=== PATIENT | male | born 1970 | race Caucasian/White ===

== ENCOUNTER → 2017-02-22 | Outpatient (CLI) | payer OTHER ==
[~2017-02-22] MED LIST: ACET-1311 PO; AFRINWC; AGG PO; ALL300 PO; ARTIOIN OP; ATOR-22 PO; BLACK CHERRY PO; BND25 PO; CALCOIN3 TOP; CLR10 PO; COEN1CAP17 PO; CRDCD180 PO; CYAN500T PO; FAMO40TA6 PO; FLV1 PO; GABA-113 PO; LIRA18IN SQ; LOSA1TAB38 PO; MECL1TAB42 PO; METF-384 PO; METH2.5T PO; METO50TA17 PO; MOME50SP5 NAE; MULT-580 PO; NYSTCRE11 EX; OMEG12006 PO; OMEG340C PO; OXYC7.5T78 PO; POLYSOL4 OPR; PSYL55.43 PO; RANI150T3 PO; SENN8.6T36 PO; VENL37.593 PO
[2017-02-22 15:43] LABS: HEMATOCRIT 43.4 % (42-52); MEAN CELL VOLUME 93.7 fL (80-100); MEAN CORPUSCULAR HEMOGLOBIN 34.1 pg (25-34); MEAN CORPUSCULAR HGB CONC 36.4 g/dl (32-36); PLATELET COUNT 208 K/uL (130-400); RED BLOOD COUNT 4.63 M/uL (4.7-6.1); WHITE BLOOD COUNT 6.28 K/uL (4.8-10.8)
[2017-02-22 15:49] LABS: MANUAL MICROSCOPIC REQUIRED? NO; REVIEW REQ? NO; URINE APPEARANCE CLEAR (CLEAR); URINE COLOR DK YELLOW; URINE EPITHELIAL CELL AUTO 20-30 /lpf (0-5); URINE NITRITE POS (NEG); URINE SPECIFIC GRAVITY 1.032 (1.000-1.030); UROBILINOGEN NEG (NEG)
[2017-02-22 15:51] LABS: URINE BILIRUBIN NEG (NEG)
[2017-02-22 15:56] LABS: ALT/SGPT 64 U/L (12-78); BLOOD UREA NITROGEN 15 mg/dl (7-18); BUN/CREATININE RATIO 15.9 (10-20); CALCIUM 9.7 mg/dl (8.5-10.1); CARBON DIOXIDE 28 mmol/L (21-32); CHLORIDE 103 mmol/L (98-107); CHOLESTEROL 126 mg/dl (0-200); CREATININE 0.96 mg/dl (0.60-1.40); GLUCOSE 135 mg/dl (70-99); POTASSIUM 3.8 mmol/L (3.5-5.1); SODIUM 139 mmol/L (136-145)
[2017-02-22 16:07] LABS: ALB/GLOB RATIO 1.1 (0.9-2); ALKALINE PHOSPHATASE 102 U/L (45-117); AST/SGOT 33 U/L (15-37); CHOLESTEROL/HDL RATIO 4.3; HDL CHOLESTEROL 29 mg/dl; LDL CHOLESTEROL CALCULATED 35 mg/dl; TRIGLYCERIDES 308 mg/dl (0-150); VERY LOW DENSITY LIPOPROT CALC 62 mg/dl
[2017-02-22 16:49] LABS: URINE TOTAL PROTEIN 461.6 mg/dl (0-11.9)
[2017-02-22 16:51] LABS: RATIO 934.7 mcg/mg (0-30.0)
[2017-02-23 06:55] LABS: ESTIMATED AVERAGE GLUCOSE 169 mg/dl; HA1C FLAG Normal (Normal)
== END | disposition home or self-care (01) ==
LOC: C.LAB1850 14:14
PROVIDERS: ATTEND Internal Medicine Nephrology
DX: I10 Essential (primary) hypertension (principal); E78.00 Pure hypercholesterolemia, unspecified; E11.9 Type 2 diabetes mellitus without complications; E66.9 Obesity, unspecified; E55.9 Vitamin D deficiency, unspecified; N18.1 Chronic kidney disease, stage 1

== ENCOUNTER → 2017-06-07 | Outpatient (CLI) | payer OTHER ==
[~2017-06-07] MED LIST changes: -BND25 PO; +DIPH25CA5 PO
[2017-06-07 16:59] LABS: HEMATOCRIT 45.6 % (42-52); MEAN CORPUSCULAR HEMOGLOBIN 32.4 pg (25-34); MEAN CORPUSCULAR HGB CONC 33.8 g/dl (32-36); MEAN PLATELET VOLUME 9.5 fL (7.4-10.4); PLATELET COUNT 206 K/uL (130-400); RED BLOOD COUNT 4.75 M/uL (4.7-6.1); WHITE BLOOD COUNT 6.52 K/uL (4.8-10.8)
[2017-06-07 17:07] LABS: URINE APPEARANCE CLEAR (CLEAR); URINE BILIRUBIN NEG (NEG); URINE COLOR YELLOW; URINE EPITHELIAL CELL AUTO 0-5 /lpf (0-5); URINE NITRITE NEG (NEG); URINE SPECIFIC GRAVITY 1.019 (1.000-1.030); UROBILINOGEN NEG (NEG)
[2017-06-07 17:10] LABS: ALT/SGPT 98 U/L (12-78); AST/SGOT 45 U/L (15-37); BLOOD UREA NITROGEN 15 mg/dl (7-18); BUN/CREATININE RATIO 18.9 (10-20); CALCIUM 9.6 mg/dl (8.5-10.1); CARBON DIOXIDE 31 mmol/L (21-32); CHLORIDE 101 mmol/L (98-107); CREATININE 0.79 mg/dl (0.60-1.40); GLUCOSE 171 mg/dl (70-99); POTASSIUM 3.7 mmol/L (3.5-5.1); SODIUM 136 mmol/L (136-145)
[2017-06-07 17:12] LABS: MANUAL MICROSCOPIC REQUIRED? NO; REVIEW REQ? NO
[2017-06-07 17:15] LABS: ALKALINE PHOSPHATASE 101 U/L (45-117); URIC ACID 4.8 mg/dl (2.6-7.2)
[2017-06-07 17:30] LABS: CREATININE, URINE 51.6 mg/dl; URINE PROTIEN/CREAT RATIO 3.4 (0-0.2); URINE TOTAL PROTEIN 176.1 mg/dl (0-11.9)
[2017-06-08 07:47] LABS: ESTIMATED AVERAGE GLUCOSE 180 mg/dl; HA1C FLAG Normal (Normal)
== END | disposition home or self-care (01) ==
LOC: C.LAB1850 15:23
PROVIDERS: ATTEND Internal Medicine Nephrology
DX: E11.49 Type 2 diabetes mellitus with other diabetic neurological complication (principal); E11.65 Type 2 diabetes mellitus with hyperglycemia; E55.9 Vitamin D deficiency, unspecified; E78.00 Pure hypercholesterolemia, unspecified; E66.9 Obesity, unspecified; I10 Essential (primary) hypertension; R80.9 Proteinuria, unspecified; N18.1 Chronic kidney disease, stage 1

== ENCOUNTER → 2017-08-06 | Outpatient (CLI) | payer OTHER ==
[2017-08-06 14:02] LABS: ALBUMIN 3.7 gm/dl (3.4-5.0); BLOOD UREA NITROGEN 15 mg/dl (7-18); CALCIUM 9.5 mg/dl (8.5-10.1); CARBON DIOXIDE 29 mmol/L (21-32); CREATININE 0.87 mg/dl (0.60-1.40); GLUCOSE 198 mg/dl (70-99); POTASSIUM 3.9 mmol/L (3.5-5.1); SODIUM 137 mmol/L (136-145)
[2017-08-06 14:03] LABS: PHOSPHORUS 2.9 mg/dl (2.5-4.9)
== END | disposition home or self-care (01) ==
LOC: C.LAB1850 12:10
PROVIDERS: ATTEND Internal Medicine Nephrology
DX: N18.1 Chronic kidney disease, stage 1 (principal)

== ENCOUNTER → 2017-10-14 | Outpatient (CLI) | payer OTHER ==
[2017-10-14 13:02] LABS: ALBUMIN 3.7 gm/dl (3.4-5.0); BLOOD UREA NITROGEN 22 mg/dl (7-18); CALCIUM 9.7 mg/dl (8.5-10.1); CARBON DIOXIDE 28 mmol/L (21-32); CREATININE 0.95 mg/dl (0.60-1.40); GLUCOSE 159 mg/dl (70-99); PHOSPHORUS 3.2 mg/dl (2.5-4.9); POTASSIUM 3.5 mmol/L (3.5-5.1); SODIUM 139 mmol/L (136-145)
== END | disposition home or self-care (01) ==
LOC: C.LAB1850 11:35
PROVIDERS: ATTEND Internal Medicine Nephrology
DX: I12.9 Hypertensive chronic kidney disease with stage 1 through stage 4 chronic kidney disease, or unspecified chronic kidney disease (principal); R80.9 Proteinuria, unspecified; N18.1 Chronic kidney disease, stage 1; E55.9 Vitamin D deficiency, unspecified

== ENCOUNTER → 2017-10-26 | Outpatient (CLI) | payer OTHER ==
--- NOTE | 2017-10-26 09:13 | DIAGNOSTIC IMAGING REPORT ---
ABDOMINAL ULTRASOUND, RIGHT UPPER QUADRANT HISTORY: FATTY LIVER. COMPARISON: CT of the abdomen and pelvis October 20, 2012 and right upper quadrant ultrasound August 26, 2012. FINDINGS: Hepatic echogenicity is significantly increased. No hepatic lesions are identified. The appearance is similar to exam of August 26, 2012. There is no biliary ductal dilatation. No gallstones are identified. Pancreas is partially obscured however the body is within normal limits. There is no right hydronephrosis. IMPRESSION: 1. Moderate fatty infiltration of the liver. 2. No gallstones or biliary ductal dilatation. Electronically signed by: Edilson Fall M.D. 10/26/2017 9:12 AM Dictated Date/Time: 10/26/2017 9:10 AM
== END | disposition home or self-care (01) ==
LOC: C.ULTR 08:36
PROVIDERS: ATTEND Internal Medicine Gastroenterology
DX: K76.0 Fatty (change of) liver, not elsewhere classified (principal)

== ENCOUNTER 2020-01-06 16:06 | Inpatient (IN) ==
--- NOTE | 2020-01-06 16:19 | CT Scan Report ---
CT OF THE HEAD WITHOUT CONTRAST CLINICAL HISTORY: Stroke evaluation. Right-sided weakness and numbness. COMPARISON STUDY: MRI of the brain May 02, 2015. Head CT and CTA of the head August 03, 2012 TECHNIQUE: Helical axial images of the head were obtained without IV contrast. Automated exposure con trol was utilized for the study. A dose lowering technique was utilized adhering to the principles o f ALARA. FINDINGS: No acute intracranial hemorrhage, midline shift or mass effect is present. The ventricular system is unremarkable. The basilar cisterns are patent. No extra-axial collections are present. Ther e are no findings to suggest acute dural sinus thrombosis or acute territorial infarct. No significan t calvarial abnormalities are present. IMPRESSION: No acute intracranial findings. ACT 112: Negative or not required by law. Electronically signed by: Edilson Fall M.D. 01/06/2020 4:17 PM
[2020-01-06] MEDS ORDERED: OPTIRAY 320 125ml IV PRN (16:21)
[2020-01-06] MEDS ORDERED: SODIUM CHLORIDE 0.9% 1000ML 1,000 ML IV ONE (16:35)
--- NOTE | 2020-01-06 16:35 | CT Scan Report ---
CTA ANGIOGRAPHY OF THE HEAD CLINICAL HISTORY: Stroke evaluation COMPARISON STUDY: CTA of the head August 03, 2012. TECHNIQUE: Helical axial images of the head were obtained following uneventful intravenous administr ation of Optiray 320. Sagittal and coronal reconstructions were viewed as well as maximal intensity p rojections on an independent 3-D workstation. Automated exposure control was utilized for the study. A dose lowering technique was utilized adhering to the principles of ALARA. CT DOSE: 1373.91 mGy.cm FINDINGS: Please note that the CTA of the neck will be reported separately. No acute intracranial hem orrhage, midline shift or mass effect is present. The ventricular system is normal. The basilar ciste rns are patent. There is extensive atherosclerotic plaque within the intracranial vessels. There is s evere stenosis of the left cavernous carotid and moderate stenosis of the right cavernous carotid. No intraluminal thrombus is identified within the anterior circulation. There is no abrupt vessel cut o ff within the anterior circulation. There is no intracranial aneurysm. Right vertebral artery is dimi nutive. There is occlusion of the proximal intracranial portion of the right vertebral artery with di stal reconstitution. Severe multifocal stenoses versus short segment occlusion of the left vertebral and basilar arteries are noted. This has progressed since CT of August 03, 2012. The bilateral poste rior cerebral arteries are patent. IMPRESSION: 1. Progression of severe atherosclerotic disease within the intracranial vessels since CTA of December, most pronounced within the posterior circulation with severe multifocal stenoses versus occlu ayse of the left vertebral and basilar artery with occlusion and distal reconstitution of the right v ertebral artery. 2. No intraluminal thrombus or abrupt vessel cut off within the anterior circulation. Severe stenosis of the left cavernous carotid and moderate stenosis of the right cavernous carotid. ACT 112: Negative or not required by law. Electronically signed by: Edilson Fall M.D. 01/06/2020 4:33 PM
[2020-01-06] MEDS ORDERED: MAGNESIUM SULFATE / D5W 1 GM/100 ML BAG IV STA (16:36)
[2020-01-06 16:38] LABS: Basophils # (auto) 0.03 K/uL (0-0.2); Basophils % (auto) 0.5 %; Eosinophils # (auto) 0.32 K/uL (0-0.5); Hematocrit (blood only) 37.3 % (42-52); Hemoglobin 12.9 g/dL (14.0-18.0); Immature Granulocytes # (auto) 0.02 K/uL (0.00-0.02); Immature Granulocytes % (auto) 0.3 %; Lymphocytes # (auto) 1.55 K/uL (1.2-3.4); Lymphocytes % (auto) 24.4 %; Mean Corpuscular Hemoglobin 33.3 pg (25-34); Mean Corpuscular Hgb Conc 34.6 g/dL (32-36); Mean Corpuscular Volume 96.4 fL (80-100); Monocytes % (auto) 9.4 %; Neutrophils # (auto) 3.83 K/uL (1.4-6.5); Neutrophils % (auto) 60.4 %; Platelet Count 201 K/uL (130-400); RDW Standard Deviation 49.1 fL (36.4-46.3); Red Blood Count 3.87 M/uL (4.7-6.1); White Blood Count 6.35 K/uL (4.8-10.8)
--- NOTE | 2020-01-06 16:42 | CT Scan Report ---
CT ANGIOGRAPHY OF THE NECK WITH CONTRAST CLINICAL HISTORY: Stroke evaluation COMPARISON STUDY: MRA of the neck May 02, 2015. Technique: CT angiography of the carotid and vertebral arteries was obtained using [employer] 320 IV and 3D reconstruction on an independent workstation. NASCET criteria was utilized. Automated exposure c ontrol was utilized for the study. A dose lowering technique was utilized adhering to the principles of ALARA. 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 Thi s is unchanged since MRA of May 02, 2015. The left vertebral artery within the neck is patent. Se ty multifocal stenoses versus occlusion within the intracranial portion are better depicted on the CTA of the head. There is moderate plaque within the proximal right internal carotid artery with 30% stenosis. Vessel measures 3.7 mm in caliber at site of narrowing and 5 mm distally. There is mild ana nosis of the proximal left internal carotid artery. The vessel measures 4.2 mm at site of narrowing a nd 4.8 mm distally. No aneurysm is identified. IMPRESSION: 1. Moderate atherosclerotic plaque within the bilateral proximal internal carotid arteries. Mild sten osis of the proximal bilateral internal carotid arteries, as described above. 2. 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 ACT 112: Negative or not required by law. Electronically signed by: Edilson Fall M.D. 01/06/2020 4:41 PM
[2020-01-06] MEDS ORDERED: TPA for Stroke IV STA (16:49)
[2020-01-06 16:55] LABS: Partial Thromboplastin Ratio 0.9; Partial Thromboplastin Time 25.2 Seconds (21.0-31.0); Prothrombin Time 10.3 Seconds (9.0-12.0)
[2020-01-06] MEDS ORDERED: Alteplase Bolus 9 MG in SYRINGE 0 ML IV ONE (16:59)
[2020-01-06] MEDS ORDERED: PRIMARY PLUMSET, PE LINED TUBING, 113 IN, NON-DEHP (2260-0500) IV ONE (17:00)
[2020-01-06] MEDS ORDERED: ALTEPLASE, RECOMBINANT 81 MG in EMPTY BAG 0 ML IV ONE (17:00)
[2020-01-06 17:12] LABS: Alanine Aminotransferase 56 U/L (12-78); Albumin Level 3.4 gm/dl (3.4-5.0); Alkaline Phosphatase 103 U/L (45-117); Aspartate Aminotransferase 29 U/L (15-37); BUN Creatinine Ratio 14.1 (10-20); Bilirubin,Total 0.4 mg/dl (0.2-1); Blood Urea Nitrogen 20 mg/dl (7-18); Calcium 9.4 mg/dl (8.5-10.1); Carbon Dioxide 25 mmol/L (21-32); Chloride 102 mmol/L (98-107); Creatinine Clr Calc Pharmacy 77.2 ml/min; Est GFR (African American) 66.2; Est GFR (Non-African American) 57.1; Globulin 3.5 gm/dl (2.5-4.0); Glucose 394 mg/dl (70-99); Magnesium 1.8 mg/dl (1.8-2.4); Potassium 3.7 mmol/L (3.5-5.1); Sodium 135 mmol/L (136-145); Total Protein 6.9 gm/dl (6.4-8.2); Troponin I < 0.015 ng/ml (0-0.045)
--- NOTE | 2020-01-06 17:13 | XRay Report ---
XR chest 1V portable CLINICAL HISTORY: Severe dizziness. COMPARISON STUDY: Chest radiograph June 11, 2014. FINDINGS: Lung volumes are normal. Lungs are clear. There is no pneumothorax or pleural effusion. Enl argement of the cardiac silhouette is unchanged. Mediastinal contours are normal. There is no evidenc e for pulmonary edema. IMPRESSION: No acute cardiopulmonary findings. ACT 112: Negative or not required by law. Electronically signed by: Edilson Fall M.D. 01/06/2020 5:12 PM
--- NOTE | 2020-01-06 17:45 | Emergency Department Note ---
History of Present Illness General Chief complaint: Stroke Alert Source: patient, family (mother), EMS, RN notes reviewed and old records reviewed Mode of arrival: EMS Limitations: no limitations History of Present Illness Provider complaint: Slurred speech, ataxia, dizziness Onset (ago): hour(s) less than 1 Location: head Radiation: non-radiation Severity: moderate Maximum Pain Intensity: 0 Current Pain Intensity: 0 Relieved By: + immobilization Exacerbated By: + movement Associated symptoms: + weakness Treatments prior to arrival: none This is a 49-year-old male who presents emergency department. The patient reports at approximately 11 PM last evening he had a dizzy spell. He describes this dizzy spell as a "stroke vertigo". He reports the symptoms only lasted about 2 minutes and then went away. He went throughout his day today when approximately 1500 he noticed he was extremely ataxic to the point that he could not walk along with dizziness. He describes himself as extremely weak without any coordination. Upon arrival to the emergency department the patient is not able to ambulate. He does have a degree of ataxia due to previous strokes however he reports that this is much worse. Patient was brought in by EMS and was sent immediately to CAT scan. The patient is on aggrenox because of his past medical history Home Medications Home Medications Medication Instructions Recorded Confirmed Type allopurinol 300 mg tablet 300 mg PO QAM tab 02/01/19 01/06/20 History coenzyme Q10 100 mg capsule 100 mg PO QDL cap 02/01/19 01/06/20 History diphenhydramine HCl 25 mg capsule 75 mg PO DAILY PRN cap 02/01/19 01/06/20 History fexofenadine 180 mg tablet 180 mg PO BID #90 tab 02/01/19 01/06/20 History fluticasone propionate 50 2 sprays INTRANASAL QAM #1 gm 02/01/19 01/06/20 History mcg/actuation nasal spray,suspension hydrocortisone 1 % topical cream 1 appln TOPICAL DAILY PRN gm 02/01/19 01/06/20 History losartan 100 mg tablet 100 mg PO QAM tab 02/01/19 01/06/20 History meclizine 25 mg tablet 25 mg PO TID PRN tab 02/01/19 01/06/20 History metformin 1,000 mg tablet 1,000 mg PO BID #180 tab 02/01/19 01/06/20 History metoprolol tartrate 100 mg tablet 100 mg PO Q12H tab 02/01/19 01/06/20 History montelukast 10 mg tablet 10 mg PO QPM #30 tab 02/01/19 01/06/20 History nifedipine 90 mg tablet,extended 90 mg PO QAM tab 02/01/19 01/06/20 History release omega-3 fatty acids 1,000 mg 1,000 mg PO BID cap 02/01/19 01/06/20 History capsule pen needle, diabetic 32 gauge x #10 ea 02/01/19 01/01/20 History 5/32" propylene glycol 0.6 % eye drops 2 drops OP UD PRN ml 02/01/19 01/06/20 History ustekinumab 90 mg/mL subcutaneous 90 mg SQ .COMPLEX ml 02/01/19 01/06/20 History syringe venlafaxine 150 mg 150 mg PO HS 02/01/19 01/06/20 History capsule,extended release 24 hr Tart Zamora Extract 1,200 mg PO QPM 02/02/19 01/06/20 History acetaminophen [Acetaminophen Extra 2,000 mg PO UD PRN 02/02/19 01/06/20 History Strength] atorvastatin 10 mg PO HS 02/02/19 01/06/20 History famotidine [Pepcid AC] 10 mg PO UD PRN 02/02/19 01/06/20 History ketotifen fumarate [Zaditor] 1 drp OPHTHALMIC (EYE) QAM 02/02/19 01/06/20 Hist ory latanoprost [Xalatan] 1 drp OPHTHALMIC (EYE) HS 02/02/19 01/06/20 History multivitamin with minerals 3 tab PO QDL 02/02/19 01/06/20 History [Hair,Skin and Nails] olopatadine [Pataday] 1 drp OPHTHALMIC (EYE) QAM 02/02/19 01/06/20 History polyethylene glycol 3350 [Miralax] 17 g PO BID 02/02/19 01/06/20 History blood sugar diagnostic #180 ea 05/15/19 01/01/20 Rx hydrochlorothiazide 50 mg tablet 50 mg PO QPM #90 tab 10/03/19 01/06/20 Rx aspirin 25 mg-dipyridamole 200 mg 1 cap PO BID #180 cap 10/16/19 01/06/20 Rx capsule,ext.release 12 hr multiphase gabapentin 300 mg capsule 300 mg PO TID #270 cap 10/16/19 01/06/20 Rx glimepiride 2 mg tablet 2 mg PO BID #180 tab 10/16/19 01/06/20 Rx Victoza 3-Kodak 0.6 mg/0.1 mL (18 1.8 mg .ROUTE DAILY #9 ml NS 10/23/19 01/06/20 Rx mg/3 mL) subcutaneous pen injector insulin degludec 100 unit/mL (3 20 units SQ HS ml 01/01/20 01/06/20 History mL) subcutaneous pen Allergies Allergy/AdvReac Type Severity Reaction Status Date / Time cephalexin Allergy Intermediate "GENERAL Verified 01/06/20 17:20 ILLNESS"/rash latex Allergy Intermediate RASH, Verified 01/06/20 17:20 BLEEDING aspirin Allergy Mild GI Verified 01/06/20 17:20 SYMPTOMS-nausea/vomiting clopidogrel [From Plavix] Allergy Mild Rash Verified 01/06/20 17:20 grass pollen-perennial rye, Allergy Mild sneezing, Verified 01/06/20 17:20 standar stuffy nose methotrexate Allergy Mild nausea/vomi Verified 01/06/20 17:20 ting Penicillins Allergy Mild Rash Verified 01/06/20 17:20 ragweed pollen Allergy Mild sneezing, Verified 01/06/20 17:20 stuffy nose adalimumab [From Humira] Allergy "made my Verified 01/06/20 17:20 psorasis worse" Sulfa (Sulfonamide AdvReac Mild general Verified 01/06/20 17:20 Antibiotics) malaise, upset stomach Past Med/Surg History Medical History Chronic back pain Chronic kidney disease, stage I Depression Diabetes mellitus, type 2 Fatty liver disease, nonalcoholic GERD (gastroesophageal reflux disease) Glaucoma bilt Gout Hyperlipidemia Hypertension Kidney stones Migraine Psoriasis Sleep apnea cpap Stroke --walks with a cane, ataxia--follows with Dr. Siu, reason for Aggrenox Vitamin D deficiency Surgical History History of appendectomy History of esophagogastroduodenoscopy (EGD) History of lumbar spinal fusion History of removal of cyst at umbilicus History of tonsillectomy and adenoidectomy x2 History of tooth extraction History of wisdom tooth extraction Status post myringotomy with tube placement of both ears Family History Mother Family history of reaction to anesthesia during heart valve replacement became combative and forgetful Family history of diabetes mellitus Hypertension Stroke Grandmother (Maternal) Family history of diabetes mellitus Grandfather (Maternal) Family hx of colon cancer Social History Preferred Language: Azeri Communication Ability: Effective Floor Covering Layer Required: No Beliefs That Will Affect Care: None Current Living Situation: Parent Current Living Situation Comment: lives with mom Other Information That Helps Us Care for You: No Feels Safe at Home: Yes Safety Concerns: Feels Safe At This Time Smoking Status: Never smoker Second Hand Exposure: Yes (stepfather smoked) ; Hx Alcohol Use: Yes Alcohol type: beer, wine and hard liquor Hx Substance Use: No Review of Systems A total of 10 systems reviewed and were otherwise negative Physical Exam Vital Signs Vital Signs - 24 hr 01/06/20 17:53 Pulse Rate [Left Finger] 78 Respiratory Rate 16 Respiratory Effort / Characteristics Non-Labored Respiratory Depth Normal Blood Pressure [Left Arm] 151/86 H Blood Pressure Mean [Left Arm] 107 Pulse Oximetry 95 Oxygen Delivery Method Room Air VITAL SIGNS - Vital signs and nursing notes were reviewed. GENERAL - 49-year-old male appearing stated age who is in no acute distress, until he stands up. + Rombergs, Communicates well with provider and answers questions appropriately though difficult to understand due to slurred speach. Pt unable to ambulate when standing (new change) SKIN - Without rashes. HEAD - NC/AT. EYES - PERRL with EOMI bilaterally. Sclera anicteric. Palpebral conjunctiva pink and moist with no injection noted. EARS - No deformities of external structures noted on gross examination bilaterally. No pain elicited with palpation of the tragus bilaterally. External auditory canals without discharge or otorrhea. Tympanic membranes pearly dolan without retraction or bulging. No fluid or purulent material visualized behind the TM. Handle of malleus, umbo, cone of light, pars tensa/flaccid all easily visualized. NOSE - Midline and without cyanosis. No epistaxis or purulent drainage noted. Septum midline without deviation or septal hematoma noted. MOUTH/OROPHARYNX - Without perioral cyanosis. Buccal mucosa pink and moist and without leukoplakia. Tongue midline with equal elevation of palate bilaterally. No tonsillar hypertrophy, erythema, or exudates noted. dentition noted. NECK - Neck with FROM. Supple to palpation. lymphadenopathy noted. No nuchal rigidity. LUNGS - Chest wall symmetric without accessory muscle use, intercostals retractions, or central cyanosis. Normal vesicular breath sounds CTA B/L. No wheezes, rales, or rhonchi appreciated. CARDIAC - RRR with S1/S2. No murmur, rubs, or gallops appreciated. ABDOMEN - Abdominal contour without pulsations or visible masses. BS normoactive all four quadrants. No tenderness, palpable masses, hepatosple nomegaly, or ascites noted. EXTREMITIES - No clubbing or peripheral cyanosis. No pretibial edema present. +3/5 radial, posterior tibial, and dorsalis pedis pulses palpated throughout. +5/5 strength noted in UE/LE bilaterally. NEUROLOGIC - Cranial nerves II through XII grossly intact. Sensory intact to light touch throughout. Patellar reflexes +2/4. PSYCH - A&Ox3 and cooperates fully with examiner. Pt is very pleasant and interacts well with examiner. Course Administered Medications Acetaminophen (Tylenol) 650 mg PO Q4H PRN PRN Reason: Pain or Fever Stop: 02/05/20 19:30 Last Admin: 01/07/20 07:24 Dose: 650 mg Documented by: [id number] Allopurinol (Zyloprim) 300 mg PO QAM [facility] Stop: 02/06/20 08:59 Last Admin: 01/07/20 08:28 Dose: 300 mg Documented by: [id number] Atorvastatin Calcium (Lipitor) 40 mg PO HS [facility] Stop: 02/05/20 20:59 Last Admin: 01/06/20 22:30 Dose: 40 mg Documented by: [id number] Fluticasone Propionate (Flonase) 2 sprays NA QAM [facility] Stop: 02/06/20 08:59 Last Admin: 01/07/20 08:29 Dose: 2 sprays Documented by: [id number] Gabapentin (Neurontin) 300 mg PO TID [facility] Stop: 02/05/20 20:59 Last Admin: 01/07/20 14:54 Dose: 300 mg Documented by: [id number] Admin: 01/07/20 08:27 Dose: 300 mg Documented by: [id number] Admin: 01/06/20 22:31 Dose: 300 mg Documented by: [id number] Hydralazine HCl (Apresoline) 25 mg PO TID [facility] Stop: 02/06/20 13:59 Last Admin: 01/07/20 14:54 Dose: Not Given Documented by: [id number] Admin: 01/07/20 11:28 Dose: 25 mg Documented by: [id number] Hydralazine HCl (Hydralazine Hcl) 10 mg IV Q4 PRN PRN Reason: Hypertension Stop: 02/06/20 11:39 Last Admin: 01/07/20 12:02 Dose: 10 mg Documented by: [id number] Sodium Chloride (Nss 1000ml) 1,000 mls @ 100 mls/hr IV .Q10H [facility] Stop: 02/05/20 19:30 Last Admin: 01/07/20 14:55 Dose: 100 mls/hr Documented by: [id number] Infusion: 01/07/20 14:55 Dose: 100 mls/hr Documented by: [id number] Admin: 01/07/20 07:10 Dose: 100 mls/hr Documented by: [id number] Infusion: 01/07/20 07:10 Dose: 100 mls/hr Documented by: [id number] Admin: 01/06/20 21:25 Dose: 100 mls/hr Documented by: [id number] Insulin Aspart (Novolog Flexpen) 0 units SC ACHS [facility] Stop: 02/05/20 21:44 Last Admin: 01/07/20 17:05 Dose: 12 units Documented by: [id number] Cosigned by: [id number] Admin: 01/07/20 12:03 Dose: 4 units Documented by: [id number] Cosigned by: [id number] Admin: 01/07/20 08:52 Dose: 7 units Documented by: [id number] Cosigned by: [id number] Admin: 01/06/20 22:40 Dose: Not Given Documented by: [id number] Cosigned by: [id number] Insulin Glargine (Lantus Solostar Pen) 10 units SC BID [facility] Stop: 02/06/20 11:59 Last Admin: 01/07/20 12:02 Dose: 10 units Documented by: [id number] Cosigned by: [id number] Ioversol (Optiray 320 125ml) 119 ml IV ONCE PRN PRN Reason: Interaction Checking Stop: 01/10/20 16:20 Last Admin: 01/06/20 16:21 Dose: 119 ml Documented by: [id number] Labetalol HCl (Normodyne) 10 mg IV Q2H PRN PRN Reason: Hypertension Stop: 02/06/20 03:02 Last Admin: 01/07/20 10:59 Dose: 10 mg Documented by: [id number] Cosigned by: [id number] Admin: 01/07/20 08:36 Dose: 5 mg Documented by: [id number] Cosigned by: [id number] Admin: 01/07/20 04:01 Dose: 10 mg Documented by: [id number] Cosigned by: [id number] Latanoprost (Xalatan Oph) 1 drops OP HS [facility] Stop: 02/05/20 20:59 Last Admin: 01/06/20 22:32 Dose: 1 drops Documented by: [id number] Metoprolol Tartrate (Lopressor) 100 mg PO Q12 [facility] Stop: 02/05/20 19:30 Last Admin: 01/07/20 08:28 Dose: 100 mg Documented by: [id number] Admin: 01/06/20 22:30 Dose: 100 mg Documented by: [id number] Miscellaneous (Order Awaiting Action) 1 ea N/A QS [facility] Stop: 02/06/20 00:00 Last Admin: 01/07/20 14:55 Dose: Not Given Documented by: [id number] Admin: 01/07/20 11:32 Dose: Not Given Documented by: [id number] Admin: 01/07/20 00:23 Dose: Not Given Documented by: [id number] Miscellaneous (Order Awaiting Action) 1 ea N/A QS [facility] Stop: 02/06/20 00:00 Last Admin: 01/07/20 14:55 Dose: Not Given Documented by: [id number] Admin: 01/07/20 11:31 Dose: Not Given Documented by: [id number] Admin: 01/07/20 00:23 Dose: Not Given Documented by: [id number] Montelukast Sodium (Singulair) 10 mg PO QPM [facility] Stop: 02/05/20 20:59 Last Admin: 01/06/20 22:31 Dose: 10 mg Documented by: [id number] Nifedipine (Procardia Xl) 90 mg PO QAM [facility] Stop: 02/06/20 08:59 Last Admin: 01/07/20 08:27 Dose: 90 mg Documented by: [id number] Polyethylene Glycol (Miralax Powder Packet) 17 gm PO BID [facility] Stop: 02/05/20 20:59 Last Admin: 01/07/20 08:29 Dose: 17 gm Documented by: [id number] Admin: 01/06/20 22:30 Dose: Not Given Documented by: [id number] Venlafaxine HCl (Effexor Extended Release) 150 mg PO HS [facility] Stop: 02/05/20 20:59 Last Admin: 01/06/20 22:31 Dose: 150 mg Documented by: [id number] Discontinued Medications Alteplase, Recombinant (Activase For Stroke) 1 ea IV NOW STA; Protocol Stop: 01/06/20 16:50 Last Admin: 01/06/20 19:18 Dose: Not Given Documented by: [id number] Hydralazine HCl (Hydralazine Hcl) 5 mg IV NOW ONE Stop: 01/06/20 23:28 Last Admin: 01/06/20 23:38 Dose: 5 mg Documented by: [id number] Sodium Chloride (Nss 1000ml) 1,000 mls @ 999 mls/hr IV .Q1H1M ONE Stop: 01/06/20 17:35 Last Infusion: 01/06/20 17:20 Dose: 0 mls/hr Documented by: [id number] Admin: 01/06/20 16:41 Dose: 999 mls/hr Documented by: [id number] Magnesium Sulfate/Dextrose (Magnesium Sulfate / D5w) 1 gm in 100 mls @ 100 mls/hr IV NOW STA Stop: 01/06/20 17:35 Last Infusion: 01/06/20 17:51 Dose: 0 mls/hr Documented by: [id number] Admin: 01/06/20 16:41 Dose: 100 mls/hr Documented by: [id number] Alteplase, Recombinant 9 mg/ (Syringe) 9 mls @ 9 mls/min IV ONCE ONE Stop: 01/06/20 17:00 Last Admin: 01/06/20 16:50 Dose: 9 mls/min Documented by: [id number] Cosigned by: [id number] Alteplase, Recombinant 81 mg/ (EMPTY BAG) 81 mls @ 81 mls/hr IV ONCE ONE Stop: 01/06/20 17:01 Last Infusion: 01/06/20 18:01 Dose: 0 mls/hr Documented by: [id number] Cosigned by: [id number] Admin: 01/06/20 16:55 Dose: 81 mls/hr Documented by: [id number] Cosigned by: [id number] Potassium Chloride (K Anil / Wtr) 10 meq in 100 mls @ 100 mls/hr IV Q1H [facility] Stop: 01/07/20 10:44 Last Infusion: 01/07/20 11:43 Dose: 0 mls/hr Documented by: [id number] Admin: 01/07/20 10:23 Dose: 100 mls/hr Documented by: [id number] Infusion: 01/07/20 10:23 Dose: 100 mls/hr Documented by: [id number] Admin: 01/07/20 09:28 Dose: 100 mls/hr Documented by: [id number] Infusion: 01/07/20 09:24 Dose: 100 mls/hr Documented by: [id number] Admin: 01/07/20 08:24 Dose: 100 mls/hr Documented by: [id number] Infusion: 01/07/20 08:11 Dose: 100 mls/hr Documented by: [id number] Admin: 01/07/20 07:11 Dose: 100 mls/hr Documented by: [id number] Magnesium Sulfate/Dextrose (Magnesium Sulfate / D5w) 1 gm in 100 mls @ 50 mls/hr IV Q2H [facility] Stop: 01/07/20 10:44 Last Infusion: 01/07/20 09:29 Dose: 0 mls/hr Documented by: [id number] Admin: 01/07/20 08:24 Dose: 50 mls/hr Documented by: [id number] Infusion: 01/07/20 08:24 Dose: 50 mls/hr Documented by: [id number] Admin: 01/07/20 07:11 Dose: 50 mls/hr Documented by: [id number] Insulin Aspart (Novolog Flexpen) 0 units SC 0000,0400 [facility] Stop: 01/07/20 04:01 Last Admin: 01/07/20 04:31 Dose: Not Given Documented by: [id number] Cosigned by: [id number] Admin: 01/07/20 00:17 Dose: Not Given Documented by: [id number] Cosigned by: [id number] Insulin Glargine (Lantus Solostar Pen) 20 units SC HS [facility] Stop: 02/05/20 21:44 Last Admin: 01/06/20 22:39 Dose: 20 units Documented by: [id number] Cosigned by: [id number] Labetalol HCl (Normodyne) 10 mg IV NOW STA Stop: 01/06/20 23:58 Last Admin: 01/07/20 00:13 Dose: 10 mg Documented by: [id number] Cosigned by: [id number] Miscellaneous Information (Dc All Previously Ordered Diabetes Meds) 1 ea N/A ONE ONE Stop: 01/06/20 19:32 Last Admin: 01/06/20 22:29 Dose: 1 ea Documented by: [id number] Potassium Chloride (Klor-Con M20) 40 meq PO NOW STA Stop: 01/07/20 06:46 Last Admin: 01/07/20 07:25 Dose: 40 meq Documented by: [id number] Critical Care Time I have personally spent greater than 90 minutes of critical care time in the direct management of this patient. This includes bedside care, interpretation of diagnostic studies, and testing, discussion with consultants, patient, and family members, and other required patient management activities. This 90 minutes is in excess of all separately billable procedures. Medical Decision Making Differential Diagnosis Infection, dehydration, metabolic abnormality, hypo/hyperglycemia, electrolyte disturbance, anemia, hypoxia, cardiac sources, intracerebral event, toxicologic, neurologic, as well as other pathologies. Medical Records Attestation: I reviewed the patient's medical records. Home Medications Current Medication List: was personally reviewed by me Laboratory Data Attestation: I reviewed the patient's lab results. Result diagrams: 01/07/20 05:44 01/07/20 05:44 Lab Results 01/06/20 01/06/20 01/06/20 Range/Units 16:28 16:28 16:28 WBC 6.35 (4.8-10.8) K/uL RBC 3.87 L (4.7-6.1) M/uL Hgb 12.9 L (14.0-18.0) g/dL Hct 37.3 L (42-52) % MCV 96.4 (80-100) fL MCH 33.3 (25-34) pg MCHC 34.6 (32-36) g/dL RDW Std Deviation 49.1 H (36.4-46.3) fL RDW Coeff of Clay 14.0 (11.5-14.5) % Plt Count 201 (130-400) K/uL MPV 9.0 (7.4-10.4) fL Immature Gran % (Auto) 0.3 % Neut % (Auto) 60.4 % Lymph % (Auto) 24.4 % Frio % (Auto) 9.4 % Eos % (Auto) 5.0 % Baso % (Auto) 0.5 % Neut # (Auto) 3.83 (1.4-6.5) K/uL Lymph # (Auto) 1.55 (1.2-3.4) K/uL Frio # (Auto) 0.60 H (0.11-0.59) K/uL Eos # (Auto) 0.32 (0-0.5) K/uL Baso # (Auto) 0.03 (0-0.2) K/uL Immature Gran # (Auto) 0.02 (0.00-0.02) K/uL PT 10.3 (9.0-12.0) Seconds INR 1.0 (0.9-1.1) APTT 25.2 (21.0-31.0) Seconds PTT Ratio 0.9 Sodium 135 L (136-145) mmol/L Potassium 3.7 (3.5-5.1) mmol/L Chloride 102 (98-107) mmol/L Carbon Dioxide 25 (21-32) mmol/L Anion Gap 8.0 (3-11) BUN 20 H (7-18) mg/dl Creatinine 1.43 H (0.6-1.4) mg/dl Est Cr Clr Drug Dosing 77.2 ml/min Est GFR ( Amer) 66.2 Est GFR (Non-Af Amer) 57.1 BUN/Creatinine Ratio 14.1 (10-20) Glucose 394 H* (70-99) mg/dl POC Glucose (70-99) mg/dl Calcium 9.4 (8.5-10.1) mg/dl Magnesium 1.8 (1.8-2.4) mg/dl Total Bilirubin 0.4 (0.2-1) mg/dl AST 29 (15-37) U/L ALT 56 (12-78) U/L Alkaline Phosphatase 103 (45-117) U/L Troponin I < 0.015 (0-0.045) ng/ml Total Protein 6.9 (6.4-8.2) gm/dl Albumin 3.4 (3.4-5.0) gm/dl Globulin 3.5 (2.5-4.0) gm/dl Albumin/Globulin Ratio 1.0 (0.9-2) Beta-Hydroxybutyric Acd (0.2-2.81) mg/dl Specimen Hemolysis 01/06/20 Range/Units 16:59 WBC (4.8-10.8) K/uL RBC (4.7-6.1) M/uL Hgb (14.0-18.0) g/dL Hct (42-52) % MCV (80-100) fL MCH (25-34) pg MCHC (32-36) g/dL RDW Std Deviation (36.4-46.3) fL RDW Coeff of Clay (11.5-14.5) % Plt Count (130-400) K/uL MPV (7.4-10.4) fL Immature Gran % (Auto) % Neut % (Auto) % Lymph % (Auto) % Frio % (Auto) % Eos % (Auto) % Baso % (Auto) % Neut # (Auto) (1.4-6.5) K/uL Lymph # (Auto) (1.2-3.4) K/uL Frio # (Auto) (0.11-0.59) K/uL Eos # (Auto) (0-0.5) K/uL Baso # (Auto) (0-0.2) K/uL Immature Gran # (Auto) (0.00-0.02) K/uL PT (9.0-12.0) Seconds INR (0.9-1.1) APTT (21.0-31.0) Seconds PTT Ratio Sodium (136-145) mmol/L Potassium (3.5-5.1) mmol/L Chloride (98-107) mmol/L Carbon Dioxide (21-32) mmol/L Anion Gap (3-11) BUN (7-18) mg/dl Creatinine (0.6-1.4) mg/dl Est Cr Clr Drug Dosing ml/min Est GFR ( Amer) Est GFR (Non-Af Amer) BUN/Creatinine Ratio (10-20) Glucose (70-99) mg/dl POC Glucose 334 H* (70-99) mg/dl Calcium (8.5-10.1) mg/dl Magnesium (1.8-2.4) mg/dl Total Bilirubin (0.2-1) mg/dl AST (15-37) U/L ALT (12-78) U/L Alkaline Phosphatase (45-117) U/L Troponin I (0-0.045) ng/ml Total Protein (6.4-8.2) gm/dl Albumin (3.4-5.0) gm/dl Globulin (2.5-4.0) gm/dl Albumin/Globulin Ratio (0.9-2) Beta-Hydroxybutyric Acd (0.2-2.81) mg/dl Specimen Hemolysis Imaging Data Radiologist's Impression: [place] [phone] XRay Report Patient: JEROD ELI AAdmit Date: 01/06/20 MR#: [id number]: [address] [facility] Acct ID:[id number]: Date: 1970[facility] Zip: [place] [address] Age: 49Location: ED Sex: M Room/Bed: Att Phy:Diagnosis: STROKE ALERT Ester Phy: Mik Lala MDService Date: 01/06/20 Fam Phy:Interpreting Phy: Edilson Fall MD Admit Phy: Ordering Phy: Milo Conti MD cc: ~ XR chest 1V portable CLINICAL HISTORY: Severe dizziness. COMPARISON STUDY: Chest radiograph June 11, 2014. FINDINGS: Lung volumes are normal. Lungs are clear. There is no pneumothorax or pleural effusion. Enlargement of the cardiac silhouette is unchanged. Mediastinal contours are normal. There is no evidence for pulmonary edema. IMPRESSION: No acute cardiopulmonary findings. ACT 112: Negative or not required by law. Electronically signed by: Edilson Fall M.D. 01/06/2020 5:12 PM Dictated: 01/06/20 1711 Transcribed: 01/06/20 1711 [facility], [place] [phone] CT Scan Report Patient: JEROD ELI AAdmit Date: 01/06/20 MR#: [id number]: [address] Acct ID:[id number]: Date: 1970[facility] Zip: [place] [address] Age: 49Location: ED Sex: M Room/Bed: Att Phy:Diagnosis: STROKE ALERT Ester Phy: Mik Lala MDService Date: 01/06/20 Fam Phy:Interpreting Phy: Edilson Fall MD Admit Phy: Ordering Phy: Milo Conti MD cc: ~ CT OF THE HEAD WITHOUT CONTRAST CLINICAL HISTORY: Stroke evaluation. Right-sided weakness and numbness. COMPARISON STUDY: MRI of the brain May 02, 2015. Head CT and CTA of the head August 03, 2012 TECHNIQUE: Helical axial images of the head were obtained without IV contrast. Automated exposure control was utilized for the study. A dose lowering techniq ue was utilized adhering to the principles of ALARA. FINDINGS: No acute intracranial hemorrhage, midline shift or mass effect is present. The ventricular system is unremarkable. The basilar cisterns are patent. No extra-axial collections are present. There are no findings to suggest acute dural sinus thrombosis or acute territorial infarct. No significant calvarial abnormalities are present. IMPRESSION: No acute intracranial findings. ACT 112: Negative or not required by law. Electronically signed by: Edilson Fall M.D. 01/06/2020 4:17 PM Dictated: 01/06/20 1615 Transcribed: 01/06/20 1615 [facility], [place] [phone] CT Scan Report Patient: JEROD ELI AAdmit Date: 01/06/20 MR#: [id number]: [address] Acct ID:[id number]: Date: 1970[facility] Zip: [place] [address] Age: 49Location: ED Sex: M Room/Bed: Att Phy:Diagnosis: STROKE ALERT Ester Phy: Mik Lala MDService Date: 01/06/20 Fam Phy:Interpreting Phy: Edilson Fall MD Admit Phy: Ordering Phy: Milo Conti MD cc: ~ CTA ANGIOGRAPHY OF THE HEAD CLINICAL HISTORY: Stroke evaluation COMPARISON STUDY: CTA of the head August 03, 2012. TECHNIQUE: Helical axial images of the head were obtained following uneventful intravenous administration of Optiray 320. Sagittal and coronal reconstructions were viewed as well as maximal intensity projections on an independent 3-D workstation. Automated exposure control was utilized for the study. A dose lowering technique was utilized adhering to the principles of ALARA. CT DOSE: 1373.91 mGy.cm FINDINGS: Please note that the CTA of the neck will be reported separately. No acute intracranial hemorrhage, midline shift or mass effect is present. The ventricular system is normal. The basilar cisterns are patent. There is extensive atherosclerotic plaque within the intracranial vessels. 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 No intraluminal thrombus is identified within the anterior circulation. There is no abrupt vessel cut off within the anterior circulation. There is no intracranial aneurysm. Right vertebral artery is diminutive. 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 Severe multifocal stenoses versus short segment occlusion of the left vertebral and basilar arteries are noted. This has progressed since CT of August 03, 2012. The bilateral posterior cerebral arteries are patent. IMPRESSION: 1. Progression of severe atherosclerotic disease within the intracranial vessels since CTA of January 01, 2013, most pronounced within the posterior circulation with severe multifocal stenoses versus occlusion of the left vertebral and basilar artery with occlusion and distal reconstitution of the right vertebral artery. 2. No intraluminal thrombus or abrupt vessel cut off within the anterior circulation. Severe stenosis of the left cavernous carotid and moderate stenosis of the right cavernous carotid. ACT 112: Negative or not required by law. Electronically signed by: Edilson Fall M.D. 01/06/2020 4:33 PM Dictated: 01/06/20 1623 Transcribed: 01/06/20 162 [facility], [place] [phone] CT Scan Report Patient: JEROD ELI AAdmit Date: 01/06/20 MR#: [id number]: [address] Acct ID:[id number]: Date: [address] Zip: [place] [address] Age: 49Location: ED Sex: M Room/Bed: Att Phy:Diagnosis: STROKE ALERT Ester Phy: Mik Lala MDService Date: 01/06/20 Fam Phy:Interpreting Phy: Edilson Fall MD Admit Phy: Ordering Phy: Milo Conti MD cc: ~ CT ANGIOGRAPHY OF THE NECK WITH CONTRAST CLINICAL HISTORY: Stroke evaluation COMPARISON STUDY: MRA of the neck May 02, 2015. Technique: CT angiography of the carotid and vertebral arteries was obtained using [employer] 320 IV and 3D reconstruction on an independent workstation. NASCET criteria was utilized. Automated exposure control was utilized for the study. A dose lowering technique was utilized adhering to the principles of ALARA. 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 This is unchanged since MRA of May 02, 2015. The left vertebral artery within the neck is patent. Severe multifocal stenoses versus occlusion within the intracranial portion are better depicted on the CTA of the head. There is moderate plaque within the proximal right internal carotid artery with 30% stenosis. Vessel measures 3.7 mm in caliber at site of narrowing and 5 mm distally. There is mild stenosis of the proximal left internal carotid artery. The vessel measures 4.2 mm at site of narrowing and 4.8 mm distally. No aneurysm is identified. IMPRESSION: 1. Moderate atherosclerotic plaque within the bilateral proximal internal carotid arteries. Mild stenosis of the proximal bilateral internal carotid arteries, as described above. 2. 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 ACT 112: Negative or not required by law. Electronically signed by: Edilson Fall M.D. 01/06/2020 4:41 PM Dictated: 01/06/20 1633 Transcribed: 01/06/20 1633 ECG Data Attestation: I personally reviewed and interpreted this ECG as follows: Indication: + altered mental status Rate (beats per minute): 76 Rhythm: + normal sinus ECG Intervals/blocks: + Normal QT-c ECG [place]: + Left axis deviation ECG ST segments: no ST depression and no ST elevation Comparison ECG Date: from (06/11/2014) Change: no significant change Blood Pressure Blood Pressure Findings: Elevated blood pressure Blood Pressure Disposition: elevated BP felt to be situational MDM Narrative Patient was seen and evaluated as above in room B1. Review was performed of nursing notes and vital signs. I did review pertinent previous visits and patient history. After obtaining a thorough history and physical examination the above work up was performed. This is a 49-year-old male who presents the emergency department completely ataxic along with nausea and vomiting. The patient was immediately sent for CAT scan of the head as well as CTA of the head and neck and a stroke alert was initiated. Due to the patient's abrupt onset of symptoms as well as a CTA the decision was made with the family to give the patient TPA. His blood pressure is under control TPA consent was signed and placed on the chart. He was then evaluated by the neurologist who also recommended TPA. 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 I then discussed the case with the [place] neurologist who would not accept the patient. The patient actually feels improved after the TPA and based on this I then again discussed the case with the hospitalist who did agree to admit the patient. An order was placed for continuous cardiac monitoring. The monitor shows a rate of 76 with Normal Sinus rhythm. The patient was evaluated during the global COVID-19 pandemic, and that diagnosis was suspected/considered upon their initial presentation. Their evaluation, treatment and testing was consistent with current guidelines for patients who present with complaints or symptoms that may be related to COVID- 19. Impression & Plan Ataxia, Slurred speech Discharge Plan Visit Data *Final* Discharge Date/Time: 01/06/20 19:53 Chief Complaint: Stroke Alert ED Provider: Milo Conti Discharge Problem: Ataxia, Slurred speech Patient Disposition: Admitted As Inpatient Discharge Instructions Interventions: ED Discharge Assessment Last Done: 01/06/20 19:53
--- NOTE | 2020-01-06 17:53 | History & Physical Report ---
Date of Service January 06, 2020 Assessment & Plan (1) Stroke: Stroke alert alert was called thrombolytics were given patient be admitted with thrombolytic stroke protocol neurology consultation will be undertaken, will control hyperglycemia and augment magnesium for neuro protective affects CT head 01/06/2020no acute intracranial findings CT angiogram brain 01/06/2020 progression of severe atherosclerotic disease within the intracranial vessels since January 01, 2013. Most pronounced within the posterior circulation with severe multifocal stenosis versus occlusion of the left vertebral and basilar arteries with occlusion and distal reconstitution of the right vertebral artery. No intraluminal thrombus or breast vessel cutoff within the anterior circulation. Severe stenosis of the left cavernous carotid and moderate stenosis of the right cavernous carotid CT angiogram neck 01/06/2020 moderate atherosclerotic plaque within the bilateral proximal internal carotid arteries mild stenosis of the proximal bilateral internal carotid arteries. Right internal carotid artery 30% stenosis and only mild stenosis of the proximal left internal carotid artery. Hypoplastic right vertebral artery unchanged since 2014 (2) Bleeding gums: Upon evaluation of oropharynx the patient has dark black blood within his oropharynx which is not initially noticed as he was wearing a mask because of COVID restrictions. There is no active bleeding at the time of my evaluation he is gag reflex was present the patient says he does have a tooth that is been bothering him in his postop dental procedure upon it. Subsequently we will watch this cautiously as we proceed in the 24 hours post thrombolytic ministration (3) Diabetes: His diabetes is markedly out of control typically taking glimepiride metformin insulin and and Victoza will initiate insulin gtt with lantus bid and will cut am dose if goes low over night (4) Hypercholesterolemia: Patient typically takes atorvastatin 10 this will be increased atorvastatin 40 with further recommendations from neurology (5) Lower back pain: Patient continue on gabapentin. (6) Obesity (BMI 35.0-39.9 without comorbidity): (7) Hypertension: Patient for history of hypertension and heart disease remain on metoprolol tartrate 100 every 12 losartan 100 every morning, nifedipine extended release 90 a day. However we may hold dosing if the patient needs to have permissive hypertension for evaluation of stroke (8) DVT prophylaxis: Lovenox will be started at the appropriate time interval after thrombolytic therapy (9) Psoriasis: Patient typically is on ustekinumab injections for plaque psoriasis (10) Depression: Patient is on Effexor 150 for depression History of Present Illness Primary Care Provider: Nirajharoldo Spike Patient presented with ataxia with concern for stroke. Stroke alert was called. Patient was given thrombolytic therapy. This patient suffers from chronic vertigo chronic back pain and diabetes. His diabetes has however been in good control until recently over the last week or so the patient is a poor control of his diabetes and his vertigo is been acting up for him for which he takes meclizine and Benadryl. Subsequently got to the point where he had difficulty walking and moving fluidly he developed a numbness down the center of his face and on his right arm with some increased sensation of his right leg. He presented for evaluation within appropriate time span was given thrombolytic therapy for stroke. Postthrombolytic therapy he has some dark crusted blood in his mouth which he feels may be from a dental procedure. He still has significant ataxia difficulty with word forming and 4.5/5 strength of the right arm and leg compared to 5.5 on the right. His finger-nose is still markedly abnormal. No defined stroke was seen but there are cut off of vessels in the posterior circulation seen on CT angiogram and MRI scan is pending. Patient be continued on aspirin therapy he will be in thrombolytic protocol for day 1. His glucose is markedly out of alignment he will be on an insulin drip with Lantus backup. Allergies Allergy/AdvReac Type Severity Reaction Status Date / Time cephalexin Allergy Intermediate "GENERAL Verified 01/06/20 17:20 ILLNESS"/rash latex Allergy Intermediate RASH, Verified 01/06/20 17:20 BLEEDING aspirin Allergy Mild GI Verified 01/06/20 17:20 SYMPTOMS-nausea/vomiting clopidogrel [From Plavix] Allergy Mild Rash Verified 01/06/20 17:20 grass pollen-perennial rye, Allergy Mild sneezing, Verified 01/06/20 17:20 standar stuffy nose methotrexate Allergy Mild nausea/vomi Verified 01/06/20 17:20 ting Penicillins Allergy Mild Rash Verified 01/06/20 17:20 ragweed pollen Allergy Mild sneezing, Verified 01/06/20 17:20 stuffy nose adalimumab [From Humira] Allergy "made my Verified 01/06/20 17:20 psorasis worse" Sulfa (Sulfonamide AdvReac Mild general Verified 01/06/20 17:20 Antibiotics) malaise, upset stomach Home Medications Home Medications Medication Instructions Recorded Confirmed Type allopurinol 300 mg tablet 300 mg PO QAM tab 02/01/19 01/06/20 History coenzyme Q10 100 mg capsule 100 mg PO QDL cap 02/01/19 01/06/20 History diphenhydramine HCl 25 mg capsule 75 mg PO DAILY PRN cap 02/01/19 01/06/20 History fexofenadine 180 mg tablet 180 mg PO BID #90 tab 02/01/19 01/06/20 History fluticasone propionate 50 2 sprays INTRANASAL QAM #1 gm 02/01/19 01/06/20 History mcg/actuation nasal spray,suspension hydrocortisone 1 % topical cream 1 appln TOPICAL DAILY PRN gm 02/01/19 01/06/20 History losartan 100 mg tablet 100 mg PO QAM tab 02/01/19 01/06/20 History meclizine 25 mg tablet 25 mg PO TID PRN tab 02/01/19 01/06/20 History metformin 1,000 mg tablet 1,000 mg PO BID #180 tab 02/01/19 01/06/20 History metoprolol tartrate 100 mg tablet 100 mg PO Q12H tab 02/01/19 01/06/20 History montelukast 10 mg tablet 10 mg PO QPM #30 tab 02/01/19 01/06/20 History nifedipine 90 mg tablet,extended 90 mg PO QAM tab 02/01/19 01/06/20 History release omega-3 fatty acids 1,000 mg 1,000 mg PO BID cap 02/01/19 01/06/20 History capsule pen needle, diabetic 32 gauge x #10 ea 02/01/19 01/01/20 History 5/32" propylene glycol 0.6 % eye drops 2 drops OP UD PRN ml 02/01/19 01/06/20 History ustekinumab 90 mg/mL subcutaneous 90 mg SQ .COMPLEX ml 02/01/19 01/06/20 History syringe venlafaxine 150 mg 150 mg PO HS 02/01/19 01/06/20 History capsule,extended release 24 hr Tart Zamora Extract 1,200 mg PO QPM 02/02/19 01/06/20 History acetaminophen [Acetaminophen Extra 2,000 mg PO UD PRN 02/02/19 01/06/20 History Strength] atorvastatin 10 mg PO HS 02/02/19 01/06/20 History famotidine [Pepcid AC] 10 mg PO UD PRN 02/02/19 01/06/20 History ketotifen fumarate [Zaditor] 1 drp OPHTHALMIC (EYE) QAM 02/02/19 01/06/20 History latanoprost [Xalatan] 1 drp OPHTHALMIC (EYE) HS 02/02/19 01/06/20 History multivitamin with minerals 3 tab PO QDL 02/02/19 01/06/20 History [Hair,Skin and Nails] olopatadine [Pataday] 1 drp OPHTHALMIC (EYE) QAM 02/02/19 01/06/20 History polyethylene glycol 3350 [Miralax] 17 g PO BID 02/02/19 01/06/20 History blood sugar diagnostic #180 ea 05/15/19 01/01/20 Rx hydrochlorothiazide 50 mg tablet 50 mg PO QPM #90 tab 10/03/19 01/06/20 Rx aspirin 25 mg-dipyridamole 200 mg 1 cap PO BID #180 cap 10/16/19 01/06/20 Rx capsule,ext.release 12 hr multiphase gabapentin 300 mg capsule 300 mg PO TID #270 cap 10/16/19 01/06/20 Rx glimepiride 2 mg tablet 2 mg PO BID #180 tab 10/16/19 01/06/20 Rx Victoza 3-[employer] 0.6 mg/0.1 mL (18 1.8 mg .ROUTE DAILY #9 ml NS 10/23/19 01/06/20 Rx mg/3 mL) subcutaneous pen injector insulin degludec 100 unit/mL (3 20 units SQ HS ml 01/01/20 01/06/20 History mL) subcutaneous pen Past Med/Surg History Medical History Chronic back pain Chronic kidney disease, stage I Depression Diabetes mellitus, type 2 Fatty liver disease, nonalcoholic GERD (gastroesophageal reflux disease) Glaucoma bilt Gout Hyperlipidemia Hypertension Kidney stones Migraine Psoriasis Sleep apnea cpap Stroke --walks with a cane, ataxia--follows with Dr. Siu, reason for Aggrenox Vitamin D deficiency Surgical History History of appendectomy History of esophagogastroduodenoscopy (EGD) History of lumbar spinal fusion History of removal of cyst at umbilicus History of tonsillectomy and adenoidectomy x2 History of tooth extraction History of wisdom tooth extraction Status post myringotomy with tube placement of both ears Family History Mother Family history of reaction to anesthesia during heart valve replacement became combative and forgetful Family history of diabetes mellitus Hypertension Stroke Grandmother (Maternal) Family history of diabetes mellitus Grandfather (Maternal) Family hx of colon cancer Social History Preferred Language: Sami Communication Ability: Effective 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 Beliefs That Will Affect Care: None Current Living Situation: Parent Current Living Situation Comment: lives with mom Other Information That Helps Us Care for You: No Feels Safe at Home: Yes Safety Concerns: Feels Safe At This Time Smoking Status: Never smoker Second Hand Exposure: Yes (stepfather smoked) ; Hx Alcohol Use: Yes Alcohol type: beer, wine and hard liquor Hx Substance Use: No Review of Systems Review of Systems: Moderate distress and fatigue no headache, blurry or double vision Difficulty forming words and the sensation of difficulty swallowing although gag reflex is present on exam no chest pain, pressure or palpitations no shortness of breath, cough or wheezes no abdominal pain, nausea or vomiting, diarrhea or constipation no dysuria, hematuria or frequency no focal joint pain or swelling Chronic daily back pain but no change in back pain, CVA tenderness or radicular pain no bruising, bleeding or rashes Patient states he feels numbness to his right arm and right leg his facial numbness has resolved he feels increased sensation to his right leg Patient is anxious and distressed with regard to possibility of a stroke at such a young age Physical Exam Physical Exam: The patient appeared well nourished and normally developed. Vital signs as documented. Head exam is normocephalic atraumatic no scleral icterus he does have injected sclera Oropharynx is with dried black crusted blood within his mouth gag reflex is present upon my examination no active fresh bleeding was seen Neck is without JVD, thyromegaly, or carotid bruits. Lungs are clear to auscultation, no focal loss of breath sounds Cardiac exam, Rhythm is regular.. No murmurs, rubs or gallops. Abdominal exam reveals normal bowel sounds, soft non tender, no masses Extremities are nonedematous and both pedal pulses are normal. Neurologic exam is alert and oriented he has muffled garbled speech he has decreased strength of his right arm and leg 4.5 out of 5 compared to 5/5 to the left he has dysmetria and difficulty coordination but both his speech and with his arms and legs. Skin is without bruises or rashes Psychologically is anxious and emotional Results & Data Results & Data ([facility]) Vital Signs (Past 12 Hours) Vital Signs Pulse Pulse Resp BP BP Pulse Ox 01/06/20 17:38 78 16 145/86 H 94 01/06/20 17:23 80 16 153/87 H 93 01/06/20 17:08 78 20 138/79 94 01/06/20 17:00 78 20 134/75 95 01/06/20 16:47 78 21 140/86 97 01/06/20 16:05 76 24 126/72 96 PG Care Time/CCT Total # of Minutes Spent Total Time Spent with Patient: Total time spent is greater than 50% in coordination of care (as documented) at patient's floor/unit and/or counseling patient: Coding Level of Care Code 36134 Initial Inpt Care Lvl 3 Diagnoses Stroke I63.9 Bleeding gums K06.8 Diabetes E11.9 Hypercholesterolemia E78.00 Lower back pain M54.5 Obesity (BMI 35.0-39.9 without comorbidity) E66.9 Hypertension I10 DVT prophylaxis Z29.9 Psoriasis L40.9 Depression F32.9
[2020-01-06] MEDS ORDERED: LORazepam 0.5 MG/1 ML VIAL IV PRN (19:31)
[2020-01-06] MEDS ORDERED: DC ALL PREVIOUSLY ORDERED DIABETES MEDS ONE (19:31)
[2020-01-06] MEDS ORDERED: ALUMINUM/MAGNESIUM SUSP 30 ML UDC PO PRN (19:31)
[2020-01-06] MEDS ORDERED: ICU PROTOCOL FOR HYPERGLYCEMIA PRN (19:31)
[2020-01-06] MEDS ORDERED: MODERATE STRESS LEVEL ONE (19:31)
[2020-01-06] MEDS ORDERED: ONDANSETRON INJ 2 MG/ML 2 ML VIAL IV PRN (19:31)
[2020-01-06] MEDS ORDERED: PHARMACIST DISCHARGE MED REC CONSULT PRN (19:31)
[2020-01-06] MEDS ORDERED: ACETAMINOPHEN 325 MG TAB PO PRN (19:31)
[2020-01-06] MEDS ORDERED: INSULIN PROTOCOL GOAL RANGE ONE (19:31)
[2020-01-06] MEDS ORDERED: INSULIN REGULAR 250 UNITS in SODIUM CHLORIDE 0.9% 247.5 ML IV SCH (20:30)
[2020-01-06] MEDS ORDERED: INSULIN ASPART 100 UNITS/ML 3 ML PEN SC SCH (21:00)
--- NOTE | 2020-01-06 21:16 | Critical Care Consultation ---
Date of Consultation January 06, 2020 Assessment & Plan (1) Admitted to intensive care unit: Reason Critically Ill: 49-year-old male presents to the ICU following CVA with right-sided weakness/numbness and dysarthria and TPA administration Neuro - Acute CVApatient presented with symptoms of worsening ataxia, right-sided numbness and weakness and right-sided facial numbness, and dysarthria which started at 1500; TPA administered at 1653 -Symptoms have begun to improve following TPA administration with last NIH score of 2 -CT head Noncon negative -CTA of the head: 1. Progression of severe atherosclerotic disease within the intracranial vessels since CTA of January 01, 2013, most pronounced within the posterior circulation with severe multifocal stenoses versus occlusion of the left vertebral and basilar artery with occlusion and distal reconstitution of the right vertebral artery. 2. No intraluminal thrombus or abrupt vessel cut off within the anterior circulation. Severe stenosis of the left cavernous carotid and moderate stenosis of the right cavernous carotid. -CTA neck: 1. Moderate atherosclerotic plaque within the bilateral proximal internal carotid arteries. Mild stenosis of the proximal bilateral internal carotid arteries, as described above. 2. 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 -MRI head negative for evidence of focal ischemia on preliminary report -Has history of prior CVA x3 with residual ataxia and requires cane at baseline, on Aggrenox -Continue first 24-hour TPA protocol -Continue frequent neurological exams -We will obtain repeat CT head Noncon at 24 hours of TPA administration -Echo pending in a.m. -Neurology consulted, will follow up recommendations -Speech, OT, PT consulted -Admitted to ICU for first 24-hour TPA, patient likely to be downgraded pending negative CT head after 24 hours Cardiac - HTNcontinue MTP and nifedipine -Holding losartan and HCTZ for VITOR -We will allow permissive hypertension for reperfusion within goals of TPA protocol HLDcontinue statin Respiratory - Currently maintaining sats on room air, monitor with continuous pulse ox Chest x-ray clear GI - N.p.o. for now, will advance diet pending swallow study RENAL/LYTES - VITOR on CKDcreatinine 1.43 on admission with baseline of 1.1 -Patient did receive CT with contrast, would hold on further contrast studies if possible for risk for contrast nephropathy -We will continue IV fluid resuscitation -Trend with routine BMPs, monitoring electrolytes and replete them as indicated -Avoid nephrotoxins - Strict I's and O's ENDO - DM type IIinitially presented with hyperglycemia, now mildly hyperglycemic without intervention -We will proceed with treatment with long-acting and sliding scale insulin -ICU hyperglycemic protocol -Hemoglobin A1c pending No history of thyroid disease Psoriasispatient treated with Ustekumab subcu injections HEME - Bleeding of gumspatient did exhibit bleeding in his oropharynx, patient appears to have poor dental hygiene and has had tooth pain for the past few weeks -Appears to no longer be bleeding on examination, will monitor closely -H&H stable on admission, will monitor with routine CBCs and transfuse if indicated -No evidence of active bleeding at this time, will continue to monitor closely as patient is high risk due to TPA administration ID - No indication for infectious process at this time LINES/IV ACCESS - Peripheral IVs DVT PROPHYLAXIS - SCDs, holding anticoagulation 24 hours following TPA administration I have personally spent 40 minutes of critical care time in the direct management of this patient. This is a life/limb threatening event. This includes time spent evaluating patient, direct bedside care, chart review, placing orders, interpretation of diagnostic studies, discussion with consultants, patient, and family members, as well as other required patient management activities. This time is exclusive of all separately billable procedures, and teaching time and separate from and in addition to any other critical care service time. Thank you for allowing us to participate in the care of this patient. Please refer to my attending physician's documentation for any further recommendations. (2) Bleeding gums: (3) Depression: (4) Psoriasis: (5) Diabetes: (6) Carotid stenosis: (7) History of stroke with residual deficit: (8) Asthma: (9) Acute CVA (cerebrovascular accident): (10) Received tissue plasminogen activator (t-PA) less than 24 hours prior to arrival: (11) VITOR (acute kidney injury): Supervising Physician Co-Signing Physician Notes Seen and examined. see my note from 01/06. Discussed with CC QUITA and agree with A/P as noted History of Present Illness Attending Physician: Salomón Howe MD History of Present Illness Mr. Barcenas is a 49-year-old male with PMH of prior CVA x3 (uses cane for ataxia), CKD stage I, DM type II, GERD, HLD, gout, migraines, and fatty liver disease (nonalcoholic) who presents to the emergency department with complaints of slurred speech, weakness, worsened ataxia and dizziness that started at approximately 1500 earlier today. He has a history of prior strokes and does have ataxia as residual but claims this is much worse, he is on Aggrenox. Str aneta alert was initiated and patient was taken for CT the head which was negative for acute intracranial findings. Decision was made to administer TPA which was given at 1653 this afternoon. Patient was taken for CTA of the head and neck which did reveal progression of severe arthrosclerotic disease within the intracranial vessels compared with prior study on January 01, 2013, and severe multifocal stenosis versus occlusion of the left vertebral and basilar arteries with occlusion and distal reconstitution of the right vertebral artery. Patient was also noted to have severe stenosis of the left cavernous carotid and moderate stenosis of the right cavernous carotid. He did develop some bleeding in his oropharynx following TPA bolus, but is no longer having active bleeding on examination. Patient was taken for an MRI in route to the ICU which was negative for foci of acute ischemia on preliminary read. On exam, patient states that numbness in the right arm is still present but significantly improved following TPA administration and his neurological exam has also improved as his dysarthria is very mild and right arm weakness is very faint. Most recent NIH score of 2. Patient to be admitted to ICU for 24 hours following TPA administration protocol, with repeat CT the head at 24-hour heather from TPA administration. Currently patient denies headache, dizziness or syncope, lightheadedness, sore throat, recent cough or fevers, shortness of breath, chest pain, palpitations, abdominal pain, nausea or vomiting, or diarrhea. He does report very mild weakness and numbness in his right arm which is significantly improved from earlier today. He reports tooth pain that is been ongoing for the past few weeks, and suspected source for bleeding during TPA bolus, no longer appears to be actively bleeding. Allergies Allergy/AdvReac Type Severity Reaction Status Date / Time cephalexin Allergy Intermediate "GENERAL Verified 01/06/20 17:20 ILLNESS"/rash latex Allergy Intermediate RASH, Verified 01/06/20 17:20 BLEEDING aspirin Allergy Mild GI Verified 01/06/20 17:20 SYMPTOMS-nausea/vomiting clopidogrel [From Plavix] Allergy Mild Rash Verified 01/06/20 17:20 grass pollen-perennial rye, Allergy Mild sneezing, Verified 01/06/20 17:20 standar stuffy nose methotrexate Allergy Mild nausea/vomi Verified 01/06/20 17:20 ting Penicillins Allergy Mild Rash Verified 01/06/20 17:20 ragweed pollen Allergy Mild sneezing, Verified 01/06/20 17:20 stuffy nose adalimumab [From Humira] Allergy "made my Verified 01/06/20 17:20 psorasis worse" Sulfa (Sulfonamide AdvReac Mild general Verified 01/06/20 17:20 Antibiotics) malaise, upset stomach Home Medications Home Medications Medication Instructions Recorded Confirmed Type allopurinol 300 mg tablet 300 mg PO QAM tab 02/01/19 01/06/20 History coenzyme Q10 100 mg capsule 100 mg PO QDL cap 02/01/19 01/06/20 History diphenhydramine HCl 25 mg capsule 75 mg PO DAILY PRN cap 02/01/19 01/06/20 History fexofenadine 180 mg tablet 180 mg PO BID #90 tab 02/01/19 01/06/20 History fluticasone propionate 50 2 sprays INTRANASAL QAM #1 gm 02/01/19 01/06/20 History mcg/actuation nasal spray,suspension hydrocortisone 1 % topical cream 1 appln TOPICAL DAILY PRN gm 02/01/19 01/06/20 History losartan 100 mg tablet 100 mg PO QAM tab 02/01/19 01/06/20 History meclizine 25 mg tablet 25 mg PO TID PRN tab 02/01/19 01/06/20 History metformin 1,000 mg tablet 1,000 mg PO BID #180 tab 02/01/19 01/06/20 History metoprolol tartrate 100 mg tablet 100 mg PO Q12H tab 02/01/19 01/06/20 History montelukast 10 mg tablet 10 mg PO QPM #30 tab 02/01/19 01/06/20 History nifedipine 90 mg tablet,extended 90 mg PO QAM tab 02/01/19 01/06/20 History release omega-3 fatty acids 1,000 mg 1,000 mg PO BID cap 02/01/19 01/06/20 History capsule pen needle, diabetic 32 gauge x #10 ea 02/01/19 01/01/20 History 5/32" propylene glycol 0.6 % eye drops 2 drops OP UD PRN ml 07/31/19 07/04/20 History ustekinumab 90 mg/mL subcutaneous 90 mg SQ .COMPLEX ml 02/01/19 01/06/20 History syringe venlafaxine 150 mg 150 mg PO HS 02/01/19 01/06/20 History capsule,extended release 24 hr Tart Zamora Extract 1,200 mg PO QPM 02/02/19 01/06/20 History acetaminophen [Acetaminophen Extra 2,000 mg PO UD PRN 02/02/19 01/06/20 History Strength] atorvastatin 10 mg PO HS 02/02/19 01/06/20 History famotidine [Pepcid AC] 10 mg PO UD PRN 02/02/19 01/06/20 History ketotifen fumarate [Zaditor] 1 drp OPHTHALMIC (EYE) QAM 02/02/19 01/06/20 History latanoprost [Xalatan] 1 drp OPHTHALMIC (EYE) HS 02/02/19 01/06/20 History multivitamin with minerals 3 tab PO QDL 02/02/19 01/06/20 History [Hair,Skin and Nails] olopatadine [Pataday] 1 drp OPHTHALMIC (EYE) QAM 02/02/19 01/06/20 History polyethylene glycol 3350 [Miralax] 17 g PO BID 02/02/19 01/06/20 History blood sugar diagnostic #180 ea 05/15/19 01/01/20 Rx hydrochlorothiazide 50 mg tablet 50 mg PO QPM #90 tab 10/03/19 01/06/20 Rx aspirin 25 mg-dipyridamole 200 mg 1 cap PO BID #180 cap 10/16/19 01/06/20 Rx capsule,ext.release 12 hr multiphase gabapentin 300 mg capsule 300 mg PO TID #270 cap 10/16/19 01/06/20 Rx glimepiride 2 mg tablet 2 mg PO BID #180 tab 10/16/19 01/06/20 Rx Victoza 3-Kodak 0.6 mg/0.1 mL (18 1.8 mg .ROUTE DAILY #9 ml NS 10/23/19 01/06/20 Rx mg/3 mL) subcutaneous pen injector insulin degludec 100 unit/mL (3 20 units SQ HS ml 01/01/20 01/06/20 History mL) subcutaneous pen Patient History Medical History Chronic back pain Chronic kidney disease, stage I Depression Diabetes mellitus, type 2 Fatty liver disease, nonalcoholic GERD (gastroesophageal reflux disease) Glaucoma bilt Gout Hyperlipidemia Hypertension Kidney stones Migraine Psoriasis Sleep apnea cpap Stroke --walks with a cane, ataxia--follows with Dr. Siu, reason for Aggrenox Vitamin D deficiency Surgical History History of appendectomy History of esophagogastroduodenoscopy (EGD) History of lumbar spinal fusion History of removal of cyst at umbilicus History of tonsillectomy and adenoidectomy x2 History of tooth extraction History of wisdom tooth extraction Status post myringotomy with tube placement of both ears Family History Mother Family history of reaction to anesthesia during heart valve replacement became combative and forgetful Family history of diabetes mellitus Hypertension Stroke Grandmother (Maternal) Family history of diabetes mellitus Grandfather (Maternal) Family hx of colon cancer Social History Preferred Language: Polish Communication Ability: Effective Service Learning Coordinator Required: No Beliefs That Will Affect Care: None Current Living Situation: Parent Current Living Situation Comment: lives with mom Other Information That Helps Us Care for You: No Feels Safe at Home: Yes Safety Concerns: Feels Safe At This Time Smoking Status: Never smoker Second Hand Exposure: Yes (stepfather smoked) ; Hx Alcohol Use: Yes Alcohol type: beer, wine and hard liquor Hx Substance Use: No Review of Systems Review of Systems: All systems reviewed & are unremarkable except as noted in HPI & below Physical Exam Constitutional: cooperative, comfortable and + overweight Eyes: PERRL, conjunctivae normal, anicteric sclerae ENMT: external ear and nose normal, oropharynx normal Neck: trachea midline, no thyromegaly Respiratory: normal respiratory effort, lungs clear to auscultation Cardiovascular: RRR, no murmur, no edema Heart Sounds: normal S1 and normal S2 Vessels: no JVD Extremities: + abnormal capillary refill and no edema Gastrointestinal (Abdomen): normal bowel sounds, soft, nontender, no hepatosplenomegaly Skin: no rashes, warm and dry Neurologic: normal sensation to monofilament, moves all extremities and awake; not confused Speech / Cognition: + abnormal speech; no expressive aphasia, no receptive aphasia and normal cognition Motor/Sensory: no tremor and no pronator drift Cranial Nerves: sense of smell intact, PERRL, normal accommodation, EOM intact bilaterally, normal facial strength, tongue midline, normal gag reflex, normal hearing, able to rotate head bilaterally, able to elevate shoulders bilaterally, no nystagmus and symmetric palate elevation Coordination: + abnormal [id number] test Mild dysarthria, mild weakness in the right upper extremity and right lower extremity, mild numbness in the right upper extremity Psychiatric: A+Ox3, euthymic affect Results & Data Results & [facility] ([facility]) Vital Signs (Past 12 Hours) Vital Signs Pulse Pulse Resp BP BP Pulse Ox 01/06/20 20:23 78 18 143/83 H 94 01/06/20 19:53 81 16 165/93 H 94 01/06/20 19:48 80 14 158/95 H 95 01/06/20 19:27 81 13 169/103 H 95 01/06/20 19:15 80 15 157/94 H 94 01/06/20 19:00 79 20 159/91 H 94 01/06/20 18:53 82 24 167/98 H 96 01/06/20 18:38 78 18 158/94 H 94 01/06/20 18:23 78 24 158/90 H 93 01/06/20 18:08 76 18 148/88 H 95 01/06/20 17:53 78 16 151/86 H 95 01/06/20 17:38 78 16 145/86 H 94 01/06/20 17:23 80 16 153/87 H 93 01/06/20 17:08 78 20 138/79 94 01/06/20 17:00 78 20 134/75 95 01/06/20 16:47 78 21 140/86 97 01/06/20 16:05 76 24 126/72 96 Coding Level of Care Code Critical Care 1st 30-74 mins Diagnoses Admitted to intensive care unit Z78.9 Bleeding gums K06.8 Depression F32.9 Psoriasis L40.9 Diabetes E11.9 Carotid stenosis I65.29 History of stroke with residual deficit I69.30 Asthma J45.909 Acute CVA (cerebrovascular accident) I63.9 Received tissue plasminogen activator (t-PA) less than 24 hours prior to arrival Z92.82 VITOR (acute kidney injury) N17.9
[2020-01-06] MEDS: SODIUM CHLORIDE 0.9% 1000ML 1,000 ML IV SCH (21:25)
[2020-01-06] MEDS ORDERED: PHARMACY GLYCEMIC MGMT CONSULT PRN (21:28)
[2020-01-06] MEDS ORDERED: INSULIN GLARGINE SOLOSTAR 100 UNITS/ML 3 ML PEN SC SCH (21:45)
[2020-01-06] MEDS: ATORVASTATIN 40 MG TAB PO SCH (22:30)
[2020-01-06] MEDS: METOPROLOL TARTRATE 100 MG TAB PO SCH (22:30)
[2020-01-06] MEDS: POLYETHYLENE (MIRALAX) 17 GM PACK PO SCH (22:30)
[2020-01-06] MEDS: VENLAFAXINE HCL XR 150 MG CAPXR PO SCH (22:31)
[2020-01-06] MEDS: GABAPENTIN 300 MG CAP PO SCH (22:31)
[2020-01-06] MEDS: MONTELUKAST SODIUM 10 MG TABLET PO SCH (22:31)
[2020-01-06] MEDS: LATANOPROST 0.005% OP SOLN 2.5 ML BTL OP SCH (22:32)
[2020-01-06] MEDS: INSULIN ASPART 100 UNITS/ML 3 ML PEN SC SCH (22:40)
[2020-01-06] MEDS ORDERED: HydrALAZINE HCL 20 MG/ML VIAL IV ONE (23:27)
[2020-01-06] MEDS ORDERED: LABETALOL HCL IV 5 MG/ML 20ML IV STA (23:57)
[2020-01-07] MEDS: INSULIN ASPART 100 UNITS/ML 3 ML PEN SC SCH ×6 (00:17→20:49)
[2020-01-07] MEDS: LABETALOL HCL IV 5 MG/ML 20ML IV PRN ×3 (04:01→10:59)
[2020-01-07 05:18] LABS: BUN Creatinine Ratio 15.2 (10-20); Creatinine Clr Calc Pharmacy 132.8 ml/min; Est GFR (African American) 119.2; Est GFR (Non-African American) 102.8; Phosphorus 3.2 mg/dl (2.5-4.9)
[2020-01-07 06:08] LABS: Basophils # (auto) 0.02 K/uL (0-0.2); Basophils % (auto) 0.3 %; Eosinophils # (auto) 0.33 K/uL (0-0.5); Eosinophils % (auto) 5.6 %; Hematocrit (blood only) 37.6 % (42-52); Hemoglobin 13.1 g/dL (14.0-18.0); Immature Granulocytes # (auto) 0.01 K/uL (0.00-0.02); Immature Granulocytes % (auto) 0.2 %; Lymphocytes # (auto) 2.21 K/uL (1.2-3.4); Lymphocytes % (auto) 37.5 %; Mean Corpuscular Hemoglobin 33.4 pg (25-34); Mean Corpuscular Hgb Conc 34.8 g/dL (32-36); Mean Corpuscular Volume 95.9 fL (80-100); Mean Platelet Volume 9.2 fL (7.4-10.4); Monocytes # (auto) 0.55 K/uL (0.11-0.59); Monocytes % (auto) 9.3 %; Neutrophils # (auto) 2.77 K/uL (1.4-6.5); Neutrophils % (auto) 47.1 %; Platelet Count 184 K/uL (130-400); RDW Coefficient of Variation 14.1 % (11.5-14.5); RDW Standard Deviation 48.7 fL (36.4-46.3); Red Blood Count 3.92 M/uL (4.7-6.1); White Blood Count 5.89 K/uL (4.8-10.8)
[2020-01-07 06:36] LABS: Magnesium 1.7 mg/dl (1.8-2.4); Potassium 2.8 mmol/L (3.5-5.1)
[2020-01-07] MEDS ORDERED: POTASSIUM CHLORIDE 20 MEQ TABCR PO STA (06:45)
[2020-01-07] MEDS: SODIUM CHLORIDE 0.9% 1000ML 1,000 ML IV SCH ×2 (07:10→14:55)
[2020-01-07] MEDS: POTASSIUM CHLORIDE / WTR 10 MEQ/100 ML PLCT IV SCH ×4 (07:11→10:23)
[2020-01-07] MEDS: MAGNESIUM SULFATE / D5W 1 GM/100 ML BAG IV SCH ×2 (07:11→08:24)
--- NOTE | 2020-01-07 07:49 | Critical Care Progress Note ---
Date of Service January 07, 2020 Assessment & Plan (1) Received tissue plasminogen activator (t-PA) less than 24 hours prior to arrival: Impression: 49-year-old male with poorly controlled diabetes and prior history of strokes presenting with ataxia. Tele-stroke consultation recommended TPA administration. CT angiogram of the head demonstrated severe diffuse intracranial atherosclerotic disease with some probable chronic occlusions given collateral flow. He is neurologically improved post TPA administration with no evidence of bleeding complication. Recommendations: 1. Probable stroke: Continue to observe in ICU post TPA administration per protocol. Fortunately MRI imaging demonstrated no infarct on preliminary read, formal read currently pending. Patient passed bedside swallow. Will need physical therapy and Occupational Therapy consultations. Given the atherosclerotic disease, the patient may benefit from a slightly higher cerebral perfusion pressure and therefore will allow blood pressure to run higher but given recent TPA administration will try and keep systolics less than 170. Review of his imaging does not not reveal specific targets which would be amenable to angioplasty or surgical intervention. Formal neurology consultation pending. He was previously on Aggrenox and unclear if we will would constitute this as an Aggrenox failure or not. Brilinta may be an alternative option. Await formal neurology recommendations. Follow-up CT scan to be performed 24 hours post TPA administration (1630). If no bleeding complication identified, the patient is eligible to transfer out of the ICU and will sign off at that time. 2. Hyperglycemia/diabetes: Blood sugar much better controlled now. Continue aggressive glycemic control given possibility of neurological insult. 3. Hypokalemia: Electrolytes being replaced. Will recheck per protocol. 4. Poor dentition: No evidence of bleeding in the mouth but the patient will require close follow-up with his dental provider. 5. Elevated triglycerides: Should respond to insulin. Long-term management for primary care provider. Anticipate the patient should be able to transfer out of the ICU Discussed with patient at bedside as well as ICU nurse. Questions were answered to the best of my ability as they were both updated on the plan. (2) Acute CVA (cerebrovascular accident): (3) Bleeding gums: (4) VITOR (acute kidney injury): Admission and Anticipated Discharge Date Admission Date: January 06, 2020 Subjective Patient seen and examined. EMR reviewed. Discussed with critical care QUITA overnight as well as admitting hospitalist. The patient states that neurologically he feels back to baseline. Speech is slightly slurred but again patient states this is his baseline. His NIH is h overed between 1 and 2. He is not had any evidence of bleeding associated with TPA administration. He is currently undergoing a transthoracic echocardiogram. No chest pain or palpitations. Review of Systems Review of Systems: All systems reviewed & are unremarkable except as noted in HPI & below Physical Exam Constitutional: WD/WN, vitals as above ENMT: Mouth: + dentition abnormality and + dental caries Neck: trachea midline, no thyromegaly Respiratory: normal respiratory effort, lungs clear to auscultation Cardiovascular: RRR, no murmur, no edema Gastrointestinal (Abdomen): normal bowel sounds, soft, nontender, no hepatosplenomegaly Musculoskeletal: Extremities: extremities normal to inspection Skin: no rashes, warm and dry Neurologic: Cranial nerves appear intact. No pronator drift. He is able to do [id number] testing with a very small amount of intention ataxia which she states is at his baseline. Has some slight decrease sensation on the right side but again feels that this is at his baseline. Could not test gait currently due to patient undergoing echo Lymphatic: no cervical lymphadenopathy Results & Data Results & Data ([facility]) Vital Signs (Past 12 Hours) Vital Signs Temp Pulse Pulse Pulse Resp BP BP 01/07/20 07:23 70 18 01/07/20 06:53 69 12 01/07/20 05:53 69 12 01/07/20 04:53 71 14 01/07/20 03:53 36.8 C 68 12 01/07/20 03:42 68 16 01/07/20 02:53 72 14 01/07/20 01:53 71 12 01/07/20 01:32 71 12 01/07/20 00:53 73 12 176/108 H 01/07/20 00:23 75 16 160/98 H 01/06/20 23:53 36.9 C 71 12 200/128 H 01/06/20 23:35 76 16 01/06/20 23:23 72 14 185/118 H 01/06/20 22:53 77 17 176/113 H 01/06/20 22:23 78 16 174/104 H 01/06/20 21:53 78 16 185/108 H 01/06/20 21:23 75 15 164/107 H 01/06/20 20:53 37 C 80 20 176/100 H 01/06/20 20:23 78 18 143/83 H 01/06/20 19:53 81 16 165/93 H 01/06/20 19:48 80 14 158/95 H BP Pulse Ox Pulse Ox 01/07/20 07:23 97 01/07/20 06:53 158/102 H 97 01/07/20 05:53 162/102 H 95 01/07/20 04:53 171/108 H 95 01/07/20 03:53 168/112 H 94 01/07/20 03:42 94 01/07/20 02:53 170/108 H 96 01/07/20 01:53 167/103 H 96 01/07/20 01:32 97 01/07/20 00:53 95 01/07/20 00:23 94 01/06/20 23:53 96 01/06/20 23:35 94 01/06/20 23:23 93 01/06/20 22:53 93 01/06/20 22:23 94 01/06/20 21:53 94 01/06/20 21:23 96 01/06/20 20:53 96 96 01/06/20 20:23 94 01/06/20 19:53 94 01/06/20 19:48 95 Laboratory Results 01/07/20 05:44 01/07/20 05:44 Diagnostic Findings Imaging studies independently reviewed. Please refer to admission H&P for reports. In short the patient has severe intracranial atherosclerotic disease. Coding Level of Care Code 55885 Subseq Hosp Care Lvl 3 Diagnoses Received tissue plasminogen activator (t-PA) less than 24 hours prior to arrival Z92.82 Acute CVA (cerebrovascular accident) I63.9 Bleeding gums K06.8 VITOR (acute kidney injury) N17.9
[2020-01-07] MEDS: NIFEdipine EXTENDED REL 30 MG TABCR PO SCH (08:27)
[2020-01-07] MEDS: GABAPENTIN 300 MG CAP PO SCH ×3 (08:27→20:12)
[2020-01-07] MEDS: METOPROLOL TARTRATE 100 MG TAB PO SCH ×2 (08:28→20:13)
[2020-01-07] MEDS: allopurinoL 300 MG TAB PO SCH (08:28)
[2020-01-07] MEDS: POLYETHYLENE (MIRALAX) 17 GM PACK PO SCH ×2 (08:29→20:17)
[2020-01-07] MEDS: FLUTICASONE PROPIONATE NA SPR 16 GM BTL SCH (08:29)
[2020-01-07] MEDS ORDERED: LOSARTAN POTASSIUM 50 MG TAB PO SCH (09:00)
[2020-01-07] MEDS ORDERED: KETOTIFEN FUMARATE OP SCH (09:00)
[2020-01-07] MEDS ORDERED: ASPIRIN 325 MG ECTAB PO SCH (09:00)
[2020-01-07] MEDS ORDERED: OLOPATADINE OP SCH (09:00)
--- NOTE | 2020-01-07 09:42 | Neurology Consultation ---
Date of Consultation January 07, 2020 Assessment & Plan (1) Left pontine stroke: Acute left anterior pontine stroke in the setting of severe progressive vertebrobasilar atherosclerotic disease. Patient clinically improved status post administration of TPA yesterday. He is clinically stable this morning. He complains of slight heaviness of the right leg although the limb does not seem grossly weak on examination this morning. He does not have any residual dysarthria or vertigo. Patient should have a repeat head CT completed this afternoon to ensure no interval hemorrhage in the post TPA timeframe. Continue medical management of blood pressure. He was on a relatively low dose of pamela rvastatin. I agree with increasing the dosage of this medication. His diabetes will need ongoing medical management. Antiplatelet therapy should be restarted 24 hours after administration of TPA. He has been taking his Aggrenox consistently. He has an allergy to clopidogrel. I would recommend adding daily low-dose aspirin to patient's Aggrenox for secondary stroke risk reduction going forward. His transthoracic echocardiogram was completed this morning, follow-up with results. I would also recommend an outpatient referral to a neurovascular/stroke specialist at [facility] for a second opinion regarding his long-term management, especially in light of his progressive, severe posterior circulation disease. History of Present Illness Reason for Consultation: Stroke, status post TPA Requesting Physician: Salomón Howe MD Attending Physician: Aria Cornell MD History of Present Illness The patient is a 49-year-old male who presented to the emergency department yesterday with a chief complaint of persistent vertigo, poor balance, and slurred speech that began 1 hour prior to his initial assessment. He was unable to walk. He did report experiencing an episode of vertigo that persisted for about 2 minutes at 11 PM, prior to going to bed. 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 I last saw this patient in neurology clinic on October 16, 2019 in the context of the stroke. He is prescribed Aggrenox for secondary stroke risk reduction. History also notable for poorly controlled diabetes mellitus for which he has been following with the [facility] physician group endocrinology practice. A CT of the head was negative for hemorrhage or acute process. CT angiography of the head and neck revealed progressive atherosclerosis, especially within the posterior circulation. A brain MRI reveals a probable acute ischemic infarct within the left anterior diaz per my review of the images. (Radiology interpretation pending.) Imaging described in further detail below. The patient did have a tele-stroke consultation during his initial assessment in the emergency department. tPA was administered. This morning, the patient reports near complete resolution of his symptoms although he remains aware of a mild feeling of heaviness or weakness affecting the right lower limb. Allergies Allergy/AdvReac Type Severity Reaction Status Date / Time cephalexin Allergy Intermediate "GENERAL Verified 01/06/20 17:20 ILLNESS"/rash latex Allergy Intermediate RASH, Verified 01/06/20 17:20 BLEEDING aspirin Allergy Mild GI Verified 01/06/20 17:20 SYMPTOMS-nausea/vomiting clopidogrel [From Plavix] Allergy Mild Rash Verified 01/06/20 17:20 grass pollen-perennial rye, Allergy Mild sneezing, Verified 01/06/20 17:20 standar stuffy nose methotrexate Allergy Mild nausea/vomi Verified 01/06/20 17:20 ting Penicillins Allergy Mild Rash Verified 01/06/20 17:20 ragweed pollen Allergy Mild sneezing, Verified 01/06/20 17:20 stuffy nose adalimumab [From Humira] Allergy "made my Verified 01/06/20 17:20 psorasis worse" Sulfa (Sulfonamide AdvReac Mild general Verified 01/06/20 17:20 Antibiotics) malaise, upset stomach Home Medications Home Medications Medication Instructions Recorded Confirmed Type allopurinol 300 mg tablet 300 mg PO QAM tab 02/01/19 01/06/20 History coenzyme Q10 100 mg capsule 100 mg PO QDL cap 02/01/19 01/06/20 History diphenhydramine HCl 25 mg capsule 75 mg PO DAILY PRN cap 02/01/19 01/06/20 History fexofenadine 180 mg tablet 180 mg PO BID #90 tab 02/01/19 01/06/20 History fluticasone propionate 50 2 sprays INTRANASAL QAM #1 gm 02/01/19 01/06/20 History mcg/actuation nasal spray,suspension hydrocortisone 1 % topical cream 1 appln TOPICAL DAILY PRN gm 02/01/19 01/06/20 History losartan 100 mg tablet 100 mg PO QAM tab 02/01/19 01/06/20 History meclizine 25 mg tablet 25 mg PO TID PRN tab 02/01/19 01/06/20 History metformin 1,000 mg tablet 1,000 mg PO BID #180 tab 02/01/19 01/06/20 History metoprolol tartrate 100 mg tablet 100 mg PO Q12H tab 02/01/19 01/06/20 History montelukast 10 mg tablet 10 mg PO QPM #30 tab 02/01/19 01/06/20 History nifedipine 90 mg tablet,extended 90 mg PO QAM tab 02/01/19 01/06/20 History release omega-3 fatty acids 1,000 mg 1,000 mg PO BID cap 02/01/19 01/06/20 History capsule pen needle, diabetic 32 gauge x #10 ea 02/01/19 01/01/20 History 532" propylene glycol 0.6 % eye drops 2 drops OP UD PRN ml 02/01/19 01/06/20 History ustekinumab 90 mg/mL subcutaneous 90 mg SQ .COMPLEX ml 02/01/19 01/06/20 History syringe venlafaxine 150 mg 150 mg PO HS 02/01/19 01/06/20 History capsule,extended release 24 hr Tart Zamora Extract 1,200 mg PO QPM 02/02/19 01/06/20 History acetaminophen [Acetaminophen Extra 2,000 mg PO UD PRN 02/02/19 01/06/20 History Strength] atorvastatin 10 mg PO HS 02/02/19 01/06/20 History famotidine [Pepcid AC] 10 mg PO UD PRN 02/02/19 01/06/20 History ketotifen fumarate [Zaditor] 1 drp OPHTHALMIC (EYE) QAM 02/02/19 01/06/20 H istory latanoprost [Xalatan] 1 drp OPHTHALMIC (EYE) HS 02/02/19 01/06/20 History multivitamin with minerals 3 tab PO QDL 02/02/19 01/06/20 History [Hair,Skin and Nails] olopatadine [Pataday] 1 drp OPHTHALMIC (EYE) QAM 02/02/19 01/06/20 History polyethylene glycol 3350 [Miralax] 17 g PO BID 02/02/19 01/06/20 History blood sugar diagnostic #180 ea 05/15/19 01/01/20 Rx hydrochlorothiazide 50 mg tablet 50 mg PO QPM #90 tab 10/03/19 01/06/20 Rx aspirin 25 mg-dipyridamole 200 mg 1 cap PO BID #180 cap 10/16/19 01/06/20 Rx capsule,ext.release 12 hr multiphase gabapentin 300 mg capsule 300 mg PO TID #270 cap 10/16/19 01/06/20 Rx glimepiride 2 mg tablet 2 mg PO BID #180 tab 10/16/19 01/06/20 Rx Victoza 3-Kodak 0.6 mg/0.1 mL (18 1.8 mg .ROUTE DAILY #9 ml NS 10/23/19 01/06/20 Rx mg/3 mL) subcutaneous pen injector insulin degludec 100 unit/mL (3 20 units SQ HS ml 01/01/20 01/06/20 History mL) subcutaneous pen Patient History Medical History Chronic back pain Chronic kidney disease, stage I Depression Diabetes mellitus, type 2 Fatty liver disease, nonalcoholic GERD (gastroesophageal reflux disease) Glaucoma bilt Gout Hyperlipidemia Hypertension Kidney stones Migraine Psoriasis Sleep apnea cpap Stroke --walks with a cane, ataxia--follows with Dr. Siu, reason for Aggrenox Vitamin D deficiency Surgical History History of appendectomy History of esophagogastroduodenoscopy (EGD) History of lumbar spinal fusion History of removal of cyst at umbilicus History of tonsillectomy and adenoidectomy x2 History of tooth extraction History of wisdom tooth extraction Status post myringotomy with tube placement of both ears Family History Mother Family history of reaction to anesthesia during heart valve replacement became combative and forgetful Family history of diabetes mellitus Hypertension Stroke Grandmother (Maternal) Family history of diabetes mellitus Grandfather (Maternal) Family hx of colon cancer Social History Preferred Language: Italian Communication Ability: Effective Hemmer Chainstitch Required: No Beliefs That Will Affect Care: None Current Living Situation: Parent Current Living Situation Comment: lives with mom Other Information That Helps Us Care for You: No Feels Safe at Home: Yes Safety Concerns: Feels Safe At This Time Smoking Status: Never smoker Second Hand Exposure: Yes (stepfather smoked) ; Hx Alcohol Use: Yes Alcohol type: beer, wine and hard liquor Hx Substance Use: No Review of Systems Constitutional: no fever and no chills Eyes: no blind spots and no diplopia Ear, Nose, Mouth, Throat: no tinnitus and no hearing loss Respiratory: no cough and no dyspnea Cardiovascular: no chest pain and no palpitations Gastrointestinal: no nausea and no vomiting Genitourinary: no urinary incontinence Musculoskeletal: no neck pain and no myalgia Integumentary: no rash and no lesions Neurologic: as per Subjective / HPI, + unsteadiness and + lack of coordination; no syncope, no headache(s), no confusion and no memory loss Psychiatric: no depression and no anxiety Hematologic / Lymphatic: no easy bleeding and no easy bruising Exam (Neuro) Constitutional: well developed and well nourished; no acute distress Eyes: normal visual hendricks by confrontation, PERRL, normal accommodation and EOM intact bilaterally; no fundoscopic abnormality, no nystagmus and no papilledema Cardiovascular: Vessels: normal carotid upstroke; no carotid bruit Neurologic: Oriented to:: Person, Place and Time Memory: Short Term Intact and Remote Intact Attention: Span Intact and Concentration Intact Language: Naming Objects and Repeating Phrases Speech Fluency: negative Dysarthria Speech Aphasia: negative Aphasia Fund of Knowledge: Current Events, Past History and Vocabulary Cranial Nerves: Normal II (Visual hendricks full to confrontation, visual acuity normal), V (There is diminished sensation f or the right side of the face.), VII (There is no facial droop or weakness), VIII (Hearing intact), IX, X (Palate elevates to midline), XI (Shoulder shrug intact) and XII (Tongue protrudes to midline); Abnorm III, IV, (Right pupil measures 2 mm, round and reactive, left pupil 3 mm, round and reactive. There is a mild right upper lid ptosis.) Motor Strength: Normal Lower Extremities and Normal Upper Extremities; negative Pronator Drift Motor Tone: Normal Lower Extremities and Normal Upper Extremities Muscle Bulk/Involuntary Movements: No Involuntary Movements; negative Muscle Atrophy Sensation: Light Touch Intact, Pain/Temperature Intact, Vibration Intact and Proprioception Intact Coordination: Normal; negative Limited Balance, Dysdiadochokinesia, Finger-Nose Abnormal and Heel-Stephens Abnormal Deep Tendon Reflexes: Rt Triceps: 2+, Lt Triceps: 2+, Rt Biceps: 2+, Lt Biceps: 2+, Rt Brachioradialis: 2+, Lt Brachioradialis: 2+, Rt Patellar: 2+, Lt Patellar: 2+, Rt Ankle: 1+ and Lt Ankle: 1+ Special Tests: negative Babinski Present Details: Patient has a mild right Kranthi's syndrome, chronic. Gait not tested in the context of patient's current medical/neurologic condition, safety concerns. Results & Data ([facility]) Vital Signs (Past 12 Hours) Vital Signs Temp Pulse Pulse Resp BP BP Pulse Ox 01/07/20 07:57 70 01/07/20 07:53 36.8 C 88 19 158/103 H 95 01/07/20 07:23 70 18 97 01/07/20 06:53 69 12 158/102 H 97 01/07/20 05:53 69 12 162/102 H 95 01/07/20 04:53 71 14 171/108 H 95 01/07/20 03:53 36.8 C 68 12 168/112 H 94 01/07/20 03:42 68 16 94 01/07/20 02:53 72 14 170/108 H 96 01/07/20 01:53 71 12 167/103 H 96 01/07/20 01:32 71 12 97 01/07/20 00:53 73 12 176/108 H 95 01/07/20 00:23 75 16 160/98 H 94 01/06/20 23:53 36.9 C 71 12 200/128 H 96 01/06/20 23:35 76 16 94 01/06/20 23:23 72 14 185/118 H 93 01/06/20 22:53 77 17 176/113 H 93 01/06/20 22:23 78 16 174/104 H 94 01/06/20 21:53 78 16 185/108 H 94 01/06/20 21:23 75 15 164/107 H 96 Laboratory Results WBC 5.89, hemoglobin 13.1, hematocrit 37.6, platelet count 184, sodium 143, potassium 2.8, BUN 13, creatinine 0.84, glucose 122, magnesium 1.7, triglycerides 403, cholesterol 111, HDL [address] of the head negative for hemorrhage or acute process. CT angiography of the head reveals progression of the previously identified severe atherosclerotic disease within the intracranial vessels compared with the prior CTA done in 2013, most pronounced within the posterior circulation with multifocal stenosis of the left vertebral and basilar artery with occlusion and distal reconstitution of the right vertebral artery. 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 CT angiography of the neck reveals moderate atherosclerotic plaque within the bilateral proximal internal carotid arteries. Mild stenosis of the proximal bilateral internal carotid arteries and a hypoplastic right vertebral artery which is unchanged compared with the prior MRA done in 2014. Per my review of the brain MRI images there is an area of restricted diffusion within the anterior left branden-diaz consistent with an acute infarct. There is corresponding low signal on ADC map. There is a chronic right lateral medullary infarct appreciated on image 4 of 23 of axial T2 sequences. There is mild supratentorial chronic cerebrovascular disease. Radiology report pending at this time. A carotid ultrasound completed December 06, 2019 was negative for hemodynamically significant stenosis within the carotid arteries. Moderate plaque noted at the carotid bifurcations bilaterally. An electrocardiogram completed yesterday revealed a normal sinus rhythm, 76 bpm. Coding Level of Care Code 26992 Initial Inpt Care Lvl 3 Diagnoses Left pontine stroke I63.50
--- NOTE | 2020-01-07 10:08 | Magnetic Resonance Report ---
MR brain wo con HISTORY: 49 years-old Male stroke eval did have tpa acute strokelike symptoms COMPARISON: Head CT 01/06/2020, brain MRI 05/02/2015 TECHNIQUE: Multiplanar multisequence MRI of the brain was obtained without the use of IV contrast FINDINGS: Dough Machine Operator localizer images demonstrate no gross extracranial abnormality. There is no restricted diffusio n to suggest acute or subacute infarct. Midline structures including the corpus callosum, brainstem, optic chiasm, infundibulum, pituitary and pineal glands appear unremarkable on the sagittal T1 series . No cerebellar tonsillar herniation. Imaged cervical spine appears unremarkable. No acute intracranial hemorrhage, midline shift, abnormal extra axial collection, hydrocephalus or in tracranial mass. No pathologic blooming artifact on the T2 star series. Unchanged 3 mm focus of T2 pr olongation involves the right lateral aspect of the medullary brainstem, image 4 series 5 which may r eflect an area of gliosis from chronic insult. Mild scattered T2/FLAIR hyperintensities are again not ed within the subcortical and to lesser extent periventricular white matter which have not significan tly changed from the 2015 exam. Loss of normal flow void within the V4 segment right vertebral artery is unchanged from comparison. The remaining flow voids appear unremarkable. Polypoid mucosal thicken ing of the right maxillary sinus. Trace left mastoid effusion. Mild mucosal thickening of the ethmoid air cells. The orbits, skull and soft tissues are unremarkable. IMPRESSION: 1. No acute intracranial abnormality, specifically there is no evidence of acute or subacute infarct. 2. Mild scattered T2/FLAIR hyperintensities throughout the white matter appear generally stable from the 2014 comparison study and again are nonspecific. Differential considerations include gliosis from chronic migraines, early chronic microvascular ischemic disease or less likely demyelinating process . 3. 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 ACT 112: Negative or not required by law. The above report was generated using voice recognition software. It may contain grammatical, syntax o r spelling errors. Electronically signed by: Gonzalo Ferreira M.D. 01/07/2020 10:07 AM
--- NOTE | 2020-01-07 10:27 | Pharmacy Report ---
Glycemic Control Consultation - Date of Service January 07, 2020 - Scope Scope: Glycemic Pharmacist consulted for glycemic control and to write orders per [facility] inpatient glycemic control protocol. - Objective Weight: 110.9 kg Accmary annecks BSG (last 24hrs): 01/06/20 01/06/20 01/06/20 16:28 16:59 19:16 Glucose 394 H* POC Glucose 334 H* 195 H 01/06/20 01/07/20 01/07/20 20:59 00:16 04:27 Glucose POC Glucose 158 H 100 H 126 H 01/07/20 01/07/20 04:28 07:45 Glucose 122 H POC Glucose 163 H Laboratory Data (last 24hrs): 01/06/20 01/07/20 01/07/20 16:28 04:28 05:44 Potassium 3.7 2.8 L D Carbon Dioxide 25 29 Anion Gap 8.0 5.0 Creatinine 1.43 H 0.84 D Est Cr Clr Drug Dosing 77.2 132.8 Beta-Hydroxybutyric Acd - Recent Pertinent Medications Outpatient Anti-diabetic Regimen: * Tresiba 20 units SC HS * Glimepiride 2 mg PO BID * Metformin 1 g PO BIDM * Victoza 1.8 mg SC daily * A1c = 7.7 % (05/15/19) * Follow-up A1c pending - Assessment & Plan Assessment & Plan: ASSESSMENT: * SD is a 49 year old male with left pontine stroke - TPA administered on 01/05 * BSGs elevated upon admission - 334 mg/dL * Since that time BSGs have been much better controlled * Patient received 20 units of Lantus last evening PLAN FOR INPATIENT GLYCEMIC CONTROL: * Holding outpatient oral diabetes medications * Basal insulin - continue home daily dose * Lantus 10 units SC BID * Bolus insulin * NovoLog per scale ACHS or Q6hrs while NPO * Goal Range: Low 140 mg/dL - High 180 mg/dL * Correction Factor: 20 mg/dL/unit * Nutritional / Prandial insulin per carb ratio of 1 unit per 7 grams CHO consumed * Please note that the plan above was derived based on current level of insulin resistance and hospital stress. These recommendations are appropriate for inpatient admission only. Plan of care upon discharge will need to be reassessed to avoid potential outpatient hypo/hyperglycemia. Thank you.
--- NOTE | 2020-01-07 11:03 | Hospitalist Progress Note ---
Date of Service January 07, 2020 Assessment & Plan (1) Left pontine stroke: Mr. Barcenas is a 49 yo M with a PMHx of three prior CVAs with residual deficit of ataxia who presented to the ED on 01/05 with an acute worsening of his chronic ataxia, dysarthria and R lower extremity numbness. A stroke alert was called and patient was administered tPA, after which he reported an improvement in his symptoms. Head imaging showed progressive vertebrobasilar atherosclerotic damage suspicious of a left anterior pontine infarct, although no definitive acute or subacute infarct on brain MRI per official radiology read. Patient was sent to the ICU for 24 hour monitoring after tPA administration. Suspicious Left pontine infarct CVA - patient still complaining of some numbness/weakness on R LE - repeat non-contrast head CT after 24 hours of tPA administration; if negative, patient will be downgraded from ICU - TTE ordered to assess for embolic source - initiate dual antiplatelet therapy: add daily baby ASA to home dose Aggrenox - consider outpatient referral to neurovascular/stroke specialist at [facility] for recommendations on long-term management in light of progressive cerebrovascular disease - patient passed speech eval; PT/OT ordered - neurology consulted, appreciate recs Diabetes, uncontrolled - blood sugar was 394 on admission; A1c from 12/29/19 8.8 (per powerchart) - patient admits to deviating from his usual diet during COVID epidemic - he reports A1c was previously < 7 - home medication regimen consists of glimepiride, metformin, Victoza and insulin - hold oral antiglycemics while in hospital; pharmacy managing insulin - patient already plugged in with extension educator dave miles - upcoming visit with fish warden scheduled for 01/08 Hypercholesteremia - lipid panel showing total chol of 111, HDL of 25, ratio 4 - LDL unable to be calculated as TG > 400 - increased home dose of atorvastatin from 10mg to 40mg Hypertension - home dose losartan and HCTZ held, allowing for permissive HTN Hypokalemia - replacement per ICU protocol - trend BMP Depression - continue home dose venlafaxine Diet: Heart Healthy, DM2 Dispo: ICU, anticipate downgrade to medical floor DVT ppx: contraindicated since tPA was given < 24 hours Code: Full (2) Diabetes: (3) Hypercholesterolemia: (4) Hypertension: Admission and Anticipated Discharge Date Admission Date: January 06, 2020 Supervising Physician Co-Signing Physician Notes Resident Physician Supervision Note: I independently interviewed and examined the patient and verified the soto history and physical, reviewed labs and image studies, discussed the case with the resident Dr. Fregoso and agree with the findings and care plan. Subjective Patient reports feeling well. The numbness in his R LE still present, although less intense than on admission. Still feels as though R upper and lower extremities are weaker than L. Review of Systems Constitutional: + weakness Neurologic: + numbness Physical Exam Constitutional: WD/WN, vitals as above + obese and + combative Eyes: + anicteric sclerae Neck: normal visual inspection and trachea midline Respiratory: normal respiratory effort Cardiovascular: RRR, no murmur, no edema Gastrointestinal (Abdomen): Inspection/Auscultation: abdomen normal to insp ection Musculoskeletal: Head/Neck/Chest: neck supple Skin: no rashes, warm and dry Neurologic: CN's II-XI intact bilaterally and moves all extremities Speech / Cognition: normal speech Motor/Sensory: + sensory deficit (sensation less pronouned on R upper and lower extremities) Cranial Nerves: tongue midline, normal hearing and able to elevate shoulders bilaterally strength: bilateral upper extremities 5/5. R lower extremity 4+/5, L 5/5 Psychiatric: A+Ox3, euthymic affect Results & Data Results & Data ([facility]) Vital Signs (Past 12 Hours) Vital Signs Temp Pulse Pulse Resp BP BP Pulse Ox 01/07/20 08:53 36.7 C 77 19 179/111 H 95 01/07/20 07:57 70 01/07/20 07:53 36.8 C 88 19 158/103 H 95 01/07/20 07:23 70 18 97 01/07/20 06:53 69 12 158/102 H 97 01/07/20 05:53 69 12 162/102 H 95 01/07/20 04:53 71 14 171/108 H 95 01/07/20 03:53 36.8 C 68 12 168/112 H 94 01/07/20 03:42 68 16 94 01/07/20 02:53 72 14 170/108 H 96 01/07/20 01:53 71 12 167/103 H 96 01/07/20 01:32 71 12 97 01/07/20 00:53 73 12 176/108 H 95 07/05/20 00:23 75 16 160/98 H 94 01/06/20 23:53 36.9 C 71 12 200/128 H 96 01/06/20 23:35 76 16 94 01/06/20 23:23 72 14 185/118 H 93 Resident Activity Tracking Resident Involvement: Resident Care Provided Care Provided: Adult Hospital Medicine
[2020-01-07] MEDS ORDERED: HydrALAZINE HCL 20 MG/ML VIAL IV PRN (11:40)
[2020-01-07] MEDS: INSULIN GLARGINE SOLOSTAR 100 UNITS/ML 3 ML PEN SC SCH ×2 (12:02→20:49)
--- NOTE | 2020-01-07 12:08 | XCELERA ---
[id number]
--- NOTE | 2020-01-07 12:15 | Electrocardiogram Report ---
Test Reason : Blood Pressure : / mmHG Vent. Rate : 076 BPM Atrial Rate : 076 BPM P-R Int : 182 ms QRS Dur : 102 ms QT Int : 412 ms P-R-T Axes : 034 -43 124 degrees QTc Int : 463 ms Poor data quality, interpretation may be adversely affected Normal sinus rhythm Left axis deviation Left ventricular hypertrophy with repolarization abnormality Abnormal ECG When compared with ECG of 11-JUN-2014 01:41, Inverted T waves have replaced nonspecific T wave abnormality in Lateral leads Confirmed by Aime Pizano ([id number]) on 01/07/2020 12:15:32 PM Referred By: REFERRED SELF Confirmed By:Aime Pizano
[2020-01-07] MEDS ORDERED: TPN/PPN CONSULT PHARMACY PRN (16:00)
--- NOTE | 2020-01-07 17:27 | CT Scan Report ---
CT head/brain wo con CLINICAL HISTORY: 49 years-old Male with Post tpa . Acute strokelike symptoms. Follow-up study statu s post administration of TPA. TECHNIQUE: Multiple axial CT images of the head were obtained without contrast. A dose lowering tech nique was utilized adhering to the principles of ALARA. CT DOSE: 537.48 mGy.cm COMPARISON: Head CT 01/06/2020 FINDINGS: No acute intracranial hemorrhage, midline shift, intracranial mass, hydrocephalus, territorial ischem ia or abnormal extra-axial collection. Cerebral vascular calcifications. Minimal nonspecific patchy w liang matter hypodensities, possibly reflective of chronic microvascular ischemic disease. The calvarium is intact. Mild polypoid mucosal thickening of the right maxillary sinus, partially im aged. Mastoid air cells are clear. Hypoplastic left frontal sinus. Soft tissues and orbits are unrema rkable. IMPRESSION: No acute intracranial abnormality. ACT 112: Negative or not required by law. The above report was generated using voice recognition software. It may contain grammatical, syntax o r spelling errors. Electronically signed by: Gonzalo Ferreira M.D. 01/07/2020 5:25 PM
[2020-01-07] MEDS: MONTELUKAST SODIUM 10 MG TABLET PO SCH (20:12)
[2020-01-07] MEDS: VENLAFAXINE HCL XR 150 MG CAPXR PO SCH (20:13)
[2020-01-07] MEDS: ATORVASTATIN 40 MG TAB PO SCH (20:13)
[2020-01-07] MEDS: LATANOPROST 0.005% OP SOLN 2.5 ML BTL OP SCH (20:14)
[2020-01-07] MEDS: HEPARIN SOD 5,000 UNIT/0.5 ML VIAL SQ SCH (20:48)
[2020-01-07] MEDS: DIPYRIDAMOLE/ASPIRIN CAP PO SCH (21:09)
[2020-01-08] MEDS: SODIUM CHLORIDE 0.9% 1000ML 1,000 ML IV SCH ×2 (03:53→12:29)
[2020-01-08 06:03] LABS: Basophils # (auto) 0.02 K/uL (0-0.2); Basophils % (auto) 0.3 %; Eosinophils # (auto) 0.41 K/uL (0-0.5); Eosinophils % (auto) 6.6 %; Hemoglobin 13.9 g/dL (14.0-18.0); Immature Granulocytes # (auto) 0.02 K/uL (0.00-0.02); Immature Granulocytes % (auto) 0.3 %; Lymphocytes # (auto) 2.27 K/uL (1.2-3.4); Lymphocytes % (auto) 36.5 %; Mean Corpuscular Hemoglobin 33.4 pg (25-34); Mean Corpuscular Hgb Conc 33.9 g/dL (32-36); Mean Corpuscular Volume 98.6 fL (80-100); Mean Platelet Volume 8.9 fL (7.4-10.4); Monocytes # (auto) 0.58 K/uL (0.11-0.59); Monocytes % (auto) 9.3 %; Neutrophils # (auto) 2.92 K/uL (1.4-6.5); Platelet Count 202 K/uL (130-400); RDW Standard Deviation 49.9 fL (36.4-46.3); Red Blood Count 4.16 M/uL (4.7-6.1); White Blood Count 6.22 K/uL (4.8-10.8)
[2020-01-08 06:16] LABS: Estimated Average Glucose 194 mg/dl; Hemoglobin A1C 8.4 % (4.5-5.6)
[2020-01-08 06:53] LABS: BUN Creatinine Ratio 13.6 (10-20); Calcium 9.4 mg/dl (8.5-10.1); Est GFR (African American) 124.2; Est GFR (Non-African American) 107.1; Potassium 3.4 mmol/L (3.5-5.1)
[2020-01-08] MEDS: INSULIN ASPART 100 UNITS/ML 3 ML PEN SC SCH ×4 (08:38→21:50)
[2020-01-08] MEDS: INSULIN GLARGINE SOLOSTAR 100 UNITS/ML 3 ML PEN SC SCH ×2 (08:39→21:51)
[2020-01-08] MEDS: DIPYRIDAMOLE/ASPIRIN CAP PO SCH ×2 (08:40→21:49)
[2020-01-08] MEDS: HEPARIN SOD 5,000 UNIT/0.5 ML VIAL SQ SCH ×2 (08:41→21:49)
[2020-01-08] MEDS: METOPROLOL TARTRATE 100 MG TAB PO SCH ×2 (08:41→21:49)
[2020-01-08] MEDS: FLUTICASONE PROPIONATE NA SPR 16 GM BTL SCH (08:41)
[2020-01-08] MEDS: POLYETHYLENE (MIRALAX) 17 GM PACK PO SCH ×2 (08:42→21:50)
[2020-01-08] MEDS: GABAPENTIN 300 MG CAP PO SCH ×3 (08:42→21:50)
[2020-01-08] MEDS: NIFEdipine EXTENDED REL 30 MG TABCR PO SCH (08:43)
[2020-01-08] MEDS: allopurinoL 300 MG TAB PO SCH (08:43)
--- NOTE | 2020-01-08 11:51 | Neurology Progress Note ---
Date of Service January 08, 2020 Assessment & Plan (1) Left pontine stroke: (2) Acute CVA (cerebrovascular accident): (3) Acute right hemiparesis: (4) Dysarthria: (5) Diabetes: (6) Hypertension: Patient has suffered an acute stroke likely left anterior diaz. He has severe progressive diffuse atherosclerotic cerebral vascular disease in the head and neck. He has right branden paresis and dysarthria which is improving. He is post tPA. He has diabetes, hypertension, and dyslipidemia as risk factors. Echocardiogram was unremarkable. Recommendations: 1. Control blood pressure a meeting for a mean arterial pressure of 95-100. 2. Control glucose aiming to lower the hemoglobin A1c closer to 7.5 (now 8.4) 3. Patient with technically be a high dose statin candidate. 4. Continue physical, occupational, and speech therapy consults. 5. Continue Aggrenox 6. After discharge, consider a stroke consult at [facility] regarding his severe atherosclerosis of the head and neck (particularly the vertebral basilar system). He is at very high risk for future stroke. Overall, I spent a total 35 minutes with this case including review of records, review of MRI films, direct evaluation patient bedside, and discussion of the case with the patient and RN at bedside, and Dr. Prescott including differential diagnosis and treatment options. Admission and Anticipated Discharge Date Admission Date: January 06, 2020 Subjective Patient feels that his right side is a little bit better with better movement on his right side. He has some dysarthria still as well. Blood pressure is 161/95. He is afebrile. Triglycerides were 403 and total cholesterol 111. CBC showed mild anemia and Chem profile showed a glucose of 181. When I was in the room, a fingerstick g lucose was 215. I reviewed the MRI of the brain and considering the diffusion-weighted imaging and his clinical course I do suspect (along with Dr. Siu) of a small left pontine infarct. I reviewed CT angiography of the head neck and he has severe, diffuse multifocal areas of stenosis in multiple vessels particularly vertebral/basilar. Results & Data ([facility]) Vital Signs (Past 12 Hours) Vital Signs Temp Pulse Pulse Pulse Resp BP BP 01/08/20 07:53 36.5 C 65 18 161/95 H 01/08/20 07:15 60 01/08/20 03:20 63 18 01/08/20 03:10 36.5 C 64 22 155/89 H Pulse Ox 01/08/20 07:53 94 01/08/20 07:15 01/08/20 03:20 93 01/08/20 03:10 94 Exam (Neuro) Physical Exam: He is awake and alert. He has dysarthria. He is pleasant and cooperative and his mood and affect are normal appropriate. He has minimal facial droop on the right. Tongue is midline. Extraocular eye muscles are intact without nystagmus. He has a drift of the right arm and right leg. Strength is 4/5 diffusely in these limbs and he is more clumsy with these limbs that he has actually weak. Left side has 5/5 strength diffusely. He has no obvious sensory deficits. PG Care Time/CCT Total # of Minutes Spent Total Time Spent with Patient: Total time spent is greater than 50% in coordination of care (as documented) at patient's floor/unit and/or counseling patient: Coding Level of Care Code 16002 Subseq Hosp Care Lvl 3 Diagnoses Left pontine stroke I63.50 Acute CVA (cerebrovascular accident) I63.9 Acute right hemiparesis G81.91 Dysarthria R47.1 Diabetes E11.9 Hypertension I10 Time Spent (min) 35
--- NOTE | 2020-01-08 12:35 | Hospitalist Progress Note ---
Date of Service January 08, 2020 Assessment & Plan (1) Left pontine stroke: 49 yo M with PMHx CVA x3 prior to this admission, HTN, HLD, DM2 not well controlled on insulin and oral therapies admitted for left pontine stroke with R sided hemiparesis and dysarthria. Acute L pontine CVA with R sided hemiparesis and dysarthria: - Patient is >24 hours s/p tPA. - Echo this admission with no valvular abnormalities, LVEF 55-60%. Cardiac monitoring this admission without arrhythmia. - Head CT without acute intracranial findings. - Head/Neck CTA with moderate atherosclerotic plaque within the bilateral proximal internal carotid arteries. Mild stenosis of the proximal bilateral internal carotid arteries. 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 - Brain MRI per Radiology without signs of acute/subacute infarct, however on review by Drs. Siu and Martin -> likely Left pontine infarct with recommendations as below: - Control blood pressure a meeting for a mean arterial pressure of 95-100. - Control glucose aiming to lower the hemoglobin A1c closer to 7.5 (now 8.4). - Patient with technically be a high dose statin candidate. - Continue physical, occupational, and speech therapy consults. - Continue Aggrenox. - After discharge, consider a stroke consult at [facility] regarding his severe atherosclerosis of the head and neck (particularly the vertebral basilar system). He is at very high risk for future stroke. - Microvascular changes on multiple modalities of imaging suggest chronic small vessel ischemic disease, likely multifactorial in the setting of uncontrolled HTN, DM2, and HLD not on high intensity statin despite history of multiple CVA in the past. Changes in medications to mitigate risk factors as below. DM2: - Hgb A1c on admission 8.4%, currently holding outpatient medications. - Insulin per pharmacy: Basal insulin - continue home daily dose Lantus 10 units SC BID Bolus insulin NovoLog per scale ACHS or Q6hrs while NPO Goal Range: Low 140 mg/dL - High 180 mg/dL Correction Factor: 20 mg/dL/unit Nutritional / Prandial insulin per carb ratio of 1 unit per 7 grams CHO consumed - Already has appointment scheduled next week with DM2 educator regarding dietary changes for success moving forward. Patient admits over the last several months has "slipped" with regard to his dietary goals 2/2 COVID 19 homebound status. - Had extensive discussion on the ramifications of elevated sugars on vessels over time. HTN: - Currently on home regimen of losartan 100mg daily, metoprolol tartrate 100mg BID, nifedipine 90mg daily. - Holding HCTZ as patient is normotensive at this time with hypokalemia. HLD: - On admission Total cholesterol 111, HDL 25, LDL unable to be collected due to TG, TG 403. - Given multiple CVAs patient qualifies for high intensity statin, Lipitor 10mg daily increased to 80mg daily. Hypokalemia: - Patient with hypokalemia to 2.8 while in ICU; this was in the setting of IV fluids given while NPO. - Patient's potassium 3.4 today after repletion with 10meq KCL Riders, 40meq KCl tablets. - Have further repleted with 20 meq KCl PO today, repeat BMP AM. - Fluids d/c'ed, encouraged PO intake. Depression: - continue home venlafaxine. Code Status: FULL CODE DVT ppx: Heparin 5000u SQ q12 FEN/GI: Heart Healthy, DM2 diet Dispo: Med/Surg with Telemetry (2) Acute CVA (cerebrovascular accident): (3) Acute right hemiparesis: (4) Dysarthria: (5) VITOR (acute kidney injury): (6) Received tissue plasminogen activator (t-PA) less than 24 hours prior to arrival: (7) Diabetes: (8) Obstructive sleep apnea: (9) Hypertension: (10) Hypercholesterolemia: (11) Depression: Admission and Anticipated Discharge Date Admission Date: January 06, 2020 Supervising Physician Co-Signing Physician Notes Attending Attestation and Resident Supervision Note: Pt seen/examined, chart reviewed, care plan d/w PGY2 Dr Devika Kohli. I agree w/ the soto components of her documentation. 49yo male w/ severe cerebrovascular disease - this is now his 4th CVA event since the age of mid 30s. Denies family h/o VTE. Both mom/dad however had strokes. Dysarthria modestly improving. Right arm weakness improving. Tele stable. exam - gen - obese, NAD, dysarthric neck - no JVD heart - RRR, s1 s2 lungs - CTA b/l abd - soft NT ext - no edema neuro - right lower facial droop; strength RUE/RLE 4/5; dysarthric, no aphasia A/P: 1. left pontine CVA s/p TPA with no complicating hemorrhage; had stroke despite aggrenox usage pre-hospital 2. h/o 3 prior stroke events 3. T2DM - uncontrolled chronically but control here improved 4. HTN - control improving add asa 81mg daily to aggrenox BID for secondary stroke prevention consider hypercoagulable work-up given 4 stroke events since his 30s?? consider repeat 30-day event monitor OR loop recorder to r/o PAF PT, OT, speech great candidate for [facility] updated Kg Prescott MD Subjective With continued improvement in his dysarthria and sensation of the face, however about the same as yesterday with regard to his decreased sensation of his RUE and RLE. No other concerns or complaints this AM. Is amenable to acute rehab. Review of Systems Review of Systems: All systems reviewed & are unremarkable except as noted in HPI & below Constitutional: no fever and no chills Respiratory: no cough and no dyspnea Cardiovascular: no chest pain, no palpitations and no edema Gastrointestinal: no abdominal pain, no constipation and no diarrhea/loose stools Neurologic: + loss of sensation and + abnormal speech see Subjective Physical Exam Constitutional: WD/WN, vitals as above Eyes: PERRL, conjunctivae normal, anicteric sclerae ENMT: external ear and nose normal, oropharynx normal Neck: normal visual inspection Respiratory: normal respiratory effort, lungs clear to auscultation Cardiovascular: RRR, no murmur, no edema Gastrointestinal (Abdomen): normal bowel sounds, soft, nontender, no hepatosplenomegaly Musculoskeletal: strength 4/5 RUE, RLE. strength 5/5 LUE, LLE. Skin: no rashes, warm and dry Neurologic: AAOx3, slurred speech. PERRLA, EOMI, no nystagmus. Normal visual acuity bilaterally. Bilateral face without sensory deficits. RLE and RUE with subjectively decreased sensation. DTRs normal. II-XII intact bilaterally. No pronator drift. No tremor. Psychiatric: A+Ox3, euthymic affect Results & Data Results & Data ([facility]) Vital Signs (Past 12 Hours) Vital Signs Temp Pulse Pulse Pulse Resp BP BP 01/08/20 12:05 37.1 C 75 19 156/92 H 01/08/20 07:53 36.5 C 65 18 161/95 H 01/08/20 07:15 60 01/08/20 03:20 63 18 01/08/20 03:10 36.5 C 64 22 155/89 H Pulse Ox 01/08/20 12:05 91 01/08/20 07:53 94 01/08/20 07:15 01/08/20 03:20 93 01/08/20 03:10 94 Resident Activity Tracking Resident Involvement: Resident Care Provided Care Provided: Adult Hospital Medicine
[2020-01-08] MEDS ORDERED: POTASSIUM CHLORIDE 20 MEQ TABCR PO STA (16:21)
[2020-01-08] MEDS ORDERED: ATORVASTATIN 40 MG TAB PO SCH (21:00)
[2020-01-08] MEDS: MONTELUKAST SODIUM 10 MG TABLET PO SCH (21:49)
[2020-01-08] MEDS: VENLAFAXINE HCL XR 150 MG CAPXR PO SCH (21:49)
[2020-01-08] MEDS: LATANOPROST 0.005% OP SOLN 2.5 ML BTL OP SCH (21:52)
[2020-01-09 06:51] LABS: Basophils # (auto) 0.02 K/uL (0-0.2); Basophils % (auto) 0.4 %; Eosinophils # (auto) 0.39 K/uL (0-0.5); Hematocrit (blood only) 41.7 % (42-52); Hemoglobin 14.1 g/dL (14.0-18.0); Immature Granulocytes # (auto) 0.01 K/uL (0.00-0.02); Immature Granulocytes % (auto) 0.2 %; Lymphocytes % (auto) 35.8 %; Mean Corpuscular Hemoglobin 33.1 pg (25-34); Mean Corpuscular Hgb Conc 33.8 g/dL (32-36); Mean Corpuscular Volume 97.9 fL (80-100); Mean Platelet Volume 8.9 fL (7.4-10.4); Monocytes # (auto) 0.65 K/uL (0.11-0.59); Monocytes % (auto) 11.6 %; Neutrophils # (auto) 2.52 K/uL (1.4-6.5); Platelet Count 197 K/uL (130-400); RDW Coefficient of Variation 14.2 % (11.5-14.5); RDW Standard Deviation 50.4 fL (36.4-46.3); Red Blood Count 4.26 M/uL (4.7-6.1); White Blood Count 5.59 K/uL (4.8-10.8)
[2020-01-09 07:15] LABS: BUN Creatinine Ratio 14.5 (10-20); Calcium 9.3 mg/dl (8.5-10.1); Creatinine Clr Calc Pharmacy 132.2 ml/min; Est GFR (African American) 119.7; Est GFR (Non-African American) 103.3; Potassium 3.5 mmol/L (3.5-5.1)
--- NOTE | 2020-01-09 07:41 | Billing Data ---
Date of Service January 08, 2020 Coding Level of Care Code 33180 Subseq Hosp Care Lvl 3
[2020-01-09] MEDS: FLUTICASONE PROPIONATE NA SPR 16 GM BTL SCH (08:45)
[2020-01-09] MEDS: METOPROLOL TARTRATE 100 MG TAB PO SCH (08:46)
[2020-01-09] MEDS: HEPARIN SOD 5,000 UNIT/0.5 ML VIAL SQ SCH (08:46)
[2020-01-09] MEDS: NIFEdipine EXTENDED REL 30 MG TABCR PO SCH (08:47)
[2020-01-09] MEDS: allopurinoL 300 MG TAB PO SCH (08:47)
[2020-01-09] MEDS: GABAPENTIN 300 MG CAP PO SCH ×2 (08:47→14:09)
[2020-01-09] MEDS: DIPYRIDAMOLE/ASPIRIN CAP PO SCH (08:47)
[2020-01-09] MEDS: INSULIN ASPART 100 UNITS/ML 3 ML PEN SC SCH ×2 (08:48→12:12)
[2020-01-09] MEDS: POLYETHYLENE (MIRALAX) 17 GM PACK PO SCH (08:52)
[2020-01-09] MEDS ORDERED: ASPIRIN 81 MG ECTAB PO SCH (09:00)
[2020-01-09] MEDS ORDERED: INSULIN GLARGINE SOLOSTAR 100 UNITS/ML 3 ML PEN SC SCH (09:00)
[2020-01-09] MEDS ORDERED: FENOFIBRATE NANOCRYSTALLIZED 145 MG TABLET PO SCH (10:45)
--- NOTE | 2020-01-09 10:45 | Neurology Progress Note ---
Date of Service January 09, 2020 Assessment & Plan (1) Left pontine stroke: (2) Acute CVA (cerebrovascular accident): (3) Acute right hemiparesis: (4) Dysarthria: (5) Diabetes: (6) Hypertension: Patient has suffered an acute stroke likely left anterior diaz. This is very small and questionable as seen on MRI (discussed with Dr. Flal). He has severe, progressive, diffuse, atherosclerotic cerebral vascular disease in the head and neck, particularly in the vertebral basilar system. He has right branden paresis and dysarthria which is improving. He is post tPA. He has diabetes, hypertension, and dyslipidemia as risk factors. Echocardiogram was unremarkable. Recommendations: 1. Control blood pressure as you are doing, aiming for a mean arterial pressure of 95-100. 2. Control glucose aiming to lower the hemoglobin A1c closer to 7.5 (now 8.4) 3. Patient is technically a high dose statin candidate. 4. Continue physical, occupational, and speech therapy consults. 5. Continue Aggrenox 6. After discharge, consider a stroke consult at [facility] regarding his severe atherosclerosis of the head and neck (particularly the vertebral basilar system). He is at very high risk for future stroke. Otherwise, I am not sure what I can not medically do for him to prevent strokes. Overall, I spent a total 35 minutes with this case including review of records, review of CT angiography and MRI films with Dr. Fall in Radiology, direct evaluation of the patient at bedside, and discussion of the case with the patient and RN at bedside, and Dr. Joya, including differential diagnosis and treatment options. Admission and Anticipated Discharge Date Admission Date: January 06, 2020 Subjective Patient has a little bit of pain around his right eye this morning but no headache. He believes he could move his right leg a little bit better than he did yesterday. Nursing reports no new issues. Blood pressure is 145/85. CBC and Chem profile were largely unremarkable and his glucose was 174. I reviewed the patient's CT angiography with Dr. Fall in Radiology today. Results & Data ([facility]) Vital Signs (Past 12 Hours) Vital Signs Temp Pulse Pulse Pulse Resp BP Pulse Ox 01/09/20 08:10 66 01/09/20 07:17 36.5 C 62 18 145/85 H 95 01/09/20 02:37 36.8 C 67 20 160/85 H 99 07/07/20 00:00 80 01/08/20 23:08 68 16 95 Exam (Neuro) Physical Exam: He is awake and alert. He has no expressive or receptive aphasia but does have dysarthria. This is about the same as yesterday. Mood and affect are normal appropriate. He can lift his right arm and leg off the bed and has 4/5 strength diffusely. He has clumsiness of the hand and foot on the right. The left side is 5/5. Extraocular eye muscles are intact without nystagmus. He has a weakness at the corner of the mouth on the right. Tongue is midline. PG Care Time/CCT Total # of Minutes Spent Total Time Spent with Patient: Total time spent is greater than 50% in coordination of care (as documented) at patient's floor/unit and/or counseling patient: Coding Level of Care Code 45909 Subseq Hosp Care Lvl 3 Diagnoses Left pontine stroke I63.50 Acute CVA (cerebrovascular accident) I63.9 Acute right hemiparesis G81.91 Dysarthria R47.1 Diabetes E11.9 Hypertension I10 Time Spent (min) 35
--- NOTE | 2020-01-09 12:45 | Pharmacy Report ---
Pharmacy Glycemic Short Note 2 - Date of Service January 09, 2020 - Glycemic Short BSG Results (Last 24 hours): 01/08/20 01/08/20 01/09/20 16:45 20:19 06:27 Glucose 174 H POC Glucose 185 H 184 H 01/09/20 01/09/20 07:30 11:34 Glucose POC Glucose 185 H 195 H OUTPATIENT ANTIDIABETIC REGIMEN: * Tresiba 20 units HS, Victoza 1.8 mg/day, metformin 1 gm BID, Glimepiride 2 mg BID * A1c 8.4% 01/07/20 ASSESSMENT: * Mr. Barcenas received 40 units of insulin yesterday, 28 units of basal * BSGs ranged from 184-218 yesterday * Fasting improved today although still above goal, 185, will continue titrating basal dose * Prandial BSGs improving as well will continue current novolog orders, but will tighten if continue to be above goal
[2020-01-09] MEDS ORDERED: STROKE PATIENT DISCHARGE SCH (13:15)
--- NOTE | 2020-01-09 13:26 | Discharge Summary ---
Date of Service January 09, 2020 Admission HPI Per Admitting Provider Patient presented with ataxia with concern for stroke. Stroke alert was called. Patient was given thrombolytic therapy. This patient suffers from chronic vertigo chronic back pain and diabetes. His diabetes has however been in good control until recently over the last week or so the patient is a poor control of his diabetes and his vertigo is been acting up for him for which he takes meclizine and Benadryl. Subsequently got to the point where he had difficulty walking and moving fluidly he developed a numbness down the center of his face and on his right arm with some increased sensation of his right leg. He presented for evaluation within appropriate time span was given thrombolytic therapy for stroke. Postthrombolytic therapy he has some dark crusted blood in his mouth which he feels may be from a dental procedure. He still has significant ataxia difficulty with word forming and 4.5/5 strength of the right arm and leg compared to 5.5 on the right. His finger-nose is still markedly abnormal. No defined stroke was seen but there are cut off of vessels in the posterior circulation seen on CT angiogram and MRI scan is pending. Patient be continued on aspirin therapy he will be in thrombolytic protocol for day 1. His glucose is markedly out of alignment he will be on an insulin drip with Lantus backup. Admission Exam Per Admitting Provider The patient appeared well nourished and normally developed. Vital signs as documented. Head exam is normocephalic atraumatic no scleral icterus he does have injected sclera Oropharynx is with dried black crusted blood within his mouth gag reflex is present upon my examination no active fresh bleeding was seen Neck is without JVD, thyromegaly, or carotid bruits. Lungs are clear to auscultation, no focal loss of breath sounds Cardiac exam, Rhythm is regular.. No murmurs, rubs or gallops. Abdominal exam reveals normal bowel sounds, soft non tender, no masses Extremities are nonedematous and both pedal pulses are normal. Neurologic exam is alert and oriented he has muffled garbled speech he has decreased strength of his right arm and leg 4.5 out of 5 compared to 5/5 to the left he has dysmetria and difficulty coordination but both his speech and with his arms and legs. 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 strength 5/5 LUE, LLE. Skin: no rashes, warm and dry Neurologic: AAOx3, slurred speech. PERRLA, EOMI, no nystagmus. Normal visual acuity bilaterally. Bilateral face without sensory deficits. RLE and RUE with subjectively decreased sensation. DTRs normal. II-XII intact bilaterally. No pronator drift. No tremor. Psychiatric: A+Ox3, euthymic affect Discharge Data Allergies Allergy/AdvReac Type Severity Reaction Status Date / Time cephalexin Allergy Intermediate "GENERAL Verified 01/06/20 17:20 ILLNESS"/rash latex Allergy Intermediate RASH, Verified 01/06/20 17:20 BLEEDING aspirin Allergy Mild GI Verified 01/06/20 17:20 SYMPTOMS-nausea/vomiting clopidogrel [From Plavix] Allergy Mild Rash Verified 01/06/20 17:20 grass pollen-perennial rye, Allergy Mild sneezing, Verified 01/06/20 17:20 standar stuffy nose methotrexate Allergy Mild nausea/vomi Verified 01/06/20 17:20 ting Penicillins Allergy Mild Rash Verified 01/06/20 17:20 ragweed pollen Allergy Mild sneezing, Verified 01/06/20 17:20 stuffy nose adalimumab [From Humira] Allergy "made my Verified 01/06/20 17:20 psorasis worse" Sulfa (Sulfonamide AdvReac Mild general Verified 01/06/20 17:20 Antibiotics) malaise, upset stomach Consultations 01/06/20 17:03 ED Decision to Admit Stat 01/06/20 19:31 Consult Case Management - Discharge Planning Routine Consult Case Management - Discharge Planning Routine Consult Wholesale Manager Routine Consult Neurology Routine Ordered Studies 01/06/20 15:58 CT angio head w con Stat CT angio neck with con Stat CT head/brain wo con Stat 01/06/20 19:31 MR brain wo con Routine 01/07/20 16:53 CT head/brain wo con Urgent Hospital Course (1) Left pontine stroke: 49 yo M with PMHx CVA x3 prior to this admission, HTN, HLD, DM2 not well controlled on insulin and oral therapies admitted for left pontine stroke with R sided hemiparesis and dysarthria. Acute L pontine CVA with R sided hemiparesis and dysarthria: - Patient is >24 hours s/p tPA. - Echo this admission with no valvular abnormalities, LVEF 55-60%. Cardiac monitoring this admission without arrhythmia. - Head CT without acute intracranial findings. - Head/Neck CTA with moderate atherosclerotic plaque within the bilateral proximal internal carotid arteries. Mild stenosis of the proximal bilateral internal carotid arteries. 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 - Brain MRI per Radiology without signs of acute/subacute infarct, however on review by Drs. Siu and Martin -> likely Left pontine infarct with recommendations as below: - Control blood pressure a meeting for a mean arterial pressure of 95-100. - Control glucose aiming to lower the hemoglobin A1c closer to 7.5 (now 8.4). - Patient with technically be a high dose statin candidate. - Continue physical, occupational, and speech therapy consults. - Continue Aggrenox. Add aspirin 81mg daily. - After discharge, consider a stroke consult at [facility] regarding his severe atherosclerosis of the head and neck (particularly the vertebral basilar system). He is at very high risk for future stroke. - Microvascular changes on multiple modalities of imaging suggest chronic small vessel ischemic disease, likely multifactorial in the setting of uncontrolled HTN, DM2, and HLD not on high intensity statin despite history of multiple CVA in the past. Changes in medications to mitigate risk factors as below. DM2: - Hgb A1c on admission 8.4%, currently holding outpatient medications. - Insulin per pharmacy during admission: Basal insulin - continue home daily dose Lantus 10 units SC BID Bolus insulin NovoLog per scale ACHS or Q6hrs while NPO Goal Range: Low 140 mg/dL - High 180 mg/dL Correction Factor: 20 mg/dL/unit Nutritional / Prandial insulin per carb ratio of 1 unit per 7 grams CHO consumed - Already has appointment scheduled next week with DM2 educator regarding dietary changes for success moving forward. Patient admits over the last several months has "slipped" with regard to his dietary goals 2/2 COVID 19 homebound status. - Had extensive discussion on the ramifications of elevated sugars on vessels over time. Patient will return to home regimen on discharge, make less high sugar food choices, and follow with Dr. Lala. - Resume home Tresiba, glimepiride, Lantus, metformin. HTN: - Currently on home regimen of losartan 100mg daily, metoprolol tartrate 100mg BID, nifedipine 90mg daily. - Holding HCTZ as patient is normotensive at this time with hypokalemia. - Consider resuming on discharge. HLD: - On admission Total cholesterol 111, HDL 25, LDL unable to be collected due to TG, TG 403. - Given multiple CVAs patient qualifies for high intensity statin, Lipitor 10mg daily increased to 80mg daily. Hypertriglyceridemia: - TG 403 on admission. - Have added Tricor one tablet once daily for hypertriglyceridemia. Hypokalemia: - Patient with hypokalemia to 2.8 while in ICU; this was in the setting of IV fluids given while NPO. - Patient's potassium 3.5 today after repletion with a total of 10meq KCL Riders, 60meq KCl tablets. - Fluids d/c'ed, encouraged PO intake. Depression: - Continue home venlafaxine. Code Status: FULL CODE DVT ppx: Heparin 5000u SQ q12 FEN/GI: Heart Healthy, DM2 diet, soft bite sized at this time. All new prescriptions sent to [facility] on [address]. Total Time Total Time Spent Total Time Spent (In Minutes): <30 Discharge Plan Discharge Items Patient Disposition: Transfer Inpatient Rehab Fac Reason For Visit: STROKE S/P TPA Discharge Diagnosis: left pontine CVA Activity: Per Instructions section Bathing: No limitations Exercise/Sports: Gradually increase as tolerated Weightbearing: Full weightbearing Weightbearing Comment: some sensation of weakness R side but fairly good strength Non-emergency contact: Primary Care Provider Call non-emergency contact if: you have any medication questions and your symptoms worsen Follow-up/Referrals: Mik Lala [Primary Care Provider] - (Schedule for follow up within one week of discharge.) Diet: Carb Consistent or DM2 and Heart Healthy Diet Texture: Easy to Chew Addtl Attending Provider Instructions: 49 yo M with PMHx CVA x3 prior to this admission, HTN, HLD, DM2 not well controlled on insulin and oral therapies admitted for left pontine stroke with R sided hemiparesis and dysarthria. Acute L pontine CVA with R sided hemiparesis and dysarthria: - Patient is >24 hours s/p tPA. - Echo this admission with no valvular abnormalities, LVEF 55-60%. Cardiac monitoring this admission without arrhythmia. - Head CT without acute intracranial findings. - Head/Neck CTA with moderate atherosclerotic plaque within the bilateral proximal internal carotid arteries. Mild stenosis of the proximal bilateral internal carotid arteries. 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 - Brain MRI per Radiology without signs of acute/subacute infarct, however on review by Drs. Siu and Martin -> likely Left pontine infarct with recommendations as below: - Control blood pressure a meeting for a mean arterial pressure of 95-100. - Control glucose aiming to lower the hemoglobin A1c closer to 7.5 (now 8.4). - Patient with technically be a high dose statin candidate. - Continue physical, occupational, and speech therapy consults. - Continue Aggrenox. Add aspirin 81mg daily. - After discharge, consider a stroke consult at [facility] regarding his severe atherosclerosis of the head and neck (particularly the vertebral basilar system). He is at very high risk for future stroke. - Microvascular changes on multiple modalities of imaging suggest chronic small vessel ischemic disease, likely multifactorial in the setting of uncontrolled HTN, DM2, and HLD not on high intensity statin despite history of multiple CVA in the past. Changes in medications to mitigate risk factors as below. DM2: - Hgb A1c on admission 8.4%, currently holding outpatient medications. - Insulin per pharmacy during admission: Basal insulin - continue home daily dose Lantus 10 units SC BID Bolus insulin NovoLog per scale ACHS or Q6hrs while NPO Goal Range: Low 140 mg/dL - High 180 mg/dL Correction Factor: 20 mg/dL/unit Nutritional / Prandial insulin per carb ratio of 1 unit per 7 grams CHO consumed - Already has appointment scheduled next week with DM2 educator regarding dietary changes for success moving forward. Patient admits over the last several months has "slipped" with regard to his dietary goals 2/2 COVID 19 homebound status. - Had extensive discussion on the ramifications of elevated sugars on vessels over time. Patient will return to home regimen on discharge, make less high sugar food choices, and follow with Dr. Lala. - Resume home Tresiba, glimepiride, Lantus, metformin. HTN: - Currently on home regimen of losartan 100mg daily, metoprolol tartrate 100mg BID, nifedipine 90mg daily. - Holding HCTZ as patient is normotensive at this time with hypokalemia. - Consider resuming on discharge. HLD: - On admission Total cholesterol 111, HDL 25, LDL unable to be collected due to TG, TG 403. - Given multiple CVAs patient qualifies for high intensity statin, Lipitor 10mg daily increased to 80mg daily. Hypertriglyceridemia: - TG 403 on admission. - Have added Tricor one tablet once daily for hypertriglyceridemia. Hypokalemia: - Patient with hypokalemia to 2.8 while in ICU; this was in the setting of IV fluids given while NPO. - Patient's potassium 3.5 today after repletion with a total of 10meq KCL Ride rs, 60meq KCl tablets. - Fluids d/c'ed, encouraged PO intake. Depression: - Continue home venlafaxine. Code Status: FULL CODE DVT ppx: Heparin 5000u SQ q12 FEN/GI: Heart Healthy, DM2 diet, soft bite sized at this time. All new prescriptions sent to [facility] on [address]. Pending Studies at Discharge: No Stand-Alone Forms: My [facility] Skilled Items Patient informed of condition?: Yes DNR: No Discharge Level of Care: Acute rehab Communicable Disease: No Discharge Prognosis: Improving Lines: None Urinary Catheter: No Medications and DC Order Prescriptions: New atorvastatin 40 mg Tablet 80 mg PO HS Qty: 30 RF: 0 fenofibrate nanocrystallized 145 mg Tablet 145 mg PO QAM 30 Days Qty: 30 RF: 0 Pharmacist Discharge Consult [Pharmacist Discharge Med Rec Consult] 1 ea N/A UD PRN (Reason: CVA discharge) Qty: 1 RF: 0 aspirin 81 mg tablet,delayed release (DR/EC) 81 mg PO DAILY Qty: 30 RF: 0 Continued hydrochlorothiazide 50 mg tablet 50 mg PO QPM Qty: 90 RF: 3 glimepiride 2 mg tablet 2 mg PO BID Qty: 180 RF: 3 Victoza 3-Kodak 0.6 mg/0.1 mL (18 mg/3 mL) pen injector 1.8 mg .ROUTE DAILY Qty: 9 RF: 5 Tresiba FlexTouch U-100 100 unit/mL (3 mL) insulin pen 20 units SQ HS RF: 0 gabapentin 300 mg capsule 300 mg PO TID Qty: 270 RF: 3 aspirin-dipyridamole [Aggrenox] 25-200 mg capsule, ER multiphase 12 hr 1 cap PO BID Qty: 180 RF: 3 (DME) OneTouch Verio test strips strip See Dose Instructions .ROUTE .MEDSUPPLY Qty: 180 RF: 3 allopurinol 300 mg tablet 300 mg PO QAM RF: 0 (DME) pen needle, diabetic [BD Ultra-Fine [place] Pen Needle] 32 gauge x 5/32" needle See Dose Instructions .ROUTE .MEDSUPPLY Qty: 10 RF: 0 diphenhydramine HCl [Benadryl] 25 mg capsule 75 mg PO DAILY PRN (Reason: Vertigo) RF: 0 coenzyme Q10 100 mg capsule 100 mg PO QDL RF: 0 venlafaxine [Effexor XR] 150 mg capsule,extended release 24hr 150 mg PO HS RF: 0 fexofenadine 180 mg tablet 180 mg PO BID Qty: 90 RF: 0 omega-3 fatty acids [Fish Oil Concentrate] 1,000 mg capsule 1,000 mg PO BID RF: 0 fluticasone propionate 50 mcg/actuation spray,suspension 2 sprays intranasal QAM Qty: 1 RF: 0 hydrocortisone 1 % cream 1 appln topical DAILY PRN (Reason: Rash) RF: 0 losartan 100 mg tablet 100 mg PO QAM RF: 0 meclizine 25 mg tablet 25 mg PO TID PRN (Reason: Vertigo) RF: 0 metformin 1,000 mg tablet 1,000 mg PO BID Qty: 180 RF: 0 metoprolol tartrate 100 mg tablet 100 mg PO Q12H RF: 0 montelukast 10 mg tablet 10 mg PO QPM Qty: 30 RF: 0 nifedipine 90 mg tablet extended release 90 mg PO QAM RF: 0 Stelara 90 mg/mL syringe 90 mg SQ .COMPLEX RF: 0 Systane Balance 0.6 % drops 2 drops OP UD PRN (Reason: Dry Eye(S)) RF: 0 latanoprost [Xalatan] 0.005 % Drops 1 drp OPHTHALMIC (EYE) HS RF: 0 famotidine [Pepcid AC] 10 mg Tablet 10 mg PO UD PRN (Reason: Acid Reflux) RF: 0 ketotifen fumarate [Zaditor] 0.025 % (0.035 %) Drops 1 drp OPHTHALMIC (EYE) QAM RF: 0 acetaminophen [Acetaminophen Extra Strength] 500 mg Tablet 2,000 mg PO UD PRN (Reason: Pain) RF: 0 multivitamin with minerals [Hair,Skin and Nails] Tablet 3 tab PO QDL RF: 0 polyethylene glycol 3350 [Miralax] 17 gram/dose Powder 17 g PO BID RF: 0 olopatadine [Pataday] 0.2 % Drops 1 drp OPHTHALMIC (EYE) QAM RF: 0 Tart Zamora Extract 1,000 mg Capsule 1,200 mg PO QPM RF: 0 Discontinued atorvastatin 20 mg Tablet 10 mg PO HS RF: 0 Discharge Orders: Discharge Order (Routine); Ordered 01/09/20 Ordered By: Devika Kohli Admission Data Admit Date/Time: 01/06/20 18:07 Attending Provider: Ildefonso Joya Admit Provider: Salomón Howe Primary Care Provider: Mik Lala Other Providers: Salomón Howe ; Bossman Blackwood ; Guillermo Siu ; [facility] ; Aria Cornell Other Interventions: Discharge Summary Assessment (RN) Last Done: 01/09/20 14:12 DC Date/Time DO NOT enter until pt leaves facility: 01/09/20 14:47 Supervising Physician Co-Signing Physician Notes I personally examined the patient and verified all soto points of history and exam, discussed case, and agree with decision making with Dr Salomon. feeling ok - ready for rehab. discussed adding fibrate, risks/benefits and data - he expresses understanding and willingness to give trial vitals noted nad heent nc at mmm breathing unlabored no accessory muscles good effort recurrent CVA, severe cerebrovascular disease -stable for rehab -secondary risk reduction - aggrenox, statin, trial of fibrate, better DM control -antiphospholipids and MTHFR sent -tertiary stroke w/u, ?benefit of anticoagulation Resident Activity Tracking Resident Involvement: Resident Care Provided Care Provided: Adult Hospital Medicine
--- NOTE | 2020-01-09 20:04 | Billing Data ---
Date of Service January 09, 2020 Coding Level of Care Code D/C Day Management <30 mins
[2020-01-14 16:24] LABS: Anti Nuclear Antibody Screen NEGATIVE (NEGATIVE); B2 Glycoprotein IgA <9 SAU (<=20); B2 Glycoprotein IgG <9 SGU (<=20); B2 Glycoprotein IgM <9 SMU (<=20); Phosphatidylserine IgG <10 U/mL (<10); Phosphatidylserine IgM <25 U/mL (<25)
== END 2020-01-09 14:47 | DRG 62 ==
LOC: ED 16:06 → 1E 18:07 → SUATTDRO 18:07 → 1E 19:53 → 2S 01-07 21:44 → 2W 01-08 13:01

== ENCOUNTER 2024-03-17 15:20 | Inpatient (IN) ==
--- NOTE | 2024-03-17 15:36 | Emergency Department Note ---
Impression & Plan Acute hypotension ADMIT ED Provider Note HPI: History obtained from patient. The patient is a 53-year-old gentleman with history of previous CVA with right- sided residual deficits, presents the emergency department with chief complaint of right-sided abdominal pain and low blood pressure in the outpatient setting today. Patient states he developed the abdominal pain yesterday at some point in the afternoon. Patient states the pain was relatively persistent throughout the evening into the morning. Patient states he went to his physician's office today and did not appear well in the office, his blood pressure was checked and was noted to be in the 70s systolic and therefore EMS was contacted and the patient was transported to the ED. In addition to this, per EMS report the patient was hypoxic in the mid 80s and placed on nasal cannula oxygen with good improvement. Patient however denies any chest pain or shortness of breath. On arrival here to the ED the patient is noted to be hypotensive at 73/50 on arrival, heart rate is within normal limits, patient is afebrile and he is saturating 93% on my initial assessment on nasal cannula oxygen. Patient states the pain is in the area of his right lower quadrant and right groin. ROS: - Per HPI Differential Diagnosis: Incarcerated inguinal hernia, acute appendicitis, intra-abdominal abscess, perforated viscus, sepsis/shock, urinary tract infection, pyelonephritis, pulmonary embolism, pneumonia, COVID-19 infection, acute coronary syndrome, myocarditis, amongst other potential pathologies. *Outpatient medications and allergy history reviewed. PE: General: Alert, no acute distress HEENT: Normocephalic, trachea midline Eyes: Extraocular eye movement is intact, no scleral erythema Pulmonary: Clear to auscultation bilaterally, no wheezing Cardio: Regular rate and rhythm GI: Abdomen is soft to palpation, moderate tenderness in the right lower quadrant without any guarding or rigidity : No suprapubic tenderness MSK: No evidence of trauma or malformation of the extremities, no edema Skin: No evidence of rash Neuro: Alert, no focal deficits Psychiatric: Cooperative INDEPENDENT INTERPRETATIONS: nuclear monitoring technician: (As interpreted by myself): - An order was placed for continuous cardiac monitoring - Patient was noted to be in sinus rhythm with a rate of 89 EKG: (As interpreted by myself): Rate: 83 Rhythm: Normal sinus rhythm Intervals: AK interval 202 ms, otherwise within normal limits ST changes: No ST elevation Time: 1538 Interventions provided in ED: -IV fluid bolus, IV Zosyn, IV Levophed Medical Decision Making: IV was established and lab work obtained, patient was placed on manager cardiac cath. Lab work shows no leukocytosis, hemoglobin is 10.7 which is slightly lower than the patient's baseline which appears to be around 13.0, platelet count is normal, venous blood gas was obtained that shows pH of 7.46, pCO2 is slightly low at 37, CMP shows acute kidney injury with creatinine of 2.36 (baseline appears to be around 1.5) BUN is mildly elevated at 38, potassium 3.3, total bilirubin is 1.6, there is no transaminitis, troponin is negative. Procalcitonin is noted to be elevated at 13.0. Urinalysis shows 2+ protein, 3+ glucose, 3+ blood, there is 2+ leukocyte esterase and significant pyuria. Given this, blood culture was drawn and the patient was treated with IV Zosyn. CT imaging of the abdomen and pelvis with angiography as well as CT angiography of the chest was obtained, there is no evidence of aortic dissection, PE, or critical findings within the abdomen/pelvis. Patient was given aggressive IV fluid resuscitation at 30 cc/kg however he remained hypotensive following 2 L therefore he was initiated on peripheral vasopressor support with Levophed. This did result in good response in his blood pressure. COVID-19 testing was obtained and the patient did return positive for COVID-19. He was reportedly hypoxic in the field and he has remained stable on nasal cannula oxygen here in the ED at 5 L. Unclear source for the patient's hypotension at this time, would consider sepsis although he has not been tachycardic, urinary tract infection would be a potential source. Patient likely also had an element of volume depletion with acute kidney injury. I discussed the patient's presentation with the on-call hospitalist, Dr. Adan, and he is in agreement to admit the patient for further care. Of note, patient denies any recent prolonged steroid use, states he has not been on a prolonged steroid course since 2021 therefore I have low suspicion for adrenal insufficiency. Patient is in agreement for admission and he was placed for admission in stable condition. Consultants/Discussions held with other healthcare providers: -Hospitalist, Dr. Adan Disposition discussion held by myself with: -Patient * CRITICAL CARE TIME: ( 55 ) minutes -Management of patient with acute hypotension requiring 30 cc/kg of IV fluid resuscitation in addition to vasopressor support for improvement in blood pressure, time spent at the bedside, interpretation of diagnostic studies, discussion with other physicians and arrangement of admission. Diagnosis: 1. Hypotension, acute 2. Urinary tract infection, acute 3. COVID-19 infection, acute 4. Acute on chronic kidney injury 5. Elevated procalcitonin Disposition: Admission Blaine Zaldivar DO Emergency Medicine Past Med/Surg History Problem List (Updated 03/17/24 @ 20:41 by Blaine Zaldivar DO) Acute hypotension (Acute) Shock UTI (urinary tract infection) Sepsis Hypoxia COVID History of CVA (cerebrovascular accident) History of lumbar fusion Urinary incontinence Anemia VITOR (acute kidney injury) Traumatic open wound of left lower leg (Acute) Hypotension (Acute) Complex sleep apnea syndrome Traumatic open wound of right lower leg (Acute) Hypertension (Chronic) Diabetes mellitus, type 2 Kidney stones TMJ syndrome (Acute) Sinus bradycardia (Acute) Obstructive sleep apnea (Acute) Obesity (BMI 35.0-39.9 without comorbidity) (Acute) Lumbar radiculopathy (Acute) Lower back pain (Acute) Joint pain, knee (Acute) Dysesthesia (Acute) Asthma (Acute) History of stroke with residual deficit Psoriasis Depression Vertebral artery stenosis Chronic right occlusion Vertigo Diabetic peripheral neuropathy associated with type 2 diabetes mellitus Dyslipidemia Hypercalciuria Orbital pseudotumor Chronic venous insufficiency (Chronic) Nocturnal hypoxemia Erectile dysfunction Type 2 diabetes mellitus with neurologic complication, with long-term current use of insulin Chronic kidney disease, stage III (moderate) Seizure-like activity Encounter for pre-operative examination Vitamin D deficiency (Acute) Medical History History of kidney stones Diabetes mellitus, type 2 free style maria in use Hyperparathyroidism "possibly" Depression Sarcoidosis dx left eye Hx of transient ischemic attack (TIA) ? November 2022 possibly>follows with Dr. Siu and [facility] neurologist Stroke x 3>last one 2019 (still has vertigo from event, generalized weakness and balance problems) Hyperlipidemia Cardiac murmur follows with Dr. Blankenship Hx of gout Sleep apnea asv machine>bipap Environmental allergies Serum calcium elevated Acquired buried penis Dysarthria Allergic rhinitis Arthralgia of multiple sites Constipation Chronic back pain Fatty liver disease, nonalcoholic GERD (gastroesophageal reflux disease) Psoriasis Glaucoma bilt Hypertension Surgical History History of colonoscopy History of tooth extraction H/O eye surgery left eye biopsy History of lumbar spinal fusion History of removal of cyst at umbilicus History of appendectomy History of esophagogastroduodenoscopy (EGD) History of wisdom tooth extraction History of tonsillectomy and adenoidectomy x2 Status post myringotomy with tube placement of both ears Family History Mother Family history of reaction to anesthesia during heart valve replacement became combative and forgetful Family history of diabetes mellitus Hypertension Stroke, Onset Age: 62 Grandmother (Maternal) Family history of diabetes mellitus Grandfather (Maternal) Family hx of colon cancer Father Stroke, Onset Age: 53 Atherosclerotic cerebrovascular disease patient reported posterior large vessel disease Social History Smoking Status: Never smoker Second Hand Exposure: Yes (stepfather smoked); Do You Dip or Chew Tobacco: No; Hx Alcohol Use: Yes Alcohol type: beer, wine and hard liquor Alcohol Intake Frequency Comment: STATED DRINKS ONCE WEEKLY Preferred Language: Macedonian Communication Ability: Effective Visual Impairment: No Limitations Hearing Ability: Normal 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 Truck 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 Required: No Beliefs That Will Affect Care: None marital status: Single Current Living Situation: Parent Current Living Situation Comment: lives with mom, MOTHER ABLE TO ASSIST WITH CARE NEEDED 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al status: employed and disabled 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, 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 Feels Safe at Home: Yes Diet: diabetic, low carbohydrate and low salt Diet Comment: CARB COUNTING during the past year weight has: decreased > 10 lbs Assistive Devices: BiPap, Contacts and Walker Allergies Allergies Allergy/AdvReac Type Severity Reaction Status Date / Time cephalexin Allergy Intermediate "GENERAL Verified 02/24/24 11:23 ILLNESS"/rash latex Allergy Intermediate Rash Verified 02/24/24 11:23 adalimumab [From Humira] Allergy Mild "made my Verified 02/24/24 11:23 psorasis worse" aspirin Allergy Mild GI Verified 02/24/24 11:23 SYMPTOMS-nausea/vomiting methotrexate Allergy Mild nausea/vomi Verified 02/24/24 11:23 ting Sulfa (Sulfonamide AdvReac Mild general Verified 02/24/24 11:23 Antibiotics) malaise, upset stomach Adhesives AdvReac Mild Skin Uncoded 02/24/24 11:23 irritation Home Meds Home Medications Medication Instructions Recorded Confirmed allopurinol 300 mg tablet 300 mg PO QAM 02/01/19 03/17/24 coenzyme Q10 100 mg capsule 100 mg PO QDL 02/01/19 03/17/24 fexofenadine 180 mg tablet 180 mg PO BID #90 tabs 02/01/19 03/17/24 hydrocortisone 1 % topical cream 1 appln topical DAILY PRN Rash 02/01/19 03/17/24 montelukast 10 mg tablet 10 mg PO QPM #30 tabs 02/01/19 03/17/24 propylene glycol 0.6 % eye drops 2 drops ophthalmic (eye) UD PRN 02/01/19 03/17/24 (Systane Balance) Dry Eye(S) ustekinumab 90 mg/mL subcutaneous 90 mg subcut UD 02/01/19 03/17/24 syringe (Stelara) ketotifen fumarate 0.025 % (0.035 1 drp ophthalmic (eye) BID 02/02/19 03/17/24 %) eye drops (Zaditor) multivitamin with minerals 3 tab PO QDL 02/02/19 03/17/24 (Hair,Skin and Nails tablet) olopatadine 0.2 % eye drops 1 drp ophthalmic (eye) QAM 02/02/19 03/17/24 (Pataday) fenofibrate nanocrystallized 145 145 mg PO QAM 02/21/20 03/17/24 mg tablet telmisartan 80 mg tablet 80 mg PO QPM 06/06/20 03/17/24 blood sugar diagnostic (Accu-Chek #10 ea 09/24/20 02/24/24 Guide test strips) flash glucose sensor (FreeStyle #1 ea 09/24/20 02/24/24 Maria 2 Sensor kit) nifedipine 60 mg tablet,extended 60 mg PO QAM 10/29/20 03/17/24 release folic acid 1 mg tablet 1 mg PO QDL 04/17/21 03/17/24 spironolactone 25 mg tablet 12.5 mg PO QAM 04/17/21 03/17/24 methotrexate (PF) 30 mg/0.6 mL 30 mg subcut .weekly 06/24/21 03/17/24 subcutaneous auto-injector meclizine 25 mg tablet 25 mg PO TID Vertigo 09/25/21 03/17/24 fluticasone propionate 50 2 spray intranasal QAM #1 g 10/22/21 03/17/24 mcg/actuation nasal spray,suspension metformin 500 mg tablet,extended 2,000 mg PO QPM 01/27/22 03/17/24 release 24 hr clonidine HCl 0.3 mg tablet 0.3 mg PO BID 09/14/22 03/17/24 metoprolol tartrate 100 mg tablet 100 mg PO UD 09/14/22 03/17/24 venlafaxine 225 mg tablet,extended 225 mg PO HS 09/14/22 03/17/24 release 24 hr rosuvastatin 10 mg tablet 10 mg PO HS 12/28/22 03/17/24 aspirin 81 mg tablet,delayed 81 mg PO QAM 03/23/23 03/17/24 release diazepam 5 mg tablet (Valium) 5 mg PO BID PRN Anxiety 03/23/23 03/17/24 icosapent ethyl 1 gram capsule 1 g PO BID 03/23/23 03/17/24 timolol 0.5 % eye drops 1 drp ophthalmic (eye) BID 03/23/23 03/17/24 linaclotide 145 mcg capsule 145 mcg PO QAM 06/16/23 03/17/24 (Linzess) pantoprazole 40 mg tablet,delayed 40 mg PO DAILY 07/28/23 03/17/24 release acetaminophen 500 mg tablet 1,300 mg PO UD PRN Pain 08/04/23 03/17/24 (Acetaminophen Extra Strength) budesonide 32 mcg/actuation nasal 2 spray intranasal HS 12/21/23 03/17/24 spray chlorthalidone 25 mg tablet 25 mg PO DAILY 03/17/24 03/17/24 famotidine 20 mg tablet 20 mg PO BID 03/17/24 03/17/24 Previous Rx's Medication Instructions Recorded insulin aspart U-100 100 unit/mL 30 unit (0.3 mL) subcut TID PRN 09/30/23 (3 mL) subcutaneous pen (Novolog diabetes #30 mL FlexPen U-100 Insulin aspart) insulin degludec 100 unit/mL (3 50 unit (0.5 mL) subcut QAM #15 mL 09/30/23 mL) subcutaneous pen (Tresiba FlexTouch U-100 insulin) pen needle, diabetic 32 gauge x #500 ea 09/30/23 5/32" (BD Ultra-Fine [place] Pen Needle) empagliflozin 25 mg tablet 25 mg PO QAM #30 tabs 12/02/23 (Jardiance) gabapentin 300 mg capsule 300 mg PO QID 30 days #120 caps 02/03/24 aspirin 25 mg-dipyridamole 200 mg 1 cap PO BID #180 caps 02/24/24 capsule,ext.release 12 hr multiphase Results & Data (ED) Vital Signs Vital Signs - 24 hr 03/17/24 15:25 03/17/24 15:26 03/17/24 15:33 Temperature 37.5 C Temperature Source Oral Pulse Rate 86 Pulse Rate [Apical] Pulse Rate from SpO2 Sensor Respiratory Rate 18 Respiratory Effort / Characteristics Non-Labored Spontaneous Respiratory Depth Normal Respiratory Pattern Blood Pressure 73/50 L Blood Pressure [Right Arm] Blood Pressure Mean 57 Blood Pressure Mean [Right Arm] Blood Pressure Position Lying Blood Pressure Position [Right Arm] Pulse Oximetry 90 92 Oxygen Delivery Method Nasal Cannula Nasal Cannula Nasal Cannula Oxygen Flow Rate 4 Sepsis Recent Fever Within 48 Hours No Sepsis New/Unexplained Change in Mental Status No Sepsis Action Taken by Nursing No Action Required 03/17/24 15:36 03/17/24 15:40 03/17/24 15:40 Temperature Temperature Source Pulse Rate Pulse Rate [Apical] 83 Pulse Rate from SpO2 Sensor Respiratory Rate 16 Respiratory Effort / Characteristics Non-Labored Spontaneous Respiratory Depth Normal Respiratory Pattern Regular Blood Pressure 72/52 L 71/47 L Blood Pressure [Right Arm] 71/47 L Blood Pressure Mean 58 60 Blood Pressure Mean [Right Arm] 55 Blood Pressure Position Blood Pressure Position [Right Arm] Pulse Oximetry 96 Oxygen Delivery Method Nasal Cannula Oxygen Flow Rate 4 Sepsis Recent Fever Within 48 Hours Sepsis New/Unexplained Change in Mental Status Sepsis Action Taken by Nursing 03/17/24 15:40 03/17/24 15:44 03/17/24 15:50 Temperature Temperature Source Pulse Rate Pulse Rate [Apical] Pulse Rate from SpO2 Sensor Respiratory Rate Respiratory Effort / Characteristics Respiratory Depth Respiratory Pattern Blood Pressure 71/47 L 82/48 L 77/51 L Blood Pressure [Right Arm] Blood Pressure Mean 60 58 61 Blood Pressure Mean [Right Arm] Blood Pressure Position Blood Pressure Position [Right Arm] Pulse Oximetry Oxygen Delivery Method Oxygen Flow Rate Sepsis Recent Fever Within 48 Hours Sepsis New/Unexplained Change in Mental Status Sepsis Action Taken by Nursing 03/17/24 15:50 03/17/24 15:51 03/17/24 15:54 Temperature Temperature Source Pulse Rate 81 83 Pulse Rate [Apical] Pulse Rate from SpO2 Sensor 81 Respiratory Rate 18 Respiratory Effort / Characteristics Respiratory Depth Respiratory Pattern Blood Pressure 77/51 L Blood Pressure [Right Arm] Blood Pressure Mean 61 Blood Pressure Mean [Right Arm] Blood Pressure Position Blood Pressure Position [Right Arm] Pulse Oximetry 98 Oxygen Delivery Method Oxygen Flow Rate Sepsis Recent Fever Within 48 Hours Sepsis New/Unexplained Change in Mental Status Sepsis Action Taken by Nursing 03/17/24 15:55 03/17/24 15:57 03/17/24 16:14 Temperature Temperature Source Pulse Rate 82 Pulse Rate [Apical] Pulse Rate from SpO2 Sensor 83 Respiratory Rate 19 Respiratory Effort / Characteristics Respiratory Depth Respiratory Pattern Blood Pressure 74/53 L 71/50 L Blood Pressure [Right Arm] Blood Pressure Mean 58 55 Blood Pressure Mean [Right Arm] Blood Pressure Position Blood Pressure Position [Right Arm] Pulse Oximetry 98 Oxygen Delivery Method Oxygen Flow Rate Sepsis Recent Fever Within 48 Hours Sepsis New/Unexplained Change in Mental Status Sepsis Action Taken by Nursing 03/17/24 16:18 03/17/24 16:19 03/17/24 16:19 Temperature Temperature Source Pulse Rate 75 Pulse Rate [Apical] Pulse Rate from SpO2 Sensor 75 Respiratory Rate 15 Respiratory Effort / Characteristics Respiratory Depth Respiratory Pattern Blood Pressure 73/48 L 73/48 L Blood Pressure [Right Arm] Blood Pressure Mean 56 56 Blood Pressure Mean [Right Arm] Blood Pressure Position Blood Pressure Position [Right Arm] Pulse Oximetry 93 Oxygen Delivery Method Oxygen Flow Rate Sepsis Recent Fever Within 48 Hours Sepsis New/Unexplained Change in Mental Status Sepsis Action Taken by Nursing 03/17/24 16:19 03/17/24 16:21 03/17/24 16:30 Temperature Temperature Source Pulse Rate 74 Pulse Rate [Apical] Pulse Rate from SpO2 Sensor 75 Respiratory Rate 11 L Respiratory Effort / Characteristics Respiratory Depth Respiratory Pattern Blood Pressure 73/48 L 66/50 L Blood Pressure [Right Arm] Blood Pressure Mean 56 53 Blood Pressure Mean [Right Arm] Blood Pressure Position Blood Pressure Position [Right Arm] Pulse Oximetry 92 Oxygen Delivery Method Oxygen Flow Rate Sepsis Recent Fever Within 48 Hours Sepsis New/Unexplained Change in Mental Status Sepsis Action Taken by Nursing 03/17/24 16:31 03/17/24 16:39 03/17/24 16:39 Temperature Temperature Source Pulse Rate 77 Pulse Rate [Apical] 77 Pulse Rate from SpO2 Sensor 77 Respiratory Rate 23 14 Respiratory Effort / Characteristics Non-Labored Spontaneous Respiratory Depth Normal Respiratory Pattern Blood Pressure 71/47 L Blood Pressure [Right Arm] 66/50 L Blood Pressure Mean 54 Blood Pressure Mean [Right Arm] 55 Blood Pressure Position Blood Pressure Position [Right Arm] Lying Pulse Oximetry 95 99 Oxygen Delivery Method Nasal Cannula Oxygen Flow Rate 4 Sepsis Recent Fever Within 48 Hours Sepsis New/Unexplained Change in Mental Status Sepsis Action Taken by Nursing 03/17/24 16:50 03/17/24 16:50 03/17/24 16:51 Temperature Temperature Source Pulse Rate 80 Pulse Rate [Apical] Pulse Rate from SpO2 Sensor 80 Respiratory Rate 29 H Respiratory Effort / Characteristics Respiratory Depth Respiratory Pattern Blood Pressure 91/63 L 91/63 L Blood Pressure [Right Arm] Blood Pressure Mean 72 72 Blood Pressure Mean [Right Arm] Blood Pressure Position Blood Pressure Position [Right Arm] Pulse Oximetry 96 Oxygen Delivery Method Nasal Cannula Oxygen Flow Rate 4 Sepsis Recent Fever Within 48 Hours Sepsis New/Unexplained Change in Mental Status Sepsis Action Taken by Nursing 03/17/24 16:55 03/17/24 16:55 03/17/24 16:55 Temperature Temperature Source Pulse Rate Pulse Rate [Apical] Pulse Rate from SpO2 Sensor Respiratory Rate Respiratory Effort / Characteristics Respiratory Depth Respiratory Pattern Blood Pressure 102/67 102/67 102/67 Blood Pressure [Right Arm] Blood Pressure Mean 84 84 84 Blood Pressure Mean [Right Arm] Blood Pressure Position Blood Pressure Position [Right Arm] Pulse Oximetry Oxygen Delivery Method Oxygen Flow Rate Sepsis Recent Fever Within 48 Hours Sepsis New/Unexplained Change in Mental Status Sepsis Action Taken by Nursing 03/17/24 17:05 03/17/24 17:05 03/17/24 17:05 Temperature Temperature Source Pulse Rate Pulse Rate [Apical] Pulse Rate from SpO2 Sensor Respiratory Rate Respiratory Effort / Characteristics Respiratory Depth Respiratory Pattern Blood Pressure 92/64 L 92/64 L 92/64 L Blood Pressure [Right Arm] Blood Pressure Mean 73 73 73 Blood Pressure Mean [Right Arm] Blood Pressure Position Blood Pressure Position [Right Arm] Pulse Oximetry Oxygen Delivery Method Oxygen Flow Rate Sepsis Recent Fever Within 48 Hours Sepsis New/Unexplained Change in Mental Status Sepsis Action Taken by Nursing 03/17/24 17:06 03/17/24 17:15 03/17/24 17:15 Temperature Temperature Source Pulse Rate 79 Pulse Rate [Apical] Pulse Rate from SpO2 Sensor 80 Respiratory Rate 20 Respiratory Effort / Characteristics Respiratory Depth Respiratory Pattern Blood Pressure 105/67 105/67 Blood Pressure [Right Arm] Blood Pressure Mean 76 76 Blood Pressure Mean [Right Arm] Blood Pressure Position Blood Pressure Position [Right Arm] Pulse Oximetry 98 Oxygen Delivery Method Nasal Cannula Oxygen Flow Rate 4 Sepsis Recent Fever Within 48 Hours Sepsis New/Unexplained Change in Mental Status Sepsis Action Taken by Nursing 03/17/24 17:18 03/17/24 17:20 03/17/24 17:20 Temperature Temperature Source Pulse Rate 80 Pulse Rate [Apical] Pulse Rate from SpO2 Sensor 81 Respiratory Rate 17 Respiratory Effort / Characteristics Respiratory Depth Respiratory Pattern Blood Pressure 104/71 104/71 Blood Pressure [Right Arm] Blood Pressure Mean 76 76 Blood Pressure Mean [Right Arm] Blood Pressure Position Blood Pressure Position [Right Arm] Pulse Oximetry 93 Oxygen Delivery Method Oxygen Flow Rate Sepsis Recent Fever Within 48 Hours Sepsis New/Unexplained Change in Mental Status Sepsis Action Taken by Nursing 03/17/24 17:21 03/17/24 17:30 03/17/24 17:30 Temperature Temperature Source Pulse Rate 81 79 Pulse Rate [Apical] Pulse Rate from SpO2 Sensor 80 79 Respiratory Rate 18 16 Respiratory Effort / Characteristics Respiratory Depth Respiratory Pattern Blood Pressure 104/71 Blood Pressure [Right Arm] Blood Pressure Mean 78 Blood Pressure Mean [Right Arm] Blood Pressure Position Blood Pressure Position [Right Arm] Pulse Oximetry 94 96 Oxygen Delivery Method Oxygen Flow Rate Sepsis Recent Fever Within 48 Hours Sepsis New/Unexplained Change in Mental Status Sepsis Action Taken by Nursing 03/17/24 17:30 03/17/24 17:35 03/17/24 17:35 Temperature Temperature Source Pulse Rate Pulse Rate [Apical] Pulse Rate from SpO2 Sensor Respiratory Rate Respiratory Effort / Characteristics Respiratory Depth Respiratory Pattern Blood Pressure 104/71 105/69 105/69 Blood Pressure [Right Arm] Blood Pressure Mean 78 85 85 Blood Pressure Mean [Right Arm] Blood Pressure Position Blood Pressure Position [Right Arm] Pulse Oximetry Oxygen Delivery Method Oxygen Flow Rate Sepsis Recent Fever Within 48 Hours Sepsis New/Unexplained Change in Mental Status Sepsis Action Taken by Nursing 03/17/24 17:36 03/17/24 17:45 03/17/24 17:46 Temperature Temperature Source Pulse Rate 80 Pulse Rate [Apical] Pulse Rate from SpO2 Sensor 81 Respiratory Rate 21 Respiratory Effort / Characteristics Respiratory Depth Respiratory Pattern Blood Pressure 89/56 L 115/63 Blood Pressure [Right Arm] Blood Pressure Mean 60 80 Blood Pressure Mean [Right Arm] Blood Pressure Position Blood Pressure Position [Right Arm] Pulse Oximetry Oxygen Delivery Method Oxygen Flow Rate Sepsis Recent Fever Within 48 Hours Sepsis New/Unexplained Change in Mental Status Sepsis Action Taken by Nursing 03/17/24 17:50 03/17/24 17:54 03/17/24 17:55 Temperature Temperature Source Pulse Rate 80 Pulse Rate [Apical] Pulse Rate from SpO2 Sensor 80 Respiratory Rate 24 Respiratory Effort / Characteristics Respiratory Depth Respiratory Pattern Blood Pressure 98/74 L 112/70 Blood Pressure [Right Arm] Blood Pressure Mean 79 96 Blood Pressure Mean [Right Arm] Blood Pressure Position Blood Pressure Position [Right Arm] Pulse Oximetry 97 Oxygen Delivery Method Oxygen Flow Rate Sepsis Recent Fever Within 48 Hours Sepsis New/Unexplained Change in Mental Status Sepsis Action Taken by Nursing 03/17/24 17:55 03/17/24 17:55 03/17/24 17:57 Temperature Temperature Source Pulse Rate 77 Pulse Rate [Apical] Pulse Rate from SpO2 Sensor 78 Respiratory Rate 20 Respiratory Effort / Characteristics Respiratory Depth Respiratory Pattern Blood Pressure 112/70 112/70 Blood Pressure [Right Arm] Blood Pressure Mean 96 96 Blood Pressure Mean [Right Arm] Blood Pressure Position Blood Pressure Position [Right Arm] Pulse Oximetry 95 Oxygen Delivery Method Oxygen Flow Rate Sepsis Recent Fever Within 48 Hours Sepsis New/Unexplained Change in Mental Status Sepsis Action Taken by Nursing 03/17/24 18:00 03/17/24 18:00 03/17/24 18:00 Temperature 36.6 C Temperature Source Oral Pulse Rate 81 Pulse Rate [Apical] Pulse Rate from SpO2 Sensor 82 Respiratory Rate 17 Respiratory Effort / Characteristics Respiratory Depth Respiratory Pattern Blood Pressure 115/72 Blood Pressure [Right Arm] Blood Pressure Mean 85 Blood Pressure Mean [Right Arm] Blood Pressure Position Blood Pressure Position [Right Arm] Pulse Oximetry 91 Oxygen Delivery Method Oxygen Flow Rate Sepsis Recent Fever Within 48 Hours Sepsis New/Unexplained Change in Mental Status Sepsis Action Taken by Nursing 03/17/24 18:05 03/17/24 18:05 03/17/24 18:06 Temperature Temperature Source Pulse Rate 82 Pulse Rate [Apical] Pulse Rate from SpO2 Sensor 81 Respiratory Rate 19 Respiratory Effort / Characteristics Respiratory Depth Respiratory Pattern Blood Pressure 112/72 112/72 Blood Pressure [Right Arm] Blood Pressure Mean 81 81 Blood Pressure Mean [Right Arm] Blood Pressure Position Blood Pressure Position [Right Arm] Pulse Oximetry 95 Oxygen Delivery Method Oxygen Flow Rate Sepsis Recent Fever Within 48 Hours Sepsis New/Unexplained Change in Mental Status Sepsis Action Taken by Nursing 03/17/24 18:10 03/17/24 18:15 03/17/24 18:20 Temperature Temperature Source Pulse Rate Pulse Rate [Apical] Pulse Rate from SpO2 Sensor Respiratory Rate Respiratory Effort / Characteristics Respiratory Depth Respiratory Pattern Blood Pressure 108/75 114/75 113/75 Blood Pressure [Right Arm] Blood Pressure Mean 90 83 85 Blood Pressure Mean [Right Arm] Blood Pressure Position Blood Pressure Position [Right Arm] Pulse Oximetry Oxygen Delivery Method Oxygen Flow Rate Sepsis Recent Fever Within 48 Hours Sepsis New/Unexplained Change in Mental Status Sepsis Action Taken by Nursing 03/17/24 18:20 03/17/24 18:25 03/17/24 18:36 Temperature Temperature Source Pulse Rate Pulse Rate [Apical] Pulse Rate from SpO2 Sensor Respiratory Rate Respiratory Effort / Characteristics Respiratory Depth Respiratory Pattern Blood Pressure 113/75 107/75 113/67 Blood Pressure [Right Arm] Blood Pressure Mean 85 86 79 Blood Pressure Mean [Right Arm] Blood Pressure Position Blood Pressure Position [Right Arm] Pulse Oximetry Oxygen Delivery Method Oxygen Flow Rate Sepsis Recent Fever Within 48 Hours Sepsis New/Unexplained Change in Mental Status Sepsis Action Taken by Nursing 03/17/24 18:36 03/17/24 18:39 03/17/24 18:40 Temperature Temperature Source Pulse Rate 81 Pulse Rate [Apical] Pulse Rate from SpO2 Sensor 82 Respiratory Rate 18 Respiratory Effort / Characteristics Respiratory Depth Respiratory Pattern Blood Pressure 113/67 119/70 Blood Pressure [Right Arm] Blood Pressure Mean 79 77 Blood Pressure Mean [Right Arm] Blood Pressure Position Blood Pressure Position [Right Arm] Pulse Oximetry 91 Oxygen Delivery Method Oxygen Flow Rate Sepsis Recent Fever Within 48 Hours Sepsis New/Unexplained Change in Mental Status Sepsis Action Taken by Nursing 03/17/24 18:40 03/17/24 18:42 03/17/24 18:45 Temperature Temperature Source Pulse Rate 82 84 Pulse Rate [Apical] Pulse Rate from SpO2 Sensor 83 84 Respiratory Rate 21 17 Respiratory Effort / Characteristics Respiratory Depth Respiratory Pattern Blood Pressure 119/70 Blood Pressure [Right Arm] Blood Pressure Mean 77 Blood Pressure Mean [Right Arm] Blood Pressure Position Blood Pressure Position [Right Arm] Pulse Oximetry 94 95 Oxygen Delivery Method Oxygen Flow Rate Sepsis Recent Fever Within 48 Hours Sepsis New/Unexplained Change in Mental Status Sepsis Action Taken by Nursing 03/17/24 18:45 03/17/24 18:45 03/17/24 18:45 Temperature Temperature Source Pulse Rate Pulse Rate [Apical] Pulse Rate from SpO2 Sensor Respiratory Rate Respiratory Effort / Characteristics Respiratory Depth Respiratory Pattern Blood Pressure 114/77 114/77 114/77 Blood Pressure [Right Arm] Blood Pressure Mean 88 88 88 Blood Pressure Mean [Right Arm] Blood Pressure Position Blood Pressure Position [Right Arm] Pulse Oximetry Oxygen Delivery Method Oxygen Flow Rate Sepsis Recent Fever Within 48 Hours Sepsis New/Unexplained Change in Mental Status Sepsis Action Taken by Nursing 03/17/24 18:45 Temperature Temperature Source Pulse Rate Pulse Rate [Apical] Pulse Rate from SpO2 Sensor Respiratory Rate Respiratory Effort / Characteristics Respiratory Depth Respiratory Pattern Blood Pressure 114/77 Blood Pressure [Right Arm] Blood Pressure Mean 88 Blood Pressure Mean [Right Arm] Blood Pressure Position Blood Pressure Position [Right Arm] Pulse Oximetry Oxygen Delivery Method Oxygen Flow Rate Sepsis Recent Fever Within 48 Hours Sepsis New/Unexplained Change in Mental Status Sepsis Action Taken by Nursing Laboratory Data 03/17/24 15:34 03/17/24 15:34 Lab Results 03/17/24 03/17/24 03/17/24 Range/Units 12:07 15:24 15:34 WBC 9.88 (4.8-10.8) K/ul RBC 3.50 L (4.70-6.10) M/uL Hgb 10.7 L (14.0-18.0) g/dl POC Hgb (14.0-18.0) g/dl Hct 32.9 L (42.0-52.0) % POC Hct (42-52) % MCV 94.0 (80.0-100.0) fL MCH 30.6 (25.0-34.0) pg MCHC 32.5 (32.0-36.0) g/dL RDW Std Deviation 64.6 H (36.4-46.3) fL RDW Coeff of Clay 19.5 H (11.5-14.5) % Plt Count 192 (130-400) K/uL MPV 9.3 L (9.4-12.4) fL Immature Gran % (Auto) 0.6 % Neut % (Auto) 75.6 % Lymph % (Auto) 10.1 % Phillips % (Auto) 13.4 % Eos % (Auto) 0.2 % Baso % (Auto) 0.1 % Neut # (Auto) 7.47 H (1.40-6.50) K/uL Lymph # (Auto) 1.00 L (1.20-3.40) K/uL Phillips # (Auto) 1.32 H (0.11-0.59) K/uL Eos # (Auto) 0.02 (0.00-0.50) K/uL Baso # (Auto) 0.01 (0.00-0.20) K/uL Immature Gran # (Auto) 0.06 (0.01-0.20) K/uL PT 12.3 H (9.0-12.0) Seconds INR 1.1 (0.9-1.1) VBG pH (7.36-7.41) VBG pCO2 (38-50) mmHg VBG pO2 mmHg VBG HCO3 mmol/L VBG O2 Saturation % VBG Base Excess mEq/L POC Sodium (135-144) mmol/L Sodium 134 L (136-145) mmol/L POC Potassium (3.3-5.0) mmol/L Potassium 3.3 L (3.5-5.1) mmol/L POC Chloride (101-112) mmol/L Chloride 99 (98-107) mmol/L Carbon Dioxide 25 (21-32) mmol/L POC Total CO2 (24-31) mmol/L Anion Gap 10 (3-11) POC Anion Gap (16-25) mmol/L POC BUN (7-18) mg/dl BUN 38 H (6-23) mg/dl Creatinine 2.36 H (0.6-1.4) mg/dl POC Creatinine (0.6-1.3) mg/dl Est Cr Clr Drug Dosing 43.6 ml/min Est GFR ( Amer) 35.1 ml/min Est GFR (Non-Af Amer) 30.3 ml/min BUN/Creatinine Ratio 16.1 (10-20) Glucose 270 H (70-99(Fasting)) mg/dl POC Glucose (other) (70-99) mg/dl Lactate (0.4-2.0) mmol/L Calcium 9.7 (8.6-10.3) mg/dl POC Ioniz Calcium Tulio (1.12-1.32) mmol/l Total Bilirubin 1.6 H (0.2-1.0) mg/dl AST 12 L (13-39) U/L ALT 11 (7-52) U/L Alkaline Phosphatase 56 (34-104) U/L Troponin I High Sens 17.1 (0-20) pg/ml Total Protein 6.9 (6.0-8.3) gm/dl Albumin 4.0 (3.4-5.0) gm/dl Globulin 2.9 (2.5-4.0) gm/dl Albumin/Globulin Ratio 1.4 (0.9-2) Lipase 20 (11-82) U/L Procalcitonin 13.00 H (0-0.5) ng/ml Random Cortisol 13.42 mcg/dl Urine Color Yellow Urine Appearance Turbid A (Clear) Urine pH 6.5 (4.5-7.5) Ur Specific [place] 1.037 H (1.000-1.030) Urine Protein 2+ H (Negative) Urine Glucose (UA) 3+ H (Negative) Urine Ketones Negative (Negative) Urine Blood 3+ H (Negative) Urine Nitrite Negative (Negative) Urine Bilirubin Negative (Negative) Urine Urobilinogen Negative (Negative) Ur Leukocyte Esterase 2+ H (Negative) Urine WBC (Auto) >50 H (0-5) /hpf Urine RBC (Auto) 3-5 H (0-2) /hpf U Hyaline Cast (Auto) 0-2 (0-2) /lpf U Epithel Cells (Auto) 3-5 H (0-2) /hpf Urine Bacteria (Auto) 2+ H (None Seen) Adenovirus (PCR) (NotDetected) B. pertussis DNA (PCR) (NotDetected) B.parapertussis DNA PCR (NotDetected) C. pneumoniae DNA (PCR) (NotDetected) Coronavirus OC43 (PCR) (NotDetected) Coronavirus HKU1 (PCR) (NotDetected) Coronavirus 229E (PCR) (NotDetected) SARS-CoV-2 (PCR) (NotDetected) Coronavirus NL63 (PCR) (NotDetected) Human Metapneumovir PCR (NotDetected) Influenza Type A (PCR) (NotDetected) Influenza Type B (PCR) (NotDetected) M. pneumoniae (PCR) (NotDetected) Parainfluenza 1 (PCR) (NotDetected) Parainfluenza 2 (PCR) (NotDetected) Parainfluenza 3 (PCR) (NotDetected) Parainfluenza 4 (PCR) (NotDetected) RSV (PCR) (NotDetected) Entero/Rhino (PCR) (NotDetected) 03/17/24 03/17/24 Range/Units 15:40 15:44 WBC (4.8-10.8) K/ul RBC (4.70-6.10) M/uL Hgb (14.0-18.0) g/dl POC Hgb 10.9 L (14.0-18.0) g/dl Hct (42.0-52.0) % POC Hct 32 L (42-52) % MCV (80.0-100.0) fL MCH (25.0-34.0) pg MCHC (32.0-36.0) g/dL RDW Std Deviation (36.4-46.3) fL RDW Coeff of Clay (11.5-14.5) % Plt Count (130-400) K/uL MPV (9.4-12.4) fL Immature Gran % (Auto) % Neut % (Auto) % Lymph % (Auto) % Phillips % (Auto) % Eos % (Auto) % Baso % (Auto) % Neut # (Auto) (1.40-6.50) K/uL Lymph # (Auto) (1.20-3.40) K/uL Phillips # (Auto) (0.11-0.59) K/uL Eos # (Auto) (0.00-0.50) K/uL Baso # (Auto) (0.00-0.20) K/uL Immature Gran # (Auto) (0.01-0.20) K/uL PT (9.0-12.0) Seconds INR (0.9-1.1) VBG pH 7.46 H (7.36-7.41) VBG pCO2 37 L (38-50) mmHg VBG pO2 45 mmHg VBG HCO3 26 mmol/L VBG O2 Saturation 76.1 % VBG Base Excess 2.5 mEq/L POC Sodium 136 (135-144) mmol/L Sodium (136-145) mmol/L POC Potassium 3.4 (3.3-5.0) mmol/L Potassium (3.5-5.1) mmol/L POC Chloride 99 L (101-112) mmol/L Chloride (98-107) mmol/L Carbon Dioxide (21-32) mmol/L POC Total CO2 23 L (24-31) mmol/L Anion Gap (3-11) POC Anion Gap 19.0 (16-25) mmol/L POC BUN 34 H (7-18) mg/dl BUN (6-23) mg/dl Creatinine (0.6-1.4) mg/dl POC Creatinine 2.6 H (0.6-1.3) mg/dl Est Cr Clr Drug Dosing ml/min Est GFR ( Amer) ml/min Est GFR (Non-Af Amer) ml/min BUN/Creatinine Ratio (10-20) Glucose (70-99(Fasting)) mg/dl POC Glucose (other) 269 H (70-99) mg/dl Lactate 1.9 (0.4-2.0) mmol/L Calcium (8.6-10.3) mg/dl POC Ioniz Calcium Tulio 1.23 (1.12-1.32) mmol/l Total Bilirubin (0.2-1.0) mg/dl AST (13-39) U/L ALT (7-52) U/L Alkaline Phosphatase (34-104) U/L Troponin I High Sens (0-20) pg/ml Total Protein (6.0-8.3) gm/dl Albumin (3.4-5.0) gm/dl Globulin (2.5-4.0) gm/dl Albumin/Globulin Ratio (0.9-2) Lipase (11-82) U/L Procalcitonin (0-0.5) ng/ml Random Cortisol mcg/dl Urine Color Urine Appearance (Clear) Urine pH (4.5-7.5) Ur Specific [place] (1.000-1.030) Urine Protein (Negative) Urine Glucose (UA) (Negative) Urine Ketones (Negative) Urine Blood (Negative) Urine Nitrite (Negative) Urine Bilirubin (Negative) Urine Urobilinogen (Negative) Ur Leukocyte Esterase (Negative) Urine WBC (Auto) (0-5) /hpf Urine RBC (Auto) (0-2) /hpf U Hyaline Cast (Auto) (0-2) /lpf U Epithel Cells (Auto) (0-2) /hpf Urine Bacteria (Auto) (None Seen) Adenovirus (PCR) Not Detected (NotDetected) B. pertussis DNA (PCR) Not Detected (NotDetected) B.parapertussis DNA PCR Not Detected (NotDetected) C. pneumoniae DNA (PCR) Not Detected (NotDetected) Coronavirus OC43 (PCR) Not Detected (NotDetected) Coronavirus HKU1 (PCR) Not Detected (NotDetected) Coronavirus 229E (PCR) Not Detected (NotDetected) SARS-CoV-2 (PCR) DETECTED A (NotDetected) Coronavirus NL63 (PCR) Not Detected (NotDetected) Human Metapneumovir PCR Not Detected (NotDetected) Influenza Type A (PCR) Not Detected (NotDetected) Influenza Type B (PCR) Not Detected (NotDetected) M. pneumoniae (PCR) Not Detected (NotDetected) Parainfluenza 1 (PCR) Not Detected (NotDetected) Parainfluenza 2 (PCR) Not Detected (NotDetected) Parainfluenza 3 (PCR) Not Detected (NotDetected) Parainfluenza 4 (PCR) Not Detected (NotDetected) RSV (PCR) Not Detected (NotDetected) Entero/Rhino (PCR) Not Detected (NotDetected) Administered Medications Norepinephrine Bitartrate (Levophed/D5w) 4 mg in 250 mls @ 27.116 mls/hr IV .Q9H14M [facility]; Protocol Stop: 04/16/24 16:44 Last Titration: 03/17/24 17:25 Dose: 0.07 mcg/kg/min, 27.1 mls/hr Documented By: Admin: 03/17/24 16:38 Dose: 0.05 mcg/kg/min, 19.4 mls/hr Documented By: MEGHAN Co-signed By: MR Discontinued Medications Hydrocortisone Sodium Succinate (Hydrocortisone Sod Succinate 100 Mg/2 Ml Vial) 100 mg IV NOW STA Stop: 03/17/24 18:34 Last Admin: 03/17/24 19:01 Dose: 100 mg Documented By: GALA Sodium Chloride (Nss) 1,000 mls @ 999 mls/hr IV .Q1H1M ONE Stop: 03/17/24 16:34 Last Infusion: 03/17/24 15:57 Dose: Infused Documented By: Admin: 03/17/24 15:42 Dose: 999 mls/hr Documented By: BRADY Sodium Chloride (Nss) 1,000 mls @ 999 mls/hr IV .Q1H1M ONE Stop: 03/17/24 16:54 Last Infusion: 03/17/24 16:55 Dose: Infused Documented By: Admin: 03/17/24 15:58 Dose: 999 mls/hr Documented By: BRADY Sodium Chloride (Nss) 1,000 mls @ 999 mls/hr IV .Q1H1M ONE Stop: 03/17/24 17:55 Last Infusion: 03/17/24 18:18 Dose: Infused Documented By: Admin: 03/17/24 17:17 Dose: 999 mls/hr Documented By: MEGHAN Sodium Chloride (Nss) 250 mls @ 999 mls/hr IV .Q16M ONE Stop: 03/17/24 17:10 Last Infusion: 03/17/24 17:33 Dose: Infused Documented By: Admin: 03/17/24 17:17 Dose: 999 mls/hr Documented By: MEGHAN Piperacillin Sod/Tazobactam Sod (Zosyn) 4.5 gm in 100 mls @ 200 mls/hr IV NOW ONE Stop: 03/17/24 17:28 Last Infusion: 03/17/24 17:53 Dose: Infused Documented By: Admin: 03/17/24 17:17 Dose: 200 mls/hr Documented By: MEGHAN Albumin Human (Albumin 5%) 250 mls @ 500 mls/hr IV ONE ONE Stop: 03/17/24 19:10 Last Admin: 03/17/24 19:01 Dose: 500 mls/hr Documented By: GAAL Ioversol (Optiray 320 125ml) 119 ml IV ONCE ONE Stop: 03/17/24 16:03 Last Admin: 03/17/24 16:02 Dose: 119 ml Documented By: ANGELIKA Miscellaneous (Stat Iv Infusion Titration Per Protocol) 1 each N/A NOW STA Stop: 03/17/24 16:34 Last Admin: 03/17/24 19:09 Dose: Not Given Documented By: GALA Potassium Chloride (Potassium Chloride Crtab 20 Meq Tabcr) 40 meq PO NOW STA Stop: 03/17/24 18:39 Last Admin: 03/17/24 19:01 Dose: 40 meq Documented By: GALA Imaging Data Radiologist's Impression: Abdomen/Pelvis CTA 03/17/24 15:33 CT angio abdomen pelvis w con CLINICAL HISTORY: Lower abdominal pain, hypotension TECHNIQUE: Multidetector row helical CT of the abdomen and pelvis was performed, following intravenous administration of iodinated contrast. No oral contrast was administered. Automated dose lowering techniques and/or adjustment according to patient size were utilized for this exam. Coronal and sagittal reformations were obtained. MIP and 3D volume rendered reconstructions were obtained. CT DOSE: 2479.61 mGy.cm Comparison: Comparison is made to CT chest 03/17/2024 FINDINGS: Lower chest: Bibasilar atelectasis versus scarring is seen. Liver: Hepatic steatosis is noted. Gallbladder and biliary tree: No calcified gallstones. Normal caliber wall. No intra- or extrahepatic biliary ductal dilation. Pancreas: Unremarkable, no focal lesions. Spleen: A tiny left adrenal nodule measures 8 mm. Adrenals: Unremarkable. Kidneys and ureters: Unremarkable. Bladder: Diffuse homogeneous wall thickening is seen. Reproductive organs: Unremarkable. Bowel: Diverticulosis is seen without evidence of diverticulitis. Lymph nodes Retroperitoneal: Unremarkable. Pelvic: Unremarkable. Mesenteric: Unremarkable. Peritoneum: Normal. Abdominal wall: Unremarkable. Bones: Unremarkable. CT angiogram: The abdominal aortic contours appear intact without evidence of aneurysmal dilatation and/or dissection. There is evidence of scattered atherosclerotic calcifications of the abdominal aorta and its major branches. The origins of the celiac axis, superior mesenteric, inferior mesenteric and bilateral renal arteries are patent. IMPRESSION: No acute abnormalities and in particular no evidence of retroperitoneal hemorrhage. ACT 112: Negative or not required by law. Electronically signed by: Celio Montesinos M.D. 03/17/2024 4:28 PM Chest CTA 03/17/24 15:54 CT angio chest dissec wo/w con HISTORY: 53 years-old Male abd pain, hypotension acute generalized chest and abdominal pain COMPARISON: CTA abdomen and pelvis of same day TECHNIQUE: CTA of the chest was obtained with and without IV contrast. All measurements were obtained according to NASCET criteria. 3-D coronal and sagittal maps were obtained and transmitted for review. A dose lowering technique was used consistent with the principals of DREW. FINDINGS: Mild cardiomegaly. No pericardial effusion. Extensive coronary artery calcifications. No thoracic aortic aneurysm or dissection. There is mild atherosclerosis of the thoracic aorta. No intramural or mediastinal hematoma. No pulmonary emboli identified. No definite thyroid nodule or lymphadenopathy. No pneumothorax, pleural effusion, airspace consolidation or pulmonary edema. No suspicious pulmonary nodules or masses. Central airways are patent. Hepatosplenomegaly with hepatic steatosis. Tiny hiatal hernia. Bones appear intact. IMPRESSION: 1. Unremarkable CTA of the chest. 2. Extensive coronary artery calcifications. ACT 112: Negative or not required by law. The above report was generated using voice recognition software. It may contain grammatical, syntax or spelling errors. Electronically signed by: Fredrick Ferreira M.D. 03/17/2024 4:42 PM Discharge Plan Visit Data Chief Complaint: Hypotension Stated Complaint: AB PAIN, FLANK PAIN, UTI SYMTOMS ED Provider: Blaine Zaldivar Discharge Problem: Acute hypotension Patient Disposition: Admitted As Inpatient
[2024-03-17] MEDS: SODIUM CHLORIDE 0.9% 1,000 ML IV ONE ×3 (15:42→17:17)
[2024-03-17 15:53] LABS: iSTAT Creatinine 2.6 mg/dl (0.6-1.3); iSTAT Hemoglobin 10.9 g/dl (14.0-18.0); iSTAT Ionized Calcium 1.23 mmol/l (1.12-1.32); iSTAT Potassium 3.4 mmol/L (3.3-5.0)
[2024-03-17 15:59] LABS: Basophils # (auto) 0.01 K/uL (0.00-0.20); Basophils % (auto) 0.1 %; Eosinophils # (auto) 0.02 K/uL (0.00-0.50); Eosinophils % (auto) 0.2 %; Hematocrit (blood only) 32.9 % (42.0-52.0); Hemoglobin 10.7 g/dl (14.0-18.0); Immature Granulocytes # (auto) 0.06 K/uL (0.01-0.20); Immature Granulocytes % (auto) 0.6 %; Lymphocytes % (auto) 10.1 %; Mean Corpuscular Hemoglobin 30.6 pg (25.0-34.0); Mean Corpuscular Hgb Conc 32.5 g/dL (32.0-36.0); Mean Platelet Volume 9.3 fL (9.4-12.4); Monocytes # (auto) 1.32 K/uL (0.11-0.59); Monocytes % (auto) 13.4 %; Neutrophils # (auto) 7.47 K/uL (1.40-6.50); Neutrophils % (auto) 75.6 %; Platelet Count 192 K/uL (130-400); RDW Coefficient of Variation 19.5 % (11.5-14.5); RDW Standard Deviation 64.6 fL (36.4-46.3); White Blood Count 9.88 K/ul (4.8-10.8)
[2024-03-17] MEDS: OPTIRAY 320 125ml IV ONE (16:02)
[2024-03-17 16:06] LABS: Albumin Globulin Ratio 1.4 (0.9-2); BUN Creatinine Ratio 16.1 (10-20); Bilirubin,Total 1.6 mg/dl (0.2-1.0); Calcium 9.7 mg/dl (8.6-10.3); Creatinine Clr Calc Pharmacy 43.6 ml/min; Est GFR (African American) 35.1 ml/min; Est GFR (Non-African American) 30.3 ml/min; Globulin 2.9 gm/dl (2.5-4.0); Potassium 3.3 mmol/L (3.5-5.1); Total Protein 6.9 gm/dl (6.0-8.3)
[2024-03-17 16:08] LABS: Base Excess VBG 2.5 mEq/L; HCO3 VBG 26 mmol/L; Oxygen Saturation VBG 76.1 %; PCO2 VBG 37 mmHg (38-50); PO2 VBG 45 mmHg; pH VBG 7.46 (7.36-7.41)
[2024-03-17 16:12] LABS: Troponin I High Sensitivity 17.1 pg/ml (0-20)
[2024-03-17 16:16] LABS: INR 1.1 (0.9-1.1); Prothrombin Time 12.3 Seconds (9.0-12.0)
--- NOTE | 2024-03-17 16:29 | CT Scan Report ---
CT angio abdomen pelvis w con CLINICAL HISTORY: Lower abdominal pain, hypotension TECHNIQUE: Multidetector row helical CT of the abdomen and pelvis was performed, following intravenou s administration of iodinated contrast. No oral contrast was administered. Automated dose lowering te chniques and/or adjustment according to patient size were utilized for this exam. Coronal and sagitta l reformations were obtained. MIP and 3D volume rendered reconstructions were obtained. CT DOSE: 2479.61 mGy.cm Comparison: Comparison is made to CT chest 03/17/2024 FINDINGS: Lower chest: Bibasilar atelectasis versus scarring is seen. Liver: Hepatic steatosis is noted. Gallbladder and biliary tree: No calcified gallstones. Normal caliber wall. No intra- or extrahepatic biliary ductal dilation. Pancreas: Unremarkable, no focal lesions. Spleen: A tiny left adrenal nodule measures 8 mm. Adrenals: Unremarkable. Kidneys and ureters: Unremarkable. Bladder: Diffuse homogeneous wall thickening is seen. Reproductive organs: Unremarkable. Bowel: Diverticulosis is seen without evidence of diverticulitis. Lymph nodes Retroperitoneal: Unremarkable. Pelvic: Unremarkable. Mesenteric: Unremarkable. Peritoneum: Normal. Abdominal wall: Unremarkable. Bones: Unremarkable. CT angiogram: The abdominal aortic contours appear intact without evidence of aneurysmal dilatation a nd/or dissection. There is evidence of scattered atherosclerotic calcifications of the abdominal aor ta and its major branches. The origins of the celiac axis, superior mesenteric, inferior mesenteric and bilateral renal arteries are patent. IMPRESSION: No acute abnormalities and in particular no evidence of retroperitoneal hemorrhage. ACT 112: Negative or not required by law. Electronically signed by: Celio Montesinos M.D. 03/17/2024 4:28 PM
[2024-03-17] MEDS: NOREPINEPHRINE/D5W 4 MG/250 ML PLCT IV SCH (16:38)
[2024-03-17 16:41] LABS: Adenovirus PCR Not Detected (NotDetected); Bordetella parapertussis PCR Not Detected (NotDetected); Bordetella pertussis PCR Not Detected (NotDetected); Chlamydia pneumoniae PCR Not Detected (NotDetected); Coronavirus 229E PCR Not Detected (NotDetected); Coronavirus CoV-2 (COVID19)PCR DETECTED (NotDetected); Coronavirus HKU1 PCR Not Detected (NotDetected); Coronavirus NL63 PCR Not Detected (NotDetected); Coronavirus OC43PCR Not Detected (NotDetected); Human Metapneumovirus PCR Not Detected (NotDetected); Influenza A PCR Not Detected (NotDetected); Influenza B PCR Not Detected (NotDetected); Mycoplasma pneumoniae PCR Not Detected (NotDetected); Parainfluenza Virus 1 PCR Not Detected (NotDetected); Parainfluenza Virus 2 PCR Not Detected (NotDetected); Parainfluenza Virus 3 PCR Not Detected (NotDetected); Parainfluenza Virus 4 PCR Not Detected (NotDetected); Respiratory Syncytial VirusPCR Not Detected (NotDetected); Rhinovirus/Enterovirus PCR Not Detected (NotDetected)
--- NOTE | 2024-03-17 16:43 | CT Scan Report ---
CT angio chest dissec wo/w con HISTORY: 53 years-old Male abd pain, hypotension acute generalized chest and abdominal pain COMPARISON: CTA abdomen and pelvis of same day TECHNIQUE: CTA of the chest was obtained with and without IV contrast. All measurements were obtained according to NASCET criteria. 3-D coronal and sagittal maps were obtained and transmitted for review . A dose lowering technique was used consistent with the principals of DREW. FINDINGS: Mild cardiomegaly. No pericardial effusion. Extensive coronary artery calcifications. No thoracic aor tic aneurysm or dissection. There is mild atherosclerosis of the thoracic aorta. No intramural or med iastinal hematoma. No pulmonary emboli identified. No definite thyroid nodule or lymphadenopathy. No pneumothorax, pleural effusion, airspace consolidat ion or pulmonary edema. No suspicious pulmonary nodules or masses. Central airways are patent. Hepato splenomegaly with hepatic steatosis. Tiny hiatal hernia. Bones appear intact. IMPRESSION: 1. Unremarkable CTA of the chest. 2. Extensive coronary artery calcifications. ACT 112: Negative or not required by law. The above report was generated using voice recognition software. It may contain grammatical, syntax o r spelling errors. Electronically signed by: Fredrick Ferreira M.D. 03/17/2024 4:42 PM
--- NOTE | 2024-03-17 17:14 | History & Physical Report ---
Date of Service March 17, 2024 Assessment & Plan (1) UTI (urinary tract infection): Plan: UA positive on arrival Hypotensive at 73/50 on arrival Lactate 1.9 on arrival Procalcitonin 13.00 on arrival NSS 3250 mL IV fluid bolus given for hypotension However, patient did not respond to fluid boluses and was started on Levophed in the ED; ICU status Zosyn 4.5 g IV q8h MRSA swab ordered, pending Blood cultures drawn Follow current UCx; none prior on record A.m. CBC, BMP, Procalcitonin, Mag (2) Sepsis: Plan: Urinary source; tachypneic at 29 RPM, and reported fever at home; temperature 37.5 C on arrival Treatment (as above) MRSA swab ordered, pending Patient reports he did have a recent dental abscess and recently completed a course of clindamycin at the end of February Will obtain echocardiogram to rule out endocarditis/MRSA bacteremia Stress dose steroids with hydrocortisone (3) Hypotension: Plan: Titrate Levophed Hold antihypertensive agents (nifedipine, metoprolol, clonidine) Once patient's blood pressure normalizes, will need to monitor for clonidine rebound ICU status (4) VITOR (acute kidney injury): Plan: BUN 38, creatinine 2.36 (baseline 1.46), EGFR 30.3 Avoid nephrotoxic agents where possible Hold telmisartan, spironolactone, chlorthalidone Dose reduce gabapentin 600-->300mg QID Macedo catheter inserted in the ED Daily catheter care IVF resuscitation (as above) Trend BMP (5) Anemia: Plan: Hemoglobin 10.7 on arrival (most recently 13.3 on 12/15/2023) No retroperitoneal bleed on imaging No signs of active bleeding on clinical exam Trend H&H (6) Diabetes mellitus, type 2: Plan: Last A1c at 8.2% on 12/15/2023 Glucose 270 on admission Hold metformin, empagliflozin Patient normally takes Lantus 50u QAM Will dose reduced to Lantus 12u BID in the setting of VITOR SSI; with target BSG range 110-140mg/dL, CF 20, carb ratio 8 NPO, then advance to T2DM diet BSG q4h while NPO, then BSG ACHS Adjust regimen as needed Pharmacy glycemic consult (7) Urinary incontinence: Plan: New onset Patient does have a history of L4-L5 fusion in 1993, and does report that he fell this week onto his butt However, no saddle anesthesia on clinical exam A/P CT did not show retroperitoneal hemorrhage or signs of cord compression Patient's symptoms do not improve with above treatment, low threshold to obtain MRI of the lumbar spine to r/o cauda equina (8) COVID: Plan: COVID (+) on arrival Isolation precautions Hypoxia at 86% on RA on arrival Dexamethasone 6 mg IV QAM Will defer remdesivir in the setting of VITOR Hydrocortisone (as above) (9) Hypoxia: Plan: Patient is not on supplemental oxygen at baseline Supplemental oxygen as needed to maintain SpO2 >94% Suspect this is secondary to both COVID; ?Anemia contributing Continuous pulse oximetry (10) History of CVA (cerebrovascular accident): Plan: CVA X 4; last in 2019 Residual right-sided upper and lower extremity deficits Continue Aggrenox Plan Disposition: Admit to ICU Full code N.p.o. for now, then advance to T2DM diet VTE PPx: Will defer to ICU History of Present Illness Chief Complaint: Hypotension Primary Care Provider: Nirajharoldo Spike Sykes is a 53-year-old male with PMH of CKD stage III, T2DM, dyslipidemia, seizure-like activity, vertigo, vertebral artery stenosis, stroke with residual deficits, asthma, CLAY, TMJ syndrome, and kidney stones. He presented on 03/17 via EMS for complaints of groin, abdominal, and penile pain. Patient was diaphoretic, hypotensive at 71/50, and hypoxic on room air at 86% on arrival. He reports that the pain started yesterday on 03/16 and has been constant since. The worst of the pain is in his groin region; he rates his pain 8/10 at present describes as a "throbbing" pain. He has had kidney stones in the past, and feels like this might be similar. Additionally, he has pain on his left flank and lower back. Patient has had urinary incontinence over the past 24 hours, which is new for him. He is also been unable to produce urine on his own. No sick contacts. He took his regular morning medications today; only recent change medications is that he was on an antibiotic for a dental abscess 3 weeks ago. He endorses SOB both at rest and with exertion. No prior history of DVT/PE. No history of asthma or COPD. He reports that he recently had a fall and hit his rear end hard; he was then "worked hard" at physical therapy yesterday. He also has a history of a L4-L5 fusion with Dr. Gordo Bedolla in [place] back in 1993. Patient is hypotensive at 92/64 at time of admission; SpO2 98% on 4L NC. ED course: Levophed/D5W Zosyn 4.5 g IV NSS 3250 mL IV ROS: Patient endorses fever, chills, night sweats, headache, diaphoresis, SOB at rest and with exertion, pleuritic CP, nausea, lower abdominal pain, left-sided flank pain, groin/penile pain, lower back pain, hematuria, decreased urinary frequency, and new onset urinary incontinence. Patient denies slurred speech, facial droop, dizziness, lightheadedness, chest pain, cough, hemoptysis, vomiting, diarrhea, fecal incontinence, or saddle anesthesia. Allergies Allergy/AdvReac Type Severity Reaction Status Date / Time cephalexin Allergy Intermediate "GENERAL Verified 02/24/24 11:23 ILLNESS"/rash latex Allergy Intermediate Rash Verified 02/24/24 11:23 adalimumab [From Humira] Allergy Mild "made my Verified 02/24/24 11:23 psorasis worse" aspirin Allergy Mild GI Verified 02/24/24 11:23 SYMPTOMS-nausea/vomiting methotrexate Allergy Mild nausea/vomi Verified 02/24/24 11:23 ting Sulfa (Sulfonamide AdvReac Mild general Verified 02/24/24 11:23 Antibiotics) malaise, upset stomach Adhesives AdvReac Mild Skin Uncoded 02/24/24 11:23 irritation Home Medications Medication Instructions Recorded Confirmed Type allopurinol 300 mg tablet 300 mg PO QAM 02/01/19 03/17/24 History coenzyme Q10 100 mg capsule 100 mg PO QDL 02/01/19 03/17/24 History fexofenadine 180 mg tablet 180 mg PO BID #90 tabs 02/01/19 03/17/24 History hydrocortisone 1 % topical cream 1 appln topical DAILY PRN Rash 02/01/19 03/17/24 History montelukast 10 mg tablet 10 mg PO QPM #30 tabs 02/01/19 03/17/24 History propylene glycol 0.6 % eye drops 2 drops ophthalmic (eye) UD PRN 02/01/19 03/17/24 History (Systane Balance) Dry Eye(S) ustekinumab 90 mg/mL subcutaneous 90 mg subcut UD 02/01/19 03/17/24 History syringe (Stelara) ketotifen fumarate 0.025 % (0.035 1 drp ophthalmic (eye) BID 02/02/19 03/17/24 History %) eye drops (Zaditor) multivitamin with minerals 3 tab PO QDL 02/02/19 03/17/24 History (Hair,Skin and Nails tablet) olopatadine 0.2 % eye drops 1 drp ophthalmic (eye) QAM 02/02/19 03/17/24 History (Pataday) fenofibrate nanocrystallized 145 145 mg PO QAM 02/21/20 03/17/24 History mg tablet telmisartan 80 mg tablet 80 mg PO QPM 06/06/20 03/17/24 History blood sugar diagnostic (Accu-Chek #10 ea 09/24/20 02/24/24 History Guide test strips) flash glucose sensor (FreeStyle #1 ea 09/24/20 02/24/24 History Maria 2 Sensor kit) nifedipine 60 mg tablet,extended 60 mg PO QAM 10/29/20 03/17/24 History release folic acid 1 mg tablet 1 mg PO QDL 04/17/21 03/17/24 History spironolactone 25 mg tablet 12.5 mg PO QAM 04/17/21 03/17/24 History methotrexate (PF) 30 mg/0.6 mL 30 mg subcut .weekly 06/24/21 03/17/24 History subcutaneous auto-injector meclizine 25 mg tablet 25 mg PO TID Vertigo 09/25/21 03/17/24 History fluticasone propionate 50 2 spray intranasal QAM #1 g 10/22/21 03/17/24 History mcg/actuation nasal spray,suspension metformin 500 mg tablet,extended 2,000 mg PO QPM 01/27/22 03/17/24 History release 24 hr clonidine HCl 0.3 mg tablet 0.3 mg PO BID 09/14/22 03/17/24 History metoprolol tartrate 100 mg tablet 100 mg PO UD 09/14/22 03/17/24 History venlafaxine 225 mg tablet,extended 225 mg PO HS 09/14/22 03/17/24 History release 24 hr rosuvastatin 10 mg tablet 10 mg PO HS 12/28/22 03/17/24 History aspirin 81 mg tablet,delayed 81 mg PO QAM 03/23/23 03/17/24 History release diazepam 5 mg tablet (Valium) 5 mg PO BID PRN Anxiety 03/23/23 03/17/24 History icosapent ethyl 1 gram capsule 1 g PO BID 03/23/23 03/17/24 History timolol 0.5 % eye drops 1 drp ophthalmic (eye) BID 03/23/23 03/17/24 History linaclotide 145 mcg capsule 145 mcg PO QAM 06/16/23 03/17/24 History (Linzess) pantoprazole 40 mg tablet,delayed 40 mg PO DAILY 07/28/23 03/17/24 History release acetaminophen 500 mg tablet 1,300 mg PO UD PRN Pain 08/04/23 03/17/24 History (Acetaminophen Extra Strength) insulin aspart U-100 100 unit/mL 30 unit (0.3 mL) subcut TID PRN 09/30/23 03/17/24 Rx (3 mL) subcutaneous pen (Novolog diabetes #30 mL FlexPen U-100 Insulin aspart) insulin degludec 100 unit/mL (3 50 unit (0.5 mL) subcut QAM #15 mL 09/30/23 03/17/24 Rx mL) subcutaneous pen (Tresiba FlexTouch U-100 insulin) pen needle, diabetic 32 gauge x #500 ea 09/30/23 02/24/24 Rx 5/32" (BD Ultra-Fine [place] Pen Needle) empagliflozin 25 mg tablet 25 mg PO QAM #30 tabs 12/02/23 03/17/24 Rx (Jardiance) budesonide 32 mcg/actuation nasal 2 spray intranasal HS 12/21/23 03/17/24 History spray gabapentin 300 mg capsule 300 mg PO QID 30 days #120 caps 02/03/24 03/17/24 Rx aspirin 25 mg-dipyridamole 200 mg 1 cap PO BID #180 caps 02/24/24 03/17/24 Rx capsule,ext.release 12 hr multiphase chlorthalidone 25 mg tablet 25 mg PO DAILY 03/17/24 03/17/24 History famotidine 20 mg tablet 20 mg PO BID 03/17/24 03/17/24 History Past Med/Surg History Problem List (Updated 03/17/24 @ 18:03 by Behzad Fu PA-C) UTI (urinary tract infection) Sepsis Hypoxia COVID History of CVA (cerebrovascular accident) History of lumbar fusion Urinary incontinence Anemia VITOR (acute kidney injury) Traumatic open wound of left lower leg (Acute) Hypotension (Acute) Complex sleep apnea syndrome Traumatic open wound of right lower leg (Acute) Hypertension (Chronic) Diabetes mellitus, type 2 Kidney stones TMJ syndrome (Acute) Sinus bradycardia (Acute) Obstructive sleep apnea (Acute) Obesity (BMI 35.0-39.9 without comorbidity) (Acute) Lumbar radiculopathy (Acute) Lower back pain (Acute) Joint pain, knee (Acute) Dysesthesia (Acute) Asthma (Acute) History of stroke with residual deficit Psoriasis Depression Vertebral artery stenosis Chronic right occlusion Vertigo Diabetic peripheral neuropathy associated with type 2 diabetes mellitus Dyslipidemia Hypercalciuria Orbital pseudotumor Chronic venous insufficiency (Chronic) Nocturnal hypoxemia Erectile dysfunction Type 2 diabetes mellitus with neurologic complication, with long-term current use of insulin Chronic kidney disease, stage III (moderate) Seizure-like activity Encounter for pre-operative examination Vitamin D deficiency (Acute) Medical History (Updated 03/17/24 @ 18:03 by Behzad Fu PA-C) History of kidney stones Diabetes mellitus, type 2 free style maria in use Hyperparathyroidism "possibly" Depression Sarcoidosis dx left eye Hx of transient ischemic attack (TIA) ? November 2022 possibly>follows with Dr. Siu and [facility] neurologist Stroke x 3>last one 2019 (still has vertigo from event, generalized weakness and balance problems) Hyperlipidemia Cardiac murmur follows with Dr. Blankenship Hx of gout Sleep apnea asv machine>bipap Environmental allergies Serum calcium elevated Acquired buried penis Dysarthria Allergic rhinitis Arthralgia of multiple sites Constipation Chronic back pain Fatty liver disease, nonalcoholic GERD (gastroesophageal reflux disease) Psoriasis Glaucoma bilt Hypertension Surgical History (Updated 03/17/24 @ 17:53 by Behzad Fu PA-C) History of colonoscopy History of tooth extraction H/O eye surgery left eye biopsy History of lumbar spinal fusion History of removal of cyst at umbilicus History of appendectomy History of esophagogastroduodenoscopy (EGD) History of wisdom tooth extraction History of tonsillectomy and adenoidectomy x2 Status post myringotomy with tube placement of both ears Family History Mother Family history of reaction to anesthesia during heart valve replacement became combative and forgetful Family history of diabetes mellitus Hypertension Stroke, Onset Age: 62 Grandmother (Maternal) Family history of diabetes mellitus Grandfather (Maternal) Family hx of colon cancer Father Stroke, Onset Age: 53 Atherosclerotic cerebrovascular disease patient reported posterior large vessel disease Social History Smoking Status: Never smoker Second Hand Exposure: Yes (stepfather smoked); Do You Dip or Chew Tobacco: No; Hx Alcohol Use: Yes Alcohol type: beer, wine and hard liquor Alcohol Intake Frequency Comment: STATED DRINKS ONCE WEEKLY Preferred Language: Spanish Communication Ability: Effective Visual Impairment: No Limitations Hearing Ability: Normal Pull Through Hooker Required: No Beliefs That Will Affect Care: None marital status: Single Current Living Situation: Parent Current Living Situation Comment: lives with mom, MOTHER ABLE TO ASSIST WITH CARE NEEDED 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al status: employed and disabled 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[employer], 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 Feels Safe at Home: Yes Diet: diabetic, low carbohydrate and low salt Diet Comment: CARB COUNTING during the past year weight has: decreased > 10 lbs Assistive Devices: BiPap, Contacts and Walker Review of Systems Review of Systems: See HPI above Physical Exam Physical Exam: General: Toxic appearing; diaphoretic; lethargic; cooperative; SpO2 97% on 3L NC HEENT: normocephalic, atraumatic; no scleral icterus; PERRLA w/ EOMs intact; vision and hearing grossly intact; patient reports that he has diminished sensation in the right side of his face assessed at 3 dermatomes via light touch; patient is able to smile, frown, and raise eyebrows without unilateral deficits Neck: supple; no lymphadenopathy; trachea midline Skin: warm, moist without signs of tenting; no cyanosis; no rashes, bruising, lesions, or erythema noted CV: chest wall NTP; RRR; S1/S2 normal; no murmurs/rubs/gallops; pulses intact and symmetric at radial, DP, and PT Lungs: no acute respiratory distress; symmetrical chest wall expansion; clear breath sounds across all lung hendricks w/o adventitious sounds; no wheezing ABD: Soft, patient reports that he is tender to palpation in all 4 quadrants; BS present; no rebound/guarding; no distention Back: Upper spine NTP; lower spine TTP; positive CVA tenderness bilaterally; no notable rashes or bruising on the abdomen, flanks, or back; no signs of retroperitoneal bleeding MSK: no tics or fasciculations; no edema noted in the LEs b/l, nonerythematous; 4/5 content specialist strength in the right hand when compared to 5/5 in the left Neuro: A&Ox3; normal mood and affect; fluent speech; no slurred speech; no facial droop; no focal deficits; patient reports that sensation is intact bilaterally around the groin region assessed via light touch Results & Data Results & Data Vital Signs (Past 12 Hours) Vital Signs Temp Pulse Pulse Resp BP BP Pulse Ox 03/17/24 17:06 79 20 98 03/17/24 17:05 92/64 L 03/17/24 17:05 92/64 L 03/17/24 17:05 92/64 L 03/17/24 16:55 102/67 03/17/24 16:55 102/67 03/17/24 16:55 102/67 03/17/24 16:51 80 29 H 96 03/17/24 16:50 91/63 L 03/17/24 16:50 91/63 L 03/17/24 16:39 77 14 99 03/17/24 16:39 71/47 L 03/17/24 16:31 77 23 66/50 L 95 03/17/24 16:30 66/50 L 03/17/24 16:21 74 11 L 92 03/17/24 16:19 73/48 L 03/17/24 16:19 73/48 L 03/17/24 16:19 73/48 L 03/17/24 16:18 75 15 93 03/17/24 16:14 71/50 L 03/17/24 15:57 82 19 98 03/17/24 15:55 74/53 L 03/17/24 15:54 83 03/17/24 15:51 81 18 98 03/17/24 15:50 77/51 L 03/17/24 15:50 77/51 L 03/17/24 15:44 82/48 L 03/17/24 15:40 71/47 L 03/17/24 15:40 71/47 L 03/17/24 15:40 83 16 71/47 L 96 03/17/24 15:36 72/52 L 03/17/24 15:33 03/17/24 15:26 92 03/17/24 15:25 37.5 C 86 18 73/50 L 90 O2 Del Method O2 Flow Rate 03/17/24 17:06 Nasal Cannula 4 03/17/24 17:05 03/17/24 17:05 03/17/24 17:05 03/17/24 16:55 03/17/24 16:55 03/17/24 16:55 03/17/24 16:51 Nasal Cannula 4 03/17/24 16:50 03/17/24 16:50 03/17/24 16:39 03/17/24 16:39 03/17/24 16:31 Nasal Cannula 4 03/17/24 16:30 03/17/24 16:21 03/17/24 16:19 03/17/24 16:19 03/17/24 16:19 03/17/24 16:18 03/17/24 16:14 03/17/24 15:57 03/17/24 15:55 03/17/24 15:54 03/17/24 15:51 03/17/24 15:50 03/17/24 15:50 03/17/24 15:44 03/17/24 15:40 03/17/24 15:40 03/17/24 15:40 Nasal Cannula 4 03/17/24 15:36 03/17/24 15:33 Nasal Cannula 03/17/24 15:26 Nasal Cannula 03/17/24 15:25 Nasal Cannula 4 Laboratory Results Abnormal lab results 03/17/24 03/17/24 03/17/24 Range/Units 15:34 15:40 15:44 RBC 3.50 L (4.70-6.10) M/uL Hgb 10.7 L (14.0-18.0) g/dl POC Hgb 10.9 L (14.0-18.0) g/dl Hct 32.9 L (42.0-52.0) % POC Hct 32 L (42-52) % RDW Std Deviation 64.6 H (36.4-46.3) fL RDW Coeff of Clay 19.5 H (11.5-14.5) % MPV 9.3 L (9.4-12.4) fL Neut # (Auto) 7.47 H (1.40-6.50) K/uL Lymph # (Auto) 1.00 L (1.20-3.40) K/uL Lyman # (Auto) 1.32 H (0.11-0.59) K/uL PT 12.3 H (9.0-12.0) Seconds VBG pH 7.46 H (7.36-7.41) VBG pCO2 37 L (38-50) mmHg Sodium 134 L (136-145) mmol/L Potassium 3.3 L (3.5-5.1) mmol/L POC Chloride 99 L (101-112) mmol/L POC Total CO2 23 L (24-31) mmol/L POC BUN 34 H (7-18) mg/dl BUN 38 H (6-23) mg/dl Creatinine 2.36 H (0.6-1.4) mg/dl POC Creatinine 2.6 H (0.6-1.3) mg/dl Glucose 270 H (70-99(Fasting)) mg/dl POC Glucose (other) 269 H (70-99) mg/dl Total Bilirubin 1.6 H (0.2-1.0) mg/dl AST 12 L (13-39) U/L SARS-CoV-2 (PCR) DETECTED A (NotDetected) Diagnostic Findings Abdomen/Pelvis CTA 03/17/24 15:33 CT angio abdomen pelvis w con CLINICAL HISTORY: Lower abdominal pain, hypotension TECHNIQUE: Multidetector row helical CT of the abdomen and pelvis was performed, following intravenous administration of iodinated contrast. No oral contrast was administered. Automated dose lowering techniques and/or adjustment according to patient size were utilized for this exam. Coronal and sagittal reformations were obtained. MIP and 3D volume rendered reconstructions were obtained. CT DOSE: 2479.61 mGy.cm Comparison: Comparison is made to CT chest 03/17/2024 FINDINGS: Lower chest: Bibasilar atelectasis versus scarring is seen. Liver: Hepatic steatosis is noted. Gallbladder and biliary tree: No calcified gallstones. Normal caliber wall. No intra- or extrahepatic biliary ductal dilation. Pancreas: Unremarkable, no focal lesions. Spleen: A tiny left adrenal nodule measures 8 mm. Adrenals: Unremarkable. Kidneys and ureters: Unremarkable. Bladder: Diffuse homogeneous wall thickening is seen. Reproductive organs: Unremarkable. Bowel: Diverticulosis is seen without evidence of diverticulitis. Lymph nodes Retroperitoneal: Unremarkable. Pelvic: Unremarkable. Mesenteric: Unremarkable. Peritoneum: Normal. Abdominal wall: Unremarkable. Bones: Unremarkable. CT angiogram: The abdominal aortic contours appear intact without evidence of aneurysmal dilatation and/or dissection. There is evidence of scattered atherosclerotic calcifications of the abdominal aorta and its major branches. The origins of the celiac axis, superior mesenteric, inferior mesenteric and bilateral renal arteries are patent. IMPRESSION: No acute abnormalities and in particular no evidence of retroperitoneal hemorrhage. ACT 112: Negative or not required by law. Electronically signed by: Celio Montesinos M.D. 03/17/2024 4:28 PM Chest CTA 03/17/24 15:54 CT angio chest dissec wo/w con HISTORY: 53 years-old Male abd pain, hypotension acute generalized chest and abdominal pain COMPARISON: CTA abdomen and pelvis of same day TECHNIQUE: CTA of the chest was obtained with and without IV contrast. All measurements were obtained according to NASCET criteria. 3-D coronal and sagittal maps were obtained and transmitted for review. A dose lowering technique was used consistent with the principals of LUXRA. FINDINGS: Mild cardiomegaly. No pericardial effusion. Extensive coronary artery calcifications. No thoracic aortic aneurysm or dissection. There is mild atherosclerosis of the thoracic aorta. No intramural or mediastinal hematoma. No pulmonary emboli identified. No definite thyroid nodule or lymphadenopathy. No pneumothorax, pleural effusion, airspace consolidation or pulmonary edema. No suspicious pulmonary nodules or masses. Central airways are patent. Hepatosplenomegaly with hepatic steatosis. Tiny hiatal hernia. Bones appear intact. IMPRESSION: 1. Unremarkable CTA of the chest. 2. Extensive coronary artery calcifications. ACT 112: Negative or not required by law. The above report was generated using voice recognition software. It may contain grammatical, syntax or spelling errors. Electronically signed by: Fredrick Ferreira M.D. 03/17/2024 4:42 PM ECG Additional Comments: ECG revealed NSR at 83 bpm; QTc 486 Code Status & VTE Plan Code Status Full code VTE Prophylaxis Plan VTE Prophylaxis will be ordered: Yes Supervising Physician Co-Signing Physician Notes Patient seen and examined, chart reviewed, case discussed with Behzad Fu PA-C and I agree with the assessment and plan as above except as otherwise noted Labs and images reviewed Patient seen at bedside in conjunction with SANDEEP. Patient was referred from his PCPs office for hypotension and severely ill appearance, SBP in office 70s with intermittent diaphoresis. Pt endorses fever in the last 2 days. Patient with groin pain 02/11. Has had new urinary retention and incontinence, notes he is not able to pee when he wants to and has had random dribbling of urine. Was straight cathed in the ER on arrival, reportedly with around 200 cc of urine at that time. No saddle anesthesia. Does have chronic right-sided sensory and s trength deficits due to a prior CVA in 2019, 4x prior strokes. No new sensory/strength deficits per pt. he reports he had a fall and he landed on his butt and has had low back pain since that time. Has also felt feverish and with some chills. Has had an intermittent dry cough, no shortness of breath. UA is contaminated versus infected appearing. Procalcitonin is 13 He has no saddle anesthesia. There is no venous pooling to suggest a loss of neurogenic tone to the lower extremities. DDx for his hypotension includes neurogenic in the setting of his fall however retention may also be from acute UTI. Hypotension, suspect sepsis DDx includes UTI Sepsis AB W recommendations 3099, patient has been ordered 3500 cc of crystalloid resuscitation Remained hypotensive, Levophed started in the ER to maintain MAP greater than 65 Patient is not tachycardic SpO2 4 L no home oxygen requirement CTA does not show any evidence of pneumonia or PE Past history of MSSA and GBS wound cultures, no history of resistant cultures No history of MRSA Patient received Zosyn in the ER. This is continued pending urine cultures results No history of recent steroid use. Random cortisol is 13.42, this is not suppressed for/not particularly elevated given his degree of stress/hypotension. +hydocortisone - Hx Dental Abscess 3 weeks ago treated with abx. Echo is pending. No dental pain or sinus pain, no clincial signs o OMFS disease on admitting exam Blood cultures pending Hold antihypertensives including spironolactone, telmisartan, clonidine Dental disease Recently treated with clindamycin. Patient reports no dental pain, no oral pain, no facial pain and symptoms are improved at time of admission COVID COVID precautions Hypoxic. On hydrocortisone as noted SpO2 titrate to greater than 90% VITOR Creatinine 2.36, elevated from normal. Clinically volume contracted. Patient endorses urinary retention; no signs of hydro on abdominal CT. DDx includes obstructive. Macedo placed Fluids as noted Trend daily, renally adjust medications as needed Back pain Patient with fall 2 days ago subsequently with subsequent back pain approximately L1-L4. Endorses past history of lumbar fusion at a hospital in [facility] He does not have saddle anesthesia on exam. Has had some retention and incontinence with urgency clinically, suspect due to UTI. He has chronic right sided strength and sensory deficits compared to the left due to his CVA, last 2019 however does not feel that these have changed in any way. CT: Reviewed CT with radiology. Severe L3-L4 and L4-L5 facet arthrosis, chronic bilateral L4 pars defect without spondylolisthesis. Moderate central canal stenosis at L3-L4 and mild central canal stenosis L4-L5. No severe cord stenosis is seen No evidence of lower extremity vascular tone loss/pooling on exam to suggest neurogenic shock CLAY CPAP at bedtime HTN Took antidepressive medications this morning, later in the morning than usual. These were held for hypotension. PG Care Time/CCT Total # of Minutes Spent Total Time Spent with Patient: Total time spent is greater than 50% in coordination of care (as documented) at patient's floor/unit and/or counseling patient: Coding [place] [address] INT INP/OBS CARE 3/75MIN Patient Type Established History Comprehensive Exam Comprehensive Medical Decision Making High Complexity Diagnoses UTI (urinary tract infection) N39.0 Sepsis A41.9 Hypotension, unspecified hypotension type I95.9 Hypotension type: unspecified hypotension type VITOR (acute kidney injury) N17.9 Anemia D64.9 Diabetes mellitus, type 2 E11.9 Urinary incontinence R32 COVID U07.1 Hypoxia R09.02 History of CVA (cerebrovascular accident) Z86.73 (3) Hypotension Hypotension type: unspecified hypotension type Qualified Code(s): I95.9 - Hypotension, unspecified
[2024-03-17] MEDS: SODIUM CHLORIDE 0.9% 250 ML IV ONE (17:17)
[2024-03-17] MEDS: PIPERACILLIN/TAZOBACTAM 4.5 GM/100 ML BAG IV ONE (17:17)
[2024-03-17 17:38] LABS: Appearance Urine Turbid (Clear); Bacteria Urine Automated 2+ (None Seen); Bilirubin Urine Negative (Negative); Blood Urine 3+ (Negative); Cast Urine Automated 0-2 /lpf (0-2); Color Urine Yellow; Glucose Urine UA 3+ (Negative); Ketones Urine Negative (Negative); Leukocyte Esterase Urine 2+ (Negative); Nitrite Urine Negative (Negative); Protein Urine 2+ (Negative); Specific Gravity Urine 1.037 (1.000-1.030); Urobilinogen Urine Negative (Negative); WBC Urine Automated >50 /hpf (0-5); pH Urine 6.5 (4.5-7.5)
[2024-03-17] MEDS: POTASSIUM CHLORIDE CRTAB 20 MEQ TABCR PO STA (19:01)
[2024-03-17] MEDS: ALBUMIN 5% 250 ML IV ONE (19:01)
[2024-03-17] MEDS: HYDROCORTISONE SOD SUCCINATE 100 MG/2 ML VIAL IV STA (19:01)
[2024-03-17] MEDS: STAT IV Infusion **Titration per Protocol STA (19:09)
--- NOTE | 2024-03-17 19:38 | Critical Care Consultation ---
Date of Consultation March 17, 2024 Assessment & Plan (1) Shock: (2) Sepsis: (3) UTI (urinary tract infection): (4) COVID: (5) VITOR (acute kidney injury): (6) Diabetes mellitus, type 2: (7) Obstructive sleep apnea: (8) History of CVA (cerebrovascular accident): (9) History of lumbar fusion: (10) Chronic kidney disease, stage III (moderate): Plan Reason Critically Ill: 53 YOM presents to the EMD with refractory hypotension requiring vasopressor support in setting of UTI, LYNSEY II on CKD, and COVID 19. Neuro - Hx CVA with residual right sided weakness, hx of lumbar fusion CAM ICU: Negative - Neurological exam is at baseline per patient with no acute changes and no specific pain along the spinal column with palpation and no step offs- making this less likely neurogenic in nature - if exam changes could consider MRI with hardware in place with infection and with reported fall - Continue his stroke prevention with asa and Aggrenox as per recent neurology note. Cardiac - Shock- multifactorial, sepsis, - Shock at this time multifactorial to include- sepsis vs. medication induced in setting of hypovolemia and VITOR II on CKD, vs. hypovolemia or combination of the above - Received 3.5 L crystalloid- with resolution in dry mucous membranes, urine production now occurring, and patient reporting improvement and feeling less thirsty - Will obtain POCUS when he arrives to ICU evaluate fluid volume status- IVC collapsable but function is not hyperdyanmic- will provide 1 L plasmalyte and allow patient to drink - Cortisol was at 13- would expect this to be higher in shock state- will provide hydrocortisone 100 mg now and then 50mg q6 - Wean Vasopressor support as able - It is possible that his medications peaked in the setting of hypovolemia and VITOR resulting in further reduction of blood pressure as well as blunting of tachycardic response- will hold antihypertensives - iCA and Magnesium levels normal- consider providing 2GM calcium gluconate - ECG negative for STEMI, no CP, HsCTNI negative - CTA of chest also negative for PE Respiratory - COVID 19, CLAY - No documented saturations less than 90%, will obtain room air saturations on arrival to ICU - VBG with CO2 37 and HCo3 26 PH 7.46- no acute intervention - chronic allergic rhinitis- continue inhalers - KAYLEE prn - Hydrocortisone as above - CLAY - on asv at home with EPAP min/max 10/15 min PS min/max 3/15- BiPAP 12/7 adjust as needed for optimization GI - NO acute needs - Diet advance as tolerated if vasopressor requirements remain low - Consider PPI as clinical course progresses RENAL/LYTES - LYNSEY II on CKD III, UTI complicated - As above- maintain euvolemia, wean vasopressors as able - Hold ARB as above - electrolyte per ICU electrolyte protocol - UTI complicated- see below ID section - Currently voiding via male purewick - straight cath with bladder scans if needed ENDO - DMII - Hold oral agents while in house - ICU hyperglycemic protocol- basal/bolus insulin - gtt if needed in setting of steroids HEME - No acute needs ID - UTI, COVID - urine likely source no obstructive stone reported on imaging - Elevated NLR, elevated PCT, + UA, await blood cx and urine cx data - Continue Zosyn - oral cavity examined, no abscess or tender area and no murmur on exam- however he is with multiple carries and states he is pending appointment for extraction - Completed course of clindamycin- Zosyn will cover currently- asymptomatic no facial pain or swelling- await blood culture - peridex oral rinse TID - Hold methotrexate - COVID- supportive care LINES/IV ACCESS - PIV, Continue use of these lines DVT PROPHYLAXIS - SCDS, Heparin subq 5000 units TID DISPO: ICU while on vasopressor support I have personally spent 50 minutes of critical care time in the direct management of this patient. This is a life/limb threatening event. This includes time spent evaluating patient, direct bedside care, chart review, placing orders, interpretation of diagnostic studies, discussion with consultants, patient, and family members, as well as other required patient management activities. This time is exclusive of all separately billable procedures, and teaching time and separate from and in addition to any other critical care service time. Thank you for allowing us to participate in the care of this patient. Please refer to my attending physician's documentation for any further recommendations. 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 Patient reported to the ER today as referral from PCP secondary to hypotension. He went to his PCP for evaluation for groin pain and fevers that have been ongoing for the past 2 days with worsening today to the point that he felt he couldn't void. He noticed some left sided back/flank pain yesterday that was associated with some difficulty voiding. He induces that he has lost of appetite for food and water over the past 48 hours but was able to keep down meatloaf dinner yesterday. He did note difficulty with balance this morning that progressed as the day went on and he did report fall on to his buttocks. He denies any respiratory or sinus congestion, but did note that he was on anbitotic for dental abscess approx. 3 weeks ago. Reportedly the patient was normotensive and normo-cardic on arrival to his PCP office and then had precipitous drop in his blood pressure, he reports that his appointment was at 1400. He arrived to the EMD with BP in the 70s/50s, non-tachycardic, without tachypnea, did have mild hypoxia for which he was placed on 2-4LNC although O2 saturations were 90-98%. In the EMD he had routine labs performed to include PCT, blood culture x1, and straight cath for urine. He had CTA of the chest and abdomen obtained- which were interpreted with no acute process, no PE and no retroperitoneal hemorrhage. He was noted with VITOR on CKD with INFORMATION RECEPTIONIST up to 2.3, PCT of 13, and UA with + blood, LE, WBC >50 and 2+ bacteria. He was given 3.4 L crystalloid and remained hypotensive, for which he was started on LEVOphed. He will be admitted to ICU for evaluation of shock and continued support. Patient reports that he did take all of his medications today, which include Metoprolol tartrate 100mg, Nifedipine ER 60mg, Spironolactone 12.5, Telmisartan 80mg, and Clonidine 0.3 mg all at the same time this morning at around 11-1200 secondary to him waking up late this morning. Allergies Allergy/AdvReac Type Severity Reaction Status Date / Time cephalexin Allergy Intermediate "GENERAL Verified 02/24/24 11:23 ILLNESS"/rash latex Allergy Intermediate Rash Verified 02/24/24 11:23 adalimumab [From Humira] Allergy Mild "made my Verified 02/24/24 11:23 psorasis worse" aspirin Allergy Mild GI Verified 02/24/24 11:23 SYMPTOMS-nausea/vomiting methotrexate Allergy Mild nausea/vomi Verified 02/24/24 11:23 ting Sulfa (Sulfonamide AdvReac Mild general Verified 02/24/24 11:23 Antibiotics) malaise, upset stomach Adhesives AdvReac Mild Skin Uncoded 02/24/24 11:23 irritation Home Medications Medication Instructions Recorded Confirmed Type allopurinol 300 mg tablet 300 mg PO QAM 02/01/19 03/17/24 History coenzyme Q10 100 mg capsule 100 mg PO QDL 02/01/19 03/17/24 History fexofenadine 180 mg tablet 180 mg PO BID #90 tabs 02/01/19 03/17/24 History hydrocortisone 1 % topical cream 1 appln topical DAILY PRN Rash 02/01/19 03/17/24 History montelukast 10 mg tablet 10 mg PO QPM #30 tabs 02/01/19 03/17/24 History propylene glycol 0.6 % eye drops 2 drops ophthalmic (eye) UD PRN 02/01/19 03/17/24 History (Systane Balance) Dry Eye(S) ustekinumab 90 mg/mL subcutaneous 90 mg subcut UD 02/01/19 03/17/24 History syringe (Stelara) ketotifen fumarate 0.025 % (0.035 1 drp ophthalmic (eye) BID 02/02/19 03/17/24 History %) eye drops (Zaditor) multivitamin with minerals 3 tab PO QDL 02/02/19 03/17/24 History (Hair,Skin and Nails tablet) olopatadine 0.2 % eye drops 1 drp ophthalmic (eye) QAM 02/02/19 03/17/24 History (Pataday) fenofibrate nanocrystallized 145 145 mg PO QAM 02/21/20 03/17/24 History mg tablet telmisartan 80 mg tablet 80 mg PO QPM 06/06/20 03/17/24 History blood sugar diagnostic (Accu-Chek #10 ea 09/24/20 02/24/24 History Guide test strips) flash glucose sensor (FreeStyle #1 ea 09/24/20 02/24/24 History Maria 2 Sensor kit) nifedipine 60 mg tablet,extended 60 mg PO QAM 10/29/20 03/17/24 History release folic acid 1 mg tablet 1 mg PO QDL 04/17/21 03/17/24 History spironolactone 25 mg tablet 12.5 mg PO QAM 04/17/21 03/17/24 History methotrexate (PF) 30 mg/0.6 mL 30 mg subcut .weekly 06/24/21 03/17/24 History subcutaneous auto-injector meclizine 25 mg tablet 25 mg PO TID Vertigo 09/25/21 03/17/24 History fluticasone propionate 50 2 spray intranasal QAM #1 g 10/22/21 03/17/24 History mcg/actuation nasal spray,suspension metformin 500 mg tablet,extended 2,000 mg PO QPM 01/27/22 03/17/24 History release 24 hr clonidine HCl 0.3 mg tablet 0.3 mg PO BID 09/14/22 03/17/24 History metoprolol tartrate 100 mg tablet 100 mg PO UD 09/14/22 03/17/24 History venlafaxine 225 mg tablet,extended 225 mg PO HS 09/14/22 03/17/24 History release 24 hr rosuvastatin 10 mg tablet 10 mg PO HS 12/28/22 03/17/24 History aspirin 81 mg tablet,delayed 81 mg PO QAM 03/23/23 03/17/24 History release diazepam 5 mg tablet (Valium) 5 mg PO BID PRN Anxiety 03/23/23 03/17/24 History icosapent ethyl 1 gram capsule 1 g PO BID 03/23/23 03/17/24 History timolol 0.5 % eye drops 1 drp ophthalmic (eye) BID 03/23/23 03/17/24 History linaclotide 145 mcg capsule 145 mcg PO QAM 06/16/23 03/17/24 History (Linzess) pantoprazole 40 mg tablet,delayed 40 mg PO DAILY 07/28/23 03/17/24 History release acetaminophen 500 mg tablet 1,300 mg PO UD PRN Pain 08/04/23 03/17/24 History (Acetaminophen Extra Strength) insulin aspart U-100 100 unit/mL 30 unit (0.3 mL) subcut TID PRN 03/28/24 09/13/24 Rx (3 mL) subcutaneous pen (Novolog diabetes #30 mL FlexPen U-100 Insulin aspart) insulin degludec 100 unit/mL (3 50 unit (0.5 mL) subcut QAM #15 mL 09/30/23 03/17/24 Rx mL) subcutaneous pen (Tresiba FlexTouch U-100 insulin) pen needle, diabetic 32 gauge x #500 ea 09/30/23 02/24/24 Rx 5/32" (BD Ultra-Fine [place] Pen Needle) empagliflozin 25 mg tablet 25 mg PO QAM #30 tabs 12/02/23 03/17/24 Rx (Jardiance) budesonide 32 mcg/actuation nasal 2 spray intranasal HS 12/21/23 03/17/24 History spray gabapentin 300 mg capsule 300 mg PO QID 30 days #120 caps 02/03/24 03/17/24 Rx aspirin 25 mg-dipyridamole 200 mg 1 cap PO BID #180 caps 02/24/24 03/17/24 Rx capsule,ext.release 12 hr multiphase chlorthalidone 25 mg tablet 25 mg PO DAILY 03/17/24 03/17/24 History famotidine 20 mg tablet 20 mg PO BID 03/17/24 03/17/24 History Patient History Medical History History of kidney stones Diabetes mellitus, type 2 free style maria in use Hyperparathyroidism "possibly" Depression Sarcoidosis dx left eye Hx of transient ischemic attack (TIA) ? November 2022 possibly>follows with Dr. Siu and [facility] neurologist Stroke x 3>last one 2019 (still has vertigo from event, generalized weakness and balance problems) Hyperlipidemia Cardiac murmur follows with Dr. Blankenship Hx of gout Sleep apnea asv machine>bipap Environmental allergies Serum calcium elevated Acquired buried penis Dysarthria Allergic rhinitis Arthralgia of multiple sites Constipation Chronic back pain Fatty liver disease, nonalcoholic GERD (gastroesophageal reflux disease) Psoriasis Glaucoma bilt Hypertension Surgical History History of colonoscopy History of tooth extraction H/O eye surgery left eye biopsy History of lumbar spinal fusion History of removal of cyst at umbilicus History of appendectomy History of esophagogastroduodenoscopy (EGD) History of wisdom tooth extraction History of tonsillectomy and adenoidectomy x2 Status post myringotomy with tube placement of both ears Family History Mother Family history of reaction to anesthesia during heart valve replacement became combative and forgetful Family history of diabetes mellitus Hypertension Stroke, Onset Age: 62 Grandmother (Maternal) Family history of diabetes mellitus Grandfather (Maternal) Family hx of colon cancer Father Stroke, Onset Age: 53 Atherosclerotic cerebrovascular disease patient reported posterior large vessel disease Social History Smoking Status: Never smoker Second Hand Exposure: Yes (stepfather smoked); Do You Dip or Chew Tobacco: No; Hx Alcohol Use: Yes Alcohol type: beer, wine and hard liquor Alcohol Intake Frequency Comment: STATED DRINKS ONCE WEEKLY Preferred Language: [place] Citizen Communication Ability: Effective Visual Impairment: No Limitations Hearing Ability: Normal Adolescent Counselor Required: No Beliefs That Will Affect Care: None marital status: Single Current Living Situation: Parent Current Living Situation Comment: lives with mom, MOTHER ABLE TO ASSIST WITH CARE NEEDED 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al status: employed and disabled 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[place], 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 Feels Safe at Home: Yes Diet: diabetic, low carbohydrate and low salt Diet Comment: CARB COUNTING during the past year weight has: decreased > 10 lbs Assistive Devices: BiPap, Contacts and Walker Review of Systems Review of Systems: REVIEW OF SYSTEMS: Constitutional: (+) fever, sweats or chills Eyes: No diplopia, no worsening or blurred vision ENT: (+) normal hearing, no trouble swallowing Respiratory: (+) dyspnea with exertion, No cough, sputum, Cardiovascular: (+) dizziness, No chest pain, tightness or palpitations Abdomen: (+) suprapubic lower abdominal pain, nausea, NO vomiting, diarrhea or constipation Neurologic: (+) balance issues, No change in baseline weakness, No numbness/tingling, or balance problems Psychiatric: (+) anxiety or depression Skin: (+) chronic venous insufficiency Physical Exam Physical Exam: PHYSICAL EXAM: General: awake, alert, no apparent distress Head: Normocephalic, atraumatic ENT: PERRLA, EOMI, poor dentition with multiple carries, was treated, no pain o r purulence, mucous membranes moist Neuro: AAO x 3, speech clear and appropriate, strength intact bilaterally 5/5 Left upper/lower, 4/5 right upper and lower, sensation intact and equal all extremities and dermatomes, no pronator drift Chest: equal rise and fall of the chest, no accessory muscle use, no heaves or thrills, diminished in bases likely secondary to body habitus on 2LNC Cardiac: Regular rate and rhythm, telemetry reviewed- NSR, skin warm dry, cap refill <3 seconds, peripheral pulses +2 no JVD, S1S2 diminished secondary to body habitus, no edema GI: NABS x 4 quadrants, soft, nontender to palpation, no rebound, guarding or tenderness : Spontaneously voiding, suprapubic tenderness with palpation, no blood in urine Psych: Normal mood and affect Results & Data Results & Data Vital Signs (Past 12 Hours) Vital Signs Temp Pulse Pulse Resp BP BP Pulse Ox 03/17/24 19:00 100/76 03/17/24 19:00 84 20 03/17/24 18:55 108/77 03/17/24 18:54 84 21 03/17/24 18:50 117/74 03/17/24 18:50 117/74 03/17/24 18:50 117/74 03/17/24 18:50 117/74 03/17/24 18:48 84 17 03/17/24 18:45 114/77 03/17/24 18:45 114/77 03/17/24 18:45 114/77 03/17/24 18:45 114/77 03/17/24 18:45 84 17 95 03/17/24 18:42 82 21 94 03/17/24 18:40 119/70 03/17/24 18:40 119/70 03/17/24 18:39 81 18 91 03/17/24 18:36 113/67 03/17/24 18:36 113/67 03/17/24 18:25 107/75 03/17/24 18:20 113/75 03/17/24 18:20 113/75 03/17/24 18:15 114/75 03/17/24 18:10 108/75 03/17/24 18:06 82 19 95 03/17/24 18:05 112/72 03/17/24 18:05 112/72 03/17/24 18:00 115/72 03/17/24 18:00 81 17 91 03/17/24 18:00 36.6 C 03/17/24 17:57 77 20 95 03/17/24 17:55 112/70 03/17/24 17:55 112/70 03/17/24 17:55 112/70 03/17/24 17:54 80 24 97 03/17/24 17:50 98/74 L 03/17/24 17:46 115/63 03/17/24 17:45 89/56 L 03/17/24 17:36 80 21 03/17/24 17:35 105/69 03/17/24 17:35 105/69 03/17/24 17:30 104/71 03/17/24 17:30 104/71 03/17/24 17:30 79 16 96 03/17/24 17:21 81 18 94 03/17/24 17:20 104/71 03/17/24 17:20 104/71 03/17/24 17:18 80 17 93 03/17/24 17:15 105/67 03/17/24 17:15 105/67 03/17/24 17:06 79 20 98 03/17/24 17:05 92/64 L 03/17/24 17:05 92/64 L 03/17/24 17:05 92/64 L 03/17/24 16:55 102/67 03/17/24 16:55 102/67 03/17/24 16:55 102/67 03/17/24 16:51 80 29 H 96 03/17/24 16:50 91/63 L 03/17/24 16:50 91/63 L 03/17/24 16:39 77 14 99 03/17/24 16:39 71/47 L 03/17/24 16:31 77 23 66/50 L 95 03/17/24 16:30 66/50 L 03/17/24 16:21 74 11 L 92 03/17/24 16:19 73/48 L 03/17/24 16:19 73/48 L 03/17/24 16:19 73/48 L 03/17/24 16:18 75 15 93 03/17/24 16:14 71/50 L 03/17/24 15:57 82 19 98 03/17/24 15:55 74/53 L 03/17/24 15:54 83 03/17/24 15:51 81 18 98 03/17/24 15:50 77/51 L 03/17/24 15:50 77/51 L 03/17/24 15:44 82/48 L 03/17/24 15:40 71/47 L 03/17/24 15:40 71/47 L 03/17/24 15:40 83 16 71/47 L 96 03/17/24 15:36 72/52 L 03/17/24 15:33 03/17/24 15:26 92 03/17/24 15:25 37.5 C 86 18 73/50 L 90 O2 Del Method O2 Flow Rate 03/17/24 19:00 03/17/24 19:00 03/17/24 18:55 03/17/24 18:54 03/17/24 18:50 03/17/24 18:50 03/17/24 18:50 03/17/24 18:50 03/17/24 18:48 03/17/24 18:45 03/17/24 18:45 03/17/24 18:45 03/17/24 18:45 03/17/24 18:45 03/17/24 18:42 03/17/24 18:40 03/17/24 18:40 03/17/24 18:39 03/17/24 18:36 03/17/24 18:36 03/17/24 18:25 03/17/24 18:20 03/17/24 18:20 03/17/24 18:15 03/17/24 18:10 03/17/24 18:06 03/17/24 18:05 03/17/24 18:05 03/17/24 18:00 03/17/24 18:00 03/17/24 18:00 03/17/24 17:57 03/17/24 17:55 03/17/24 17:55 03/17/24 17:55 03/17/24 17:54 03/17/24 17:50 03/17/24 17:46 03/17/24 17:45 03/17/24 17:36 03/17/24 17:35 03/17/24 17:35 03/17/24 17:30 03/17/24 17:30 03/17/24 17:30 03/17/24 17:21 03/17/24 17:20 03/17/24 17:20 03/17/24 17:18 03/17/24 17:15 03/17/24 17:15 03/17/24 17:06 Nasal Cannula 4 03/17/24 17:05 03/17/24 17:05 03/17/24 17:05 03/17/24 16:55 03/17/24 16:55 03/17/24 16:55 03/17/24 16:51 Nasal Cannula 4 03/17/24 16:50 03/17/24 16:50 03/17/24 16:39 03/17/24 16:39 03/17/24 16:31 Nasal Cannula 4 03/17/24 16:30 03/17/24 16:21 03/17/24 16:19 03/17/24 16:19 03/17/24 16:19 03/17/24 16:18 03/17/24 16:14 03/17/24 15:57 03/17/24 15:55 03/17/24 15:54 03/17/24 15:51 03/17/24 15:50 03/17/24 15:50 03/17/24 15:44 03/17/24 15:40 03/17/24 15:40 03/17/24 15:40 Nasal Cannula 4 03/17/24 15:36 03/17/24 15:33 Nasal Cannula 03/17/24 15:26 Nasal Cannula 03/17/24 15:25 Nasal Cannula 4 Laboratory Results Abnormal lab results 03/17/24 03/17/24 03/17/24 Range/Units 12:07 15:24 15:34 RBC 3.50 L (4.70-6.10) M/uL Hgb 10.7 L (14.0-18.0) g/dl POC Hgb (14.0-18.0) g/dl Hct 32.9 L (42.0-52.0) % POC Hct (42-52) % RDW Std Deviation 64.6 H (36.4-46.3) fL RDW Coeff of [place] 19.5 H (11.5-14.5) % MPV 9.3 L (9.4-12.4) fL Neut # (Auto) 7.47 H (1.40-6.50) K/uL Lymph # (Auto) 1.00 L (1.20-3.40) K/uL [place] # (Auto) 1.32 H (0.11-0.59) K/uL PT 12.3 H (9.0-12.0) Seconds VBG pH (7.36-7.41) VBG pCO2 (38-50) mmHg Sodium 134 L (136-145) mmol/L Potassium 3.3 L (3.5-5.1) mmol/L POC Chloride (101-112) mmol/L POC Total CO2 (24-31) mmol/L POC BUN (7-18) mg/dl BUN 38 H (6-23) mg/dl Creatinine 2.36 H (0.6-1.4) mg/dl POC Creatinine (0.6-1.3) mg/dl Glucose 270 H (70-99(Fasting)) mg/dl POC Glucose (other) (70-99) mg/dl Total Bilirubin 1.6 H (0.2-1.0) mg/dl AST 12 L (13-39) U/L Procalcitonin 13.00 H (0-0.5) ng/ml Urine Appearance Turbid A (Clear) Ur Specific [place] 1.037 H (1.000-1.030) Urine Protein 2+ H (Negative) Urine Glucose (UA) 3+ H (Negative) Urine Blood 3+ H (Negative) Ur Leukocyte Esterase 2+ H (Negative) Urine WBC (Auto) >50 H (0-5) /hpf Urine RBC (Auto) 3-5 H (0-2) /hpf U Epithel Cells (Auto) 3-5 H (0-2) /hpf Urine Bacteria (Auto) 2+ H (None Seen) SARS-CoV-2 (PCR) (NotDetected) 03/17/24 03/17/24 Range/Units 15:40 15:44 RBC (4.70-6.10) M/uL Hgb (14.0-18.0) g/dl POC Hgb 10.9 L (14.0-18.0) g/dl Hct (42.0-52.0) % POC Hct 32 L (42-52) % RDW Std Deviation (36.4-46.3) fL RDW Coeff of [place] (11.5-14.5) % MPV (9.4-12.4) fL Neut # (Auto) (1.40-6.50) K/uL Lymph # (Auto) (1.20-3.40) K/uL [place] # (Auto) (0.11-0.59) K/uL PT (9.0-12.0) Seconds VBG pH 7.46 H (7.36-7.41) VBG pCO2 37 L (38-50) mmHg Sodium (136-145) mmol/L Potassium (3.5-5.1) mmol/L POC Chloride 99 L (101-112) mmol/L POC Total CO2 23 L (24-31) mmol/L POC BUN 34 H (7-18) mg/dl BUN (6-23) mg/dl Creatinine (0.6-1.4) mg/dl POC Creatinine 2.6 H (0.6-1.3) mg/dl Glucose (70-99(Fasting)) mg/dl POC Glucose (other) 269 H (70-99) mg/dl Total Bilirubin (0.2-1.0) mg/dl AST (13-39) U/L Procalcitonin (0-0.5) ng/ml Urine Appearance (Clear) Ur Specific [place] (1.000-1.030) Urine Protein (Negative) Urine Glucose (UA) (Negative) Urine Blood (Negative) Ur Leukocyte Esterase (Negative) Urine WBC (Auto) (0-5) /hpf Urine RBC (Auto) (0-2) /hpf U Epithel Cells (Auto) (0-2) /hpf Urine Bacteria (Auto) (None Seen) SARS-CoV-2 (PCR) DETECTED A (NotDetected) Diagnostic Findings Abdomen/Pelvis CTA 03/17/24 15:33 CT angio abdomen pelvis w con CLINICAL HISTORY: Lower abdominal pain, hypotension TECHNIQUE: Multidetector row helical CT of the abdomen and pelvis was performed, following intravenous administration of iodinated contrast. No oral contrast was administered. Automated dose lowering techniques and/or adjustment according to patient size were utilized for this exam. Coronal and sagittal reformations were obtained. MIP and 3D volume rendered reconstructions were obtained. CT DOSE: 2479.61 mGy.cm Comparison: Comparison is made to CT chest 03/17/2024 FINDINGS: Lower chest: Bibasilar atelectasis versus scarring is seen. Liver: Hepatic steatosis is noted. Gallbladder and biliary tree: No calcified gallstones. Normal caliber wall. No intra- or extrahepatic biliary ductal dilation. Pancreas: Unremarkable, no focal lesions. Spleen: A tiny left adrenal nodule measures 8 mm. Adrenals: Unremarkable. Kidneys and ureters: Unremarkable. Bladder: Diffuse homogeneous wall thickening is seen. Reproductive organs: Unremarkable. Bowel: Diverticulosis is seen without evidence of diverticulitis. Lymph nodes Retroperitoneal: Unremarkable. Pelvic: Unremarkable. Mesenteric: Unremarkable. Peritoneum: Normal. Abdominal wall: Unremarkable. Bones: Unremarkable. CT angiogram: The abdominal aortic contours appear intact without evidence of aneurysmal dilatation and/or dissection. There is evidence of scattered atherosclerotic calcifications of the abdominal aorta and its major branches. The origins of the celiac axis, superior mesenteric, inferior mesenteric and bilateral renal arteries are patent. IMPRESSION: No acute abnormalities and in particular no evidence of retroperitoneal hemorrhage. ACT 112: Negative or not required by law. Electronically signed by: Celio Montesinos M.D. 03/17/2024 4:28 PM Chest CTA 03/17/24 15:54 CT angio chest dissec wo/w con HISTORY: 53 years-old Male abd pain, hypotension acute generalized chest and abdominal pain COMPARISON: CTA abdomen and pelvis of same day TECHNIQUE: CTA of the chest was obtained with and without IV contrast. All measurements were obtained according to NASCET criteria. 3-D coronal and sagittal maps were obtained and transmitted for review. A dose lowering technique was used consistent with the principals of DREW. FINDINGS: Mild cardiomegaly. No pericardial effusion. Extensive coronary artery calcifications. No thoracic aortic aneurysm or dissection. There is mild atherosclerosis of the thoracic aorta. No intramural or mediastinal hematoma. No pulmonary emboli identified. No definite thyroid nodule or lymphadenopathy. No pneumothorax, pleural effusion, airspace consolidation or pulmonary edema. No suspicious pulmonary nodules or masses. Central airways are patent. Hepatosplenomegaly with hepatic steatosis. Tiny hiatal hernia. Bones appear intact. IMPRESSION: 1. Unremarkable CTA of the chest. 2. Extensive coronary artery calcifications. ACT 112: Negative or not required by law. The above report was generated using voice recognition software. It may contain grammatical, syntax or spelling errors. Electronically signed by: Fredrick Ferreira M.D. 03/17/2024 4:42 PM Medications Administered Home Medications allopurinol 300 mg tablet 300 mg PO QAM 02/01/19 [History Confirmed 03/17/24] coenzyme Q10 100 mg capsule 100 mg PO QDL 02/01/19 [History Confirmed 03/17/24] fexofenadine 180 mg tablet 180 mg PO BID #90 tabs 02/01/19 [History Confirmed 03/17/24] hydrocortisone 1 % topical cream 1 appln topical DAILY PRN Rash 02/01/19 [History Confirmed 03/17/24] montelukast 10 mg tablet 10 mg PO QPM #30 tabs 02/01/19 [History Confirmed 0 03/17/24] propylene glycol 0.6 % eye drops (Systane Balance) 2 drops ophthalmic (eye) UD PRN Dry Eye(S) 02/01/19 [History Confirmed 03/17/24] ustekinumab 90 mg/mL subcutaneous syringe (Stelara) 90 mg subcut UD 02/01/19 [History Confirmed 03/17/24] ketotifen fumarate 0.025 % (0.035 %) eye drops (Zaditor) 1 drp ophthalmic (eye) BID 02/02/19 [History Confirmed 03/17/24] multivitamin with minerals (Hair,Skin and Nails tablet) 3 tab PO QDL 02/02/19 [History Confirmed 03/17/24] olopatadine 0.2 % eye drops (Pataday) 1 drp ophthalmic (eye) QAM 02/02/19 [History Confirmed 03/17/24] fenofibrate nanocrystallized 145 mg tablet 145 mg PO QAM 02/21/20 [History Confirmed 03/17/24] telmisartan 80 mg tablet 80 mg PO QPM 06/06/20 [History Confirmed 03/17/24] blood sugar diagnostic (Accu-Chek Guide test strips) #10 ea 09/24/20 [History Confirmed 02/24/24] flash glucose sensor (FreeStyle Maria 2 Sensor kit) #1 ea 09/24/20 [History Confirmed 02/24/24] nifedipine 60 mg tablet,extended release 60 mg PO QAM 10/29/20 [History Confirmed 03/17/24] folic acid 1 mg tablet 1 mg PO QDL 04/17/21 [History Confirmed 03/17/24] spironolactone 25 mg tablet 12.5 mg PO QAM 04/17/21 [History Confirmed 03/17/24] methotrexate (PF) 30 mg/0.6 mL subcutaneous auto-injector 30 mg subcut .weekly 06/24/21 [History Confirmed 03/17/24] meclizine 25 mg tablet 25 mg PO TID Vertigo 09/25/21 [History Confirmed 03/17/24] fluticasone propionate 50 mcg/actuation nasal spray,suspension 2 spray intranasal QAM #1 g 10/22/21 [History Confirmed 03/17/24] metformin 500 mg tablet,extended release 24 hr 2,000 mg PO QPM 01/27/22 [History Confirmed 03/17/24] clonidine HCl 0.3 mg tablet 0.3 mg PO BID 09/14/22 [History Confirmed 03/17/24] metoprolol tartrate 100 mg tablet 100 mg PO UD 09/14/22 [History Confirmed 03/17/24] venlafaxine 225 mg tablet,extended release 24 hr 225 mg PO HS 09/14/22 [History Confirmed 03/17/24] rosuvastatin 10 mg tablet 10 mg PO HS 12/28/22 [History Confirmed 03/17/24] aspirin 81 mg tablet,delayed release 81 mg PO QAM 03/23/23 [History Confirmed 03/17/24] diazepam 5 mg tablet (Valium) 5 mg PO BID PRN Anxiety 03/23/23 [History Confirmed 03/17/24] icosapent ethyl 1 gram capsule 1 g PO BID 03/23/23 [History Confirmed 03/17/24] timolol 0.5 % eye drops 1 drp ophthalmic (eye) BID 03/23/23 [History Confirmed 03/17/24] linaclotide 145 mcg capsule (Linzess) 145 mcg PO QAM 06/16/23 [History Confirmed 03/17/24] pantoprazole 40 mg tablet,delayed release 40 mg PO DAILY 07/28/23 [History Confirmed 03/17/24] acetaminophen 500 mg tablet (Acetaminophen Extra Strength) 1,300 mg PO UD PRN Pain 08/04/23 [History Confirmed 03/17/24] insulin aspart U-100 100 unit/mL (3 mL) subcutaneous pen (Novolog FlexPen U-100 Insulin aspart) 30 unit (0.3 mL) subcut TID PRN diabetes #30 mL 09/30/23 [Rx Confirmed 03/17/24] insulin degludec 100 unit/mL (3 mL) subcutaneous pen (Tresiba FlexTouch U-100 insulin) 50 unit (0.5 mL) subcut QAM #15 mL 09/30/23 [Rx Confirmed 03/17/24] pen needle, diabetic 32 gauge x 5/32" (BD Ultra-Fine [place] Pen Needle) #500 ea 09/30/23 [Rx Confirmed 02/24/24] empagliflozin 25 mg tablet (Jardiance) 25 mg PO QAM #30 tabs 12/02/23 [Rx Confirmed 03/17/24] budesonide 32 mcg/actuation nasal spray 2 spray intranasal HS 12/21/23 [History Confirmed 03/17/24] gabapentin 300 mg capsule 300 mg PO QID 30 days #120 caps 02/03/24 [Rx Confirmed 03/17/24] aspirin 25 mg-dipyridamole 200 mg capsule,ext.release 12 hr multiphase 1 cap PO BID #180 caps 02/24/24 [Rx Confirmed 03/17/24] chlorthalidone 25 mg tablet 25 mg PO DAILY 03/17/24 [History Confirmed 03/17/24] famotidine 20 mg tablet 20 mg PO BID 03/17/24 [History Confirmed 03/17/24] Active Medications Hydrocortisone Sodium Succinate (Hydrocortisone Sod Succinate 100 Mg/2 Ml Vial) 50 mg IV Q6H [facility] Stop: 04/17/24 00:00 Norepinephrine Bitartrate (Levophed/D5w) 4 mg in 250 mls @ 27.116 mls/hr IV .Q9H14M SONI; Protocol Stop: 04/16/24 16:44 Last Titration: 03/17/24 17:25 Dose: 0.07 mcg/kg/min, 27.1 mls/hr ECG Additional Comments: Normal sinus rhythm Left axis deviation Moderate voltage criteria for LVH, may be normal variant(R in aVL,[place] product) Nonspecific ST and T wave abnormality Prolonged QT Abnormal ECG When compared with ECG 16:36, T wave inversion less evident inLateral leads Coding Level of Care Code 49237 CRITICAL CARE 1ST 30-74M Diagnoses Shock R57.9 Sepsis A41.9 UTI (urinary tract infection) N39.0 COVID U07.1 VITOR (acute kidney injury) N17.9 Diabetes mellitus, type 2 E11.9 Obstructive sleep apnea G47.33 History of CVA (cerebrovascular accident) Z86.73 History of lumbar fusion Z98.1 Chronic kidney disease, stage III (moderate) N18.30
[2024-03-17] MEDS ORDERED: PHARMACY GLYCEMIC MGMT CONSULT PRN (20:53)
[2024-03-17] MEDS ORDERED: GLUCOSE 40% GEL 15 GM TUBE PO PRN (20:53)
[2024-03-17] MEDS ORDERED: CARBOHYDRATES FOR HYPOGLYCEMIA PO PRN (20:53)
[2024-03-17] MEDS ORDERED: diazePAM 5 MG TABLET PO PRN (20:53)
[2024-03-17] MEDS ORDERED: GLUCOSE 10 TAB/TUBE PO PRN (20:53)
[2024-03-17] MEDS ORDERED: DEXTROSE 50% 50 ML SYRINGE IV PRN (20:53)
[2024-03-17] MEDS ORDERED: GLUCAGON FOR INJ 1 MG VIAL SQ PRN (20:53)
[2024-03-17] MEDS ORDERED: ICU Protocol for HYPERglycemia SCH (21:00)
[2024-03-17] MEDS ORDERED: ARTIFICIAL TEARS OP PRN (21:17)
[2024-03-17] MEDS: PLASMA-LYTE A 1,000 ML IV ONE (21:17)
[2024-03-17] MEDS ORDERED: ALBUTEROL 0.083% NEBU SOLN 3 ML VIAL NEB PRN (21:20)
[2024-03-17] MEDS: CHLORHEXIDINE GLUCONATE 0.12% 480 ML MT SCH (22:05)
[2024-03-17] MEDS: FEXOFENADINE HCL 180 MG TAB PO SCH (22:06)
[2024-03-17] MEDS: PIPERACILLIN/TAZOBACTAM 4.5 GM/100 ML BAG IV SCH (22:06)
[2024-03-17] MEDS: FAMOTIDINE 20 MG TAB PO SCH (22:06)
[2024-03-17] MEDS: MONTELUKAST SODIUM 10 MG TABLET PO SCH (22:07)
[2024-03-17] MEDS: ROSUVASTATIN CALCIUM 10 MG TAB PO SCH (22:07)
[2024-03-17] MEDS: MECLIZINE HCL 25 MG TAB PO SCH (22:07)
[2024-03-17] MEDS: INSULIN ASPART PER UNIT CHARGE SC SCH (22:26)
[2024-03-17] MEDS: HEPARIN SOD 5,000 UNIT/0.5 ML VIAL SQ SCH (22:26)
[2024-03-17] MEDS: DIPYRIDAMOLE/ASPIRIN CAP PO SCH (23:11)
[2024-03-17] MEDS: LANTUS PER UNIT CHARGE SQ SCH (23:11)
[2024-03-17] MEDS: HYDROCORTISONE SOD 50 MG in SYRINGE 0 ML IV SCH (23:12)
[2024-03-18] MEDS ORDERED: HYDROCORTISONE SOD SUCCINATE 100 MG/2 ML VIAL IV SCH
[2024-03-18] MEDS: INSULIN ASPART PER UNIT CHARGE SC ONE (01:48)
[2024-03-18 04:27] LABS: Eosinophils # (auto) 0.01 K/uL (0.00-0.50); Eosinophils % (auto) 0.1 %; Hematocrit (blood only) 31.8 % (42.0-52.0); Hemoglobin 10.2 g/dl (14.0-18.0); Immature Granulocytes # (auto) 0.04 K/uL (0.01-0.20); Immature Granulocytes % (auto) 0.6 %; Lymphocytes # (auto) 0.39 K/uL (1.20-3.40); Lymphocytes % (auto) 5.8 %; Mean Corpuscular Hemoglobin 30.6 pg (25.0-34.0); Mean Corpuscular Hgb Conc 32.1 g/dL (32.0-36.0); Mean Corpuscular Volume 95.5 fL (80.0-100.0); Mean Platelet Volume 8.8 fL (9.4-12.4); Monocytes % (auto) 7.5 %; Neutrophils # (auto) 5.76 K/uL (1.40-6.50); Platelet Count 162 K/uL (130-400); RDW Standard Deviation 65.3 fL (36.4-46.3); Red Blood Count 3.33 M/uL (4.70-6.10)
[2024-03-18 04:42] LABS: BUN Creatinine Ratio 21.4 (10-20); Calcium 9.3 mg/dl (8.6-10.3); Creatinine Clr Calc Pharmacy 58.3 ml/min; Est GFR (African American) 51.1 ml/min; Est GFR (Non-African American) 44.1 ml/min; Magnesium 2.2 mg/dl (1.7-2.4); Potassium 3.7 mmol/L (3.5-5.1)
[2024-03-18] MEDS ORDERED: LANTUS PER UNIT CHARGE SQ ONE (07:15)
--- NOTE | 2024-03-18 07:34 | Critical Care Progress Note ---
Date of Service March 18, 2024 Assessment & Plan Admission and Anticipated Discharge Date Admission Date: March 17, 2024 Supervising Physician Co-Signing Physician Notes Reason Critically Ill: 53 YOM presents to the EMD with refractory hypotension requiring vasopressor support in setting of UTI, LYNSEY II on CKD, and COVID 19. Neuro - Hx CVA with residual right sided weakness, hx of lumbar fusion CAM ICU: Negative - Neurological exam is at baseline per patient with no acute changes and no specific pain along the spinal column - Continue his stroke prevention with asa and Aggrenox as per recent neurology note. Cardiac - Shock- multifactorial, sepsis -S/p shock Multifactorial to include- sepsis vs. medication vs hypovolemia - Cortisol was at 13- would expect this to be higher in shock state- will provide hydrocortisone 100 mg now and then 50mg q6 - ECG negative for STEMI, no CP, HsCTNI negative - CTA of chest also negative for PE Respiratory - COVID 19, CLAY CTA chest 03/17/2024 personally reviewed Motion degraded study Interfaced none appreciated bilateral lower lobes No pulmonary infiltrate appreciated No mediastinal lymphadenopathy -- Covid-19 No pulmonary infiltrate on the CTA chest - chronic allergic rhinitis- continue inhalers - KAYLEE prn - Hydrocortisone as above - CLAY on ASV at home with EPAP min/max 10/15 min PS min/max 3/15- BiPAP 14/10 while in the hospital GI - NO acute needs -Continue with pantoprazole RENAL/LYTES - -- VITOR on CKD III --> improving -Monitor BUNs/creatinine - electrolyte per ICU electrolyte protocol - UTI complicated- see below ID section - straight cath with bladder scans if needed ENDO - DMII - Hold oral agents while in house - ICU hyperglycemic protocol- basal/bolus insulin HEME - No acute needs ID - UTI, COVID --Complicated UTI UTI Follow-up urine culture Continue with antibiotic - oral cavity no abscess or tender area and no murmur on exam- however he is with multiple carries and states he is pending appointment for extraction - Completed course of clindamycin- Zosyn will cover currently- asymptomatic no facial pain or swelling - peridex oral rinse TID -On Stelara at home - COVID positive No signs of active infection in the lungs Would recommend against giving remdesivir --Prophylaxis VTE: Heparin GI: Pantoprazole Lines: Peripheral Diet: Cardiac Plan: In/out: +2.1 L, urine output 2300 mL Patient's creatinine is improving. Potassium being replaced Decrease hydrocortisone to 50 mg twice daily and gradually taper it off over the next 3 days. Hemodynamically stable to be downgrade to medical floor Please note the above document was generated using voice recognition software. It may contain grammatical, syntax or spelling errors.Any formal questions or concerns about the content, text or information contained within the body of this dictation should be directly addressed to the provider for clarification. Subjective Patient seen and examined. No acute distress Overnight patient needed oxygen when he was sleeping. He did not use his BiPAP at night Overall doing better. Systolic blood pressure in the high 110s. He has been off of vasopressors since 11 PM No nausea vomiting Review of Systems 2 Review of Systems: All systems reviewed & are unremarkable except as noted in Subjective Physical Exam 2 Physical Exam: Constitutional: No acute distress HEENT: EOMI, PERRLA Respiratory system: Decreased air entry bilaterally, no wheeze, no rhonchi, positive crackles bilateral lower lobes CVS: S1-S2 positive, no murmurs or gallops Abdomen: Soft, nontender, nondistended, positive bowel sounds x4, obese Extremities: +2 pulses bilaterally radialis/ dorsalis pedis, no cyanosis, +1 edema bilateral lower extremity, right-sided weakness Neuro: Awake alert oriented to self Psych: Normal mood and affect G/U: No [place] Skin: no rashes, warm and dry Lymphatic: no cervical or axillary lymphadenopathy Results & Data Results & Data Vital Signs (Past 12 Hours) Vital Signs Temp Pulse Resp BP Pulse Ox Pulse Ox O2 Del Method 03/18/24 06:00 79 13 98 03/18/24 06:00 120/70 03/18/24 06:00 120/70 03/18/24 05:33 81 15 97 03/18/24 05:30 116/71 03/18/24 05:30 116/71 03/18/24 05:30 116/71 03/18/24 05:27 80 14 96 03/18/24 05:21 82 13 97 03/18/24 05:00 108/70 03/18/24 05:00 108/70 03/18/24 04:48 77 12 98 03/18/24 04:30 77 12 98 03/18/24 04:00 107/67 03/18/24 04:00 107/67 03/18/24 04:00 107/67 03/18/24 04:00 78 15 100 03/18/24 04:00 37.1 C 03/18/24 04:00 95 03/18/24 03:42 78 19 100 03/18/24 03:30 102/64 03/18/24 03:21 72 14 100 03/18/24 03:18 73 11 L 100 03/18/24 03:00 106/63 03/18/24 03:00 73 13 100 03/18/24 02:30 74 8 L 98 03/18/24 02:03 75 15 98 03/18/24 02:00 105/65 03/18/24 02:00 105/65 03/18/24 01:51 82 15 98 03/18/24 01:30 75 18 97 03/18/24 01:09 77 18 96 03/18/24 00:36 77 25 H 96 03/18/24 00:15 80 16 95 03/18/24 00:00 37.3 C 03/18/24 00:00 99 03/18/24 00:00 79 03/18/24 00:00 94/62 L 03/18/24 00:00 94/62 L 03/17/24 23:54 78 21 100 03/17/24 23:36 Nasal Cannula 03/17/24 23:30 99/59 L 03/17/24 23:30 99/59 L 03/17/24 23:30 99/59 L 03/17/24 23:30 99/59 L 03/17/24 23:30 82 19 96 03/17/24 23:00 101/60 03/17/24 23:00 81 12 97 03/17/24 22:48 83 17 98 03/17/24 22:33 84 19 99 03/17/24 22:31 112/70 03/17/24 22:31 112/70 03/17/24 22:21 83 14 94 03/17/24 22:12 84 19 94 03/17/24 21:39 83 18 95 03/17/24 21:30 94/60 L 03/17/24 21:27 84 22 94 03/17/24 21:03 84 19 96 03/17/24 21:00 113/64 03/17/24 20:57 83 21 93 03/17/24 20:53 37.3 C 03/17/24 20:53 94 03/17/24 20:53 83 03/17/24 20:34 68 18 95/62 L 93 Nasal Cannula 03/17/24 20:32 84 23 97 03/17/24 20:30 119/70 03/17/24 20:30 119/70 03/17/24 20:27 118/69 03/17/24 20:26 83 20 95 03/17/24 19:56 95/69 L 03/17/24 19:54 83 20 03/17/24 19:50 106/69 03/17/24 19:45 104/65 03/17/24 19:42 83 18 92 03/17/24 19:40 106/69 03/17/24 19:40 106/69 03/17/24 19:40 106/69 03/17/24 19:40 106/69 03/17/24 19:39 84 22 03/17/24 19:35 111/70 03/17/24 19:35 111/70 03/17/24 19:35 111/70 03/17/24 19:35 111/70 03/17/24 19:33 84 18 93 03/17/24 19:30 113/73 03/17/24 19:30 113/73 03/17/24 19:30 113/73 03/17/24 19:30 84 17 91 O2 Del Method O2 Flow Rate O2 Flow Rate 03/18/24 06:00 03/18/24 06:00 03/18/24 06:00 03/18/24 05:33 03/18/24 05:30 03/18/24 05:30 03/18/24 05:30 03/18/24 05:27 03/18/24 05:21 03/18/24 05:00 03/18/24 05:00 03/18/24 04:48 03/18/24 04:30 03/18/24 04:00 03/18/24 04:00 03/18/24 04:00 03/18/24 04:00 03/18/24 04:00 03/18/24 04:00 Nasal Cannula 5 03/18/24 03:42 03/18/24 03:30 03/18/24 03:21 4 03/18/24 03:18 03/18/24 03:00 03/18/24 03:00 03/18/24 02:30 03/18/24 02:03 03/18/24 02:00 03/18/24 02:00 03/18/24 01:51 03/18/24 01:30 03/18/24 01:09 03/18/24 00:36 03/18/24 00:15 03/18/24 00:00 03/18/24 00:00 BiPAP 03/18/24 00:00 03/18/24 00:00 03/18/24 00:00 03/17/24 23:54 03/17/24 23:36 5 03/17/24 23:30 03/17/24 23:30 03/17/24 23:30 03/17/24 23:30 03/17/24 23:30 03/17/24 23:00 03/17/24 23:00 03/17/24 22:48 4 03/17/24 22:33 03/17/24 22:31 03/17/24 22:31 03/17/24 22:21 03/17/24 22:12 03/17/24 21:39 03/17/24 21:30 03/17/24 21:27 03/17/24 21:03 03/17/24 21:00 03/17/24 20:57 03/17/24 20:53 03/17/24 20:53 Nasal Cannula 5 03/17/24 20:53 03/17/24 20:34 5 03/17/24 20:32 03/17/24 20:30 03/17/24 20:30 03/17/24 20:27 03/17/24 20:26 03/17/24 19:56 03/17/24 19:54 03/17/24 19:50 03/17/24 19:45 03/17/24 19:42 03/17/24 19:40 03/17/24 19:40 03/17/24 19:40 03/17/24 19:40 03/17/24 19:39 03/17/24 19:35 03/17/24 19:35 03/17/24 19:35 03/17/24 19:35 03/17/24 19:33 03/17/24 19:30 03/17/24 19:30 03/17/24 19:30 03/17/24 19:30 Laboratory Results 03/18/24 04:13 03/18/24 04:13 Coding Level of Care Code 01842 SUB INP/OBS CARE MIN
[2024-03-18] MEDS: POTASSIUM CHLORIDE CRTAB 20 MEQ TABCR PO STA (08:04)
[2024-03-18] MEDS: PANTOprazole 40 MG TAB PO SCH (08:04)
[2024-03-18] MEDS: FLUTICASONE PROPIONATE NA SPR 16 GM BTL SCH (08:04)
[2024-03-18] MEDS: ASPIRIN 81 MG ECTAB PO SCH (08:04)
[2024-03-18] MEDS: FENOFIBRATE NANOCRYSTALLIZED 145 MG TABLET PO SCH (08:04)
[2024-03-18] MEDS: LINACLOTIDE 145 MCG CAPSULE PO SCH (08:04)
[2024-03-18] MEDS: allopurinoL 300 MG TAB PO SCH (08:05)
[2024-03-18] MEDS: LANTUS PER UNIT CHARGE SQ ONE (08:08)
--- NOTE | 2024-03-18 08:24 | Hospitalist Progress Note ---
Date of Service March 18, 2024 Assessment & Plan (1) Sepsis: Plan: Urinary source; tachypneic at 29 RPM, and reported fever at home; temperature 37.5 C on arrival Pt is also Covid + on arrival with no pneumonia seen on CT chest, however is hypoxic, started on dexamethasone, samirley capillary leak from sepsis Hypotension did require pressors, hold antihypertensives meds (nifedipine, metoprolol, clonidine) Zosyn iv Patient reports he did have a recent dental abscess, mssa leg cellulitis in the past, and recently completed a course of clindamycin at the end of February Will obtain echocardiogram to rule out endocarditis/MRSA bacteremia Stress dose steroids with hydrocortisone (2) VITOR (acute kidney injury): Plan: BUN 38, creatinine 2.36 (baseline 1.46), EGFR 30.3 Avoid nephrotoxic agents where possible Hold telmisartan, spironolactone, chlorthalidone Dose reduce gabapentin 600-->300mg QID [place] catheter inserted in the ED (3) Anemia: Plan: Hemoglobin 10.7 on arrival (most recently 13.3 on 12/15/2023) No retroperitoneal bleed on imaging No signs of active bleeding on clinical exam (4) Diabetes mellitus, type 2: Plan: Last A1c at 8.2% on 12/15/2023 Glucose 270 on admission - Hold metformin, empagliflozin Patient normally takes Lantus 50u QAM Will dose reduced to Lantus 12u BID in the setting of VITOR SSI; with target BSG range 110-140mg/dL, CF 20, carb ratio 8 (5) Urinary incontinence: Plan: New onset Patient does have a history of L4-L5 fusion in 1993, and does report that he fell this week onto his butt However, no saddle anesthesia on clinical exam A/P CT did not show retroperitoneal hemorrhage or signs of cord compression Patient's symptoms do not improve with above treatment, low threshold to obtain MRI of the lumbar spine to r/o cauda equina (6) History of CVA (cerebrovascular accident): Plan: CVA X 4; last in 2019 Residual right-sided upper and lower extremity deficits Continue Aggrenox Plan Full code heparin for dvt prevention Admission and Anticipated Discharge Date Admission Date: March 17, 2024 Subjective pt seen, now off oxygen, walking in room with walker feels improved eating no distress Physical Exam Physical Exam: awake alert and oriented cardiac is regular lungs are with some cough but clear abd is soft and no cva tenderness Results & Data Results & Data Vital Signs (Past 12 Hours) Vital Signs Temp Pulse Resp BP Pulse Ox Pulse Ox O2 Del Method 03/18/24 06:00 79 13 98 03/18/24 06:00 120/70 03/18/24 06:00 120/70 03/18/24 05:33 81 15 97 03/18/24 05:30 116/71 03/18/24 05:30 116/71 03/18/24 05:30 116/71 03/18/24 05:27 80 14 96 03/18/24 05:21 82 13 97 03/18/24 05:00 108/70 03/18/24 05:00 108/70 03/18/24 04:48 77 12 98 03/18/24 04:30 77 12 98 03/18/24 04:00 107/67 03/18/24 04:00 107/67 03/18/24 04:00 107/67 03/18/24 04:00 78 15 100 03/18/24 04:00 98.8 F 03/18/24 04:00 95 03/18/24 03:42 78 19 100 03/18/24 03:30 102/64 03/18/24 03:21 72 14 100 03/18/24 03:18 73 11 L 100 03/18/24 03:00 106/63 03/18/24 03:00 73 13 100 03/18/24 02:30 74 8 L 98 03/18/24 02:03 75 15 98 03/18/24 02:00 105/65 03/18/24 02:00 105/65 03/18/24 01:51 82 15 98 03/18/24 01:30 75 18 97 03/18/24 01:09 77 18 96 03/18/24 00:36 77 25 H 96 03/18/24 00:15 80 16 95 03/18/24 00:00 99.1 F 03/18/24 00:00 99 03/18/24 00:00 79 03/18/24 00:00 94/62 L 03/18/24 00:00 94/62 L 03/17/24 23:54 78 21 100 03/17/24 23:36 Nasal Cannula 03/17/24 23:30 99/59 L 03/17/24 23:30 99/59 L 03/17/24 23:30 99/59 L 03/17/24 23:30 99/59 L 03/17/24 23:30 82 19 96 03/17/24 23:00 101/60 03/17/24 23:00 81 12 97 03/17/24 22:48 83 17 98 03/17/24 22:33 84 19 99 03/17/24 22:31 112/70 03/17/24 22:31 112/70 03/17/24 22:21 83 14 94 03/17/24 22:12 84 19 94 03/17/24 21:39 83 18 95 03/17/24 21:30 94/60 L 03/17/24 21:27 84 22 94 03/17/24 21:03 84 19 96 03/17/24 21:00 113/64 03/17/24 20:57 83 21 93 03/17/24 20:53 99.1 F 03/17/24 20:53 94 03/17/24 20:53 83 03/17/24 20:34 68 18 95/62 L 93 Nasal Cannula 03/17/24 20:32 84 23 97 03/17/24 20:30 119/70 03/17/24 20:30 119/70 03/17/24 20:27 118/69 03/17/24 20:26 83 20 95 O2 Del Method O2 Flow Rate O2 Flow Rate 03/18/24 06:00 03/18/24 06:00 03/18/24 06:00 03/18/24 05:33 03/18/24 05:30 03/18/24 05:30 03/18/24 05:30 03/18/24 05:27 03/18/24 05:21 03/18/24 05:00 03/18/24 05:00 03/18/24 04:48 03/18/24 04:30 03/18/24 04:00 03/18/24 04:00 03/18/24 04:00 03/18/24 04:00 03/18/24 04:00 03/18/24 04:00 Nasal Cannula 5 03/18/24 03:42 03/18/24 03:30 03/18/24 03:21 4 03/18/24 03:18 03/18/24 03:00 03/18/24 03:00 03/18/24 02:30 03/18/24 02:03 03/18/24 02:00 03/18/24 02:00 03/18/24 01:51 03/18/24 01:30 03/18/24 01:09 03/18/24 00:36 03/18/24 00:15 03/18/24 00:00 03/18/24 00:00 BiPAP 03/18/24 00:00 03/18/24 00:00 03/18/24 00:00 03/17/24 23:54 03/17/24 23:36 5 03/17/24 23:30 03/17/24 23:30 03/17/24 23:30 03/17/24 23:30 03/17/24 23:30 03/17/24 23:00 03/17/24 23:00 03/17/24 22:48 4 03/17/24 22:33 03/17/24 22:31 03/17/24 22:31 03/17/24 22:21 03/17/24 22:12 03/17/24 21:39 03/17/24 21:30 03/17/24 21:27 03/17/24 21:03 03/17/24 21:00 03/17/24 20:57 03/17/24 20:53 03/17/24 20:53 Nasal Cannula 5 03/17/24 20:53 03/17/24 20:34 5 03/17/24 20:32 03/17/24 20:30 03/17/24 20:30 03/17/24 20:27 03/17/24 20:26 Laboratory Results review cbc review chemsitry PG Care Time/CCT Total # of Minutes Spent Total Time Spent with Patient: Total time spent is greater than 50% in coordination of care (as documented) at patient's floor/unit and/or counseling patient: Coding Level of Care Code 14650 SUB INP/OBS CARE 3/50MIN Diagnoses Sepsis A41.9 VITOR (acute kidney injury) N17.9 Anemia D64.9 Diabetes mellitus, type 2 E11.9 Urinary incontinence R32 History of CVA (cerebrovascular accident) Z86.73
[2024-03-18] MEDS: FOLIC ACID 1 MG TAB PO SCH (12:21)
--- NOTE | 2024-03-18 13:20 | Pharmacy Report ---
Pharmacy Glycemic Short Note 2 - Date of Service March 18, 2024 - Glycemic Short BSG Results (Last 24 hours): 03/17/24 03/17/24 03/17/24 15:34 15:40 22:15 Glucose 270 H POC Glucose 214 H POC Glucose (other) 269 H 03/18/24 03/18/24 03/18/24 01:43 04:13 07:47 Glucose 189 H POC Glucose 237 H 218 H POC Glucose (other) 03/18/24 10:54 Glucose POC Glucose 184 H POC Glucose (other) OUTPATIENT ANTIDIABETIC REGIMEN: * Tresiba 50 units SC qAM * Novolog 30 units SC TID + SSI * Jardiance 25 mg PO daily * Metformin 2 g PO qPM HbA1c: 8.2% (12/15/23) ASSESSMENT: * SD is a 53 year old male w/ urosepsis and COVID-19 previously requiring vasopressor support (norepinephrine now titrated off) * Ordered hydrocortisone 50 mg IV q12h and Zosyn (mixed in dextrose) * Hyperglycemic on presentation (BSG > 250 mg/dL), received 12 units of basal and ordered weight-based Novolog parameters * Will increase basal and tighten carb ratio today * Ordered clear liquid diet at this time * VITOR on CKD, SCr improving 2.36 -> 1.73 mg/dL (baseline ~1.3-1.4 mg/dL) PLAN FOR INPATIENT GLYCEMIC CONTROL: * Hold outpatient oral diabetes medications * Basal insulin * Lantus 18 units SC x 1 this morning * Lantus 6-12-18 units SQ HS * Reassess in AM * Bolus insulin * NovoLog per scale ACHS or Q6hrs while NPO * Goal Range: Low 110 mg/dL - High 140 mg/dL * Correction Factor: 20 mg/dL/unit * Nutritional / Prandial insulin per carb ratio of 1 unit per 7 grams CHO consumed
--- NOTE | 2024-03-18 18:30 | XCELERA ---
[id number] \\[id number]
[2024-03-18] MEDS ORDERED: LANTUS PER UNIT CHARGE SQ SCH (21:00)
[2024-03-18] MEDS: LANTUS PER UNIT CHARGE SQ SCH (21:41)
[2024-03-18] MEDS: HYDROCORTISONE SOD 50 MG in SYRINGE 0 ML IV SCH (21:43)
[2024-03-19 04:38] LABS: Eosinophils # (auto) 0.03 K/uL (0.00-0.50); Eosinophils % (auto) 0.8 %; Hematocrit (blood only) 33.4 % (42.0-52.0); Hemoglobin 10.8 g/dl (14.0-18.0); Immature Granulocytes # (auto) 0.01 K/uL (0.01-0.20); Immature Granulocytes % (auto) 0.3 %; Lymphocytes % (auto) 10.6 %; Mean Corpuscular Hemoglobin 30.3 pg (25.0-34.0); Mean Corpuscular Hgb Conc 32.3 g/dL (32.0-36.0); Mean Corpuscular Volume 93.6 fL (80.0-100.0); Mean Platelet Volume 8.9 fL (9.4-12.4); Monocytes # (auto) 0.58 K/uL (0.11-0.59); Monocytes % (auto) 15.4 %; Neutrophils # (auto) 2.74 K/uL (1.40-6.50); Neutrophils % (auto) 72.9 %; Platelet Count 204 K/uL (130-400); RDW Coefficient of Variation 18.6 % (11.5-14.5); RDW Standard Deviation 63.1 fL (36.4-46.3); Red Blood Count 3.57 M/uL (4.70-6.10); White Blood Count 3.76 K/ul (4.8-10.8)
[2024-03-19 04:58] LABS: BUN Creatinine Ratio 19.3 (10-20); Calcium 9.3 mg/dl (8.6-10.3); Creatinine Clr Calc Pharmacy 62.9 ml/min; Est GFR (African American) 55.8 ml/min; Est GFR (Non-African American) 48.1 ml/min; Potassium 3.5 mmol/L (3.5-5.1)
[2024-03-19] MEDS: LANTUS PER UNIT CHARGE SQ SCH (08:27)
[2024-03-19] MEDS: ERTAPENEM SODIUM 1,000 MG in SYRINGE 0 ML IV SCH (09:13)
--- NOTE | 2024-03-19 13:03 | Electrocardiogram Report ---
Test Reason : Blood Pressure : */* mmHG Vent. Rate : 83 BPM Atrial Rate : 83 BPM P-R Int : 202 ms QRS Dur : 112 ms QT Int : 400 ms P-R-T Axes : 28 -36 48 degrees QTcB Int : 470 ms Normal sinus rhythm Left axis deviation Moderate voltage criteria for LVH, may be normal variant ( R in aVL , [place] product ) Nonspecific ST and T wave abnormality Prolonged QT Abnormal ECG When compared with ECG of 06-Jan-2020 16:36, No significant change Confirmed by Roberto Chris ([id number]) on 03/19/2024 1:02:46 PM Referred By: REFERRED SELF Confirmed By: Roberto Chris
--- NOTE | 2024-03-19 17:51 | Hospitalist Progress Note ---
Date of Service March 19, 2024 Assessment & Plan (1) Sepsis: Plan: Urinary source; tachypneic at 29 RPM, and reported fever at home; temperature 37.5 C on arrival Pt is also Covid + on arrival with no pneumonia seen on CT chest, however is hypoxic, started on dexamethasone, fitz capillary leak from sepsis Hypotension did require pressors, now will resume antihypertensives meds (nifedipine, metoprolol, clonidine, temlisartan) * starting metoprolol at lower dose Zosyn iv switched to Ertapenem due to ESBL E coli Stress dose steroids with hydrocortisone now stopped (2) VITOR (acute kidney injury): Plan: resolving Avoid nephrotoxic agents where possible resume telmisartan, spironolactone, chlorthalidone Dose reduce gabapentin 600-->300mg QID [place] catheter inserted in the ED (3) Anemia: Plan: Hemoglobin 10.7 on arrival (most recently 13.3 on 12/15/2023) No retroperitoneal bleed on imaging No signs of active bleeding on clinical exam (4) Diabetes mellitus, type 2: Plan: Last A1c at 8.2% on 12/15/2023 Glucose 270 on admission - Hold metformin, empagliflozin Patient normally takes Lantus 50u QAM basal bolus insulin (5) Urinary incontinence: Plan: New onset, since resolved Patient does have a history of L4-L5 fusion in 1993, and does report that he fell this week onto his butt However, no saddle anesthesia on clinical exam A/P CT did not show retroperitoneal hemorrhage or signs of cord compression (6) History of CVA (cerebrovascular accident): Plan: CVA X 4; last in 2019 Residual right-sided upper and lower extremity deficits Continue Aggrenox Plan Full code heparin for dvt prevention Admission and Anticipated Discharge Date Admission Date: March 17, 2024 Subjective pt seen, now off oxygen, walking in room with walker feels improved, eating, no distress pt wants to try to make it home Physical Exam Physical Exam: awake alert and oriented cardiac is regular lungs are with some cough but clear abd is soft and no cva tenderness Results & Data Results & Data Vital Signs (Past 12 Hours) Vital Signs Temp Pulse Resp BP Pulse Ox Pulse Ox O2 Del Method 03/19/24 17:00 102 H 22 97 03/19/24 16:03 90 23 96 Nasal Cannula 03/19/24 16:00 171/100 H 09/15/24 16:00 89 03/19/24 15:36 91 H 24 97 03/19/24 14:00 82 22 97 03/19/24 14:00 156/105 H 03/19/24 13:56 168/95 H 03/19/24 13:54 86 17 96 03/19/24 12:06 75 20 95 03/19/24 12:00 174/107 H 03/19/24 11:54 67 19 95 Nasal Cannula 03/19/24 10:09 70 20 98 03/19/24 10:05 176/105 H 03/19/24 09:45 80 15 98 03/19/24 09:00 88 18 97 03/19/24 08:00 167/107 H 03/19/24 08:00 99 H 25 H 98 03/19/24 08:00 98.4 F 03/19/24 07:39 Nasal Cannula 03/19/24 07:29 Nasal Cannula 03/19/24 07:28 83 03/19/24 07:26 99 03/19/24 07:00 85 12 99 03/19/24 06:18 83 17 150/97 H 96 O2 Del Method O2 Flow Rate O2 Flow Rate FiO2 03/19/24 17:00 100 03/19/24 16:03 1 03/19/24 16:00 03/19/24 16:00 03/19/24 15:36 03/19/24 14:00 03/19/24 14:00 03/19/24 13:56 03/19/24 13:54 03/19/24 12:06 03/19/24 12:00 03/19/24 11:54 1 03/19/24 10:09 03/19/24 10:05 03/19/24 09:45 03/19/24 09:00 03/19/24 08:00 03/19/24 08:00 03/19/24 08:00 03/19/24 07:39 03/19/24 07:29 1 03/19/24 07:28 03/19/24 07:26 Nasal Cannula 1 03/19/24 07:00 03/19/24 06:18 PG Care Time/CCT Total # of Minutes Spent Total Time Spent with Patient: Total time spent is greater than 50% in coordination of care (as documented) at patient's floor/unit and/or counseling patient: Coding Level of Care Code 80699 SUB INP/OBS CARE MIN Diagnoses Sepsis A41.9 VITOR (acute kidney injury) N17.9 Anemia D64.9 Diabetes mellitus, type 2 E11.9 Urinary incontinence R32 History of CVA (cerebrovascular accident) Z86.73
[2024-03-19] MEDS: METOPROLOL TARTRATE 25 MG TAB PO ONE (21:03)
[2024-03-19] MEDS: cloNIDine HCL 0.3 MG TAB PO SCH (22:17)
[2024-03-19] MEDS: LOSARTAN POTASSIUM 50 MG TAB PO SCH (22:18)
[2024-03-19] MEDS: METOPROLOL TARTRATE 25 MG TAB PO SCH (22:28)
[2024-03-20 03:46] LABS: Basophils # (auto) 0.03 K/uL (0.00-0.20); Basophils % (auto) 0.9 %; Eosinophils # (auto) 0.06 K/uL (0.00-0.50); Eosinophils % (auto) 1.7 %; Hematocrit (blood only) 35.6 % (42.0-52.0); Hemoglobin 11.7 g/dl (14.0-18.0); Immature Granulocytes # (auto) 0.05 K/uL (0.01-0.20); Immature Granulocytes % (auto) 1.5 %; Lymphocytes # (auto) 0.87 K/uL (1.20-3.40); Lymphocytes % (auto) 25.3 %; Mean Corpuscular Hemoglobin 30.2 pg (25.0-34.0); Mean Corpuscular Hgb Conc 32.9 g/dL (32.0-36.0); Mean Platelet Volume 8.6 fL (9.4-12.4); Monocytes # (auto) 0.87 K/uL (0.11-0.59); Monocytes % (auto) 25.3 %; Neutrophils # (auto) 1.56 K/uL (1.40-6.50); Neutrophils % (auto) 45.3 %; Nucleated RBC # (auto) 0.02 K/uL (0.00-0.12); Nucleated RBC % (auto) 0.6 %; Platelet Count 206 K/uL (130-400); RDW Coefficient of Variation 18.5 % (11.5-14.5); RDW Standard Deviation 61.5 fL (36.4-46.3); Red Blood Count 3.87 M/uL (4.70-6.10); White Blood Count 3.44 K/ul (4.8-10.8)
[2024-03-20 04:03] LABS: BUN Creatinine Ratio 17.1 (10-20); Calcium 9.6 mg/dl (8.6-10.3); Creatinine Clr Calc Pharmacy 68.8 ml/min; Est GFR (African American) 62.7 ml/min; Est GFR (Non-African American) 54.1 ml/min; Potassium 2.8 mmol/L (3.5-5.1)
[2024-03-20 07:42] LABS: Magnesium 1.7 mg/dl (1.7-2.4)
[2024-03-20] MEDS: MAGNESIUM SULFATE / D5W 1 GM/100 ML BAG IV ONE (08:00)
[2024-03-20] MEDS: POTASSIUM CHLORIDE / WTR 10 MEQ/100 ML PLCT IV SCH (08:02)
[2024-03-20] MEDS: EMPAGLIFLOZIN 25 MG TAB PO SCH (08:16)
[2024-03-20] MEDS: NIFEdipine EXTENDED REL 30 MG TABCR PO SCH (08:17)
[2024-03-20] MEDS: CHLORTHALIDONE 25 MG TAB PO SCH (08:17)
[2024-03-20] MEDS: POTASSIUM CHLORIDE CRTAB 20 MEQ TABCR PO SCH (08:27)
--- NOTE | 2024-03-20 10:33 | Hospitalist Consultation ---
Date of Consultation March 20, 2024 Assessment & Plan (1) Shock: (2) COVID: (3) History of CVA (cerebrovascular accident): History of Present Illness Reason for Consultation: Select "EDIT" on the right side of screen > create a "Trigger" > enter a "Description" > enter body of "Text". Users can add [] brackets to a quick text. Then use the "F4 function soto" to advance to each []. Users can add [] with text [male] [female] , then advance to each bracket and [keep] by advancing to he next bracket, or [delete]. "To insert quick text" , users can simply chose one from their Dictionary of Quick text, then select Apply. or Users can type in the "Trigger" .phrase, then hit the "Space Bar" to insert text. Select "EDIT" on the right side of screen > create a "Trigger" > enter a "Description" > enter body of "Text". Users can add [] brackets to a quick text. Then use the "F4 function soto" to advance to each []. Users can add [] with text [male] [female] , then advance to each bracket and [keep] by advancing to he next bracket, or [delete]. "To insert quick text" , users can simply chose one from their Dictionary of Quick text, then select Apply. or Users can type in the "Trigger" .phrase, then hit the "Space Bar" to insert text. Attending Physician: Salomón Howe MD Allergies Allergy/AdvReac Type Severity Reaction Status Date / Time cephalexin Allergy Intermediate "GENERAL Verified 02/24/24 11:23 ILLNESS"/rash latex Allergy Intermediate Rash Verified 02/24/24 11:23 adalimumab [From Humira] Allergy Mild "made my Verified 02/24/24 11:23 psorasis worse" aspirin Allergy Mild GI Verified 02/24/24 11:23 SYMPTOMS-nausea/vomiting methotrexate Allergy Mild nausea/vomi Verified 02/24/24 11:23 ting Sulfa (Sulfonamide AdvReac Mild general Verified 02/24/24 11:23 Antibiotics) malaise, upset stomach Adhesives AdvReac Mild Skin Uncoded 02/24/24 11:23 irritation Home Medications Medication Instructions Recorded Confirmed Type allopurinol 300 mg tablet 300 mg PO QAM 02/01/19 03/17/24 History coenzyme Q10 100 mg capsule 100 mg PO QDL 02/01/19 03/17/24 History fexofenadine 180 mg tablet 180 mg PO BID #90 tabs 02/01/19 03/17/24 History hydrocortisone 1 % topical cream 1 appln topical DAILY PRN Rash 02/01/19 03/17/24 History montelukast 10 mg tablet 10 mg PO QPM #30 tabs 02/01/19 03/17/24 History propylene glycol 0.6 % eye drops 2 drops ophthalmic (eye) UD PRN 02/01/19 03/17/24 History (Systane Balance) Dry Eye(S) ustekinumab 90 mg/mL subcutaneous 90 mg subcut UD 02/01/19 03/17/24 History syringe (Stelara) ketotifen fumarate 0.025 % (0.035 1 drp ophthalmic (eye) BID 02/02/19 03/17/24 History %) eye drops (Zaditor) multivitamin with minerals 3 tab PO QDL 02/02/19 03/17/24 History (Hair,Skin and Nails tablet) olopatadine 0.2 % eye drops 1 drp ophthalmic (eye) QAM 02/02/19 03/17/24 History (Pataday) fenofibrate nanocrystallized 145 145 mg PO QAM 02/21/20 03/17/24 History mg tablet telmisartan 80 mg tablet 80 mg PO QPM 06/06/20 03/17/24 History blood sugar diagnostic (Accu-Chek #10 ea 09/24/20 02/24/24 History Guide test strips) flash glucose sensor (FreeStyle #1 ea 09/24/20 02/24/24 History Maria 2 Sensor kit) nifedipine 60 mg tablet,extended 60 mg PO QAM 10/29/20 03/17/24 History release folic acid 1 mg tablet 1 mg PO QDL 04/17/21 03/17/24 History spironolactone 25 mg tablet 12.5 mg PO QAM 04/17/21 03/17/24 History methotrexate (PF) 30 mg/0.6 mL 30 mg subcut .weekly 06/24/21 03/17/24 History subcutaneous auto-injector meclizine 25 mg tablet 25 mg PO TID Vertigo 03/24/22 09/13/24 History fluticasone propionate 50 2 spray intranasal QAM #1 g 10/22/21 03/17/24 History mcg/actuation nasal spray,suspension metformin 500 mg tablet,extended 2,000 mg PO QPM 01/27/22 03/17/24 History release 24 hr clonidine HCl 0.3 mg tablet 0.3 mg PO BID 09/14/22 03/17/24 History metoprolol tartrate 100 mg tablet 100 mg PO UD 09/14/22 03/17/24 History venlafaxine 225 mg tablet,extended 225 mg PO HS 09/14/22 03/17/24 History release 24 hr rosuvastatin 10 mg tablet 10 mg PO HS 12/28/22 03/17/24 History aspirin 81 mg tablet,delayed 81 mg PO QAM 03/23/23 03/17/24 History release diazepam 5 mg tablet (Valium) 5 mg PO BID PRN Anxiety 03/23/23 03/17/24 History icosapent ethyl 1 gram capsule 1 g PO BID 03/23/23 03/17/24 History timolol 0.5 % eye drops 1 drp ophthalmic (eye) BID 03/23/23 03/17/24 History linaclotide 145 mcg capsule 145 mcg PO QAM 06/16/23 03/17/24 History (Linzess) pantoprazole 40 mg tablet,delayed 40 mg PO DAILY 07/28/23 03/17/24 History release acetaminophen 500 mg tablet 1,300 mg PO UD PRN Pain 08/04/23 03/17/24 History (Acetaminophen Extra Strength) insulin aspart U-100 100 unit/mL 30 unit (0.3 mL) subcut TID PRN 09/30/23 03/17/24 Rx (3 mL) subcutaneous pen (Novolog diabetes #30 mL FlexPen U-100 Insulin aspart) insulin degludec 100 unit/mL (3 50 unit (0.5 mL) subcut QAM #15 mL 09/30/23 03/17/24 Rx mL) subcutaneous pen (Tresiba FlexTouch U-100 insulin) pen needle, diabetic 32 gauge x #500 ea 09/30/23 02/24/24 Rx 532" (BD Ultra-Fine [place] Pen Needle) empagliflozin 25 mg tablet 25 mg PO QAM #30 tabs 05/30/24 09/13/24 Rx (Jardiance) budesonide 32 mcg/actuation nasal 2 spray intranasal HS 12/21/23 03/17/24 History spray gabapentin 300 mg capsule 300 mg PO QID 30 days #120 caps 02/03/24 03/17/24 Rx aspirin 25 mg-dipyridamole 200 mg 1 cap PO BID #180 caps 02/24/24 03/17/24 Rx capsule,ext.release 12 hr multiphase chlorthalidone 25 mg tablet 25 mg PO DAILY 03/17/24 03/17/24 History famotidine 20 mg tablet 20 mg PO BID 03/17/24 03/17/24 History Patient History Medical History History of kidney stones Diabetes mellitus, type 2 free style maria in use Hyperparathyroidism "possibly" Depression Sarcoidosis dx left eye Hx of transient ischemic attack (TIA) ? November 2022 possibly>follows with Dr. Siu and [facility] neurologist Stroke x 3>last one 2019 (still has vertigo from event, generalized weakness and balance problems) Hyperlipidemia Cardiac murmur follows with Dr. Blankenship Hx of gout Sleep apnea asv machine>bipap Environmental allergies Serum calcium elevated Acquired buried penis Dysarthria Allergic rhinitis Arthralgia of multiple sites Constipation Chronic back pain Fatty liver disease, nonalcoholic GERD (gastroesophageal reflux disease) Psoriasis Glaucoma bilt Hypertension Surgical History History of colonoscopy History of tooth extraction H/O eye surgery left eye biopsy History of lumbar spinal fusion History of removal of cyst at umbilicus History of appendectomy History of esophagogastroduodenoscopy (EGD) History of wisdom tooth extraction History of tonsillectomy and adenoidectomy x2 Status post myringotomy with tube placement of both ears Family History Mother Family history of reaction to anesthesia during heart valve replacement became combative and forgetful Family history of diabetes mellitus Hypertension Stroke, Onset Age: 62 Grandmother (Maternal) Family history of diabetes mellitus Grandfather (Maternal) Family hx of colon cancer Father Stroke, Onset Age: 53 Atherosclerotic cerebrovascular disease patient reported posterior large vessel disease Social History Smoking Status: Never smoker Second Hand Exposure: No; Do You Dip or Chew Tobacco: No; Tobacco Cessation Education Requested by Patient: No Hx Alcohol Use: Yes Alcohol type: wine Alcohol Intake Frequency Comment: STATED DRINKS ONCE WEEKLY Hx Substance Use: No Preferred Language: Japanese Communication Ability: Effective Visual Impairment: No Limitations Hearing Ability: Normal Medical Office Secretary Required: No Beliefs That Will Affect Care: None marital status: Single Current Living Situation: Family Current Living Situation Comment: lives with mom, MOTHER ABLE TO ASSIST WITH CARE NEEDED 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al status: employed and disabled 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[place], 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 Other Information That Helps Us Care for You: No Feels Safe at Home: Yes Safety Concerns: Feels Safe At This Time Diet: diabetic, low carbohydrate and low salt Diet Comment: CARB COUNTING during the past year weight has: decreased > 10 lbs Assistive Devices: BiPap, Brace/Splint/Immobilizer, Glasses and Walker Results & Data Results & Data Vital Signs (Past 12 Hours) Vital Signs Temp Pulse Pulse Resp BP BP Pulse Ox 03/20/24 08:06 99 H 28 H 03/20/24 08:00 03/20/24 08:00 36.8 C 03/20/24 08:00 03/20/24 07:29 161/93 H 03/20/24 07:27 80 17 99 03/20/24 07:03 78 18 98 03/20/24 06:13 03/20/24 06:09 36.7 C 76 15 142/87 H 100 03/20/24 02:54 84 16 96 03/20/24 00:03 93 H 18 93 03/20/24 00:00 163/101 H 03/20/24 00:00 163/101 H 03/20/24 00:00 163/101 H 03/20/24 00:00 36.9 C 03/20/24 00:00 94 H 03/19/24 23:48 85 18 95 03/19/24 23:15 86 20 98 O2 Del Method O2 Del Method O2 Flow Rate 03/20/24 08:06 03/20/24 08:00 Room Air 03/20/24 08:00 03/20/24 08:00 Room Air 03/20/24 07:29 03/20/24 07:27 Room Air 03/20/24 07:03 03/20/24 06:13 BiPAP 03/20/24 06:09 BiPAP 03/20/24 02:54 4 03/20/24 00:03 03/20/24 00:00 03/20/24 00:00 03/20/24 00:00 03/20/24 00:00 03/20/24 00:00 03/19/24 23:48 03/19/24 23:15 4 Laboratory Results Laboratory Results - last 24 hr 03/19/24 03/19/24 03/19/24 11:12 16:22 20:54 WBC RBC Hgb Hct MCV MCH MCHC RDW Std Deviation RDW Coeff of Clay Plt Count MPV Immature Gran % (Auto) Neut % (Auto) Lymph % (Auto) [place] % (Auto) Eos % (Auto) Baso % (Auto) Neut # (Auto) Lymph # (Auto) [place] # (Auto) Eos # (Auto) Baso # (Auto) Immature Gran # (Auto) Absolute Nucleated RBC Nucleated RBC % (auto) Sodium Potassium Chloride Carbon Dioxide Anion Gap BUN Creatinine Est Cr Clr Drug Dosing Est GFR ( Amer) Est GFR (Non-Af Amer) BUN/Creatinine Ratio Glucose POC Glucose 133 H 131 H 95 Calcium Magnesium 03/20/24 03/20/24 03/20/24 03:18 07:26 07:27 WBC 3.44 L RBC 3.87 L Hgb 11.7 L Hct 35.6 L MCV 92.0 MCH 30.2 MCHC 32.9 RDW Std Deviation 61.5 H RDW Coeff of Clay 18.5 H Plt Count 206 MPV 8.6 L Immature Gran % (Auto) 1.5 Neut % (Auto) 45.3 Lymph % (Auto) 25.3 [place] % (Auto) 25.3 Eos % (Auto) 1.7 Baso % (Auto) 0.9 Neut # (Auto) 1.56 Lymph # (Auto) 0.87 L [place] # (Auto) 0.87 H Eos # (Auto) 0.06 Baso # (Auto) 0.03 Immature Gran # (Auto) 0.05 Absolute Nucleated RBC 0.02 Nucleated RBC % (auto) 0.6 Sodium 136 Potassium 2.8 L Chloride 100 Carbon Dioxide 25 Anion Gap 11 BUN 25 H Creatinine 1.46 H Est Cr Clr Drug Dosing 68.8 Est GFR ( Amer) 62.7 Est GFR (Non-Af Amer) 54.1 BUN/Creatinine Ratio 17.1 Glucose 142 H POC Glucose 156 H 149 H Calcium 9.6 Magnesium 1.7 Medications Administered Home Medications Medication Instructions Recorded Confirmed Last Taken allopurinol 300 mg tablet 300 mg PO QAM 02/01/19 03/17/24 03/17/24 coenzyme Q10 100 mg capsule 100 mg PO QDL 02/01/19 03/17/24 03/17/24 fexofenadine 180 mg tablet 180 mg PO BID #90 tabs 02/01/19 03/17/24 03/17/24 hydrocortisone 1 % topical cream 1 appln topical DAILY PRN Rash 02/01/19 03/17/24 Unknown montelukast 10 mg tablet 10 mg PO QPM #30 tabs 02/01/19 03/17/24 04/27/23 propylene glycol 0.6 % eye drops 2 drops ophthalmic (eye) UD PRN 02/01/19 03/17/24 02/07/19 (Systane Balance) Dry Eye(S) ustekinumab 90 mg/mL subcutaneous 90 mg subcut UD 02/01/19 03/17/24 02/02/23 syringe (Stelara) ketotifen fumarate 0.025 % (0.035 1 drp ophthalmic (eye) BID 02/02/19 03/17/24 03/17/24 %) eye drops (Zaditor) multivitamin with minerals 3 tab PO QDL 02/02/19 03/17/24 03/17/24 (Hair,Skin and Nails tablet) olopatadine 0.2 % eye drops 1 drp ophthalmic (eye) QAM 02/02/19 03/17/24 03/17/24 (Pataday) fenofibrate nanocrystallized 145 145 mg PO QAM 02/21/20 03/17/24 03/17/24 mg tablet telmisartan 80 mg tablet 80 mg PO QPM 06/06/20 03/17/24 04/27/23 blood sugar diagnostic (Accu-Chek #10 ea 09/24/20 02/24/24 Unknown Guide test strips) flash glucose sensor (FreeStyle #1 ea 09/24/20 02/24/24 Unknown Maria 2 Sensor kit) nifedipine 60 mg tablet,extended 60 mg PO QAM 10/29/20 03/17/24 03/17/24 release folic acid 1 mg tablet 1 mg PO QDL 04/17/21 03/17/24 03/17/24 spironolactone 25 mg tablet 12.5 mg PO QAM 04/17/21 03/17/24 03/17/24 methotrexate (PF) 30 mg/0.6 mL 30 mg subcut .weekly 06/24/21 03/17/24 04/18/23 subcutaneous auto-injector meclizine 25 mg tablet 25 mg PO TID Vertigo 09/25/21 03/17/24 03/17/24 fluticasone propionate 50 2 spray intranasal QAM #1 g 10/22/21 03/17/24 03/17/24 mcg/actuation nasal spray,suspension metformin 500 mg tablet,extended 2,000 mg PO QPM 01/27/22 03/17/24 04/24/23 release 24 hr clonidine HCl 0.3 mg tablet 0.3 mg PO BID 09/14/22 03/17/24 03/17/24 metoprolol tartrate 100 mg tablet 100 mg PO UD 09/14/22 03/17/24 04/28/23 venlafaxine 225 mg tablet,extended 225 mg PO HS 09/14/22 03/17/24 04/28/23 08:30 release 24 hr rosuvastatin 10 mg tablet 10 mg PO HS 12/28/22 03/17/24 04/28/23 aspirin 81 mg tablet,delayed 81 mg PO QAM 03/23/23 03/17/24 03/17/24 release diazepam 5 mg tablet (Valium) 5 mg PO BID PRN Anxiety 03/23/23 03/17/24 Unknown icosapent ethyl 1 gram capsule 1 g PO BID 03/23/23 03/17/24 03/17/24 timolol 0.5 % eye drops 1 drp ophthalmic (eye) BID 03/23/23 03/17/24 03/17/24 linaclotide 145 mcg capsule 145 mcg PO QAM 06/16/23 03/17/24 03/17/24 (Linzess) pantoprazole 40 mg tablet,delayed 40 mg PO DAILY 07/28/23 03/17/24 03/17/24 release acetaminophen 500 mg tablet 1,300 mg PO UD PRN Pain 08/04/23 03/17/24 Unknown (Acetaminophen Extra Strength) insulin aspart U-100 100 unit/mL 30 unit (0.3 mL) subcut TID PRN 09/30/23 03/17/24 Unknown (3 mL) subcutaneous pen (Novolog diabetes #30 mL FlexPen U-100 Insulin aspart) insulin degludec 100 unit/mL (3 50 unit (0.5 mL) subcut QAM #15 mL 09/30/23 03/17/24 Unknown mL) subcutaneous pen (Tresiba FlexTouch U-100 insulin) pen needle, diabetic 32 gauge x #500 ea 09/30/23 02/24/24 Unknown " (BD Ultra-Fine [place] Pen Needle) empagliflozin 25 mg tablet 25 mg PO QAM #30 tabs 12/02/23 03/17/24 03/17/24 (Jardiance) budesonide 32 mcg/actuation nasal 2 spray intranasal HS 12/21/23 03/17/24 Unknown spray gabapentin 300 mg capsule 300 mg PO QID 30 days #120 caps 02/03/24 03/17/24 03/17/24 aspirin 25 mg-dipyridamole 200 mg 1 cap PO BID #180 caps 02/24/24 03/17/24 03/17/24 capsule,ext.release 12 hr multiphase chlorthalidone 25 mg tablet 25 mg PO DAILY 03/17/24 03/17/24 03/17/24 famotidine 20 mg tablet 20 mg PO BID 03/17/24 03/17/24 03/17/24 Active Medications Generic Name Dose Route Start Last Admin Trade Name Freq PRN Reason Stop Dose Admin Allopurinol 300 mg 03/18/24 09:00 03/20/24 08:20 Allopurinol 300 Mg Tab PO 04/17/24 08:59 300 mg QAM SONI Administration Aspirin 81 mg 03/18/24 09:00 03/20/24 08:18 Aspirin 81 Mg Ectab PO 04/17/24 08:59 81 mg QAM SONI Administration Chlorhexidine Gluconate 15 ml 03/17/24 21:00 03/20/24 08:17 Chlorhexidine Gluconate 0.12% 480 Ml MT 04/16/24 20:59 15 ml TID SONI Administration Chlorthalidone 25 mg 03/20/24 09:00 03/20/24 08:17 Chlorthalidone 25 Mg Tab PO 04/19/24 08:59 25 mg DAILY SONI Administration Clonidine HCl 0.3 mg 03/19/24 21:00 03/20/24 08:16 Clonidine Hcl 0.3 Mg Tab PO 04/18/24 20:59 0.3 mg BID SONI Administration Dipyridamole/Aspirin 1 cap 03/17/24 21:00 03/20/24 08:20 Dipyridamole/Aspirin Cap PO 04/16/24 20:59 1 cap BID SONI Administration Empagliflozin 25 mg 03/20/24 09:00 03/20/24 08:16 Empagliflozin 25 Mg Tab PO 04/19/24 08:59 25 mg QAM SONI Administration Famotidine 20 mg 03/17/24 21:00 03/20/24 08:19 Famotidine 20 Mg Tab PO 04/16/24 20:59 20 mg BID SONI Administration Fenofibrate 145 mg 03/18/24 09:00 03/20/24 08:19 Fenofibrate Nanocrystallized 145 Mg Tablet PO 04/17/24 08:59 145 mg QAM SONI Administration Fexofenadine HCl 180 mg 03/17/24 21:00 03/20/24 08:14 Fexofenadine Hcl 180 Mg Tab PO 04/16/24 20:59 180 mg BID SONI Administration Fluticasone Propionate 2 sprays 03/18/24 09:00 03/20/24 08:12 Fluticasone Propionate Na Spr 16 Gm Btl NA 04/17/24 08:59 2 sprays QAM SONI Administration Folic Acid 1 mg 03/18/24 11:30 03/19/24 11:08 Folic Acid 1 Mg Tab PO 04/17/24 11:29 1 mg QDL SONI Administration Heparin Sodium (Porcine) 5,000 units 03/17/24 22:00 03/20/24 06:04 Heparin Sod 5,000 Unit/0.5 Ml Vial SQ 04/16/24 21:59 5,000 units Q8 SONI Administration Ertapenem 1,000 mg/ Syringe 10 mls @ 2 mls/min 03/19/24 09:00 03/20/24 08:13 IV 03/29/24 08:59 2 mls/min Q24H SONI Administration Insulin Aspart 0 units 03/17/24 21:00 03/20/24 08:27 Insulin Aspart Per Unit Charge SC 04/16/24 20:59 6 units ACHS SONI Administration Insulin Glargine 15 units 03/19/24 09:00 03/20/24 08:28 Lantus Per Unit Charge SQ 04/18/24 08:59 15 units BID SONI Administration Linaclotide 145 mcg 03/18/24 09:00 03/20/24 08:19 Linaclotide 145 Mcg Capsule PO 04/17/24 08:59 145 mcg QAM SONI Administration Losartan Potassium 100 mg 03/19/24 21:00 03/19/24 22:18 Losartan Potassium 50 Mg Tab PO 04/18/24 20:59 100 mg QPM SONI Administration Meclizine HCl 25 mg 03/17/24 21:00 03/20/24 08:21 Meclizine Hcl 25 Mg Tab PO 04/16/24 20:59 25 mg TID SONI Administration Metoprolol Tartrate 25 mg 03/19/24 21:00 03/20/24 08:14 Metoprolol Tartrate 25 Mg Tab PO 04/18/24 20:59 25 mg BID SONI Administration Montelukast Sodium 10 mg 03/17/24 21:00 03/19/24 21:05 Montelukast Sodium 10 Mg Tablet PO 04/16/24 20:59 10 mg QPM SONI Administration Nifedipine 60 mg 03/20/24 09:00 03/20/24 08:17 Nifedipine Extended Rel 30 Mg Tabcr PO 04/19/24 08:59 60 mg QAM SONI Administration Pantoprazole Sodium 40 mg 03/18/24 09:00 03/20/24 08:20 Pantoprazole 40 Mg Tab PO 04/17/24 08:59 40 mg DAILY SONI Administration Potassium Chloride 20 meq 03/20/24 09:00 03/20/24 08:27 Potassium Chloride Crtab 20 Meq Tabcr PO 03/21/24 09:01 20 meq BID SONI Administration Rosuvastatin Calcium 10 mg 03/17/24 21:00 03/19/24 21:04 Rosuvastatin Calcium 10 Mg Tab PO 04/16/24 20:59 10 mg HS SONI Administration PG Care Time/CCT Total # of Minutes Spent Total Time Spent with Patient: Total time spent is greater than 50% in coordination of care (as documented) at patient's floor/unit and/or counseling patient: Coding Diagnoses Shock R57.9 COVID U07.1 History of CVA (cerebrovascular accident) Z86.73
[2024-03-20] MEDS: METOPROLOL TARTRATE 1 MG/ML VIAL IV PRN (12:00)
--- NOTE | 2024-03-20 16:10 | Hospitalist Progress Note ---
Date of Service March 20, 2024 Assessment & Plan (1) Sepsis: Plan: Urinary source; tachypneic at 29 RPM, and reported fever at home; temperature 37.5 C on arrival Pt is also Covid + on arrival with no pneumonia seen on CT chest, however is hypoxic, started on dexamethasone, fitz capillary leak from sepsis Hypotension did require pressors, now did resume antihypertensives meds (nifedipine, metoprolol, clonidine, temlisartan) * starting metoprolol at lower dose Zosyn iv switched to Ertapenem due to ESBL E coli complete one week course Stress dose steroids with hydrocortisone now stopped (2) VITOR (acute kidney injury): Plan: resolving Avoid nephrotoxic agents where possible resume telmisartan, spironolactone, chlorthalidone Dose reduce gabapentin 600-->300mg QID [place] catheter inserted in the ED (3) Anemia: Plan: Hemoglobin 10.7 on arrival (most recently 13.3 on 12/15/2023) No retroperitoneal bleed on imaging No signs of active bleeding on clinical exam (4) Diabetes mellitus, type 2: Plan: Last A1c at 8.2% on 12/15/2023 Glucose 270 on admission - Hold metformin, empagliflozin Patient normally takes Lantus 50u QAM basal bolus insulin (5) Urinary incontinence: Plan: New onset, since resolved Patient does have a history of L4-L5 fusion in 1993, and does report that he fell this week onto his butt However, no saddle anesthesia on clinical exam A/P CT did not show retroperitoneal hemorrhage or signs of cord compression (6) History of CVA (cerebrovascular accident): Plan: CVA X 4; last in 2019 Residual right-sided upper and lower extremity deficits Continue Aggrenox Plan Full code heparin for dvt prevention Admission and Anticipated Discharge Date Admission Date: March 17, 2024 Subjective pt seen, now off oxygen, walking in room with walker feels improved, eating, no distress pt wants to try to make it home, but understands will replete potassium Physical Exam Physical Exam: awake alert and oriented cardiac is regular lungs are with some cough but clear abd is soft and no cva tenderness Results & Data Results & Data Vital Signs (Past 12 Hours) Vital Signs Temp Pulse Pulse Resp BP BP Pulse Ox 03/20/24 15:36 98.4 F 83 16 117/81 98 03/20/24 12:18 81 160/107 H 03/20/24 12:18 81 20 98 03/20/24 12:18 160/107 H 03/20/24 12:18 160/107 H 03/20/24 12:00 98.4 F 03/20/24 12:00 90 159/102 H 03/20/24 11:54 159/102 H 03/20/24 11:54 159/102 H 03/20/24 11:48 91 H 19 95 03/20/24 10:06 46 L 14 90 03/20/24 08:06 99 H 28 H 03/20/24 08:00 03/20/24 08:00 98.2 F 03/20/24 08:00 03/20/24 07:29 161/93 H 03/20/24 07:27 80 17 99 03/20/24 07:03 78 18 98 03/20/24 06:13 03/20/24 06:09 98.1 F 76 15 142/87 H 100 O2 Del Method O2 Del Method 03/20/24 15:36 Room Air 03/20/24 12:18 03/20/24 12:18 03/20/24 12:18 03/20/24 12:18 03/20/24 12:00 03/20/24 12:00 03/20/24 11:54 03/20/24 11:54 03/20/24 11:48 Room Air 03/20/24 10:06 03/20/24 08:06 03/20/24 08:00 Room Air 03/20/24 08:00 03/20/24 08:00 Room Air 03/20/24 07:29 03/20/24 07:27 Room Air 03/20/24 07:03 03/20/24 06:13 BiPAP 03/20/24 06:09 BiPAP Laboratory Results review cbc review chemistry PG Care Time/CCT Total # of Minutes Spent Total Time Spent with Patient: Total time spent is greater than 50% in coordination of care (as documented) at patient's floor/unit and/or counseling patient: Coding Level of Care Code 92113 SUB INP/OBS CARE 2/35MIN Diagnoses Sepsis A41.9 VITOR (acute kidney injury) N17.9 Anemia D64.9 Diabetes mellitus, type 2 E11.9 Urinary incontinence R32 History of CVA (cerebrovascular accident) Z86.73
[2024-03-20] MEDS: PNEUMOCOCCAL VACCINE (PCV20) 20-VAL CONJ-DIP CRM/PF 0.5 ML SYR IM ONE (20:03)
[2024-03-21 08:47] LABS: BUN Creatinine Ratio 20.7 (10-20); Calcium 10.5 mg/dl (8.6-10.3); Est GFR (African American) 60.7 ml/min; Est GFR (Non-African American) 52.4 ml/min; Potassium 3.6 mmol/L (3.5-5.1)
[2024-03-21 09:33] LABS: Estimated Average Glucose 192 mg/dl; Hemoglobin A1C 8.3 % (4.5-5.6)
--- NOTE | 2024-03-21 12:16 | Hospitalist Progress Note ---
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 coli), present on admission Patient is off vasopressors and is currently not requiring ICU care He required IV hydrocortisone initially in the ICU and is currently off steroids He was initially treated with IV Zosyn which has not been transition to IV ertapenem (day #3) as urine culture is growing ESBL E. coli greater than 100,000 colonies Blood cultures from admission have been negative to date Patient is afebrile, hemodynamically stable #COVID-19 infection Patient was seen by ICU team who have advised against using remdesivir as CT of the chest was negative for PE or any consolidation or infiltrates Patient is not symptomatic from COVID He is not hypoxic and is saturating well on room air and has no respiratory symptoms Continue COVID isolation #VITOR superimposed on chronic kidney disease stage III #Hypokalemia Likely related to sepsis Renal function has improved and is at baseline Potassium levels have improved with repletion Monitor renal function and electrolytes Outpatient follow-up with nephrology on discharge (Dr. Harrison Josue) #Hypercalcemia Hold chlorthalidone Gentle IV fluid hydration with half-normal saline x 1 L Monitor calcium levels #Essential hypertension #History of multiple CVA with right-sided weakness #Moderate right ICA stenosis Continue aspirin plus Aggrenox plus rosuvastatin Echo from 03/18/2024 shows left ventricular systolic function is normal, EF is 60 to 65% Carotid Dopplers from 03/17/2024 shows moderate atherosclerosis within the right ICA correlating with 50 to 69% stenosis and less than 50% stenosis of the left ICA Patient follows up with neurology as an outpatient (Dr. Guillermo Siu): Will have patient follow-up with neurology as outpatient regarding right ICA stenosis Continue clonidine 0.3 mg p.o. twice daily with hold parameters Continue nifedipine XL 60 mg p.o. daily with hold parameters Continue losartan 100 mg p.o. daily with hold parameters Increase metoprolol to 50 mg p.o. twice daily with hold parameters Continue telemetry monitoring as patient had episode of bradycardia while sleeping although it resolved when he woke up and patient is asymptomatic Patient will need outpatient follow-up with cardiology: Patient follows up with [facility] cardiology Monitor vital signs #Insulin-dependent type 2 diabetes mellitus with peripheral neuropathy A1c is 8.3 Continue Lantus 15 units subcutaneous twice daily Accu-Cheks before every meal and nightly with sliding scale insulin coverage Monitor glycemic control Resume gabapentin #Sarcoidosis #Psoriasis Methotrexate held for now secondary to sepsis Patient is also on Stelara every 3 months Outpatient follow-up with advisory intern (Dr. Krista Mitchell) #CLAY Continue CPAP at bedtime #Obesity BMI is 31.1 Lifestyle counseling regarding diet, exercise and weight loss provided Outpatient follow-up with PCP CODE STATUS: Full code DVT prophylaxis: Heparin subcutaneous Discharge planning likely home in the next 24 to 48 hours based on telemetry monitoring for transient episode of bradycardia Care plan discussed with patient, nursing staff Admission and Anticipated Discharge Date Admission Date: March 17, 2024 Subjective Patient seen and examined He is sitting up in his bed and denies any fever, chills, chest pain or shortness of breath He denies any nausea, vomiting, diarrhea, or abdominal pain Patient states he lives at home with his mom and ambulates with a walker and has chronic right-sided weakness As per nursing staff, patient's heart rate dropped into mid 40s while he was sleeping and was back up to normal when he woke up. Patient denies any symptoms Patient states he takes metoprolol 100 mg p.o. in the morning and metoprolol 50 mg p.o. at night Patient states he has chronic vertigo issues related to his strokes Review of Systems Review of Systems: See HPI Physical Exam Physical Exam: General: No acute distress, speaking in full sentences Psych: Awake and alert HEENT: Anicteric sclera, moist oral mucosa CVS: Regular rate and rhythm Lungs: Bilateral air entry, no wheezing noted Abdomen: Soft, nontender, no rebound, no guarding Ext: No lower extremity edema, no calf tenderness Neuro: Chronic right-sided weakness noted Results & Data Results & Data Vital Signs (Past 12 Hours) Vital Signs Temp Pulse Pulse Resp BP BP Pulse Ox 03/21/24 12:00 37.0 C 102 H 23 128/92 99 03/21/24 09:49 76 19 157/89 H 95 03/21/24 07:06 84 20 152/101 H 97 03/21/24 07:06 37.0 C 03/21/24 04:31 77 12 98 03/21/24 04:15 79 10 L 96 03/21/24 04:00 82 21 98 03/21/24 03:45 45 L 13 97 03/21/24 03:35 36.6 C 03/21/24 03:30 77 12 97 03/21/24 03:15 45 L 18 129/81 98 03/21/24 03:00 77 15 100 03/21/24 02:51 36.8 C 03/21/24 02:45 80 13 98 03/21/24 02:24 75 17 99 03/21/24 00:30 75 22 98 O2 Del Method O2 Flow Rate 03/21/24 12:00 Room Air 03/21/24 09:49 BiPAP 03/21/24 07:06 Room Air 03/21/24 07:06 03/21/24 04:31 4 03/21/24 04:15 03/21/24 04:00 03/21/24 03:45 03/21/24 03:35 03/21/24 03:30 03/21/24 03:15 03/21/24 03:00 03/21/24 02:51 03/21/24 02:45 03/21/24 02:24 03/21/24 00:30 Laboratory Results Laboratory Results - last 24 hr 03/20/24 03/21/24 03/21/24 20:20 07:06 07:51 Sodium 137 Potassium 3.6 D Chloride 100 Carbon Dioxide 25 Anion Gap 12 H BUN 31 H Creatinine 1.50 H Est Cr Clr Drug Dosing 67.0 Est GFR ( Amer) 60.7 Est GFR (Non-Af Amer) 52.4 BUN/Creatinine Ratio 20.7 H Glucose 141 H POC Glucose 126 H 128 H Estimat Average Glucose 192 Hemoglobin A1c 8.3 H Calcium 10.5 H Magnesium 2.0 03/21/24 03/21/24 11:23 16:19 Sodium Potassium Chloride Carbon Dioxide Anion Gap BUN Creatinine Est Cr Clr Drug Dosing Est GFR ( Amer) Est GFR (Non-Af Amer) BUN/Creatinine Ratio Glucose POC Glucose 126 H 137 H Estimat Average Glucose Hemoglobin A1c Calcium Magnesium PG Care Time/CCT Total # of Minutes Spent Total Time Spent: 50 Total Time Spent with Patient: Total time spent is greater than 50% in coordination of care (as documented) at patient's floor/unit and/or counseling patient: Coding Level of Care Code 13090 SUB INP/OBS CARE 3/50MIN Diagnoses Sepsis due to urinary tract infection A41.9; N39.0 COVID U07.1 Acute kidney injury superimposed on CKD N17.9; N18.9 Chronic kidney disease, stage III (moderate) N18.30 Diabetes mellitus, type 2 E11.9 Diabetic peripheral neuropathy associated with type 2 diabetes mellitus E11.42 Hypertension I10 History of stroke with residual deficit I69.30 Psoriasis L40.9 Sarcoidosis D86.9 Time Spent (min) 50
[2024-03-21] MEDS: SODIUM CHLORIDE 0.45 % 1,000 ML IV SCH (13:00)
[2024-03-21] MEDS: POTASSIUM CHLORIDE CRTAB 20 MEQ TABCR PO STA ×2 (13:07→17:30)
--- NOTE | 2024-03-21 14:51 | Pharmacy Report ---
Pharmacy Glycemic Short Note 2 - Date of Service March 21, 2024 - Glycemic Short BSG Results (Last 24 hours): 03/20/24 03/20/24 03/21/24 16:15 20:20 07:06 Glucose POC Glucose 152 H 126 H 128 H 03/21/24 03/21/24 07:51 11:23 Glucose 141 H POC Glucose 126 H OUTPATIENT ANTIDIABETIC REGIMEN: * Tresiba 50 units SC qAM * Novolog 30 units SC TID + SSI * Jardiance 25 mg PO daily * Metformin 2 g PO qPM HbA1c: 8.2% (12/15/23) ASSESSMENT: 03/21 * BSGs well controlled over last 24 hrs * Fasting BSG 128 w/ 30 units basal on board -will continue * Post-prandial BSGs at goal on all occasions except 1 in last 24 hours, continue same CF/CR for now and follow pattern * Jardiance resumed by hospitalist yesterday PLAN FOR INPATIENT GLYCEMIC CONTROL: * Hold outpatient oral diabetes medications * Basal insulin * Lantus 15 units SQ BID * Bolus insulin * NovoLog per scale ACHS or Q6hrs while NPO * Goal Range: Low 110 mg/dL - High 140 mg/dL * Correction Factor: 20 mg/dL/unit * Nutritional / Prandial insulin per carb ratio of 1 unit per 7 grams CHO consumed
[2024-03-21] MEDS: METOPROLOL TARTRATE 50 MG TAB PO SCH (20:05)
[2024-03-21] MEDS: GABAPENTIN 300 MG CAP PO SCH (21:21)
[2024-03-21] MEDS: TIMOLOL MALEATE 0.5% OP SOLN 5 ML BTL OP SCH (21:23)
[2024-03-22 07:52] LABS: Hematocrit (blood only) 39.7 % (42.0-52.0); Mean Corpuscular Hemoglobin 30.2 pg (25.0-34.0); Mean Corpuscular Hgb Conc 32.7 g/dL (32.0-36.0); Mean Corpuscular Volume 92.1 fL (80.0-100.0); Mean Platelet Volume 9.4 fL (9.4-12.4); Nucleated RBC # (auto) 0.05 K/uL (0.00-0.12); Nucleated RBC % (auto) 0.8 %; Platelet Count 274 K/uL (130-400); RDW Coefficient of Variation 18.9 % (11.5-14.5); RDW Standard Deviation 62.9 fL (36.4-46.3); Red Blood Count 4.31 M/uL (4.70-6.10); White Blood Count 5.99 K/ul (4.8-10.8)
[2024-03-22 08:05] LABS: BUN Creatinine Ratio 24.8 (10-20); Calcium 9.9 mg/dl (8.6-10.3); Creatinine Clr Calc Pharmacy 69.2 ml/min; Est GFR (African American) 63.3 ml/min; Est GFR (Non-African American) 54.6 ml/min; Magnesium 2.1 mg/dl (1.7-2.4); Potassium 3.8 mmol/L (3.5-5.1)
[2024-03-22 08:12] LABS: Basophils # (auto) 0.04 K/uL (0.00-0.20); Basophils % (auto) 0.7 %; Eosinophils % (auto) 3.3 %; Immature Granulocytes # (auto) 0.26 K/uL (0.01-0.20); Immature Granulocytes % (auto) 4.3 %; Lymphocytes # (auto) 1.57 K/uL (1.20-3.40); Lymphocytes % (auto) 26.2 %; Monocytes # (auto) 1.17 K/uL (0.11-0.59); Monocytes % (auto) 19.5 %; Neutrophils # (auto) 2.75 K/uL (1.40-6.50)
[2024-03-22] MEDS: LANTUS PER UNIT CHARGE SQ SCH (09:35)
--- NOTE | 2024-03-22 11:01 | Pharmacy Report ---
Pharmacy Glycemic Short Note 2 - Date of Service March 22, 2024 - Glycemic Short BSG Results (Last 24 hours): 03/21/24 03/21/24 03/21/24 11:23 16:19 20:15 Glucose POC Glucose 126 H 137 H 114 H 03/22/24 03/22/24 07:29 08:03 Glucose 161 H POC Glucose 194 H OUTPATIENT ANTIDIABETIC REGIMEN: * Tresiba 50 units SC qAM * Novolog 30 units SC TID + SSI * Jardiance 25 mg PO daily * Metformin 2 g PO qPM * HbA1c: 8.2% (12/15/23) ASSESSMENT: 03/22: * BSGs yesterday were: [phone] mg/dL. Patient received 30 units basal + 18 units bolus. * Fasting BSG elevated at 194 mg/dL this AM. No change in stressors. Remains on Invanz. Hyperglycemia could be related to Jardiance being placed on hold yesterday but suspicion is low. Will increase basal by 20% today and trend fastings over the next 48 hours. * No change in bolus regimen. 03/21: * BSGs well controlled over last 24 hrs * Fasting BSG 128 w/ 30 units basal on board -will continue * Post-prandial BSGs at goal on all occasions except 1 in last 24 hours, continue same CF/CR for now and follow pattern * Jardiance resumed by hospitalist yesterday PLAN FOR INPATIENT GLYCEMIC CONTROL: * Hold outpatient Metformin * Jardiance 25 mg PO AM is ordered but has been on hold since 03/21/24 * Basal insulin * Lantus 18 units SC BID * Bolus insulin * NovoLog per scale ACHS or Q6hrs while NPO * Goal Range: Low 110 mg/dL - High 140 mg/dL * Correction Factor: 20 mg/dL/unit * Nutritional / Prandial insulin per carb ratio of 1 unit per 7 grams CHO consumed
[2024-03-22 11:58] VITALS: PULSE 74; RESP 18; TEMP 98.1; O2SAT 98
--- NOTE | 2024-03-22 13:19 | Hospitalist Progress Note ---
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 coli), present on admission Patient is off vasopressors and is currently not requiring ICU care He required IV hydrocortisone initially in the ICU and is currently off steroids He was initially treated with IV Zosyn which has not been transition to IV ertapenem (day #3) as urine culture is growing ESBL E. coli greater than 100,000 colonies Blood cultures from admission have been negative to date Patient is afebrile, hemodynamically stable #COVID-19 infection Patient was seen by ICU team who have advised against using remdesivir as CT of the chest was negative for PE or any consolidation or infiltrates Patient is not symptomatic from COVID He is not hypoxic and is saturating well on room air and has no respiratory symptoms Continue COVID isolation #VITOR superimposed on chronic kidney disease stage III #Hypokalemia Likely related to sepsis Renal function has improved and is at baseline Potassium levels have improved with repletion Monitor renal function and electrolytes Outpatient follow-up with nephrology on discharge (Dr. Harrison Josue) #Hypercalcemia Hold chlorthalidone Gentle IV fluid hydration with half-normal saline x 1 L Monitor calcium levels #Essential hypertension #History of multiple CVA with right-sided weakness #Moderate right ICA stenosis Continue aspirin plus Aggrenox plus rosuvastatin Echo from 03/18/2024 shows left ventricular systolic function is normal, EF is 60 to 65% Carotid Dopplers from 03/17/2024 shows moderate atherosclerosis within the right ICA correlating with 50 to 69% stenosis and less than 50% stenosis of the left ICA Patient follows up with neurology as an outpatient (Dr. Guillermo Siu): Will have patient follow-up with neurology as outpatient regarding right ICA stenosis Continue clonidine 0.3 mg p.o. twice daily with hold parameters Continue nifedipine XL 60 mg p.o. daily with hold parameters Continue losartan 100 mg p.o. daily with hold parameters Increase metoprolol to 50 mg p.o. twice daily with hold parameters Continue telemetry monitoring as patient had episode of bradycardia while sleeping although it resolved when he woke up and patient is asymptomatic Patient will need outpatient follow-up with cardiology: Patient follows up with [facility] cardiology Monitor vital signs #Insulin-dependent type 2 diabetes mellitus with peripheral neuropathy A1c is 8.3 Continue Lantus 15 units subcutaneous twice daily Accu-Cheks before every meal and nightly with sliding scale insulin coverage Monitor glycemic control Resume gabapentin #Sarcoidosis #Psoriasis Methotrexate held for now secondary to sepsis Patient is also on Stelara every 3 months Outpatient follow-up with occupational medicine physician (Dr. Krista Mitchell) #CLAY Continue CPAP at bedtime #Obesity BMI is 31.1 Lifestyle counseling regarding diet, exercise and weight loss provided Outpatient follow-up with PCP CODE STATUS: Full code DVT prophylaxis: Heparin subcutaneous Discharge planning likely home in the next 24 to 48 hours based on telemetry monitoring for transient episode of bradycardia Care plan discussed with patient, nursing staff Admission and Anticipated Discharge Date Admission Date: March 17, 2024 Review of Systems Review of Systems: See HPI Physical Exam Physical Exam: General: No acute distress, speaking in full sentences Psych: Awake and alert HEENT: Anicteric sclera, moist oral mucosa CVS: Regular rate and rhythm Lungs: Bilateral air entry, no wheezing noted Abdomen: Soft, nontender, no rebound, no guarding Ext: No lower extremity edema, no calf tenderness Neuro: Chronic right-sided weakness noted Results & Data Results & Data Vital Signs (Past 12 Hours) Vital Signs Temp Pulse Pulse Resp BP Pulse Ox O2 Del Method 03/22/24 11:57 36.7 C 74 18 118/69 98 Nasal Cannula 03/22/24 08:00 69 03/22/24 07:30 36.8 C 68 16 120/74 97 Nasal CPAP 03/22/24 03:22 80 11 L 99 03/22/24 02:45 36.5 C 65 18 101/66 98 Nasal CPAP O2 Flow Rate 03/22/24 11:57 03/22/24 08:00 03/22/24 07:30 03/22/24 03:22 4 03/22/24 02:45 PG Care Time/CCT Total # of Minutes Spent Total Time Spent with Patient: Total time spent is greater than 50% in coordination of care (as documented) at patient's floor/unit and/or counseling patient: Coding Diagnoses Sepsis due to urinary tract infection A41.9; N39.0 COVID U07.1 Acute kidney injury superimposed on CKD N17.9; N18.9 Chronic kidney disease, stage III (moderate) N18.30 Diabetes mellitus, type 2 E11.9 Diabetic peripheral neuropathy associated with type 2 diabetes mellitus E11.42 Hypertension I10 History of stroke with residual deficit I69.30 Psoriasis L40.9 Sarcoidosis D86.9
--- NOTE | 2024-03-22 15:47 | Discharge Summary ---
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 coli), present on admission Patient is off vasopressors and is currently not requiring ICU care He required IV hydrocortisone initially in the ICU and is currently off steroids He was initially treated with IV Zosyn which has not been transition to IV ertapenem (day #4/7) as urine culture is growing ESBL E. coli greater than 100,000 colonies Blood cultures from admission have been negative to date Patient is afebrile, hemodynamically stable Patient will go to [facility] as outpatient to finish IV ertapenem therapy: IV ertapenem 1 g IV daily for 2 more days until 03/24/24 #COVID-19 infection Patient was seen by ICU team who have advised against using remdesivir as CT of the chest was negative for PE or any consolidation or infiltrates Patient is not symptomatic from COVID He is not hypoxic and is saturating well on room air and has no respiratory symp toms Continue COVID isolation per infection control guidelines #VITOR superimposed on chronic kidney disease stage III #Hypokalemia Likely related to sepsis Renal function has improved and is at baseline Potassium levels have improved with repletion Monitor renal function and electrolytes Outpatient follow-up with nephrology on discharge (Dr. Harrison Josue) #Hypercalcemia Calcium levels have improved with IV fluid hydration Resume chlorthalidone Outpatient follow-up with nephrology #Essential hypertension #History of multiple CVA with right-sided weakness #Moderate right ICA stenosis Continue aspirin plus Aggrenox plus rosuvastatin Echo from 03/18/2024 shows left ventricular systolic function is normal, EF is 60 to 65% Carotid Dopplers from 03/17/2024 shows moderate atherosclerosis within the right ICA correlating with 50 to 69% stenosis and less than 50% stenosis of the left ICA Patient follows up with neurology as an outpatient (Dr. Guillermo Siu): Will have patient follow-up with neurology as outpatient regarding right ICA stenosis Continue clonidine 0.3 mg p.o. twice daily with hold parameters Continue nifedipine XL 60 mg p.o. daily with hold parameters Continue losartan 100 mg p.o. daily with hold parameters Continue home dose of metoprolol 100 mg in the morning and 50 mg in the evening Patient will need outpatient follow-up with cardiology: Dr. Blankenship #Insulin-dependent type 2 diabetes mellitus with peripheral neuropathy A1c is 8.3 Continue gabapentin Continue home insulin doses Outpatient follow-up with PCP #Sarcoidosis #Psoriasis Methotrexate held for now secondary to sepsis Patient is also on Stelara every 3 months I have asked the patient to hold methotrexate and Stelara for now until he follows up with rheumatology as outpatient Outpatient follow-up with shingle trimmer (Dr. Krista Mitchell) #CLAY Continue CPAP at bedtime #Obesity BMI is 31.1 Lifestyle counseling regarding diet, exercise and weight loss provided Outpatient follow-up with PCP Patient seen and examined today. His mother is at bedside. I have gone over the discharge care plan, medications and follow-up with the patient and his mother in great detail and answered all their questions. Written instructions h ave also been provided This discharge to greater than 30 minutes to coordinate Admission HPI Per Admitting Provider Onel is a 53-year-old male with PMH of CKD stage III, T2DM, dyslipidemia, seizure-like activity, vertigo, vertebral artery stenosis, stroke with residual deficits, asthma, CLAY, TMJ syndrome, and kidney stones. He presented on 03/17 via EMS for complaints of groin, abdominal, and penile pain. Patient was diaphoretic, hypotensive at 71/50, and hypoxic on room air at 86% on arrival. He reports that the pain started yesterday on 03/16 and has been constant since. The worst of the pain is in his groin region; he rates his pain 8/10 at present describes as a "throbbing" pain. He has had kidney stones in the past, and feels like this might be similar. Additionally, he has pain on his left flank and lower back. Patient has had urinary incontinence over the past 24 hours, which is new for him. He is also been unable to produce urine on his own. No sick contacts. He took his regular morning medications today; only recent change medications is that he was on an antibiotic for a dental abscess 3 weeks ago. He endorses SOB both at rest and with exertion. No prior history of DVT/PE. No history of asthma or COPD. He reports that he recently had a fall and hit his rear end hard; he was then "worked hard" at physical therapy yesterday. He also has a history of a L4-L5 fusion with Dr. Gordo Bedolla in [place] back in 1993. Patient is hypotensive at 92/64 at time of admiss ion; SpO2 98% on 4L NC. ED course: Levophed/D5W Zosyn 4.5 g IV NSS 3250 mL IV ROS: Patient endorses fever, chills, night sweats, headache, diaphoresis, SOB at rest and with exertion, pleuritic CP, nausea, lower abdominal pain, left-sided flank pain, groin/penile pain, lower back pain, hematuria, decreased urinary frequency, and new onset urinary incontinence. Patient denies slurred speech, facial droop, dizziness, lightheadedness, chest pain, cough, hemoptysis, vomiting, diarrhea, fecal incontinence, or saddle anesthesia. Discharge Exam General: No acute distress, speaking in full sentences Psych: Awake and alert HEENT: Anicteric sclera, moist oral mucosa CVS: Regular rate and rhythm Lungs: Bilateral air entry, no wheezing noted Abdomen: Soft, nontender, no rebound, no guarding Ext: No lower extremity edema, no calf tenderness Neuro: Chronic right-sided weakness noted Discharge Plan Discharge Items Patient Disposition: Home - Self-Care Reason For Visit: SEPSIS, COVID/HYPOXIA Discharge Diagnosis: #Sepsis secondary to UTI (ESBL E. coli), present on admission #COVID-19 infection #Chronic kidney disease stage III #Essential hypertension #History of multiple CVA with right-sided weakness #Moderate right ICA stenosis #Insulin-dependent type 2 diabetes mellitus with peripheral neuropathy #Sarcoidosis #Psoriasis #CLAY #Obesity Condition on Discharge: Fair Activity: As commented below Activity Comment: As tolerated with assistance Non-emergency contact: Primary Care Provider Call non-emergency contact if: you have any medication questions, your symptoms worsen and you have a fever Follow-up/Referrals: Harrison Josue MD [Physician] - Guillermo Siu MD [Physician] - Butch Blankenship DO [Physician] - Mik Lala [Primary Care Provider] - Diet: Carb Consistent or DM2 and Heart Healthy Addtl Attending Provider Instructions: DISCHARGE INSTRUCTION TO PATIENT/FAMILY: Follow-up with your primary care provider within 1 week regarding: Posthospital discharge, medication review, medication refills and follow-up on all your medical problems Please take all your discharge medications, discharge information and discharge instructions to all your doctors appointments. Avoid all NSAIDs including ibuprofen, Motrin, Advil, Aleve, naproxen, meloxicam, Toradol, diclofenac Labs through PCP in 1 week: CBC, CMP, MG You have completed 4 days of IV antibiotic: Ertapenem 1 g IV daily. You need 2 more days of antibiotic therapy to be provided outpatient through [facility] starting 03/23/2024 for 2 days Carotid Doppler shows moderate right internal carotid artery stenosis: Please follow-up with your neurologist Dr. Guillermo Siu and manufacturing maintenance manager Dr. Blankenship as outpatient regarding this Hold methotrexate and Stelara for now until you follow-up with your outpatient shingle trimmer: Please make appointment for follow-up in 1 to 2 weeks Follow-up with your outpatient university partnership rep for monitoring of renal function Pending Studies at Discharge: No Stand-Alone Forms: My [employer], Smoking Cessation Medications and DC Order Prescriptions: New ertapenem 1 gram recon soln 1 g IV DAILY 3 Days Qty: 3 0RF Continued (DME) pen needle, diabetic [BD Ultra-Fine [place] Pen Needle] 32 gauge x 5/32" needle See Dose Instructions .ROUTE .MEDSUPPLY Qty: 500 3RF Rx Instructions: For injections up to 5 times per day insulin aspart U-100 [Novolog FlexPen U-100 Insulin] 100 unit/mL (3 mL) insulin pen 30 unit subcut TID MDD 90 units PRN (Reason: diabetes) Qty: 30 5RF Hold Instructions: having lows Rx Instructions: plus sliding scale insulin degludec [Tresiba FlexTouch U-100] 100 unit/mL (3 mL) insulin pen 50 unit SQ QAM Qty: 15 5RF Hold Instructions: having lows Jardiance 25 mg tablet 25 mg PO QAM Qty: 30 5RF gabapentin 300 mg capsule 300 mg PO QID 30 Days Qty: 120 5RF spironolactone 25 mg tablet 12.5 mg PO QAM nifedipine 60 mg tablet extended release 60 mg PO QAM (DME) FreeStyle Maria 2 Sensor Kit See Rx Instructions .ROUTE .MEDSUPPLY Qty: 1 Rx Instructions: As directed (DME) Accu-Chek Guide test strips Strip See Rx Instructions .ROUTE .MEDSUPPLY Qty: 10 Rx Instructions: As directed rosuvastatin 10 mg tablet 10 mg PO HS fenofibrate nanocrystallized 145 mg tablet 145 mg PO QAM telmisartan 80 mg tablet 80 mg PO QPM clonidine HCl 0.3 mg tablet 0.3 mg PO BID venlafaxine 225 mg tablet extended release 24hr 225 mg PO HS allopurinol 300 mg tablet 300 mg PO QAM coenzyme Q10 100 mg capsule 100 mg PO QDL fexofenadine 180 mg tablet 180 mg PO BID Qty: 90 hydrocortisone 1 % cream 1 appln topical DAILY PRN (Reason: Rash) montelukast 10 mg tablet 10 mg PO QPM Qty: 30 Systane Balance 0.6 % drops 2 drops OP UD PRN (Reason: Dry Eye(S)) Patient Comments: 2 drp OP 4-6 times a day to right eye PRN; meclizine 25 mg tablet 25 mg PO TID fluticasone propionate 50 mcg/actuation spray,suspension 2 spray intranasal QAM Qty: 1 folic acid 1 mg tablet 1 mg PO QDL metformin 500 mg tablet extended release 24 hr 2,000 mg PO QPM Linzess 145 mcg capsule 145 mcg PO QAM pantoprazole 40 mg tablet,delayed release (DR/EC) 40 mg PO DAILY aspirin-dipyridamole 25-200 mg capsule, ER multiphase 12 hr 1 cap PO BID Qty: 180 3RF budesonide 32 mcg/actuation spray,non-aerosol 2 spray intranasal HS Rx Instructions: administer into each nostril Ozempic 0.25 mg or 0.5 mg (2 mg/3 mL) pen injector 0.5 mg subcut WK 0RF Rx Instructions: per pt still on 0.5 working towards 1 mg dose. takes on mondays ketotifen fumarate [Zaditor] 0.025 % (0.035 %) Drops 1 drp OPHTHALMIC (EYE) BID Hair,Skin and Nails Tablet 3 tab PO QDL olopatadine [Pataday] 0.2 % Drops 1 drp OPHTHALMIC (EYE) QAM acetaminophen [Acetaminophen Extra Strength] 500 mg tablet 1,300 mg PO UD PRN (Reason: Pain) icosapent ethyl 1 gram Capsule 1 g PO BID aspirin 81 mg tablet,delayed release (DR/EC) 81 mg PO QAM diazepam [Valium] 5 mg Tablet 5 mg PO BID PRN (Reason: Anxiety) timolol 0.5 % Drops 1 drp OPHTHALMIC (EYE) BID famotidine 20 mg tablet 20 mg PO BID chlorthalidone 25 mg tablet 25 mg PO DAILY Patient Comments: qpm Rx Instructions: TAKE 1 TABLET BY MOUTH EVERY DAY metoprolol tartrate 100 mg tablet 100 mg PO UD Qty: 0 0RF Rx Instructions: 1 tab in the morning and half a tablet in the evening Held Stelara 90 mg/mL syringe 90 mg SQ UD Hold Instructions: Resume on 03/29/24. Hold until you follow-up with your outpatient shingle trimmer for further instructions regarding methotrexate and Stelara Rx Instructions: 90 mg SQ once every 3 months ; methotrexate (PF) 30 mg/0.6 mL auto-injector 30 mg subcut .weekly Hold Instructions: Resume on 03/30/24. Hold until you follow-up with your outpatient shingle trimmer for further instructions regarding methotrexate and Stelara Rx Instructions: wed Discharge Orders: Discharge Order (Routine); Ordered 03/22/24 Ordered By: Td Talavera/Other Patient Handouts: 2019 Novel Coronavirus, Managing Type 2 Diabetes, Special Foot Care for Diabetes Admission Data Admit Date/Time: 03/17/24 18:48 Attending Provider: Td Palm Admit Provider: Rigo Adan Primary Care Provider: Mik Lala Other Providers: Rigo Adan; Jarod Mcqueen Hospital Stay Data Consultations 03/17/24 17:41 ED Decision to Admit Stat 03/17/24 20:53 Consult Fryer Operator Routine Diagnostic Imagining Performed 03/17/24 15:33 CT angio abdomen pelvis w con Stat 03/17/24 15:54 CT angio chest dissec wo/w con Stat Abdomen/Pelvis CTA 03/17/24 15:33 CT angio abdomen pelvis w con CLINICAL HISTORY: Lower abdominal pain, hypotension TECHNIQUE: Multidetector row helical CT of the abdomen and pelvis was performed, following intravenous administration of iodinated contrast. No oral contrast was administered. Automated dose lowering techniques and/or adjustment according to patient size were utilized for this exam. Coronal and sagittal reformations were obtained. MIP and 3D volume rendered reconstructions were obtained. CT DOSE: 2479.61 mGy.cm Comparison: Comparison is made to CT chest 03/17/2024 FINDINGS: Lower chest: Bibasilar atelectasis versus scarring is seen. Liver: Hepatic steatosis is noted. Gallbladder and biliary tree: No calcified gallstones. Normal caliber wall. No intra- or extrahepatic biliary ductal dilation. Pancreas: Unremarkable, no focal lesions. Spleen: A tiny left adrenal nodule measures 8 mm. Adrenals: Unremarkable. Kidneys and ureters: Unremarkable. Bladder: Diffuse homogeneous wall thickening is seen. Reproductive organs: Unremarkable. Bowel: Diverticulosis is seen without evidence of diverticulitis. Lymph nodes Retroperitoneal: Unremarkable. Pelvic: Unremarkable. Mesenteric: Unremarkable. Peritoneum: Normal. Abdominal wall: Unremarkable. Bones: Unremarkable. CT angiogram: The abdominal aortic contours appear intact without evidence of aneurysmal dilatation and/or dissection. There is evidence of scattered atherosclerotic calcifications of the abdominal aorta and its major branches. The origins of the celiac axis, superior mesenteric, inferior mesenteric and bilateral renal arteries are patent. IMPRESSION: No acute abnormalities and in particular no evidence of retroperitoneal hemorrhage. ACT 112: Negative or not required by law. Electronically signed by: Celio Montesinos M.D. 03/17/2024 4:28 PM Chest CTA 03/17/24 15:54 CT angio chest dissec wo/w con HISTORY: 53 years-old Male abd pain, hypotension acute generalized chest and abdominal pain COMPARISON: CTA abdomen and pelvis of same day TECHNIQUE: CTA of the chest was obtained with and without IV contrast. All measurements were obtained according to NASCET criteria. 3-D coronal and sagittal maps were obtained and transmitted for review. A dose lowering technique was used consistent with the principals of DREW. FINDINGS: Mild cardiomegaly. No pericardial effusion. Extensive coronary artery calcifications. No thoracic aortic aneurysm or dissection. There is mild atherosclerosis of the thoracic aorta. No intramural or mediastinal hematoma. No pulmonary emboli identified. No definite thyroid nodule or lymphadenopathy. No pneumothorax, pleural effusion, airspace consolidation or pulmonary edema. No suspicious pulmonary nodules or masses. Central airways are patent. Hepatosplenomegaly with hepatic steatosis. Tiny hiatal hernia. Bones appear intact. IMPRESSION: 1. Unremarkable CTA of the chest. 2. Extensive coronary artery calcifications. ACT 112: Negative or not required by law. The above report was generated using voice recognition software. It may contain grammatical, syntax or spelling errors. Electronically signed by: Fredrick Ferreira M.D. 03/17/2024 4:42 PM Laboratory Results - last 24 hr 03/21/24 03/21/24 03/22/24 16:19 20:15 07:29 WBC 5.99 RBC 4.31 L Hgb 13.0 L Hct 39.7 L MCV 92.1 MCH 30.2 MCHC 32.7 RDW Std Deviation 62.9 H RDW Coeff of Clay 18.9 H Plt Count 274 MPV 9.4 Immature Gran % (Auto) 4.3 Neut % (Auto) 46.0 Lymph % (Auto) 26.2 Pepin % (Auto) 19.5 Eos % (Auto) 3.3 Baso % (Auto) 0.7 Neut # (Auto) 2.75 Lymph # (Auto) 1.57 Pepin # (Auto) 1.17 H Eos # (Auto) 0.20 Baso # (Auto) 0.04 Immature Gran # (Auto) 0.26 H Absolute Nucleated RBC 0.05 Nucleated RBC % (auto) 0.8 Sodium 137 Potassium 3.8 Chloride 103 Carbon Dioxide 24 Anion Gap 10 BUN 36 H Creatinine 1.45 H Est Cr Clr Drug Dosing 69.2 Est GFR ( Amer) 63.3 Est GFR (Non-Af Amer) 54.6 BUN/Creatinine Ratio 24.8 H Glucose 161 H POC Glucose 137 H 114 H Calcium 9.9 Magnesium 2.1 03/22/24 03/22/24 08:03 11:47 WBC RBC Hgb Hct MCV MCH MCHC RDW Std Deviation RDW Coeff of Clay Plt Count MPV Immature Gran % (Auto) Neut % (Auto) Lymph % (Auto) Pepin % (Auto) Eos % (Auto) Baso % (Auto) Neut # (Auto) Lymph # (Auto) Pepin # (Auto) Eos # (Auto) Baso # (Auto) Immature Gran # (Auto) Absolute Nucleated RBC Nucleated RBC % (auto) Sodium Potassium Chloride Carbon Dioxide Anion Gap BUN Creatinine Est Cr Clr Drug Dosing Est GFR ( Amer) Est GFR (Non-Af Amer) BUN/Creatinine Ratio Glucose POC Glucose 194 H 261 H Calcium Magnesium Pending Results Patient Have Any Pending Studies at Discharge: No Discharge Instructions Given to Patient (Per Discharging Provider) DISCHARGE INSTRUCTION TO PATIENT/FAMILY: Follow-up with your primary care provider within 1 week regarding: Posthospital discharge, medication review, medication refills and follow-up on all your medical problems Please take all your discharge medications, discharge information and discharge instructions to all your doctors appointments. Avoid all NSAIDs including ibuprofen, Motrin, Advil, Aleve, naproxen, meloxicam, Toradol, diclofenac Labs through PCP in 1 week: CBC, CMP, MG You have completed 4 days of IV antibiotic: Ertapenem 1 g IV daily. You need 2 more days of antibiotic therapy to be provided outpatient through [facility] starting 03/23/2024 for 2 days Carotid Doppler shows moderate right internal carotid artery stenosis: Please follow-up with your neurologist Dr. Guillermo Siu and manufacturing maintenance manager Dr. Blankenship as outpatient regarding this Hold methotrexate and Stelara for now until you follow-up with your outpatient shingle trimmer: Please make appointment for follow-up in 1 to 2 weeks Follow-up with your outpatient university partnership rep for monitoring of renal function Total Time Total Time Spent Total Time Spent (In Minutes): 40 Coding Level of Care Code 30084 INP/OBS DISCH >30 MIN Diagnoses Sepsis due to urinary tract infection A41.9; N39.0 COVID U07.1 Acute kidney injury superimposed on CKD N17.9; N18.9 Chronic kidney disease, stage III (moderate) N18.30 Diabetes mellitus, type 2 E11.9 Diabetic peripheral neuropathy associated with type 2 diabetes mellitus E11.42 Hypertension I10 History of stroke with residual deficit I69.30 Psoriasis L40.9 Sarcoidosis D86.9 Time Spent (min) 40
[2024-03-22 17:26] VITALS: BP 117/81
== END 2024-03-22 17:27 | disposition home or self-care (01) | DRG 871 ==
LOC: ED 15:20 → SUATTDRO 18:48 → 1E 18:48 → 2S 03-21 17:25

== ENCOUNTER 2024-04-13 02:23 | Inpatient (IN) ==
--- NOTE | 2024-04-13 02:35 | Emergency Department Note ---
History of Present Illness General Chief complaint: Trauma Stated complaint: FALL Time Seen by Provider: 04/13/24 02:30 Source: patient, EMS, RN notes reviewed and old records reviewed (03/17/24- discharge summary for when he had weakness and UTI) Mode of arrival: EMS Limitations: no limitations History of Present Illness This patient is a 53-year-old male has a complex medical history, comes in after falling off the toilet. He has had several strokes he is on antiplatelet agents and based on this they called trauma alert prior to arrival I did see him upon arrival and talk to the paramedics. The patient denies any his head he denies any new numbness or weakness does been feeling generally weak since he left the hospital. He may have hit his right hip and has pain along his hip and a little bit in the back he does have chronic back pain. No abdominal pain. no chest pain or shortness of breath.no syncope .no fever or chills. he is not on any antibiotics at present no urinary symptoms. Home Medications Medication Instructions Recorded Confirmed Type allopurinol 300 mg tablet 300 mg PO QAM 02/01/19 04/13/24 History coenzyme Q10 100 mg capsule 100 mg PO QDL 02/01/19 04/13/24 History fexofenadine 180 mg tablet 180 mg PO BID #90 tabs 02/01/19 04/13/24 History hydrocortisone 1 % topical cream 1 appln topical DAILY PRN Rash 02/01/19 04/13/24 History montelukast 10 mg tablet 10 mg PO QPM #30 tabs 02/01/19 04/13/24 History propylene glycol 0.6 % eye drops 2 drops ophthalmic (eye) UD PRN 02/01/19 04/13/24 History (Systane Balance) Dry Eye(S) ustekinumab 90 mg/mL subcutaneous 90 mg subcut UD 02/01/19 04/13/24 History syringe (Stelara) ketotifen fumarate 0.025 % (0.035 1 drp ophthalmic (eye) BID 02/02/19 04/13/24 History %) eye drops (Zaditor) multivitamin with minerals 3 tab PO QDL 02/02/19 04/13/24 History (Hair,Skin and Nails tablet) olopatadine 0.2 % eye drops 1 drp ophthalmic (eye) QAM 02/02/19 04/13/24 History (Pataday) fenofibrate nanocrystallized 145 145 mg PO QAM 02/21/20 04/13/24 History mg tablet telmisartan 80 mg tablet 80 mg PO QPM 06/06/20 04/13/24 History blood sugar diagnostic (Accu-Chek #10 ea 09/24/20 04/13/24 History Guide test strips) flash glucose sensor (FreeStyle #1 ea 09/24/20 04/04/24 History Maria 2 Sensor kit) nifedipine 60 mg tablet,extended 60 mg PO QAM 10/29/20 04/13/24 History release folic acid 1 mg tablet 1 mg PO QDL 04/17/21 04/13/24 History spironolactone 25 mg tablet 12.5 mg PO QAM 04/17/21 04/13/24 History methotrexate (PF) 30 mg/0.6 mL 30 mg subcut .weekly 06/24/21 04/13/24 History subcutaneous auto-injector meclizine 25 mg tablet 25 mg PO TID Vertigo 09/25/21 04/13/24 History fluticasone propionate 50 2 spray intranasal QAM #1 g 10/22/21 04/13/24 History mcg/actuation nasal spray,suspension metformin 500 mg tablet,extended 2,000 mg PO QPM 01/27/22 04/13/24 History release 24 hr clonidine HCl 0.3 mg tablet 0.3 mg PO BID 09/14/22 04/13/24 History venlafaxine 225 mg tablet,extended 225 mg PO HS 09/14/22 04/13/24 History release 24 hr rosuvastatin 10 mg tablet 10 mg PO HS 12/28/22 04/13/24 History aspirin 81 mg tablet,delayed 81 mg PO QAM 03/23/23 04/13/24 History release diazepam 5 mg tablet (Valium) 5 mg PO BID PRN Anxiety 03/23/23 04/13/24 History icosapent ethyl 1 gram capsule 1 g PO BID 03/23/23 04/13/24 History timolol 0.5 % eye drops 1 drp ophthalmic (eye) BID 03/23/23 04/13/24 History linaclotide 145 mcg capsule 145 mcg PO QAM 06/16/23 04/13/24 History (Linzess) pantoprazole 40 mg tablet,delayed 40 mg PO DAILY 07/28/23 04/13/24 History release acetaminophen 500 mg tablet 1,300 mg PO UD PRN Pain 08/04/23 04/13/24 History (Acetaminophen Extra Strength) insulin degludec 100 unit/mL (3 50 unit (0.5 mL) subcut QAM #15 mL 09/30/23 04/13/24 Rx mL) subcutaneous pen (Tresiba FlexTouch U-100 insulin) pen needle, diabetic 32 gauge x #500 ea 09/30/23 04/04/24 Rx 5/32" (BD Ultra-Fine [place] Pen Needle) empagliflozin 25 mg tablet 25 mg PO QAM #30 tabs 12/02/23 04/13/24 Rx (Jardiance) budesonide 32 mcg/actuation nasal 2 spray intranasal HS 12/21/23 04/13/24 History spray gabapentin 300 mg capsule 300 mg PO QID 30 days #120 caps 02/03/24 04/13/24 Rx aspirin 25 mg-dipyridamole 200 mg 1 cap PO BID #180 caps 02/24/24 04/13/24 Rx capsule,ext.release 12 hr multiphase chlorthalidone 25 mg tablet 25 mg PO DAILY 03/17/24 04/13/24 History famotidine 20 mg tablet 20 mg PO BID 03/17/24 04/13/24 History metoprolol tartrate 100 mg tablet 100 mg PO UD #0 tabs 03/22/24 04/13/24 Rx insulin aspart U-100 100 unit/mL 30 unit (0.3 mL) subcut TID PRN 04/04/24 04/13/24 Rx (3 mL) subcutaneous pen (Novolog diabetes #30 mL FlexPen U-100 Insulin aspart) Allergies Allergy/AdvReac Type Severity Reaction Status Date / Time cephalexin Allergy Intermediate "GENERAL Verified 04/06/24 11:10 ILLNESS"/rash latex Allergy Intermediate Rash Verified 04/06/24 11:10 adalimumab [From Humira] Allergy Mild "made my Verified 04/06/24 11:10 psorasis worse" aspirin Allergy Mild GI Verified 04/06/24 11:10 SYMPTOMS-nausea/vomiting methotrexate Allergy Mild nausea/vomi Verified 04/06/24 11:10 ting Sulfa (Sulfonamide AdvReac Mild general Verified 04/06/24 11:10 Antibiotics) malaise, upset stomach Adhesives AdvReac Mild Skin Uncoded 04/06/24 11:10 irritation Past Med/Surg History Problem List (Updated 04/13/24 @ 06:28 by Guillermo Vidal MD) 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 (Acute) Acute UTI (urinary tract infection) (Acute) Fall (Acute) Weakness (Acute) Acute kidney injury superimposed on CKD Sepsis due to urinary tract infection Acute hypotension (Acute) Shock UTI (urinary tract infection) Sepsis Hypoxia COVID History of CVA (cerebrovascular accident) History of lumbar fusion Urinary incontinence Anemia VITOR (acute kidney injury) Traumatic open wound of left lower leg (Acute) Hypotension (Acute) Complex sleep apnea syndrome Traumatic open wound of right lower leg (Acute) Hypertension (Chronic) Diabetes mellitus, type 2 Kidney stones TMJ syndrome (Acute) Sinus bradycardia (Acute) Obstructive sleep apnea (Acute) Obesity (BMI 35.0-39.9 without comorbidity) (Acute) Lumbar radiculopathy (Acute) Lower back pain (Acute) Joint pain, knee (Acute) Dysesthesia (Acute) Asthma (Acute) History of stroke with residual deficit Psoriasis Depression Vertebral artery stenosis Chronic right occlusion Vertigo Diabetic peripheral neuropathy associated with type 2 diabetes mellitus Dyslipidemia Hypercalciuria Orbital pseudotumor Chronic venous insufficiency (Chronic) Nocturnal hypoxemia Erectile dysfunction Type 2 diabetes mellitus with neurologic complication, with long-term current use of insulin Chronic kidney disease, stage III (moderate) Seizure-like activity Encounter for pre-operative examination Vitamin D deficiency (Acute) Medical History History of kidney stones Diabetes mellitus, type 2 free style maria in use Hyperparathyroidism "possibly" Depression Sarcoidosis dx left eye Hx of transient ischemic attack (TIA) ? November 2022 possibly>follows with Dr. Siu and [facility] neurologist Stroke x 3>last one 2019 (still has vertigo from event, generalized weakness and balance problems) Hyperlipidemia Cardiac murmur follows with Dr. Blankenship Hx of gout Sleep apnea asv machine>bipap Environmental allergies Serum calcium elevated Acquired buried penis Dysarthria Allergic rhinitis Arthralgia of multiple sites Constipation Chronic back pain Fatty liver disease, nonalcoholic GERD (gastroesophageal reflux disease) Psoriasis Glaucoma bilt Hypertension Surgical History History of colonoscopy History of tooth extraction H/O eye surgery left eye biopsy History of lumbar spinal fusion History of removal of cyst at umbilicus History of appendectomy History of esophagogastroduodenoscopy (EGD) History of wisdom tooth extraction History of tonsillectomy and adenoidectomy x2 Status post myringotomy with tube placement of both ears Family History Mother Family history of reaction to anesthesia during heart valve replacement became combative and forgetful Family history of diabetes mellitus Hypertension Stroke, Onset Age: 62 Grandmother (Maternal) Family history of diabetes mellitus Grandfather (Maternal) Family hx of colon cancer Father Stroke, Onset Age: 53 Atherosclerotic cerebrovascular disease patient reported posterior large vessel disease Social History Smoking Status: Unknown if ever smoked Second Hand Exposure: No; Do You Dip or Chew Tobacco: No; Hx Alcohol Use: Yes Alcohol type: wine Alcohol Intake Frequency Comment: STATED DRINKS ONCE WEEKLY Hx Substance Use: No Preferred Language: Mongolian Communication Ability: Unable Visual Impairment: No Limitations Hearing Ability: Normal 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 Beliefs That Will Affect Care: None marital status: Single Current Living Situation: Family Current Living Situation Comment: lives with mom, MOTHER ABLE TO ASSIST WITH CARE NEEDED 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al status: employed and disabled 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, 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 Feels Safe at Home: Yes Diet: diabetic, low carbohydrate and low salt Diet Comment: CARB COUNTING during the past year weight has: decreased > 10 lbs Assistive Devices: CPAP Review of Systems A total of 10 systems reviewed and were otherwise negative Physical Exam Vital Signs Vital Signs - 24 hr 04/13/24 02:24 04/13/24 02:24 04/13/24 02:24 Temperature 37 C 37 C 37 C Temperature Source Oral Oral Pulse Rate 125 H 125 H Pulse Rate [Right] Respiratory Rate 18 18 18 Respiratory Effort / Characteristics Non-Labored Spontaneous Non-Labored Spontaneous Respiratory Depth Normal Normal Respiratory Pattern Regular Regular Blood Pressure 131/78 131/78 Blood Pressure [Left Arm] 131/78 Blood Pressure Mean 95 Blood Pressure Mean [Left Arm] 95 Pulse Oximetry 94 94 94 Oxygen Delivery Method Room Air Room Air Room Air Oxygen Flow Rate 94 Sepsis Recent Fever Within 48 Hours No Sepsis New/Unexplained Change in Mental Status N/A Sepsis Action Taken by Nursing No Action Required 04/13/24 02:34 04/13/24 03:09 04/13/24 03:15 Temperature Temperature Source Pulse Rate 100 H 98 H Pulse Rate [Right] Respiratory Rate 18 18 Respiratory Effort / Characteristics Non-Labored Spontaneous Respiratory Depth Normal Respiratory Pattern Blood Pressure 130/80 Blood Pressure [Left Arm] 128/85 Blood Pressure Mean 96 Blood Pressure Mean [Left Arm] 99 Pulse Oximetry 94 93 Oxygen Delivery Method Room Air Room Air Oxygen Flow Rate Sepsis Recent Fever Within 48 Hours Sepsis New/Unexplained Change in Mental Status Sepsis Action Taken by Nursing 04/13/24 03:17 04/13/24 04:00 04/13/24 05:00 Temperature Temperature Source Pulse Rate Pulse Rate [Right] 98 H Respiratory Rate 18 18 Respiratory Effort / Characteristics Non-Labored Respiratory Depth Normal Respiratory Pattern Blood Pressure Blood Pressure [Left Arm] 129/87 125/82 Blood Pressure Mean Blood Pressure Mean [Left Arm] 101 96 Pulse Oximetry 94 96 97 Oxygen Delivery Method Room Air Room Air Room Air Oxygen Flow Rate Sepsis Recent Fever Within 48 Hours Sepsis New/Unexplained Change in Mental Status Sepsis Action Taken by Nursing 04/13/24 06:00 04/13/24 06:11 Temperature 37.8 C H Temperature Source Oral Pulse Rate Pulse Rate [Right] 104 H Respiratory Rate 18 Respiratory Effort / Characteristics Non-Labored Spontaneous Respiratory Depth Normal Respiratory Pattern Regular Blood Pressure Blood Pressure [Left Arm] 147/85 H Blood Pressure Mean Blood Pressure Mean [Left Arm] 105 Pulse Oximetry 96 Oxygen Delivery Method Room Air Oxygen Flow Rate Sepsis Recent Fever Within 48 Hours Sepsis New/Unexplained Change in Mental Status Sepsis Action Taken by Nursing General: Well developed well nourished middle-age male who appears in no acute distress, breathing comfortably on room air. Normal speech HEENT: Normal cephalic atraumatic. Pupils are equal round and reactive to light. Extraocular movements are intact. Oropharynx is pink with moist mucous membranes. No swelling of the mouth lips or tongue. Neck: Supple with a midline trachea. No meningeal signs or stiffness, no JVD or bruits. No Stridor. Chest: Clear to auscultation bilaterally. No wheezes or rhonchi. No increased work of breathing. Heart: Regular rate and rhythm without murmurs or gallops. Abdomen: Soft nontender, nondistended without rebound guarding or rigidity. Extremities: No cyanosis clubbing or edema. No calf tenderness or assymetry. No shortening or deformity Spine/Back. Non tender to palpation. No CVA tenderness Skin: Good turgor without rashes. Neurologic exam: Cranial nerves two through 12 are intact. Motor and sensation are intact and symmetrical throughout. Course Administered Medications Discontinued Medications Ertapenem (Invanz 1000mg) 1,000 mg in 10 mls @ 2 mls/min IV NOW STA Stop: 04/13/24 06:00 Last Admin: 04/13/24 06:08 Dose: 2 mls/min Documented By: KORI Medical Decision Making Differential Diagnosis Traumatic injury, hip fracture, weakness, anemia, sepsis, cardiac disease Medical Records Attestation: I reviewed the patient's medical records. Home Medications Current Medication List: was personally reviewed by me Laboratory Data Attestation: I reviewed the patient's lab results. 04/13/24 02:34 04/13/24 02:34 Lab Results 04/13/24 04/13/24 04/13/24 Range/Units 02:34 02:47 05:17 WBC 9.38 (4.8-10.8) K/ul RBC 4.15 L (4.70-6.10) M/uL Hgb 12.8 L (14.0-18.0) g/dl POC Hgb 13.9 L (14.0-18.0) g/dl Hct 39.7 L (42.0-52.0) % POC Hct 41 L (42-52) % MCV 95.7 (80.0-100.0) fL MCH 30.8 (25.0-34.0) pg MCHC 32.2 (32.0-36.0) g/dL RDW Std Deviation 65.7 H (36.4-46.3) fL RDW Coeff of Clay 18.6 H (11.5-14.5) % Plt Count 162 (130-400) K/uL MPV 9.1 L (9.4-12.4) fL Immature Gran % (Auto) 0.3 % Neut % (Auto) 80.4 % Lymph % (Auto) 8.2 % Cherry % (Auto) 10.6 % Eos % (Auto) 0.4 % Baso % (Auto) 0.1 % Neut # (Auto) 7.54 H (1.40-6.50) K/uL Lymph # (Auto) 0.77 L (1.20-3.40) K/uL Cherry # (Auto) 0.99 H (0.11-0.59) K/uL Eos # (Auto) 0.04 (0.00-0.50) K/uL Baso # (Auto) 0.01 (0.00-0.20) K/uL Immature Gran # (Auto) 0.03 (0.01-0.20) K/uL POC Sodium 137 (135-144) mmol/L Sodium 136 (136-145) mmol/L POC Potassium 3.8 (3.3-5.0) mmol/L Potassium 3.8 (3.5-5.1) mmol/L POC Chloride 101 (101-112) mmol/L Chloride 99 (98-107) mmol/L Carbon Dioxide 27 (21-32) mmol/L POC Total CO2 25 (24-31) mmol/L Anion Gap 10 (3-11) POC Anion Gap 16.0 (16-25) mmol/L POC BUN 23 H (7-18) mg/dl BUN 23 (6-23) mg/dl Creatinine 1.54 H (0.6-1.4) mg/dl POC Creatinine 1.7 H (0.6-1.3) mg/dl Est Cr Clr Drug Dosing 66.7 ml/min eGFR 53.60 BUN/Creatinine Ratio 14.9 (10-20) Glucose 239 H (70-99(Fasting)) mg/dl POC Glucose (other) 240 H (70-99) mg/dl Lactate 1.9 (0.4-2.0) mmol/L Calcium 10.5 H (8.6-10.3) mg/dl POC Ioniz Calcium Tul[place] 1.30 (1.12-1.32) mmol/l Total Bilirubin 1.5 H (0.2-1.0) mg/dl AST 16 (13-39) U/L ALT 14 (7-52) U/L Alkaline Phosphatase 83 (34-104) U/L Total Creatine Kinase 67 (30-223) U/L Troponin I High Sens 10.5 (0-20) pg/ml Total Protein 7.9 (6.0-8.3) gm/dl Albumin 4.5 (3.4-5.0) gm/dl Globulin 3.4 (2.5-4.0) gm/dl Albumin/Globulin Ratio 1.3 (0.9-2) Urine Color Yellow Urine Appearance Cloudy A (Clear) Urine pH 6.0 (4.5-7.5) Ur Specific [place] 1.025 (1.000-1.030) Urine Protein 1+ H (Negative) Urine Glucose (UA) 3+ H (Negative) Urine Ketones Negative (Negative) Urine Blood 2+ H (Negative) Urine Nitrite Positive A (Negative) Urine Bilirubin Negative (Negative) Urine Urobilinogen Negative (Negative) Ur Leukocyte Esterase 2+ H (Negative) Urine WBC (Auto) >50 H (0-5) /hpf Urine RBC (Auto) 6-10 H (0-2) /hpf U Hyaline Cast (Auto) 0-2 (0-2) /lpf U Epithel Cells (Auto) 0-2 (0-2) /hpf Urine Bacteria (Auto) 3+ H (None Seen) Imaging Data Attestation: I personally reviewed and interpreted this imaging study as follows: My Impression: Chest x-rayno acute infiltrate, failure, pneumothorax seen Hip x-rayno fracture or dislocation seen Radiologist's Impression: Abdomen/Pelvis CT 04/13/24 02:31 Exam(s): CT ABDOMEN + PELVIS Without Contrast EXAM: CT Abdomen and Pelvis Without Intravenous Contrast CLINICAL HISTORY: Reason for exam: Trauma rt hip pain. TECHNIQUE: Axial computed tomography images of the abdomen and pelvis without intravenous contrast. CTDI is 36.55 mGy and DLP is 2090.17 mGy-cm. Automated exposure control was utilized for the study. A dose lowering technique was utilized adhering to the principles of ALARA. COMPARISON: March 17, 2024 FINDINGS: Lung bases: Unremarkable. No mass. No consolidation. ABDOMEN: Liver: The liver is enlarged measuring 24 cm craniocaudad. No focal liver lesion is seen. Gallbladder and bile ducts: Unremarkable. No calcified stones. No ductal dilation. Pancreas: Unremarkable. No ductal dilation. Spleen: Unremarkable. No splenomegaly. Adrenals: Unremarkable. No mass. Kidneys and ureters: Slight bilateral perinephric fat stranding is nonspecific but can be seen in renal insufficiency or pyelonephritis. This is a noncontrast study. No obstructing stones. Stomach and bowel: See below. PELVIS: Appendix: The appendix is not visible. Bowel loops are nondilated. There is diverticulosis of the sigmoid colon without evidence of acute diverticulitis. There is a large amount of stool in the cecum and right colon measuring up to 7 cm in diameter suggesting possible mild constipation. Bladder: 8 mm urinary bladder wall thickening may be due to decompressed status versus cystitis. No stones. Reproductive: Unremarkable as visualized. ABDOMEN and PELVIS: Intraperitoneal space: Unremarkable. No free air. No significant fluid collection. Bones/joints: The hips and pelvis are intact. No acute fracture or dislocation is seen. 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 No acute fracture or subluxation is seen. Soft tissues: Unremarkable. Vasculature: Unremarkable. No abdominal aortic aneurysm. Lymph nodes: Unremarkable. No enlarged lymph nodes. IMPRESSION: 1. The hips and pelvis are intact. No acute fracture or dislocation is seen. 2. Slight bilateral perinephric fat stranding is nonspecific but can be seen in renal insufficiency or pyelonephritis. This is a noncontrast study. 3. 8 mm urinary bladder wall thickening may be due to decompressed status versus cystitis. 4. The appendix is not visible. Bowel loops are nondilated. There is diverticulosis of the sigmoid colon without evidence of acute diverticulitis. There is a large amount of stool in the cecum and right colon measuring up to 7 cm in diameter suggesting possible mild constipation. Electronically signed by: Vasile Robles MD 04/13/24 03:[address] 04/13/24 02:31 Exam(s): CT HEAD Without Contrast EXAM: CT Head Without Intravenous Contrast CLINICAL HISTORY: Reason for exam: Trauma. TECHNIQUE: Axial computed tomography images of the head/brain without intravenous contrast. CTDI is 36.55 mGy and DLP is 2090.17 mGy-cm. Automated exposure control was utilized for the study. A dose lowering technique was utilized adhering to the principles of ALARA. COMPARISON: Prior brain MRI from April 19, 2023. FINDINGS: Brain: Unremarkable. No hemorrhage. No significant white matter disease. No edema. Ventricles: Unremarkable. No ventriculomegaly. Bones/joints: Unremarkable. No acute fracture. Soft tissues: Unremarkable. Sinuses: Unremarkable as visualized. No acute sinusitis. Mastoid air cells: Unremarkable as visualized. No mastoid effusion. IMPRESSION: No evidence of acute intracranial pathology. Electronically signed by: Tianna Mayfield MD 04/13/24 04:20 AM ECG Data Attestation: I personally reviewed and interpreted this ECG as follows: Indication: + weakness Rate (beats per minute): 99 Rhythm: + normal sinus ECG Intervals/blocks: + First degree AV block, + Normal QRS and + Normal QT ECG [place]: + Normal ECG ST segments: + Normal ST segments ECG Findings: + LVH; no PACs or no PVCs Comparison ECG Date: from (03/17/24) Change: no significant change MDM Narrative Patient comes in as described above. A trauma alert was called given the fact that the patient fell and was not on antiplatelets. When I evaluated him he had no head trauma. His only complaint is right hip pain apparently was walking there is no shortening or deformity appears to have no new neurologic deficits sounds like he has been somewhat deconditioned since being in the hospital he is felt generally weak in light of this I did a full workup. Chest x-ray was obtained as well as a pelvis x-ray. CAT scan of his head and abdomen/pelvis were also obtained. EKG shows no acute ischemic changes or ectopy. The patient says he does feel well although has had some weakness lately. His urinalysis was concerning however as it looks infected and on the CAT scan there was questionable cystitis and potential pyelonephritis although he does not examine that way. He also does have a history of a recent ESBL which was resistant to most antibiotics except for ertapenem. he was given ertapenem 1 g IV in the meantime he also did spike a temperature. I am concerned that he is weak because he is getting another infection/sepsis. Also compounding the issue is he lives with his parents and they were out of town and he has had somewhat hard time taking care of himself. I did discuss case with Dr. Bradford and he will see the patient ER for admission/observation. 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 Forms Stand Alone Forms: My [facility] Prescriptions Prescriptions: No Action (DME) pen needle, diabetic [BD Ultra-Fine [place] Pen Needle] 32 gauge x 5/32" needle See Dose Instructions .ROUTE .MEDSUPPLY Qty: 500 3RF Rx Instructions: For injections up to 5 times per day insulin degludec [Tresiba FlexTouch U-100] 100 unit/mL (3 mL) insulin pen 50 unit SQ QAM Qty: 15 5RF Hold Instructions: having lows Jardiance 25 mg tablet 25 mg PO QAM Qty: 30 5RF gabapentin 300 mg capsule 300 mg PO QID 30 Days Qty: 120 5RF spironolactone 25 mg tablet 12.5 mg PO QAM nifedipine 60 mg tablet extended release 60 mg PO QAM (DME) FreeStyle Maria 2 Sensor Kit See Rx Instructions .ROUTE .MEDSUPPLY Qty: 1 Rx Instructions: As directed (DME) Accu-Chek Guide test strips Strip See Rx Instructions .ROUTE .MEDSUPPLY Qty: 10 Rx Instructions: As directed rosuvastatin 10 mg tablet 10 mg PO HS fenofibrate nanocrystallized 145 mg tablet 145 mg PO QAM telmisartan 80 mg tablet 80 mg PO QPM clonidine HCl 0.3 mg tablet 0.3 mg PO BID venlafaxine 225 mg tablet extended release 24hr 225 mg PO HS allopurinol 300 mg tablet 300 mg PO QAM coenzyme Q10 100 mg capsule 100 mg PO QDL fexofenadine 180 mg tablet 180 mg PO BID Qty: 90 hydrocortisone 1 % cream 1 appln topical DAILY PRN (Reason: Rash) montelukast 10 mg tablet 10 mg PO QPM Qty: 30 Stelara 90 mg/mL syringe 90 mg SQ UD Hold Instructions: Resume on 03/29/24. Hold until you follow-up with your outpatient advanced practice provider for further instructions regarding methotrexate and Stelara Rx Instructions: 90 mg SQ once every 3 months ; Systane Balance 0.6 % drops 2 drops OP UD PRN (Reason: Dry Eye(S)) Patient Comments: 2 drp OP 4-6 times a day to right eye PRN; meclizine 25 mg tablet 25 mg PO TID fluticasone propionate 50 mcg/actuation spray,suspension 2 spray intranasal QAM Qty: 1 folic acid 1 mg tablet 1 mg PO QDL methotrexate (PF) 30 mg/0.6 mL auto-injector 30 mg subcut .weekly Hold Instructions: Resume on 03/30/24. Hold until you follow-up with your outpatient advanced practice provider for further instructions regarding methotrexate and Stelara Rx Instructions: wed metformin 500 mg tablet extended release 24 hr 2,000 mg PO QPM Linzess 145 mcg capsule 145 mcg PO QAM pantoprazole 40 mg tablet,delayed release (DR/EC) 40 mg PO DAILY insulin aspart U-100 [Novolog FlexPen U-100 Insulin] 100 unit/mL (3 mL) insulin pen 30 unit subcut TID MDD 90 units PRN (Reason: diabetes) Qty: 30 5RF Hold Instructions: having lows Rx Instructions: plus sliding scale aspirin-dipyridamole 25-200 mg capsule, ER multiphase 12 hr 1 cap PO BID Qty: 180 3RF budesonide 32 mcg/actuation spray,non-aerosol 2 spray intranasal HS Rx Instructions: administer into each nostril Ozempic 0.25 mg or 0.5 mg (2 mg/3 mL) pen injector 0.5 mg subcut WK 0RF Rx Instructions: per pt still on 0.5 working towards 1 mg dose. takes on mondays ketotifen fumarate [Zaditor] 0.025 % (0.035 %) Drops 1 drp OPHTHALMIC (EYE) BID Hair,Skin and Nails Tablet 3 tab PO QDL olopatadine [Pataday] 0.2 % Drops 1 drp OPHTHALMIC (EYE) QAM acetaminophen [Acetaminophen Extra Strength] 500 mg tablet 1,300 mg PO UD PRN (Reason: Pain) icosapent ethyl 1 gram Capsule 1 g PO BID aspirin 81 mg tablet,delayed release (DR/EC) 81 mg PO QAM diazepam [Valium] 5 mg Tablet 5 mg PO BID PRN (Reason: Anxiety) timolol 0.5 % Drops 1 drp OPHTHALMIC (EYE) BID famotidine 20 mg tablet 20 mg PO BID chlorthalidone 25 mg tablet 25 mg PO DAILY Patient Comments: qpm Rx Instructions: TAKE 1 TABLET BY MOUTH EVERY DAY metoprolol tartrate 100 mg tablet 100 mg PO UD Qty: 0 0RF Rx Instructions: 1 tab in the morning and half a tablet in the evening Referrals Referrals: Mik Lala [Primary Care Provider] - Discharge Problem: Fall Qualifiers: Encounter type: initial encounter Qualified Code(s): W19.XXXA - Unspecified fall, initial encounter
[2024-04-13 02:53] LABS: Basophils # (auto) 0.01 K/uL (0.00-0.20); Basophils % (auto) 0.1 %; Eosinophils # (auto) 0.04 K/uL (0.00-0.50); Eosinophils % (auto) 0.4 %; Hematocrit (blood only) 39.7 % (42.0-52.0); Hemoglobin 12.8 g/dl (14.0-18.0); Immature Granulocytes # (auto) 0.03 K/uL (0.01-0.20); Immature Granulocytes % (auto) 0.3 %; Lymphocytes # (auto) 0.77 K/uL (1.20-3.40); Lymphocytes % (auto) 8.2 %; Mean Corpuscular Hemoglobin 30.8 pg (25.0-34.0); Mean Corpuscular Hgb Conc 32.2 g/dL (32.0-36.0); Mean Corpuscular Volume 95.7 fL (80.0-100.0); Mean Platelet Volume 9.1 fL (9.4-12.4); Monocytes # (auto) 0.99 K/uL (0.11-0.59); Monocytes % (auto) 10.6 %; Neutrophils # (auto) 7.54 K/uL (1.40-6.50); Neutrophils % (auto) 80.4 %; Platelet Count 162 K/uL (130-400); RDW Coefficient of Variation 18.6 % (11.5-14.5); RDW Standard Deviation 65.7 fL (36.4-46.3); Red Blood Count 4.15 M/uL (4.70-6.10); White Blood Count 9.38 K/ul (4.8-10.8)
[2024-04-13 03:00] LABS: iSTAT Creatinine 1.7 mg/dl (0.6-1.3); iSTAT Hemoglobin 13.9 g/dl (14.0-18.0); iSTAT Ionized Calcium 1.3 mmol/l (1.12-1.32); iSTAT Potassium 3.8 mmol/L (3.3-5.0)
[2024-04-13 03:11] LABS: Albumin Globulin Ratio 1.3 (0.9-2); Albumin Level 4.5 gm/dl (3.4-5.0); BUN Creatinine Ratio 14.9 (10-20); Bilirubin,Total 1.5 mg/dl (0.2-1.0); Calcium 10.5 mg/dl (8.6-10.3); Creatinine Clr Calc Pharmacy 66.7 ml/min; Globulin 3.4 gm/dl (2.5-4.0); Potassium 3.8 mmol/L (3.5-5.1); Total Protein 7.9 gm/dl (6.0-8.3)
[2024-04-13 03:17] LABS: Troponin I High Sensitivity 10.5 pg/ml (0-20)
--- NOTE | 2024-04-13 03:59 | CT Scan Report ---
Exam(s): CT ABDOMEN + PELVIS Without Contrast EXAM: CT Abdomen and Pelvis Without Intravenous Contrast CLINICAL HISTORY: Reason for exam: Trauma rt hip pain. TECHNIQUE: Axial computed tomography images of the abdomen and pelvis without intravenous contrast. CTDI is 36.55 mGy and DLP is 2090.17 mGy-cm. Automated exposure control was utilized for the study. A dose lowering technique was utilized adhering to the principles of ALARA. COMPARISON: March 17, 2024 FINDINGS: Lung bases: Unremarkable. No mass. No consolidation. ABDOMEN: Liver: The liver is enlarged measuring 24 cm craniocaudad. No focal liver lesion is seen. Gallbladder and bile ducts: Unremarkable. No calcified stones. No ductal dilation. Pancreas: Unremarkable. No ductal dilation. Spleen: Unremarkable. No splenomegaly. Adrenals: Unremarkable. No mass. Kidneys and ureters: Slight bilateral perinephric fat stranding is nonspecific but can be seen in renal insufficiency or pyelonephritis. This is a noncontrast study. No obstructing stones. Stomach and bowel: See below. PELVIS: Appendix: The appendix is not visible. Bowel loops are nondilated. There is diverticulosis of the sigmoid colon without evidence of acute diverticulitis. There is a large amount of stool in the cecum and right colon measuring up to 7 cm in diameter suggesting possible mild constipation. Bladder: 8 mm urinary bladder wall thickening may be due to decompressed status versus cystitis. No stones. Reproductive: Unremarkable as visualized. ABDOMEN and PELVIS: Intraperitoneal space: Unremarkable. No free air. No significant fluid collection. Bones/joints: The hips and pelvis are intact. No acute fracture or dislocation is seen. 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 No acute fracture or subluxation is seen. Soft tissues: Unremarkable. Vasculature: Unremarkable. No abdominal aortic aneurysm. Lymph nodes: Unremarkable. No enlarged lymph nodes. IMPRESSION: 1. The hips and pelvis are intact. No acute fracture or dislocation is seen. 2. Slight bilateral perinephric fat stranding is nonspecific but can be seen in renal insufficiency or pyelonephritis. This is a noncontrast study. 3. 8 mm urinary bladder wall thickening may be due to decompressed status versus cystitis. 4. The appendix is not visible. Bowel loops are nondilated. There is diverticulosis of the sigmoid colon without evidence of acute diverticulitis. There is a large amount of stool in the cecum and right colon measuring up to 7 cm in diameter suggesting possible mild constipation. Electronically signed by: Vasile Robles MD 04/13/24 03:58 AM
--- NOTE | 2024-04-13 04:22 | CT Scan Report ---
Exam(s): CT HEAD Without Contrast EXAM: CT Head Without Intravenous Contrast CLINICAL HISTORY: Reason for exam: Trauma. TECHNIQUE: Axial computed tomography images of the head/brain without intravenous contrast. CTDI is 36.55 mGy and DLP is 2090.17 mGy-cm. Automated exposure control was utilized for the study. A dose lowering technique was utilized adhering to the principles of ALARA. COMPARISON: Prior brain MRI from April 19, 2023. FINDINGS: Brain: Unremarkable. No hemorrhage. No significant white matter disease. No edema. Ventricles: Unremarkable. No ventriculomegaly. Bones/joints: Unremarkable. No acute fracture. Soft tissues: Unremarkable. Sinuses: Unremarkable as visualized. No acute sinusitis. Mastoid air cells: Unremarkable as visualized. No mastoid effusion. IMPRESSION: No evidence of acute intracranial pathology. Electronically signed by: Tianna Mayfield MD 04/13/24 04:20 AM
[2024-04-13 05:46] LABS: Appearance Urine Cloudy (Clear); Bacteria Urine Automated 3+ (None Seen); Bilirubin Urine Negative (Negative); Blood Urine 2+ (Negative); Cast Urine Automated 0-2 /lpf (0-2); Color Urine Yellow; Epithelial Cell Urine Auto 0-2 /hpf (0-2); Glucose Urine UA 3+ (Negative); Ketones Urine Negative (Negative); Leukocyte Esterase Urine 2+ (Negative); Nitrite Urine Positive (Negative); Protein Urine 1+ (Negative); Specific Gravity Urine 1.025 (1.000-1.030); Urobilinogen Urine Negative (Negative); WBC Urine Automated >50 /hpf (0-5)
[2024-04-13] MEDS: ERTAPENEM 1000MG 1,000 MG/10 ML SYR IV STA (06:08)
--- NOTE | 2024-04-13 06:29 | History & Physical Report ---
Date of Service April 13, 2024 Assessment & Plan (1) Acute UTI (urinary tract infection): (2) half-way (current) use of 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/antiplatelets: (3) Infection due to ESBL-producing Escherichia coli: (4) Diabetic peripheral neuropathy associated with type 2 diabetes mellitus: (5) Fall: (6) Right hemiparesis: (7) History of stroke with residual deficit: (8) Weakness: (9) Chronic kidney disease, stage III (moderate): (10) Chronic venous insufficiency: (11) Diabetes mellitus, type 2: (12) Sleep apnea: (13) Acute kidney injury superimposed on CKD: (14) Asthma: Plan Sepsis due to acute urinary tract infection/history of ESBL E. coli UTI/generalized weakness- Follow urine culture and sensitivity Ertapenem 1 g IV every 24 hours Last admission from 03/17-03/22/2024 with sepsis due to ESBL E. coli UTI, with ertapenem IV completed on 03/24/2024 Patient with is tachycardic, febrile, with acute kidney injury Placed on NSS at 80 mL/h x [address] abdomen pelvis shows bladder wall thickness suggestive of cystitis Diabetes mellitus- Hold empagliflozin, metformin, semaglutide Change Tresiba 50 units subcu every morning to glargine 40 units subcu every morning Place on Accu-Cheks with NovoLog SSI as noted History of multiple CVAs with residual deficit/right hemiparesis- Continue aspirin 81 mg every morning, aspirin dipyridamole Hypertension- Continue aspirin as noted, clonidine, nifedipine and telmisartan Change metoprolol to tartrate 500 mg daily to 50 mg p.o. twice daily Hold chlorthalidone Acute kidney injury superimposed on CKD- Creatinine 1.54, with base range 1.3-1.4 Hold chlorthalidone NSS at 80 mL/h x 500 mL Recheck laboratories in a.m. Status post fall/progressive generalized weakness/chronically right upper extremity lower extremity weakness secondary to CVA- Patient should likely be considered for inpatient rehab on discharge History of Present Illness Chief Complaint: The patient presents to the emergency department after reporting that he fell off the toilet at home. He denies hitting his head, and has no other complaints of pain. He does report that he has had generalized weakness since he was discharged from the hospital on 03/22/2024, when he was treated for sepsis due to ESBL E. coli UTI. Primary Care Provider: Mik Lala The patient is a 53-year-old male with history including sepsis due to ESBL E. coli UTI, VITOR on CKD, anemia, diabetes mellitus type 2, chronic urinary incontinence, history of CVA x 4, with residual right upper and lower extremity deficits, septic shock, history of MSSA lower extremity infections bilaterally, hypertension, psoriasis, chronic venous insufficiency, CKD stage III, seizure- like activity, and vitamin D deficiency. His most recently admitted to [facility] from 03/17-03/22/2024, when he was treated for sepsis due to ESBL E. coli UTI, which she was treated with ertapenem IV until 03/24/2024. He reports that he has felt generally weak since that time, and had a fall off the toilet earlier this morning. He denied any head injury, but due to being on antiplatelet agents, he did have a CT scan of the head performed in the ED this director blood bank, which showed no acute findings. Urinalysis was suggestive of infection, with history of ESBL E. coli, he was referred for evaluation for admission for IV antibiotics. Allergies Allergy/AdvReac Type Severity Reaction Status Date / Time cephalexin Allergy Intermediate "GENERAL Verified 04/06/24 11:10 ILLNESS"/rash latex Allergy Intermediate Rash Verified 04/06/24 11:10 adalimumab [From Humira] Allergy Mild "made my Verified 04/06/24 11:10 psorasis worse" aspirin Allergy Mild GI Verified 04/06/24 11:10 SYMPTOMS-nausea/vomiting methotrexate Allergy Mild nausea/vomi Verified 04/06/24 11:10 ting Sulfa (Sulfonamide AdvReac Mild general Verified 04/06/24 11:10 Antibiotics) malaise, upset stomach Adhesives AdvReac Mild Skin Uncoded 04/06/24 11:10 irritation Home Medications Medication Instructions Recorded Confirmed Type allopurinol 300 mg tablet 300 mg PO QAM 02/01/19 04/13/24 History coenzyme Q10 100 mg capsule 100 mg PO QDL 02/01/19 04/13/24 History fexofenadine 180 mg tablet 180 mg PO BID #90 tabs 02/01/19 04/13/24 History hydrocortisone 1 % topical cream 1 appln topical DAILY PRN Rash 02/01/19 04/13/24 History montelukast 10 mg tablet 10 mg PO QPM #30 tabs 02/01/19 04/13/24 History propylene glycol 0.6 % eye drops 2 drops ophthalmic (eye) UD PRN 02/01/19 04/13/24 History (Systane Balance) Dry Eye(S) ustekinumab 90 mg/mL subcutaneous 90 mg subcut UD 02/01/19 04/13/24 History syringe (Stelara) ketotifen fumarate 0.025 % (0.035 1 drp ophthalmic (eye) BID 02/02/19 04/13/24 History %) eye drops (Zaditor) multivitamin with minerals 3 tab PO QDL 02/02/19 04/13/24 History (Hair,Skin and Nails tablet) olopatadine 0.2 % eye drops 1 drp ophthalmic (eye) QAM 02/02/19 04/13/24 History (Pataday) fenofibrate nanocrystallized 145 145 mg PO QAM 02/21/20 04/13/24 History mg tablet telmisartan 80 mg tablet 80 mg PO QPM 06/06/20 04/13/24 History blood sugar diagnostic (Accu-Chek #10 ea 09/24/20 04/13/24 History Guide test strips) flash glucose sensor (FreeStyle #1 ea 09/24/20 04/04/24 History Maria 2 Sensor kit) nifedipine 60 mg tablet,extended 60 mg PO QAM 10/29/20 04/13/24 History release folic acid 1 mg tablet 1 mg PO QDL 04/17/21 04/13/24 History spironolactone 25 mg tablet 12.5 mg PO QAM 04/17/21 04/13/24 History methotrexate (PF) 30 mg/0.6 mL 30 mg subcut .weekly 06/24/21 04/13/24 History subcutaneous auto-injector meclizine 25 mg tablet 25 mg PO TID Vertigo 09/25/21 04/13/24 History fluticasone propionate 50 2 spray intranasal QAM #1 g 10/22/21 04/13/24 History mcg/actuation nasal spray,suspension metformin 500 mg tablet,extended 2,000 mg PO QPM 01/27/22 04/13/24 History release 24 hr clonidine HCl 0.3 mg tablet 0.3 mg PO BID 09/14/22 04/13/24 History venlafaxine 225 mg tablet,extended 225 mg PO HS 09/14/22 04/13/24 History release 24 hr rosuvastatin 10 mg tablet 10 mg PO HS 12/28/22 04/13/24 History aspirin 81 mg tablet,delayed 81 mg PO QAM 03/23/23 04/13/24 History release diazepam 5 mg tablet (Valium) 5 mg PO BID PRN Anxiety 03/23/23 04/13/24 History icosapent ethyl 1 gram capsule 1 g PO BID 03/23/23 04/13/24 History timolol 0.5 % eye drops 1 drp ophthalmic (eye) BID 03/23/23 04/13/24 History linaclotide 145 mcg capsule 145 mcg PO QAM 06/16/23 04/13/24 History (Linzess) pantoprazole 40 mg tablet,delayed 40 mg PO DAILY 07/28/23 04/13/24 History release acetaminophen 500 mg tablet 1,300 mg PO UD PRN Pain 08/04/23 04/13/24 History (Acetaminophen Extra Strength) insulin degludec 100 unit/mL (3 50 unit (0.5 mL) subcut QAM #15 mL 09/30/23 04/13/24 Rx mL) subcutaneous pen (Tresiba FlexTouch U-100 insulin) pen needle, diabetic 32 gauge x #500 ea 09/30/23 04/04/24 Rx 5/32" (BD Ultra-Fine [place] Pen Needle) empagliflozin 25 mg tablet 25 mg PO QAM #30 tabs 12/02/23 04/13/24 Rx (Jardiance) budesonide 32 mcg/actuation nasal 2 spray intranasal HS 12/21/23 04/13/24 History spray gabapentin 300 mg capsule 300 mg PO QID 30 days #120 caps 02/03/24 04/13/24 Rx aspirin 25 mg-dipyridamole 200 mg 1 cap PO BID #180 caps 02/24/24 04/13/24 Rx capsule,ext.release 12 hr multiphase chlorthalidone 25 mg tablet 25 mg PO DAILY 03/17/24 04/13/24 History famotidine 20 mg tablet 20 mg PO BID 03/17/24 04/13/24 History metoprolol tartrate 100 mg tablet 100 mg PO UD #0 tabs 03/22/24 04/13/24 Rx insulin aspart U-100 100 unit/mL 30 unit (0.3 mL) subcut TID PRN 04/04/24 04/13/24 Rx (3 mL) subcutaneous pen (Novolog diabetes #30 mL FlexPen U-100 Insulin aspart) Past Med/Surg History Problem List (Updated 04/13/24 @ 06:43 by Solomon Girard MD) Right hemiparesis Sleep apnea asv machine>bipap Diabetes mellitus, type 2 free style maria in use Infection due to ESBL-producing Escherichia coli 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/antiplatelets (Acute) Acute UTI (urinary tract infection) (Acute) Fall (Acute) Weakness (Acute) Acute kidney injury superimposed on CKD Sepsis due to urinary tract infection Acute hypotension (Acute) Shock UTI (urinary tract infection) Sepsis Hypoxia COVID History of CVA (cerebrovascular accident) History of lumbar fusion Urinary incontinence Anemia VITOR (acute kidney injury) Traumatic open wound of left lower leg (Acute) Hypotension (Acute) Complex sleep apnea syndrome Traumatic open wound of right lower leg (Acute) Hypertension (Chronic) Diabetes mellitus, type 2 Kidney stones TMJ syndrome (Acute) Sinus bradycardia (Acute) Obstructive sleep apnea (Acute) Obesity (BMI 35.0-39.9 without comorbidity) (Acute) Lumbar radiculopathy (Acute) Lower back pain (Acute) Joint pain, knee (Acute) Dysesthesia (Acute) Asthma (Acute) History of stroke with residual deficit Psoriasis Depression Vertebral artery stenosis Chronic right occlusion Vertigo Diabetic peripheral neuropathy associated with type 2 diabetes mellitus Dyslipidemia Hypercalciuria Orbital pseudotumor Chronic venous insufficiency (Chronic) Nocturnal hypoxemia Erectile dysfunction Type 2 diabetes mellitus with neurologic complication, with long-term current use of insulin Chronic kidney disease, stage III (moderate) Seizure-like activity Encounter for pre-operative examination Vitamin D deficiency (Acute) Medical History History of kidney stones Diabetes mellitus, type 2 free style maria in use Hyperparathyroidism "possibly" Depression Sarcoidosis dx left eye Hx of transient ischemic attack (TIA) ? November 2022 possibly>follows with Dr. Siu and [facility] neurologist Stroke x 3>last one 2019 (still has vertigo from event, generalized weakness and balance problems) Hyperlipidemia Cardiac murmur follows with Dr. Blankenship Hx of gout Sleep apnea asv machine>bipap Environmental allergies Serum calcium elevated Acquired buried penis Dysarthria Allergic rhinitis Arthralgia of multiple sites Constipation Chronic back pain Fatty liver disease, nonalcoholic GERD (gastroesophageal reflux disease) Psoriasis Glaucoma bilt Hypertension Surgical History History of colonoscopy History of tooth extraction H/O eye surgery left eye biopsy History of lumbar spinal fusion History of removal of cyst at umbilicus History of appendectomy History of esophagogastroduodenoscopy (EGD) History of wisdom tooth extraction History of tonsillectomy and adenoidectomy x2 Status post myringotomy with tube placement of both ears Family History Mother Family history of reaction to anesthesia during heart valve replacement became combative and forgetful Family history of diabetes mellitus Hypertension Stroke, Onset Age: 62 Grandmother (Maternal) Family history of diabetes mellitus Grandfather (Maternal) Family hx of colon cancer Father Stroke, Onset Age: 53 Atherosclerotic cerebrovascular disease patient reported posterior large vessel disease Social History Smoking Status: Unknown if ever smoked Second Hand Exposure: No; Do You Dip or Chew Tobacco: No; Hx Alcohol Use: Yes Alcohol type: wine Alcohol Intake Frequency Comment: STATED DRINKS ONCE WEEKLY Hx Substance Use: No Preferred Language: Austrian Communication Ability: Unable Visual Impairment: No Limitations Hearing Ability: Normal Golf Ball Cover Treater Required: No Beliefs That Will Affect Care: None marital status: Single Current Living Situation: Family Current Living Situation Comment: lives with mom, MOTHER ABLE TO ASSIST WITH CARE NEEDED 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al status: employed and disabled 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[place], 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 Feels Safe at Home: Yes Diet: diabetic, low carbohydrate and low salt Diet Comment: CARB COUNTING during the past year weight has: decreased > 10 lbs Assistive Devices: CPAP Review of Systems Review of Systems: The patient denies chest pain, palpitations, shortness of breath, dyspnea on exertion, cough, lower extremity swelling, sore throat, fevers, chills, sweats, nausea, vomiting, diarrhea , constipation, abdominal pain, pelvic pain, blood in urine or stool, dysuria, urinary frequency or urgency, lightheadedness, dizziness, loss of consciousness, rash, abnormal bruising or bleeding, New focal weakness, numbness or tingling in arms or legs, generalized arthralgias or myalgias, back or neck pain, or night sweats. The review of systems is otherwise negative other than for that already noted above, and at least 10 systems have been reviewed. Physical Exam Physical Exam: The patient is awake, alert and oriented 3, well developed and well nourished, normocephalic and atraumatic, lying in bed and in no acute distress. HEENT--PERRL, EOMI, mucous membranes and oropharynx mildly dry. Neck--supple. No JVD. No bruits. Thyroid normal, trachea midline, no adenopathy. Heart--normal S1 and S2. No murmurs, rubs or gallops. Lungs--clear bilaterally, no respiratory distress, no accessory muscle use. Abdomen--normal bowel sounds and soft. Nontender. Nondistended. Obese Extremities-chronic venous stasis changes. No edema Dermatologic--skin is dry Neurologic--cranial nerves II through XII grossly intact. Right hemiparesis Rheumatologic--normal except for right hemiparesis Psychiatric--normal affect. Results & Data Results & Data Vital Signs (Past 12 Hours) Vital Signs Temp Pulse Pulse Resp BP BP Pulse Ox 04/13/24 06:27 105 H 04/13/24 06:11 37.8 C H 04/13/24 06:00 104 H 18 147/85 H 96 04/13/24 05:00 98 H 18 125/82 97 04/13/24 04:00 18 129/87 96 04/13/24 03:17 94 04/13/24 03:15 18 128/85 93 04/13/24 03:09 98 H 18 130/80 94 04/13/24 02:34 100 H 04/13/24 02:24 37 C 125 H 18 131/78 94 04/13/24 02:24 37 C 18 131/78 94 04/13/24 02:24 37 C 125 H 18 131/78 94 O2 Del Method O2 Flow Rate 04/13/24 06:27 04/13/24 06:11 04/13/24 06:00 Room Air 04/13/24 05:00 Room Air 04/13/24 04:00 Room Air 04/13/24 03:17 Room Air 04/13/24 03:15 Room Air 04/13/24 03:09 Room Air 04/13/24 02:34 04/13/24 02:24 Room Air 04/13/24 02:24 Room Air 04/13/24 02:24 Room Air 94 Laboratory Results Laboratory Results WBC 9.38 K/ul (4.8-10.8) 04/13/24 02:34 RBC 4.15 M/uL (4.70-6.10) L 04/13/24 02:34 Hgb 12.8 g/dl (14.0-18.0) L 04/13/24 02:34 POC Hgb 13.9 g/dl (14.0-18.0) L 04/13/24 02:47 Hct 39.7 % (42.0-52.0) L 04/13/24 02:34 POC Hct 41 % (42-52) L 04/13/24 02:47 MCV 95.7 fL (80.0-100.0) 04/13/24 02:34 MCH 30.8 pg (25.0-34.0) 04/13/24 02:34 MCHC 32.2 g/dL (32.0-36.0) 04/13/24 02:34 RDW Std Deviation 65.7 fL (36.4-46.3) H 04/13/24 02:34 RDW Coeff of Clay 18.6 % (11.5-14.5) H 04/13/24 02:34 Plt Count 162 K/uL (130-400) 04/13/24 02:34 MPV 9.1 fL (9.4-12.4) L 04/13/24 02:34 Immature Gran % (Auto) 0.3 % 04/13/24 02:34 Neut % (Auto) 80.4 % 04/13/24 02:34 Lymph % (Auto) 8.2 % 04/13/24 02:34 Fisher % (Auto) 10.6 % 04/13/24 02:34 Eos % (Auto) 0.4 % 04/13/24 02:34 Baso % (Auto) 0.1 % 04/13/24 02:34 Neut # (Auto) 7.54 K/uL (1.40-6.50) H 04/13/24 02:34 Lymph # (Auto) 0.77 K/uL (1.20-3.40) L 04/13/24 02:34 Fisher # (Auto) 0.99 K/uL (0.11-0.59) H 04/13/24 02:34 Eos # (Auto) 0.04 K/uL (0.00-0.50) 04/13/24 02:34 Baso # (Auto) 0.01 K/uL (0.00-0.20) 04/13/24 02:34 Immature Gran # (Auto) 0.03 K/uL (0.01-0.20) 04/13/24 02:34 POC Sodium 137 mmol/L (135-144) 04/13/24 02:47 Sodium 136 mmol/L (136-145) 04/13/24 02:34 POC Potassium 3.8 mmol/L (3.3-5.0) 04/13/24 02:47 Potassium 3.8 mmol/L (3.5-5.1) 04/13/24 02:34 POC Chloride 101 mmol/L (101-112) 04/13/24 02:47 Chloride 99 mmol/L (98-107) 04/13/24 02:34 Carbon Dioxide 27 mmol/L (21-32) 04/13/24 02:34 POC Total CO2 25 mmol/L (24-31) 04/13/24 02:47 Anion Gap 10 (3-11) 04/13/24 02:34 POC Anion Gap 16.0 mmol/L (16-25) 04/13/24 02:47 POC BUN 23 mg/dl (7-18) H 04/13/24 02:47 BUN 23 mg/dl (6-23) 04/13/24 02:34 Creatinine 1.54 mg/dl (0.6-1.4) H 04/13/24 02:34 POC Creatinine 1.7 mg/dl (0.6-1.3) H 04/13/24 02:47 Est Cr Clr Drug Dosing 66.7 ml/min 04/13/24 02:34 eGFR 53.60 04/13/24 02:34 BUN/Creatinine Ratio 14.9 (10-20) 04/13/24 02:34 Glucose 239 mg/dl (70-99(Fasting)) H 04/13/24 02:34 POC Glucose (other) 240 mg/dl (70-99) H 04/13/24 02:47 Lactate 1.9 mmol/L (0.4-2.0) 04/13/24 02:34 Calcium 10.5 mg/dl (8.6-10.3) H 04/13/24 02:34 POC Ioniz Calcium Tulio 1.30 mmol/l (1.12-1.32) 04/13/24 02:47 Total Bilirubin 1.5 mg/dl (0.2-1.0) H 04/13/24 02:34 AST 16 U/L (13-39) 04/13/24 02:34 ALT 14 U/L (7-52) 04/13/24 02:34 Alkaline Phosphatase 83 U/L (34-104) 04/13/24 02:34 Total Creatine Kinase 67 U/L (30-223) 04/13/24 02:34 Troponin I High Sens 10.5 pg/ml (0-20) 04/13/24 02:34 Total Protein 7.9 gm/dl (6.0-8.3) 04/13/24 02:34 Albumin 4.5 gm/dl (3.4-5.0) 04/13/24 02:34 Globulin 3.4 gm/dl (2.5-4.0) 04/13/24 02:34 Albumin/Globulin Ratio 1.3 (0.9-2) 04/13/24 02:34 Urine Color Yellow 04/13/24 05:17 Urine Appearance Cloudy (Clear) A 04/13/24 05:17 Urine pH 6.0 (4.5-7.5) 04/13/24 05:17 Ur Specific [place] 1.025 (1.000-1.030) 04/13/24 05:17 Urine Protein 1+ (Negative) H 04/13/24 05:17 Urine Glucose (UA) 3+ (Negative) H 04/13/24 05:17 Urine Ketones Negative (Negative) 04/13/24 05:17 Urine Blood 2+ (Negative) H 04/13/24 05:17 Urine Nitrite Positive (Negative) A 04/13/24 05:17 Urine Bilirubin Negative (Negative) 04/13/24 05:17 Urine Urobilinogen Negative (Negative) 04/13/24 05:17 Ur Leukocyte Esterase 2+ (Negative) H 04/13/24 05:17 Urine WBC (Auto) >50 /hpf (0-5) H 04/13/24 05:17 Urine RBC (Auto) 6-10 /hpf (0-2) H 04/13/24 05:17 U Hyaline Cast (Auto) 0-2 /lpf (0-2) 04/13/24 05:17 U Epithel Cells (Auto) 0-2 /hpf (0-2) 04/13/24 05:17 Urine Bacteria (Auto) 3+ (None Seen) H 04/13/24 05:17 Impressions Abdomen/Pelvis CT 04/13/24 02:31 Exam(s): CT ABDOMEN + PELVIS Without Contrast EXAM: CT Abdomen and Pelvis Without Intravenous Contrast CLINICAL HISTORY: Reason for exam: Trauma rt hip pain. TECHNIQUE: Axial computed tomography images of the abdomen and pelvis without intravenous contrast. CTDI is 36.55 mGy and DLP is 2090.17 mGy-cm. Automated exposure control was utilized for the study. A dose lowering technique was utilized adhering to the principles of ALARA. COMPARISON: March 17, 2024 FINDINGS: Lung bases: Unremarkable. No mass. No consolidation. ABDOMEN: Liver: The liver is enlarged measuring 24 cm craniocaudad. No focal liver lesion is seen. Gallbladder and bile ducts: Unremarkable. No calcified stones. No ductal dilation. Pancreas: Unremarkable. No ductal dilation. Spleen: Unremarkable. No splenomegaly. Adrenals: Unremarkable. No mass. Kidneys and ureters: Slight bilateral perinephric fat stranding is nonspecific but can be seen in renal insufficiency or pyelonephritis. This is a noncontrast study. No obstructing stones. Stomach and bowel: See below. PELVIS: Appendix: The appendix is not visible. Bowel loops are nondilated. There is diverticulosis of the sigmoid colon without evidence of acute diverticulitis. There is a large amount of stool in the cecum and right colon measuring up to 7 cm in diameter suggesting possible mild constipation. Bladder: 8 mm urinary bladder wall thickening may be due to decompressed status versus cystitis. No stones. Reproductive: Unremarkable as visualized. ABDOMEN and PELVIS: Intraperitoneal space: Unremarkable. No free air. No significant fluid collection. Bones/joints: The hips and pelvis are intact. No acute fracture or dislocation is seen. 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 No acute fracture or subluxation is seen. Soft tissues: Unremarkable. Vasculature: Unremarkable. No abdominal aortic aneurysm. Lymph nodes: Unremarkable. No enlarged lymph nodes. IMPRESSION: 1. The hips and pelvis are intact. No acute fracture or dislocation is seen. 2. Slight bilateral perinephric fat stranding is nonspecific but can be seen in renal insufficiency or pyelonephritis. This is a noncontrast study. 3. 8 mm urinary bladder wall thickening may be due to decompressed status versus cystitis. 4. The appendix is not visible. Bowel loops are nondilated. There is diverticulosis of the sigmoid colon without evidence of acute diverticulitis. There is a large amount of stool in the cecum and right colon measuring up to 7 cm in diameter suggesting possible mild constipation. Electronically signed by: Vasile Robles MD 04/13/24 03:[address] 04/13/24 02:31 Exam(s): CT HEAD Without Contrast EXAM: CT Head Without Intravenous Contrast CLINICAL HISTORY: Reason for exam: Trauma. TECHNIQUE: Axial computed tomography images of the head/brain without intravenous contrast. CTDI is 36.55 mGy and DLP is 2090.17 mGy-cm. Automated exposure control was utilized for the study. A dose lowering technique was utilized adhering to the principles of ALARA. COMPARISON: Prior brain MRI from April 19, 2023. FINDINGS: Brain: Unremarkable. No hemorrhage. No significant white matter disease. No edema. Ventricles: Unremarkable. No ventriculomegaly. Bones/joints: Unremarkable. No acute fracture. Soft tissues: Unremarkable. Sinuses: Unremarkable as visualized. No acute sinusitis. Mastoid air cells: Unremarkable as visualized. No mastoid effusion. IMPRESSION: No evidence of acute intracranial pathology. 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
--- NOTE | 2024-04-13 06:50 | XRay Report ---
XR chest 1V portable CLINICAL HISTORY: fall, weakness COMPARISON STUDY: Chest radiograph July 30, 2023. Chest CT March 17, 2024. FINDINGS: Lung volumes are normal. Lungs are clear. There is no pneumothorax or pleural effusion. Car diomegaly is again noted. Mediastinal contours are normal. There is no evidence for pulmonary edema. IMPRESSION: No acute cardiopulmonary findings. ACT 112: Negative or not required by law. Electronically signed by: Edilson Fall M.D. 04/13/2024 6:49 AM
--- NOTE | 2024-04-13 07:35 | XRay Report ---
SINGLE VIEW PELVIS CLINICAL HISTORY: Trauma. FINDINGS: An AP, portable, supine view of the pelvis is correlated with pelvic CT dated 03/17/2024. Th e skeletal structures are well mineralized. There is no radiographic evidence of acute fracture invol ving the hips or bony pelvis. Minimal degenerative change is seen in the hips. The sacroiliac joints are normal. Postsurgical changes noted at the lumbosacral junction. The overlying soft tissues are no rmal as visualized. IMPRESSION: No acute bony abnormality is identified. Electronically signed by: Ramirez Seth M.D. 04/13/2024 7:33 AM
--- NOTE | 2024-04-13 11:24 | Electrocardiogram Report ---
Test Reason : Blood Pressure : */* mmHG Vent. Rate : 99 BPM Atrial Rate : 99 BPM P-R Int : 224 ms QRS Dur : 104 ms QT Int : 358 ms P-R-T Axes : 43 -53 47 degrees QTcB Int : 459 ms Sinus rhythm with 1st degree A-V block Left anterior fascicular block Minimal voltage criteria for LVH, may be normal variant Abnormal ECG When compared with ECG of 17-Mar-2024 15:38, Nonspecific T wave abnormality has replaced inverted T waves in Lateral leads Confirmed by Aime Pizano ([id number]) on 04/13/2024 11:24:04 AM Referred By: REFERRED SELF Confirmed By: Aime Pizano
[2024-04-13] MEDS ORDERED: ONDANSETRON INJ 2 MG/ML 2 ML VIAL IV PRN (12:50)
[2024-04-13] MEDS ORDERED: GLUCOSE 40% GEL 15 GM TUBE PO PRN (12:50)
[2024-04-13] MEDS ORDERED: diazePAM 5 MG TABLET PO PRN (12:50)
[2024-04-13] MEDS ORDERED: CARBOHYDRATES FOR HYPOGLYCEMIA PO PRN (12:50)
[2024-04-13] MEDS ORDERED: NON-FORMULARY MEDICATION (Coenzyme Q10 100 mg capsule) PO SCH (12:50)
[2024-04-13] MEDS ORDERED: GLUCAGON FOR INJ 1 MG VIAL SQ PRN (12:50)
[2024-04-13] MEDS ORDERED: GLUCOSE 10 TAB/TUBE PO PRN (12:50)
[2024-04-13] MEDS ORDERED: DEXTROSE 50% 50 ML SYRINGE IV PRN (12:50)
--- OUTSIDE RECORDS SUMMARY | 2024-04-13 13:12 | External Medical Summary | Continuity of Care Document ---
Author Name Unknown Organization [address] Address [address] [place] [id number] Care Team Providers Care Feeder Catcher Tobacco Name Role Phone Mik Lala Primary Care Physician [phone] [id number] Date(s): 04/04/24 - 04/04/[address], [address] [place] [address] [phone] Discharge Disposition: Home or Self Care Attending Physician: TREY Iraheta Sarah A Allergies, Adverse Reactions, Alerts Substance Criticality Severity Reaction Reaction Severity Status sulfa drugs fatigue Active Keflex fatigue Active Biaxin headache general malaise nausea Active Humira rash Active Adhesive bandage rash Act blanca Grass Rash Active Pollen Nasal congestion Act blanca Ragweed Nasal congestion Act blanca Latex Rash Active Immunizations Given and Recorded Vaccine Date Status Refusal Reason influenza virus vaccine, inactivated 06/17/22 Give n influenza virus vaccine, inactivated 04/09/21 Give n influenza virus vaccine, inactivated 04/04/20 Sunil rded influenza virus vaccine, inactivated 03/17/19 Give n influenza virus vaccine, inactivated 03/17/18 Sunil rded influenza virus vaccine, inactivated 04/15/17 Give n influenza virus vaccine, inactivated 03/30/16 Give n influenza virus vaccine, inactivated 03/28/15 Give n influenza virus vaccine, inactivated 03/27/14 Give n influenza virus vaccine, inactivated 04/14/13 Give n influenza virus vaccine, inactivated 03/25/12 Give n SARS-CoV-2 (COVID-19) mRNA BNT-162b2 vax 1 06/16/21 Recorded SARS-CoV-2 (COVID-19) mRNA BNT-162b2 vax 2 11/20/20 Recorded SARS-CoV-2 (COVID-19) mRNA BNT-162b2 vax 3 10/30/20 Recorded hepatitis B adult vaccine 4 10/08/16 Given hepatitis B adult vaccine 03/30/16 Given hepatitis B adult vaccine 11/28/15 Given tetanus/diphtheria/pertuss, acel (Tdap) 04/27/16 G margarita 1Result Comment: 2023-06-21: Historical information-source unspecified 2Result Comment: 2023-06-21: Historical information-source unspecified 3Result Comment: 2023-06-21: Historical information-source unspecified 4Early/Late Reason: Other : busy Medications Accu-Chek CHARLIE Test Strips Start: 06/22/14 2:35:21 PM EST, See Instructions, Disp# 1 box, Refills: 11, Check BSG once daily, Pharmacy: [facility] [id number] Start Date: 06/22/14 Status: Ordered Aggrenox 25 mg-200 mg oral capsule, extended release Start: 08/31/23 1:22:00 PM EST, 1 cap, PO, bid Start Date: 08/31/23 Status: Ordered Albuterol (Eqv-ProAir HFA) 90 mcg/inh inhalation aerosol Start: 08/09/23 10:43:00 AM EST, 2 puff, inhaled, q6h, Disp# 8 g, [id number] Start Date: 08/09/23 Status: Ordered allopurinol 300 mg oral tablet Start: 10/18/23 5:07:00 PM EDT, 1 tab, PO, Daily, Disp# 90 tab, Refills: 1, Pharmacy: [facility] [id number] Start Date: 10/18/23 Status: Ordered aspirin 81 mg oral delayed release tablet Start: 02/06/20 10:25:00 AM EDT, 1 tab, PO, Daily Start Date: 02/06/20 Status: Ordered betamethasone dipropionate, augmented 0.05% topical cream Start: 10/20/23 3:37:00 PM EDT, 1 appl, topical, bid, Disp# 50 g, Refills: 5, apply to elbows and knees, Pharmacy: [id number] Start Date: 10/20/23 Status: Ordered chlorthalidone 25 mg oral tablet Start: 06/02/23 12:59:00 PM EST, 1 tab, PO, Daily, Disp# 90 tab, Refills: 3, [id number] Start Date: 06/02/23 Status: Ordered clindamycin 300 mg oral capsule Start: 02/21/24 3:55:00 PM EDT, 1 cap, PO, qid, Disp# 28 cap, Pharmacy: [id number] Start Date: 02/21/24 Stop Date: 02/28/24 Status: Ordered cloNIDine 0.3 mg oral tablet Start: 02/03/24 3:57:00 PM EDT, 1 tab, PO, bid, Disp# 180 tab, Refills: 0, Pharmacy: [id number] Start Date: 02/03/24 Status: Ordered diazePAM 5 mg oral tablet Start: 02/04/24 9:50:00 AM EDT, See Instructions, Disp# 10 tab, Refills: 2, 0.5-1 tab PO tid prn dizziness, [id number] Start Date: 02/04/24 Status: Ordered famotidine 20 mg oral tablet Start: 01/11/24 11:31:00 AM EDT, See Instructions, Disp# 180 tab, Refills: 3, TAKE 1 TABLET AFTER BREAKFAST AND ONE TABLET BEFORE DINNER, Pharmacy: [id number] Start Date: 01/11/24 Status: Ordered fenofibrate 145 mg oral tablet Start: 09/02/23 8:33:00 AM EST, 1 tab, PO, Daily, Disp# 90 tab, Refills: 3, Pharmacy: [id number] Start Date: 09/02/23 Status: Ordered fexofenadine 180 mg oral tablet Start: 12/02/17 3:13:00 PM EDT, 1 tab, PO, bid, PRN: as needed for allergy symptoms Start Date: 12/02/17 Status: Ordered fluticasone 50 mcg/inh nasal spray Start: 12/13/23 3:43:00 PM EDT, See Instructions, Disp# 3 each, Refills: 3, USE TWO SRPAYS IN EACH NOSTRIL DAILY FOR ALLERGY SYMPTOMS NEEDED, [id number] Start Date: 12/13/23 Status: Ordered folic acid 1 mg oral tablet Start: 07/18/21 2:04:00 PM EST, 1 tab, PO, Daily Start Date: 07/18/21 Status: Ordered gabapentin 300 mg oral capsule Start: 09/23/15 9:04:58 AM EDT, 1 cap, PO, qid, Disp# 90 cap, Refills: 3, [facility] Start Date: 09/23/15 Status: Ordered Icosapent Ethyl 1 g oral capsule Start: 02/25/24 9:53:00 AM EDT, 2 cap, PO, bid, Disp# 120 cap, Refills: 11, Pharmacy: [facility] [id number] Start Date: 02/25/24 Status: Ordered Jardiance 25 mg oral tablet Start: 01/21/21 10:36:00 AM EDT, 1 tab, PO, qAM Start Date: 01/21/21 Status: Ordered Linzess 145 mcg oral capsule Start: 11/15/23 7:41:00 AM EDT, 1 cap, PO, Daily, Disp# 30 cap, Refills: 5, Pharmacy: [facility] [id number] Start Date: 11/15/23 Stop Date: 12/15/23 Status: Ordered meclizine 25 mg oral tablet Start: 12/02/23 11:58:00 AM EDT, 1 tab, PO, tid, Disp# 90 tab, Refills: 5, PRN: NEEDED FOR DIZZINESS, Pharmacy: [id number] Start Date: 12/02/23 Status: Ordered MetFORMIN (Eqv-Glucophage XR) 500 mg oral tablet, extended release Start: 12/31/23 10:03:00 AM EDT, See Instructions, Disp# 360 tab, Refills: 3, TAKE 4 TABLETS BY MOUTH DAILY WITH THE EVENING MEAL, Pharmacy: [facility] [id number] Start Date: 12/31/23 Status: Ordered methotrexate 25 mg/mL injectable solution Start: 07/18/21 2:05:00 PM EST, 0.6ml subq q7days Start Date: 07/18/21 Status: Ordered Metoprolol Tartrate 100 mg oral tablet Start: 10/26/23 11:21:00 AM EDT, See Instructions, Disp# 180 tab, Refills: 1, 1 TAB TWICE DAILY HOLDIF BLOOD PRESSURE IS BELOW 90/50 OR PULSE BELOW 55 PER MINUTE & CALL CLINIC, Pharmacy: [facility] Start Date: 10/26/23 Status: Ordered montelukast 10 mg oral tablet Start: 10/18/23 5:07:00 PM EDT, 1 tab, PO, Daily, Disp# 90 tab, Refills: 1, IN THE PM., Pharmacy: [id number] Start Date: 10/18/23 Status: Ordered multivitamin Start: 10/12/12 10:38:00 AM EDT, 1 tab, PO, Daily Start Date: 10/12/12 Status: Ordered NIFEdipine (Eqv-Procardia XL) 60 mg oral tablet, extended release Start: 06/24/23 8:27:00 AM EST, See Instructions, Disp# 90 tab, Refills: 3, TAKE 1 TABLET BY MOUTH DAILY, Pharmacy: [facility] #[id number] Start Date: 06/24/23 Status: Ordered NovoLOG FlexPen 100 units/mL injectable solution See Instructions, 35 units subQ at breakfast, 40units subq at lunch, and 45 units subq at supper and sliding scale into addition to BG levels Start Date: 09/24/20 Status: Ordered One Touch Basic Profile [address] Start: 10/16/11 4:24:02 PM EDT, See Instructions, Disp# 100 each, Refills: 11, as directed by physician, Pharmacy: [id number] Start Date: 10/16/11 Status: Ordered One Touch Ultra 2 Glucose Monitor Start: 10/16/11 4:25:11 PM EDT, See Instructions, Disp# 1 each, Refills: 0, as instructed by physician, Pharmacy: [facility] Start Date: 10/16/11 Status: Ordered One Touch Ultra Blue Test Strips Start: 10/16/16 1:34:00 PM EDT, See Instructions, Disp# 100 each, Refills: 6, Check blood sugar daily or as directed. Dx. E11.9, [id number] Start Date: 10/16/16 Status: Ordered One Touch Ultrasoft (28G) Lancets Start: 10/15/16 1:40:00 PM EDT, See Instructions, Disp# 1 box, Refills: 11, Check blood sugar daily or as directed. Dx. E11.9, Pharmacy: [facility] Start Date: 10/15/16 Status: Ordered pantoprazole 40 mg oral delayed release tablet Start: 07/12/23 11:03:00 AM EST, 1 tab, PO, Daily, Disp# 90 tab, Refills: 3, Pharmacy: [id number] Start Date: 07/12/23 Stop Date: 07/06/24 Status: Ordered Pataday 0.2% ophthalmic solution Start: 01/11/18 11:38:00 AM EDT, 1 drop, both eyes, Daily, Disp# 2.5 mL, Refills: 0, needs future refills from Ophthalmology, PRN: allergies, Pharmacy: [facility] Start Date: 01/11/18 Status: Ordered Rhinocort Aqua 32 mcg/inh nasal spray Start: 10/13/23 10:31:00 AM EDT, 1 spray, each nostril, Daily Start Date: 10/13/23 Status: Ordered rosuvastatin 10 mg oral tablet Start: 02/25/24 9:53:00 AM EDT, 1 tab, PO, qhs, Disp# 90 tab, Refills: 3, Pharmacy: [id number] Start Date: 02/25/24 Status: Ordered spironolactone 25 mg oral tablet Start: 02/01/24 11:50:00 AM EDT, 0.5 tab, PO, Daily, Disp# 45 tab, Refills: 3, Pharmacy: [facility] Start Date: 02/01/24 Stop Date: 01/26/25 Status: Ordered Stelara Prefilled Syringe 90 mg/mL SQ solution Start: 01/05/24 7:52:00 AM EDT, See Instructions, Disp# 1 mL, Refills: 1, INJECT 90 MG UNDER THE SKINEVERY 90 DAYS, Pharmacy: [facility] Start Date: 01/05/24 Status: Ordered Systane ophthalmic solution Start: 12/07/11 3:36:00 PM EDT, 2 drop, right eye, bid Start Date: 12/07/11 Status: Ordered telmisartan 80 mg oral tablet Start: 12/31/23 10:03:00 AM EDT, 1 tab, PO, Daily, Disp# 90 tab, Refills: 3, Pharmacy: [id number] Start Date: 12/31/23 Status: Ordered triamcinolone 0.1% topical cream Start: 10/20/23 3:38:00 PM EDT, See Instructions, Disp# 454 g, Refills: 3, 1 appl topical bid to psoriasis, [id number] Start Date: 10/20/23 Status: Ordered Tylenol 8 Hour Caplet Start: 08/28/14 2:41:00 PM EST, 1,300 mg =, PO, q8h, as needed Start Date: 08/28/14 Status: Ordered venlafaxine 225 mg oral tablet, extended release Start: 04/14/23 4:00:00 PM EDT, See Instructions, Disp# 90 tab, Refills: 11, TAKE 1 TABLET BY MOUTHEVERY DAY, [id number] Start Date: 04/14/23 Status: Ordered Zaditor 0.025% ophthalmic solution Start: 10/19/13 2:43:00 PM EDT, 1 drop, both eyes, q12h, Disp# 7 mL, PRN: allergy symptoms, Pharmacy: [facility] Start Date: 10/19/13 Status: Ordered Mental Status 04/04/24 Barriers to Learning one year None evide nt Mandatory Health Literacy Documentation Yes Health Literacy Communication Barriers N ever Primary Language Libyan Problem List Condition Confirmation Course Effective Dates Status H ealth Status Informant Allergic rhinitis Confirmed Active Back pain Confirmed Active Pubic bone pain Confirmed Active Bradycardia Confirmed Active Constipation Confirmed Active Depression Confirmed Active DR (diabetic retinopathy) 1 Confirmed 08/20/14 Active Diastolic dysfunction Confirmed Active Dysphagia Confirmed Active HTN (hypertension) Confirmed 06/18/11 Active Hypercalcemia Confirmed Active Orbital pseudotumor Confirmed Active Hyperlipidemia Confirmed Active 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 Obesity (BMI 30.0-39.9) Confirmed 06/18/11 Active CLAY on CPAP Confirmed Active Prolonged Q-T interval on ECG Confirmed Active Proteinuria Confirmed Active Psoriasis Confirmed Active Sarcoidosis of other sites Confirmed Active Complex sleep apnea syndrome Confirmed Active Fatty liver Confirmed Active Stroke, 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 Vertigo Confirmed Active Central nervous system origin vertigo Confirmed Active Weight disorder Confirmed Active 1mild Procedures Procedure Date Related Diagnosis Body Site Status Colonoscopy 1 04/28/23 Completed Colonoscopy 2 03/30/23 Completed Colonoscopy 3 03/30/23 Completed EGD - esophagogastroduodenoscopy 4 03/30/23 Completed Shave biopsy and cauterization of skin 02/02/23 Completed Ultrasound scan of right upp er abdomen 5 07/22/22 Completed Stress echocardiography usin g dobutamine 6 11/17/21 Completed MRI of brain 7 06/24/21 Completed MRI of lumbar spine 8 06/24/21 Com pleted CXR - Chest X-ray 9 02/20/21 Compl eted Orbitotomy, LEFT orbital biopsy 10 01/06/21 Completed ENDOVENOUS LASER 1ST VEIN 11 10/16/20 Completed Barium swallow 12 08/29/20 Complet ed Videofluoroscopy swallow 13 08/29/20 Completed Doppler ultrasonography of v enous structure of limb 14 03/08/20 Completed Colonoscopy 15 02/08/19 Completed Ultrasound-abdomen 16 10/26/17 Com pleted Diabetic retinal eye exam 17, 18 09/16/17 Completed Excision 19 12/12/14 Completed EGD 04/03/13 Completed Adenoidectomy Completed appendectomy Completed fusion of L4-5 Completed Tonsillectomy Completed Umbilical cyst removal Co mpleted veterbral artery dissection Completed 1Preparation of the colon was fair. The rectum, sigmoid colon, descending colon, splenic flexure, transverse colon, hepatic flexure, ascending colon, cecum and recto-sigmoid colon are normal. No specimens collected. Repeat in 10 years. 2Preparation of the colon was inadequate. Stool in the rectum, in the recto-sigmoid colon, in the sigmoid colon in the descending colon, at the splenic flexure and in the transverse colon. No specimens collected. Repeat colonoscopy appt to be scheduled because of poor bowel prep. 3Impression: Preparation of the colon was inadequate. Stool in the rectum, in the recto-sigmoid colon, in the sigmoid colon, in the descending colon, at the splenic flexure and in the transverse colon. No specimens collected. Repeat colonoscopy at appointment to be scheduled because the bowel preparation was poor 4Normal esophagus, stomach, examined duodenum. No specimens collected. 5Impression: Hepatic steatosis is again seen, similar in extent to prior exam. 6Left ventricular systolic function is normal Diastolic dysfunction, Grade II (pseudonormalization pattern) There is mild concentric left ventricular hypertrophy Mild aortic regurgitation Right ventricular systolic pressure is elevated at 30-40mmHg Mild aortic root dilatation Nondiagnostic dobutamine echocardiogram due to inability to achieve target heart rate No evidence of inducible ischemia at the workload achieved 7No acute intracranial abnormalities. 1 cm mucosal polyp versus inclusion cyst involving the right maxillary antrum. 8Mild to moderate degenerative changes with up to moderate canal stenosis. No significant neuroforaminal stenosis. 9No significant change compared to the prior study. No acute process. 10Left-sided anterior orbitotomy by transpalpebral transseptal/transperiorbital approach with biopsy of left lacrimal/orbital neoplasm, injection intralesional triamcinolone 40 mg per mL LEFT 11Right great saphenous cyanoacrylate adhesive endovenous ablation 12Incomplete examination d/t aspiration of barium during the intial swallows. Please refer to same day video swallow for further evaluation. 13Video swallow by speech path. Pt has aspirated on barium swallow but no aspiration on this study. Speech path evaluated patient and thought he had mild oropharygeal dysphagia and recommended speech path therapy. 14US venous doppler right LE No sonographic evidence of deep venous thrombosis. 15Diverticulosis in the sigmoid colon. No specimens collected. Repeat in 10 years. 161) Moderate fatty infiltration of the liver 2) No gallstones or biliary ductal dilatation. 17no diabetic retinopathy 18No diabetic retinopathy either eye 19left neck Vital Signs Most recent to oldest [Reference Range]: 1 Patient Weight 100 kg (04/04/24 1:03 PM) Heart Rate 72 bpm (04/04/24 1:03 PM) Respiratory Rate 18 br/min (04/04/24 1:03 PM) Blood Pressure 158/88mmHg (04/04/24 1:03 PM) BP Location # 1 Left Arm (04/04/24 1:03 PM) Social History Social History Type Response Smoking Status Never smoked cigaret lavell Sex Male Sex Representation Male (finding) Patient Care team information Care Team Personnel Name: TREY Hart Beverly L Position: Nurse Pract - Pulmonary Med Member Role: Lifetime Relationship Address: [address] [place] [address] [place] Name: DO Mcfarlane Amanda Position: Resident Member Role: Lifetime Relationship Address: [address] [place] [address] [place] Name: MD Elissa, Ap Delaney Position: Physician - Gastro Member Role: Lifetime Relationship Address: [address] [place] [address] [place] Name: Megan Erickson Amy Position: Pharmacist Schedule II Member Role: Pharmacy - Lifetime Address: [facility] [address] [place] [address] [place] Name: MD Lala Dongsheng Position: Physician - Family Med Member Role: Primary Care Provider Address: [address] [place] [address] [place] Name: Meagn Jacobson Paul T Position: Pharmacist Schedule II Member Role: Pharmacy - Lifetime Address: [facility] [address] [place] [address] [place] Name: DAMIEN Camargo Lynn Position: Physician Assistant Commissioner Exempt - Vasc Surg Member Role: Lifetime Relationship Address: [address] [place] [address] [address] [place] [address] [place] Name: MD Cherelle, Roberto Melo Position: Provider - Terminated Member Role: Lifetime Relationship Address: [facility] [address] [place] [address] [place] Care Team Related Persons Name: YARELIS ELI Name: ALONDRA ELI
--- NOTE | 2024-04-13 13:46 | Communication Note ---
Date of Service: April 13, 2024 Bridge note: Patient seen approximately noon following quality control chemist admission. He feels he is doing better than last night, and while he did have fevers and chills prior to admission does not feel he has had those in the last couple of hours. Overall feels a little bit better. He does endorse that he has had polyuria and burning with urination for around 2 weeks and did have a little bit of flank pain in the last few days. No questions or concerns at bedside evaluation. Lungs are clear, heart rate is tachycardic but regular. No abdominal pain on palpation. Morning medications remain pending proximately 6 hours following admission. Reviewed with charge to activate medications so critical medications including his antihypertensives, antiplatelet therapy, and metoprolol are given. Patient is clinically progressing, does not appear septic at the bedside, does not have leukocytosis. Given ESBL infection in the past agree with continuing ertapenem daily pending culture speciation and sensitivities.
[2024-04-13] MEDS: allopurinoL 300 MG TAB PO SCH (15:33)
[2024-04-13] MEDS: cloNIDine HCL 0.3 MG TAB PO SCH (15:33)
[2024-04-13] MEDS: LINACLOTIDE 145 MCG CAPSULE PO SCH (15:33)
[2024-04-13] MEDS: FAMOTIDINE 20 MG TAB PO SCH (15:34)
[2024-04-13] MEDS: ASPIRIN 81 MG ECTAB PO SCH (15:34)
[2024-04-13] MEDS: NIFEdipine EXTENDED REL 30 MG TABCR PO SCH (15:34)
[2024-04-13] MEDS: SPIRONOLACTONE 12.5 MG TAB PO SCH (15:34)
[2024-04-13] MEDS: DIPYRIDAMOLE/ASPIRIN CAP PO SCH (15:34)
[2024-04-13] MEDS: FLUTICASONE PROPIONATE NA SPR 16 GM BTL NAE SCH (15:34)
[2024-04-13] MEDS: FENOFIBRATE NANOCRYSTALLIZED 145 MG TABLET PO SCH (15:34)
[2024-04-13] MEDS: FOLIC ACID 1 MG TAB PO SCH (15:34)
[2024-04-13] MEDS: MECLIZINE HCL 25 MG TAB PO SCH (15:34)
[2024-04-13] MEDS: GABAPENTIN 300 MG CAP PO SCH (15:34)
[2024-04-13] MEDS: PANTOprazole 40 MG TAB PO SCH (15:34)
[2024-04-13] MEDS: METOPROLOL TARTRATE 50 MG TAB PO SCH (15:34)
[2024-04-13] MEDS: LANTUS PER UNIT CHARGE SQ SCH (15:37)
[2024-04-13] MEDS: FEXOFENADINE HCL 180 MG TAB PO SCH (15:38)
[2024-04-13] MEDS: HEPARIN SOD 5,000 UNIT/0.5 ML VIAL SQ SCH (15:39)
[2024-04-13] MEDS: SODIUM CHLORIDE 0.9% 1,000 ML IV SCH (15:46)
[2024-04-13] MEDS: INSULIN ASPART PER UNIT CHARGE SC SCH (17:26)
[2024-04-13] MEDS: ACETAMINOPHEN 325 MG TAB PO PRN (17:28)
[2024-04-13] MEDS: LOSARTAN POTASSIUM 50 MG TAB PO SCH (20:29)
[2024-04-13] MEDS: VENLAFAXINE HCL XR 75 MG CAPXR PO SCH (20:32)
[2024-04-13] MEDS: ROSUVASTATIN CALCIUM 10 MG TAB PO SCH (20:32)
[2024-04-13] MEDS: MONTELUKAST SODIUM 10 MG TABLET PO SCH (20:32)
[2024-04-13] MEDS: TIMOLOL MALEATE 0.5% OP SOLN 5 ML BTL OP SCH (20:33)
[2024-04-14 06:26] LABS: Basophils # (auto) 0.03 K/uL (0.00-0.20); Basophils % (auto) 0.4 %; Eosinophils # (auto) 0.15 K/uL (0.00-0.50); Eosinophils % (auto) 2.1 %; Hemoglobin 11.9 g/dl (14.0-18.0); Immature Granulocytes # (auto) 0.01 K/uL (0.01-0.20); Immature Granulocytes % (auto) 0.1 %; Lymphocytes # (auto) 0.89 K/uL (1.20-3.40); Lymphocytes % (auto) 12.4 %; Mean Corpuscular Hemoglobin 31.1 pg (25.0-34.0); Mean Corpuscular Hgb Conc 33.1 g/dL (32.0-36.0); Mean Platelet Volume 8.7 fL (9.4-12.4); Monocytes # (auto) 0.89 K/uL (0.11-0.59); Monocytes % (auto) 12.4 %; Neutrophils # (auto) 5.23 K/uL (1.40-6.50); Neutrophils % (auto) 72.6 %; Platelet Count 148 K/uL (130-400); RDW Coefficient of Variation 18.6 % (11.5-14.5); RDW Standard Deviation 64.1 fL (36.4-46.3); Red Blood Count 3.83 M/uL (4.70-6.10)
[2024-04-14 06:57] LABS: Albumin Globulin Ratio 1.2 (0.9-2); Albumin Level 3.9 gm/dl (3.4-5.0); BUN Creatinine Ratio 14.4 (10-20); Bilirubin,Total 1.3 mg/dl (0.2-1.0); Calcium 9.8 mg/dl (8.6-10.3); Creatinine Clr Calc Pharmacy 46.9 ml/min; Globulin 3.3 gm/dl (2.5-4.0); Magnesium 1.9 mg/dl (1.7-2.4); Potassium 3.6 mmol/L (3.5-5.1); Total Protein 7.2 gm/dl (6.0-8.3)
[2024-04-14 07:19] LABS: Estimated Average Glucose 154 mg/dl
[2024-04-14] MEDS: ERTAPENEM 1000MG 1,000 MG/10 ML SYR IV SCH (08:04)
[2024-04-14] MEDS ORDERED: PHARMACY GLYCEMIC MGMT CONSULT PRN (13:00)
--- NOTE | 2024-04-14 13:01 | Hospitalist Progress Note ---
Date of Service April 14, 2024 Assessment & Plan (1) Acute UTI (urinary tract infection): Plan: Sepsis due to UTI with history of ESBL Continue ertapenem 1 g every 24 hours based on prior culture/sensitivities and ESBL E. coli Last admission with discharge 03/22/2024 with ESBL E. coli treated with ertapenem Tachycardic, febrile, VITOR on admission. Received 500 cc of NSS on admission during a period of critical IV fluid shortage CTA/P suggestive of cystitis Continue to follow for speciation and sensitivities, UCx with GNB 04/14/2024 (2) Diabetic peripheral neuropathy associated with type 2 diabetes mellitus: Plan: Diabetes mellitus- Hold empagliflozin, metformin, semaglutide Change Tresiba 50 units subcu every morning to glargine 40 units subcu every morning BSG POC postprandial 294, morning 157/154. Evening BSG's prior to sleep [id number]. SSI narrowed Pharmacy glycemic consult follow (3) Fall: (4) Right hemiparesis: Plan: History of multiple CVAs with residual deficit/right hemiparesis- Continue aspirin 81 mg every morning, aspirin dipyridamole (5) Weakness: Plan: With worsening generalized weakness in setting of UTI and chronic right upper extremity/right lower extremity weakness due to prior CVA PT/OT will be needed prior to discharge, likely to need inpatient rehab prior to discharge (6) Sleep apnea: Plan: CPAP nightly as needed (7) Acute kidney injury superimposed on CKD: Plan: Baseline creatinine approximately 1.41.6 Creatinine with rise to 1.88 today Chlorthalidone held Remains slightly volume contracted. 500 cc LR given, orals encouraged to due to critical shortage of IV fluids (8) Asthma: Plan Hypertension- Continue aspirin as noted, clonidine, nifedipine and telmisartan Change metoprolol to tartrate 500 mg daily to 50 mg p.o. twice daily Hold chlorthalidone Admission and Anticipated Discharge Date Admission Date: April 13, 2024 Subjective Gianni is seen at the bedside. He reports he feels a little bit better but still very weak, more so than his normal. Was doing better but had a coughing spell and feels that he may have aspirated some of the dry for she was eating for lunch. No fevers chills overnight Physical Exam Physical Exam: General: A&Ox3. NAD. Cooperative. Appears fatigued but nontoxic HEENT: Atraumatic, normocephalic. Vision and hearing grossly intact. Mucous membranes tacky Pulm: CTAB A&P. -wheezes, -rales, -rhonchi. Symmetrical chest rise. No increased work of breathing. No respiratory distress. Cardiac: RRR, -mrg. Radial pulses intact and symmetrical. Abdominal: Nontender, nondistended, soft. BS present. Extremities: Warm and dry Results & Data Results & Data Vital Signs (Past 12 Hours) Vital Signs Temp Pulse Resp BP BP Pulse Ox O2 Del Method 04/14/24 11:52 36.7 C 79 18 106/65 91 Room Air 04/14/24 02:48 37.8 C H 105 H 18 113/77 91 Nasal Cannula O2 Flow Rate 04/14/24 11:52 04/14/24 02:48 3 PG Care Time/CCT Total # of Minutes Spent Total Time Spent with Patient: Total time spent is greater than 50% in coordination of care (as documented) at patient's floor/unit and/or counseling patient: Coding Level of Care Code 99199 SUB INP/OBS CARE 3/50MIN Diagnoses Acute UTI (urinary tract infection) N39.0 Diabetic peripheral neuropathy associated with type 2 diabetes mellitus E11.42 Fall W19.XXXA Encounter type: initial encounter Right hemiparesis G81.91 Weakness R53.1 Sleep apnea G47.30 Acute kidney injury superimposed on CKD N17.9; N18.9 Asthma J45.909 (3) Fall Encounter type: initial encounter Qualified Code(s): W19.XXXA - Unspecified fall, initial encounter
[2024-04-14] MEDS: LACTATED RINGER'S 500 ML IV ONE (13:53)
--- NOTE | 2024-04-14 14:08 | Pharmacy Report ---
Pharmacy Glycemic Short Note 2 - Date of Service April 14, 2024 - Glycemic Short BSG Results (Last 24 hours): 04/13/24 04/13/24 04/13/24 16:31 20:20 23:18 Glucose POC Glucose 196 H 206 H 232 H 04/14/24 04/14/24 04/14/24 05:38 07:16 11:12 Glucose 154 H POC Glucose 157 H 294 H - OUTPATIENT ANTIDIABETIC REGIMEN: * empagliflozin 25mg PO daily * Novolog 10 units SQ TID (+ sliding scale) * Tresiba 15 units SQ qAM (confirmed with patient, also see recent diabetes visit note) * metformin 2gm PO HS * semaglutide 0.5mg SQ weekly HbA1C: 7% ASSESSMENT: * Pt is a 53 year old male admitted with UTI. History of DM on multiple diabetes medications at home. Pharmacy consulted (04/14) to assist with glycemic - management. * BSGs [phone]/dL the last 24h. Patient received 40 units of basal and 10 units of bolus insulin since admission yesterday. * Tolerating diet, receiving IV antibiotics. * Patient received 40 units of Lantus this AM. Home dose (patient reported) is 15 units daily (increased to 20 units daily 04/04 at diabetes visit). Fasting BSG 157mg/dL this AM which is acceptable. Will reassess basal in AM - may need to decrease. Novolog tightened to 20/7 this afternoon by hospitalist - agree with this for now. PLAN FOR INPATIENT GLYCEMIC CONTROL: * Hold outpatient oral diabetes medications * Basal insulin * Lantus 40 units SQ daily * Bolus insulin * NovoLog per scale ACHS or Q6hrs while NPO * Goal Range: Low 100 mg/dL - High 140 mg/dL * Correction Factor: 20 mg/dL/unit * Nutritional / Prandial insulin per carb ratio of 1 unit per 7 grams CHO consumed
[2024-04-15 07:03] LABS: Basophils # (auto) 0.03 K/uL (0.00-0.20); Basophils % (auto) 0.7 %; Eosinophils # (auto) 0.54 K/uL (0.00-0.50); Eosinophils % (auto) 12.1 %; Hematocrit (blood only) 35.9 % (42.0-52.0); Hemoglobin 11.4 g/dl (14.0-18.0); Immature Granulocytes # (auto) 0.01 K/uL (0.01-0.20); Immature Granulocytes % (auto) 0.2 %; Lymphocytes # (auto) 0.89 K/uL (1.20-3.40); Lymphocytes % (auto) 19.9 %; Mean Corpuscular Hemoglobin 30.4 pg (25.0-34.0); Mean Corpuscular Hgb Conc 31.8 g/dL (32.0-36.0); Mean Corpuscular Volume 95.7 fL (80.0-100.0); Mean Platelet Volume 8.8 fL (9.4-12.4); Monocytes # (auto) 0.97 K/uL (0.11-0.59); Monocytes % (auto) 21.7 %; Neutrophils # (auto) 2.03 K/uL (1.40-6.50); Neutrophils % (auto) 45.4 %; Platelet Count 137 K/uL (130-400); RDW Coefficient of Variation 18.4 % (11.5-14.5); RDW Standard Deviation 65.1 fL (36.4-46.3); Red Blood Count 3.75 M/uL (4.70-6.10); White Blood Count 4.47 K/ul (4.8-10.8)
[2024-04-15 07:50] LABS: Albumin Globulin Ratio 1.1 (0.9-2); Albumin Level 3.7 gm/dl (3.4-5.0); BUN Creatinine Ratio 18.4 (10-20); Bilirubin,Total 0.7 mg/dl (0.2-1.0); Calcium 9.7 mg/dl (8.6-10.3); Creatinine Clr Calc Pharmacy 50.7 ml/min; Globulin 3.3 gm/dl (2.5-4.0); Potassium 3.6 mmol/L (3.5-5.1)
[2024-04-15] MEDS: LANTUS PER UNIT CHARGE SC SCH (08:22)
--- NOTE | 2024-04-15 11:07 | Hospitalist Progress Note ---
Date of Service April 15, 2024 Assessment & Plan (1) Acute UTI (urinary tract infection): Plan: Sepsis due to UTI with history of ESBL Continue ertapenem 1 g every 24 hours based on prior culture/sensitivities and ESBL E. coli Last admission with discharge 03/22/2024 with ESBL E. coli treated with ertapenem Tachycardic, febrile, VITOR on admission. Received 500 cc of NSS on admission during a period of critical IV fluid shortage CTA/P suggestive of cystitis Urine culture positive for ESBL E. coli resistant to all agents except ertapenem/meropenem/Zosyn - Last E. coli ESBL infection was 03/17/2024. On a CT 04/13/2024 no prostatic megaly or reproductive abnormalities were noted; patient denies pain with bowel movements and dysuria. He does not have a history of ESBL E. coli UTI prior to 03/17/2024. Given recurrent infection with similar appearing strain would favor extended course of antibiotics for UTI of up to 10-14 days. If he has a recurrent infection after this could consider a 6-week course of treatment for prostatitis however given need for carbapenem, no prostatic findings on imaging, and no clinical symptoms of prostatitis with only second infection will treat for 10-14 days for now and follow progression (2) Diabetic peripheral neuropathy associated with type 2 diabetes mellitus: Plan: Diabetes mellitus- Hold empagliflozin, metformin, semaglutide Continue basal bolus insulin, glycemic control adequate last 24 hours. Current goal [id number], on CF 20/carb ratio (3) Fall: (4) Right hemiparesis: Plan: History of multiple CVAs with residual deficit/right hemiparesis- Continue aspirin 81 mg every morning, aspirin dipyridamole (5) Weakness: Plan: With worsening generalized weakness in setting of UTI and chronic right upper extremity/right lower extremity weakness due to prior CVA Clinically appears to be improving enough to tolerate PT/OT assessments, these have been ordered anticipate rehab needs prior to return home (6) Sleep apnea: Plan: CPAP nightly as needed (7) Acute kidney injury superimposed on CKD: Plan: Baseline creatinine approximately 1.41.6 Creatinine downtrending to 1.74 on 04/15, not yet at baseline but improving Chlorthalidone held Remains slightly volume contracted. Tolerating orals, blood pressure improved. Oral fluids encouraged (8) Asthma: Plan Hypertension- Aspirin, metoprolol continued. Spironolactone held. Losartan temporarily held, nifedipine temporarily held for hypotension. Chlorthalidone held. Will gradually resume these based on BP and fluid status Admission and Anticipated Discharge Date Admission Date: April 13, 2024 Subjective Seen at the bedside. No fever chills or sweats overnight. Was transiently hypotensive last night but blood pressures greatly improved this morning. No lightheadedness or dizziness. He still feels much more weak than his normal but about 50% improved. Does continue to have some scrotal pain as when he fell he landed on the porcelain and has had some bruising and swelling overlying the scrotum. Otherwise he reports he feels that he is progressing, but still weak. No chest pain chest pressure shortness of breath or difficulty breathing Physical Exam Physical Exam: General: A&Ox3. NAD. Cooperative. Appears fatigued but nontoxic HEENT: Atraumatic, normocephalic. Vision and hearing grossly intact. Mucous membranes tacky Pulm: CTAB A&P. -wheezes, -rales, -rhonchi. Symmetrical chest rise. No increased work of breathing. No respiratory distress. Cardiac: RRR, -mrg. Radial pulses intact and symmetrical. Abdominal: Nontender, nondistended, soft. BS present. : Mild diffuse scrotal swelling with contusion without erythema present Extremities: Warm and dry Results & Data Results & Data Vital Signs (Past 12 Hours) Vital Signs Temp Pulse Pulse Resp BP BP Pulse Ox 04/15/24 07:57 120/69 04/15/24 07:00 36.5 C 84 18 96/70 L 97 04/15/24 04:24 36.8 C 87 17 110/69 91 04/15/24 03:55 95 H 04/14/24 23:09 36.8 C 95 H 18 136/81 92 04/14/24 23:00 O2 Del Method O2 Flow Rate 04/15/24 07:57 04/15/24 07:00 Room Air 04/15/24 04:24 Nasal Cannula 2 04/15/24 03:55 04/14/24 23:09 Room Air 04/14/24 23:00 Nasal Cannula 2 PG Care Time/CCT Total # of Minutes Spent Total Time Spent with Patient: Total time spent is greater than 50% in coordination of care (as documented) at patient's floor/unit and/or counseling patient: Coding Level of Care Code 18863 SUB INP/OBS CARE MIN Diagnoses Acute UTI (urinary tract infection) N39.0 Diabetic peripheral neuropathy associated with type 2 diabetes mellitus E11.42 Fall W19.XXXA Encounter type: initial encounter Right hemiparesis G81.91 Weakness R53.1 Sleep apnea G47.30 Acute kidney injury superimposed on CKD N17.9; N18.9 Asthma J45.909 (3) Fall Encounter type: initial encounter Qualified Code(s): W19.XXXA - Unspecified fall, initial encounter
--- NOTE | 2024-04-15 11:13 | Ultrasound Report ---
US scrotum/testicle CLINICAL HISTORY: 53 years-old Male with scrotal pain, swelling. Acute bilateral scrotal pain with s oft tissue swelling COMPARISON STUDY: CT abdomen and pelvis 04/13/2024 TECHNIQUE: Real-time, grayscale, and color Doppler sonography of the testes and scrotum is performed. Images are reviewed in the transverse and longitudinal planes. FINDINGS: RIGHT HEMISCROTUM: The right testis measures 4.9 x 2.6 x 3.1 cm and the parenchyma appears heterogene ous. No intratesticular mass is seen. Normal-appearing arterial inflow is present within the right te sticle. Subcentimeter epididymal head cysts. No varicocele or hydrocele is identified. LEFT HEMISCROTUM: The left testis measures 4.8 x 2.1 x 3.1 cm and the parenchyma appears heterogeneou s. No intratesticular mass is seen. Normal-appearing arterial inflow is present within the left testi carol. The left epididymal head appears normal. No varicocele. Trace hydrocele. Nonspecific scrotal wall subcutaneous edema. IMPRESSION: 1. Nonspecific scrotal wall edema without fluid collection to suggest abscess. 2. No testicular torsion or mass. 3. Nonspecific generally symmetric testicular heterogeneity without hyperemia to suggest acute orchit is. 4. Trace left hydrocele. ACT 112: Negative or not required by law. The above report was generated using voice recognition software. It may contain grammatical, syntax o r spelling errors. Electronically signed by: Fredrick Ferreira M.D. 04/15/2024 11:12 AM
[2024-04-15] MEDS: PLASMA-LYTE A 500 ML IV ONE (12:39)
[2024-04-15] MEDS: PLASMA-LYTE A 1,000 ML IV SCH (13:18)
[2024-04-16 06:43] LABS: Basophils # (auto) 0.02 K/uL (0.00-0.20); Basophils % (auto) 0.5 %; Eosinophils # (auto) 0.63 K/uL (0.00-0.50); Eosinophils % (auto) 16.4 %; Hematocrit (blood only) 36.6 % (42.0-52.0); Hemoglobin 11.7 g/dl (14.0-18.0); Immature Granulocytes # (auto) 0.01 K/uL (0.01-0.20); Immature Granulocytes % (auto) 0.3 %; Lymphocytes # (auto) 1.03 K/uL (1.20-3.40); Lymphocytes % (auto) 26.8 %; Mean Corpuscular Hemoglobin 30.8 pg (25.0-34.0); Mean Corpuscular Volume 96.3 fL (80.0-100.0); Mean Platelet Volume 8.8 fL (9.4-12.4); Monocytes # (auto) 0.88 K/uL (0.11-0.59); Monocytes % (auto) 22.9 %; Neutrophils # (auto) 1.27 K/uL (1.40-6.50); Neutrophils % (auto) 33.1 %; Platelet Count 147 K/uL (130-400); RDW Coefficient of Variation 17.8 % (11.5-14.5); RDW Standard Deviation 63.6 fL (36.4-46.3); White Blood Count 3.84 K/ul (4.8-10.8)
[2024-04-16 07:28] LABS: Albumin Level 3.7 gm/dl (3.4-5.0); Bilirubin,Total 0.5 mg/dl (0.2-1.0); Calcium 9.5 mg/dl (8.6-10.3); Potassium 3.8 mmol/L (3.5-5.1)
[2024-04-16 07:34] LABS: Albumin Globulin Ratio 1.1 (0.9-2); BUN Creatinine Ratio 20.7 (10-20); Creatinine Clr Calc Pharmacy 71.1 ml/min; Globulin 3.3 gm/dl (2.5-4.0)
--- NOTE | 2024-04-16 09:00 | Hospitalist Progress Note ---
Date of Service April 16, 2024 Assessment & Plan (1) Acute UTI (urinary tract infection): Plan: Sepsis due to UTI with history of ESBL Continue ertapenem 1 g every 24 hours based on prior culture/sensitivities and ESBL E. coli Last admission with discharge 03/22/2024 with ESBL E. coli treated with ertapenem Tachycardic, febrile, VITOR on admission. Received 500 cc of NSS on admission during a period of critical IV fluid shortage CTA/P suggestive of cystitis Urine culture positive for ESBL E. coli resistant to all agents except ertapenem/meropenem/Zosyn - Last E. coli ESBL infection was 03/17/2024. On a CT 04/13/2024 no prostatic megaly or reproductive abnormalities were noted; patient denies pain with bowel movements and dysuria. He does not have a history of ESBL E. coli UTI prior to 03/17/2024. Given recurrent infection with similar appearing strain would favor extended course of antibiotics for UTI of up to 10-14 days. If he has a recurrent infection after this could consider a 6-week course of treatment for prostatitis however given need for carbapenem, no prostatic findings on imaging, and no clinical symptoms of prostatitis with only second infection will treat for 10-14 days for now and follow progression Day 1 of antibiotics 04/14/2024, day 04/24/2024. Ultrasound-guided IV needed in anticipation of completing daily ertapenem infusions as outpatient once medically stable to progress to discharge. Blood cultures were not drawn on admission, patient has gram-negative urinary tract infection. Low risk of concern of complications for ultrasound-guided IV compared to a PICC/midline, and in the setting of shortage of blood culture bottles which would likely be sterilized at this point anyway will defer culture prior to ultrasound-guided IV placement. Will plan on having this placed 04/17/2024 (2) Hypotension: Plan: Blood pressures and episodes of hypotension, suspect due to urosepsis slowly improving Aspirin metoprolol continued Spironolactone and losartan, nifedipine, chlorthalidone had all been held. Clonidine had also been held. Clonidine was resumed first to prevent rebound, metoprolol has been on hold and resumed this morning with normal pressures overnight. Ideally would like to see pressures remained stable on at least his home clonidine/metoprolol for 24 hours and then may gradually resume his other antihypertensives. Clinically progressing from sepsis standpoint (3) Diabetic peripheral neuropathy associated with type 2 diabetes mellitus: Plan: Diabetes mellitus- Hold empagliflozin, metformin, semaglutide Continue basal bolus insulin, glycemic control adequate last 24 hours. Current goal [id number], on CF 20/carb ratio (4) Fall: (5) Right hemiparesis: Plan: History of multiple CVAs with residual deficit/right hemiparesis- Continue aspirin 81 mg every morning, aspirin dipyridamole (6) Weakness: Plan: With worsening generalized weakness in setting of UTI and chronic right upper extremity/right lower extremity weakness due to prior CVA Worked well with OT today, PT is pending (7) Sleep apnea: Plan: CPAP nightly as needed (8) Acute kidney injury superimposed on CKD: Plan: Baseline creatinine approximately 1.41.6 Creatinine has normalized, appears slightly volume contracted to near euvolemic today, mild tachycardia. Chlorthalidone remains held (9) Asthma: Plan: No acute exacerbation Admission and Anticipated Discharge Date Admission Date: April 13, 2024 Subjective Seen at the bedside. Subjectively color and engagement is greatly improved from prior day. He reports no fever chills or sweats or lightheadedness overnight. Does continue to have some burning when he pees, and has some tenderness in his abdomen which correlates to a small bruise from subcu injection. Worked with OT this morning, is pending PT this afternoon. Physical Exam Physical Exam: General: A&Ox3. NAD. Cooperative. Appears fatigued but nontoxic HEENT: Atraumatic, normocephalic. Vision and hearing grossly intact. Mucous membranes tacky Pulm: CTAB A&P. -wheezes, -rales, -rhonchi. Symmetrical chest rise. No increased work of breathing. No respiratory distress. Cardiac: RRR, -mrg. Radial pulses intact and symmetrical. Abdominal: Scant ecchymosis at left lower abdomen at site of subcu prior injection with tenderness superficially, otherwise nontender, nondistended, soft. BS present. Extremities: Warm and dry Results & Data Results & Data Vital Signs (Past 12 Hours) Vital Signs Temp Pulse Pulse Resp BP Pulse Ox O2 Del Method 04/16/24 08:02 36.7 C 87 18 137/72 96 CPAP 04/16/24 03:39 36.6 C 79 16 125/80 93 CPAP 04/16/24 03:35 78 17 93 04/16/24 02:04 81 04/15/24 23:12 36.6 C 84 16 135/88 93 CPAP 04/15/24 22:23 81 18 94 FiO2 04/16/24 08:02 04/16/24 03:39 04/16/24 03:35 21 04/16/24 02:04 04/15/24 23:12 04/15/24 22:23 21 PG Care Time/CCT Total # of Minutes Spent Total Time Spent with Patient: Total time spent is greater than 50% in coordination of care (as documented) at patient's floor/unit and/or counseling patient: Coding Level of Care Code 28124 SUB INP/OBS CARE 350MIN Diagnoses Acute UTI (urinary tract infection) N39.0 Hypotension, unspecified hypotension type I95.9 Hypotension type: unspecified hypotension type Diabetic peripheral neuropathy associated with type 2 diabetes mellitus E11.42 Fall W19.XXXA Encounter type: initial encounter Right hemiparesis G81.91 Weakness R53.1 Sleep apnea G47.30 Acute kidney injury superimposed on CKD N17.9; N18.9 Asthma J45.909 (2) Hypotension Hypotension type: unspecified hypotension type Qualified Code(s): I95.9 - Hypotension, unspecified (4) Fall Encounter type: initial encounter Qualified Code(s): W19.XXXA - Unspecified fall, initial encounter
[2024-04-16] MEDS: LANTUS PER UNIT CHARGE SC SCH ×2 (09:01→21:07)
[2024-04-16] MEDS: INSULIN ASPART PER UNIT CHARGE SC SCH (11:47)
--- NOTE | 2024-04-16 13:26 | Pharmacy Report ---
Pharmacy Glycemic Short Note 2 - Date of Service April 16, 2024 - Glycemic Short BSG Results (Last 24 hours): 04/15/24 04/15/24 04/16/24 16:28 20:56 06:00 Glucose 106 H POC Glucose 108 H 104 H 04/16/24 04/16/24 07:27 11:05 Glucose POC Glucose 105 H 169 H - OUTPATIENT ANTIDIABETIC REGIMEN: * empagliflozin 25mg PO daily * Novolog 10 units SQ TID (+ sliding scale) * Tresiba 15 units SQ qAM (confirmed with patient, also see recent diabetes visit note) * metformin 2gm PO HS * semaglutide 0.5mg SQ weekly HbA1C: 7% (04/14/24) ASSESSMENT: 04/15/24: * Blood sugars have been reasonably controlled thus far w/ intermittent highs at lunchtime * Current basal dosing is above patient's home dose and given significant improvement in fasting BSG will decrease basal further today 04/14/24: * Pt is a 53 year old male admitted with UTI. History of DM on multiple diabetes medications at home. Pharmacy consulted (04/14) to assist with glycemic - management. * BSGs [phone]/dL the last 24h. Patient received 40 units of basal and 10 units of bolus insulin since admission yesterday. * Tolerating diet, receiving IV antibiotics. * Patient received 40 units of Lantus this AM. Home dose (patient reported) is 15 units daily (increased to 20 units daily 04/04 at diabetes visit). Fasting BSG 157mg/dL this AM which is acceptable. Will reassess basal in AM - may need to decrease. Novolog tightened to 20/7 this afternoon by hospitalist - agree with this for now. PLAN FOR INPATIENT GLYCEMIC CONTROL: * Hold outpatient oral diabetes medications * Basal insulin * Lantus 20 units SC daily * Lantus 0-5-10 units SC HS * Bolus insulin * NovoLog per scale ACHS or Q6hrs while NPO * Goal Range: Low 110 mg/dL - High 140 mg/dL * Correction Factor: 25 mg/dL/unit * Nutritional / Prandial insulin per carb ratio of 1 unit per 6 grams CHO consumed w/ breakfast, 1 unit per 7 grams CHO consumed w/ lunch, dinner, and at HS
[2024-04-17 06:31] LABS: Hematocrit (blood only) 34.9 % (42.0-52.0); Hemoglobin 11.2 g/dl (14.0-18.0); Mean Corpuscular Hemoglobin 30.8 pg (25.0-34.0); Mean Corpuscular Hgb Conc 32.1 g/dL (32.0-36.0); Mean Corpuscular Volume 95.9 fL (80.0-100.0); Mean Platelet Volume 8.7 fL (9.4-12.4); Platelet Count 156 K/uL (130-400); RDW Coefficient of Variation 17.8 % (11.5-14.5); RDW Standard Deviation 63.6 fL (36.4-46.3); Red Blood Count 3.64 M/uL (4.70-6.10); White Blood Count 3.48 K/ul (4.8-10.8)
[2024-04-17 06:50] LABS: Calcium 9.8 mg/dl (8.6-10.3); Creatinine Clr Calc Pharmacy 76.9 ml/min; Potassium 3.6 mmol/L (3.5-5.1)
[2024-04-17 07:04] LABS: Basophils # (auto) 0.03 K/uL (0.00-0.20); Basophils % (auto) 0.9 %; Eosinophils # (auto) 0.55 K/uL (0.00-0.50); Eosinophils % (auto) 15.8 %; Immature Granulocytes # (auto) 0.02 K/uL (0.01-0.20); Immature Granulocytes % (auto) 0.6 %; Lymphocytes # (auto) 1.29 K/uL (1.20-3.40); Lymphocytes % (auto) 37.1 %; Monocytes # (auto) 0.66 K/uL (0.11-0.59); Neutrophils # (auto) 0.93 K/uL (1.40-6.50); Neutrophils % (auto) 26.6 %
[2024-04-17] MEDS: INSULIN ASPART PER UNIT CHARGE SC SCH (08:10)
[2024-04-17 10:51] VITALS: BP 153/99; PULSE 82; RESP 19; TEMP 97.5; O2SAT 98
--- NOTE | 2024-04-17 10:53 | Discharge Summary ---
Discharge Summary Date of Service April 17, 2024 Principal Dx & Hospital Course #1 = Principal Diagnosis (1) Acute UTI (urinary tract infection): Sepsis due to UTI with history of ESBL. ESBL E. coli isolated. Sensitive to ertapenem which she will continue intravenously daily through April 23 (2) Hypotension: Present on admission. Now resolved. (3) Diabetic peripheral neuropathy associated with type 2 diabetes mellitus: ADA diet. Sliding scale coverage as needed. Oral medications were held on admission. These will be restarted at discharge (4) Fall: Supportive care. OT and PT while hospitalized (5) Right hemiparesis: Chronic. From old CVAs. Continue current medical management (6) Weakness: Present on admission. Associated with UTI and sepsis. Now resolved (7) Acute kidney injury superimposed on CKD: Resolved with IV fluid resuscitation. Monitor intake and output. Plan Home today, April 17. Continue ertapenem daily intravenously through April 23. Admission HPI Per Admitting Provider The patient is a 53-year-old male with history including sepsis due to ESBL E. coli UTI, VITOR on CKD, anemia, diabetes mellitus type 2, chronic urinary incont inence, history of CVA x 4, with residual right upper and lower extremity deficits, septic shock, history of MSSA lower extremity infections bilaterally, hypertension, psoriasis, chronic venous insufficiency, CKD stage III, seizure- like activity, and vitamin D deficiency. His most recently admitted to [facility] from 03/17-03/22/2024, when he was treated for sepsis due to ESBL E. coli UTI, which she was treated with ertapenem IV until 03/24/2024. He reports that he has felt generally weak since that time, and had a fall off the toilet earlier this morning. 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 Urinalysis was suggestive of infection, with history of ESBL E. coli, he was referred for evaluation for admission for IV antibiotics. Discharge Exam General-alert and oriented, no fever, no chills HEENT-head atraumatic and normocephalic, pupils equal and reactive to light, extraocular muscles intact Neck-no lymphadenopathy or thyromegaly, trachea midline Chest-clear to auscultation. No rales, wheezing or rhonchi Cardiac-regular rate and rhythm, normal S1 and S2 Abdomen-normal bowel sounds, no hepatosplenomegaly Extremities-no cyanosis, clubbing, or edema Neuro-cranial nerves II through XII intact, motor and sensory function within normal limits, strength symmetrical, no focal deficits Psych-normal affect, normal mood Discharge Plan Discharge Items Patient Disposition: Home - Self-Care Reason For Visit: SEPSIS DUE TO UTI, S/P FALL, WEAKNESS Discharge Diagnosis: ESBL E. coli UTI, sepsis, acute on chronic kidney disease stage III Activity: Resume your previous activity Non-emergency contact: Primary Care Provider Call non-emergency contact if: your symptoms worsen Follow-up/Referrals: Mik Lala [Primary Care Provider] - Diet: Carb Consistent or DM2 Addtl Attending Provider Instructions: Continue ertapenem antibiotic intravenously daily through April 23 Pending Studies at Discharge: No Stand-Alone Forms: [facility] [facility], Smoking Cessation Medications and DC Order Prescriptions: New ertapenem 1 gram recon soln 1 g IV DAILY 7 Days Qty: 5 0RF Continued (DME) pen needle, diabetic [BD Ultra-Fine [place] Pen Needle] 32 gauge x 5/32" needle See Dose Instructions .ROUTE .MEDSUPPLY Qty: 500 3RF Rx Instructions: For injections up to 5 times per day insulin degludec [Tresiba FlexTouch U-100] 100 unit/mL (3 mL) insulin pen 50 unit SQ QAM Qty: 15 5RF Hold Instructions: having lows Rx Instructions: 15 units SQ qAM per patient (confirmed 04/14/24) Jardiance 25 mg tablet 25 mg PO QAM Qty: 30 5RF gabapentin 300 mg capsule 300 mg PO QID 30 Days Qty: 120 5RF spironolactone 25 mg tablet 12.5 mg PO QAM nifedipine 60 mg tablet extended release 60 mg PO QAM (DME) FreeStyle Maria 2 Sensor Kit See Rx Instructions .ROUTE .MEDSUPPLY Qty: 1 Rx Instructions: As directed (DME) Accu-Chek Guide test strips Strip See Rx Instructions .ROUTE .MEDSUPPLY Qty: 10 Rx Instructions: As directed rosuvastatin 10 mg tablet 10 mg PO HS fenofibrate nanocrystallized 145 mg tablet 145 mg PO QAM telmisartan 80 mg tablet 80 mg PO QPM clonidine HCl 0.3 mg tablet 0.3 mg PO BID venlafaxine 225 mg tablet extended release 24hr 225 mg PO HS allopurinol 300 mg tablet 300 mg PO QAM coenzyme Q10 100 mg capsule 100 mg PO QDL fexofenadine 180 mg tablet 180 mg PO BID Qty: 90 hydrocortisone 1 % cream 1 appln topical DAILY PRN (Reason: Rash) montelukast 10 mg tablet 10 mg PO QPM Qty: 30 Stelara 90 mg/mL syringe 90 mg SQ UD Hold Instructions: Resume on 03/29/24. Hold until you follow-up with your outpatient television equipment operator for further instructions regarding methotrexate and Stelara Rx Instructions: 90 mg SQ once every 3 months ; Systane Balance 0.6 % drops 2 drops OP UD PRN (Reason: Dry Eye(S)) Patient Comments: 2 drp OP 4-6 times a day to right eye PRN; meclizine 25 mg tablet 25 mg PO TID fluticasone propionate 50 mcg/actuation spray,suspension 2 spray intranasal QAM Qty: 1 folic acid 1 mg tablet 1 mg PO QDL methotrexate (PF) 30 mg/0.6 mL auto-injector 30 mg subcut .weekly Hold Instructions: Resume on 03/30/24. Hold until you follow-up with your outpatient television equipment operator for further instructions regarding methotrexate and Stelara Rx Instructions: wed metformin 500 mg tablet extended release 24 hr 2,000 mg PO QPM Linzess 145 mcg capsule 145 mcg PO QAM pantoprazole 40 mg tablet,delayed release (DR/EC) 40 mg PO DAILY insulin aspart U-100 [Novolog FlexPen U-100 Insulin] 100 unit/mL (3 mL) insulin pen 30 unit subcut TID MDD 90 units PRN (Reason: diabetes) Qty: 30 5RF Hold Instructions: having lows Rx Instructions: plus sliding scale aspirin-dipyridamole 25-200 mg capsule, ER multiphase 12 hr 1 cap PO BID Qty: 180 3RF budesonide 32 mcg/actuation spray,non-aerosol 2 spray intranasal HS Rx Instructions: administer into each nostril Ozempic 0.25 mg or 0.5 mg (2 mg/3 mL) pen injector 0.5 mg subcut WK 0RF Rx Instructions: per pt still on 0.5 working towards 1 mg dose. takes on mondays ketotifen fumarate [Zaditor] 0.025 % (0.035 %) Drops 1 drp OPHTHALMIC (EYE) BID Hair,Skin and Nails Tablet 3 tab PO QDL olopatadine [Pataday] 0.2 % Drops 1 drp OPHTHALMIC (EYE) QAM acetaminophen [Acetaminophen Extra Strength] 500 mg tablet 1,300 mg PO UD PRN (Reason: Pain) icosapent ethyl 1 gram Capsule 1 g PO BID aspirin 81 mg tablet,delayed release (DR/EC) 81 mg PO QAM diazepam [Valium] 5 mg Tablet 5 mg PO BID PRN (Reason: Anxiety) timolol 0.5 % Drops 1 drp OPHTHALMIC (EYE) BID famotidine 20 mg tablet 20 mg PO BID chlorthalidone 25 mg tablet 25 mg PO DAILY Patient Comments: qpm Rx Instructions: TAKE 1 TABLET BY MOUTH EVERY DAY metoprolol tartrate 100 mg tablet 100 mg PO UD Qty: 0 0RF Rx Instructions: 1 tab in the morning and half a tablet in the evening Discharge Orders: Discharge Order (Routine); Ordered 04/17/24 Ordered By: Sergey Talavera/Other Patient Handouts: Managing Type 2 Diabetes Admission Data Admit Date/Time: 04/13/24 06:28 Attending Provider: Sergey Wang Admit Provider: Solomon Girard Primary Care Provider: Mik Lala Other Providers: Solomon Girard Hospital Stay Data Consultations 04/13/24 05:59 ED Decision to Admit Stat Diagnostic Imagining Performed 04/13/24 02:31 CT abd pelvis wo con Stat CT head/brain wo con Stat 04/15/24 09:36 US scrotum/testicle Urgent Pending Results Patient Have Any Pending Studies at Discharge: No Discharge Instructions Given to Patient (Per Discharging Provider) Continue ertapenem antibiotic intravenously daily through April 23 Total Time Total Time Spent Total Time Spent (In Minutes): 45 minutes Coding Level of Care Code 61626 INP/OBS DISCH >30 MIN Diagnoses Acute UTI (urinary tract infection) N39.0 Hypotension, unspecified hypotension type I95.9 Hypotension type: unspecified hypotension type Diabetic peripheral neuropathy associated with type 2 diabetes mellitus E11.42 Fall W19.XXXA Encounter type: initial encounter Right hemiparesis G81.91 Weakness R53.1 Acute kidney injury superimposed on CKD N17.9; N18.9
== END 2024-04-17 14:02 | disposition home or self-care (01) | DRG 872 ==
LOC: SUATTDRO → ED 02:23 → EDINP 06:28 → SUATTDRO 06:28 → 2E 14:21